=== PATIENT | female | born 1985 | race Caucasian/White ===

== ENCOUNTER 2020-08-02 17:43 | Emergency (ER) | payer OTHER ==
[~2020-08-02] VITALS: Ht 157.5 cm; Wt 72.6 kg
--- OUTSIDE RECORDS SUMMARY | ~2020-08-02 | XMS | Encounter Summary ---
Demographics + + + | Address | [address] | | | [place] [address] | + + + | Home Phone | | + + + | Preferred Language | Unknown | + + + | Marital Status | | + + + | Catholic Affiliation | Unknown | + + + | Race | White | + + + | Ethnic Group | Not or | + + + Author + + + | Author | [facility] | | | and [place] | + + + | Organization | [facility] | | | and [place] | + + + | Address | Unknown | + + + | Phone | Unavailable | + + + Support + + +---------+ + | Name | Relationship | Address | Phone | + + +---------+ + | Chin Vital | ECON | Unknown | | + + +---------+ + Care Team Providers + +------+ + | Care Life Care Planner Name | Role | Phone | + +------+ + PCP | Unavailable | + +------+ + Encounter Details +--------+ + + + + | Date | Type | Department | Care Team | Description | +--------+ + + + + | 03/25/ | Hospital | [facility] | | | | 1993 | Encounter | MED CTR EM[facility]ENCY | | | | | | [address] | | | | | | [place] | | | | | | [address] | | | | | | [phone] | | | +--------+ + + + + Social History + +-------+ +--------+------+ | Tobacco Use | Types | Packs/Day | Years | Date | | | | | Used | | + +-------+ +--------+------+ | Never Assessed | | | | | + +-------+ +--------+------+ + + + | Sex Assigned at | Date Recorded | | | | + + + | Not on file | | + + + documented as of this encounter Plan of Treatment Not on filedocumented as of this encounter Visit Diagnoses Not on filedocumented in this encounter"
--- OUTSIDE RECORDS SUMMARY | ~2020-08-02 | XMS | Encounter Summary ---
Demographics + + + | Address | [address] | | | [place] [address] | + + + | Home Phone | | + + + | Preferred Language | Unknown | + + + | Marital Status | | + + + | Latter-Day Affiliation | Unknown | + + + | Race | White | + + + | Ethnic Group | Not or | + + + Author + + + | Author | [facility] | | | and [place] | + + + | Organization | [facility] | | | and [...] Team Providers + +------+ + | Care Dish Room Worker Name | Role | Phone | + +------+ + PCP | Unavailable | + +------+ + Encounter Details +--------+ + + + + | Date | Type | Department | Care Team | Description | +--------+ + + + + | 06/27/ | Hospital | [facility] | Rocael Tang MD | | | 2006 | Encounter | MED CTR WOMENS | [address] [facility] | | | | | [facility] [address] | [place], [place] | | | | | [place], | [address] | | | | | [place] [address] | | | | | | [phone] | | | +--------+ + + + [...]
--- OUTSIDE RECORDS SUMMARY | ~2020-08-02 | XMS | Encounter Summary ---
Demographics + + + | Address | [address] | | | [place] [address] | + + + | Home Phone | | + + + | Preferred Language | Unknown | + + + | Marital Status | | + + + | Gnosticist Affiliation | Unknown | + + + | Race | White | + + + | Ethnic Group | Not or | + + + Author + + + | Author | [facility] | | | and [place] | + + + | Organization | [facility] | | | and [...] Team Providers + +------+ + | Care Centrifugal Separator Name | Role | Phone | + +------+ + PCP | Unavailable | + +------+ + Encounter Details +--------+ + + + + | Date | Type | Department | Care Team | Description | +--------+ + + + + | 06/04/ | Hospital | [facility] | Jose E Campos | | | 2010 - | Encounter | MED CTR WOMENS | [address] | | | | | [facility] [address] | [facility] | | | 06/[facility]/ | | [place], | [place] [address] | | | 2010 | | [place] [address] | [phone] | | | | | [phone] | | | +--------+ + + + [...] + + documented as of this encounter H&P Notes Abel Griffin MD - 06/04/2011 8:45 AM PDTDATE: 06/04/2011 CHIEF COMPLAINT: Labor. HISTORY: A 26-year-old, 5, para 2, EDC 06/10/2011 making her 39-1/7 weeks' gestati onal age. The patient admitted with a chief complaint of possible labor. She has had multip le visits and checke d in labor and delivery for possible labor, which have been negative. She now states the contractions are not very frequent, but they are intense. Indeed, she wa s having contractions at approximately 20 -minute intervals. No other problems during her p regnancy other than 1 urinary tract infection, and f rom the records, have a BV in fection early in the . Ultrasounds have confirmed her EDC, and she has had very go od, regular care.PAST MEDICAL HISTORY: Negative. PAST HISTORY: On 09/18/2003 she had a vaginal delivery of a viable female infant weighing 7 pounds 14 ounces. No problems. In 08/2005 she had a spontaneous early and miscarriage. In 06/2006 she had a spontaneous vaginal delivery of a 6 pound 6 ounce fe male. In 05/2009 she had a ano ther spontaneous early miscarriage. FAMILY HISTORY: Entirely negative. Parents and grandparents on both sides are alive and we ll and hav e no stated health problems. SOCIAL HISTORY: Noncontributory. She does not smoke. No alcohol. No recreational drugs. PAST SURGICAL HISTORY: Negative. LABS: Blood type was B positive. Antibody screen was negative. Pap smear normal. Rubella im mune. VDRL nonreactive. Hepatitis B surface antigen was negative. Chlamydia was negative. Quad screen was normal. Beta strep culture was negative. One-hour Glucola was 107 mg%. ALLERGIES: NONE KNOWN. PHYSICAL EXAMINATION VITAL SIGNS: Blood pressure 123/73, pulse was 91, respirations 18, temperature was 36.6 or ally. GENERAL: Well-developed, well-nourished white female in no acute distress. HEENT: Within normal limits. NECK: Supple. No masses. No thyromegaly. LUNGS: Clear to percussion and auscultation. CARDIOVASCULAR: Normal sinus rhythm. No murmurs. No gallops. BREASTS: No masses. No tenderness. ABDOMEN: Gravid. Fundal height was 38 cm. heart tones were present. There were react francoise by ext ernal monitor tracing. PELVIC: Revealed vertex presentation -1 to 0 station, 3 to 4 cm dilatation, 75% effacement with inta ct membranes. EXT NEUROLOGIC: Normal. IMPRESSION 1. A 39-1/7-WEEKS' GESTATIONAL AGE . 2. POSSIBLE EARLY LABOR. PLAN: Expectant management. DICTATED BY: Jacquie Griffin MD Obstetrics/Gynecology JOB #: [id number] EXT JOB #:[id number] EDITED: 06/04/2011 11:01 cc: Jose E Campos DO documented in this encounter Miscellaneous Notes L&D Delivery Note - Dontrell Juarez MD - 06/04/2011 8:45 AM PDTDATE: 06/04/2011 Briefly, Ms. Harmon is a 26-year-old, 5, now para 3, abortus 2 woman, who presente d at 39 we eks' gestation in active labor. She required a continuous lumbar epidural for la bor analgesia and did require Pitocin augmentation following her epidural. She progressed r apidly in labor thereafter, and after the 2nd stage, which lasted approximately 15 minutes, she delivered a vigorous 8 pound 12 ounc e little boy with Apgars of 8 and [address] perineum. There were no nuchal cords. Infant was bulb suctioned on the perineum. Shoulde rs and body followed without difficulty. The was handed to the attending nu rse, who placed the on the maternal abdomen. There was a normal 3 rd stage of labor thereafter with appropriate blood loss. Inspection of the placenta revealed a 3-ves renee umb ilical cord and normal placental morphology. Both mother and infant are doing well in the [facility] diate period. I anticipate a normal course for both. Patria plans to breast fee d and will see Dr. Campos back in the office in 6 weeks for routine post care, sooner for any problems. DICTATED BY: Dontrell Juarez MD Obstetrics/Gynecology JOB #: [id number] EXT JOB #:[id number] cc: Jose E Campos DO <Electronically Signed by Dontrell Juarez MD> 06/07/11 0821 documented in this encounter Plan of Treatment Not on filedocumented as of this encounter Procedures + +--------+ + + + | Procedure Name | Priori | Date/Time | Associated Diagnosis | Comments | | | ty | | | | + +--------+ + + + | HEMOGLOBIN AND | Routin | 06/05/2011 | | Results for this | | HEMATOCRIT | e | 6:38 AM | | procedure are in the | | | | PDT | | results section. | + +--------+ + + + documented in this encounter Results Hemoglobin and Hematocrit (06/05/2011 6:38 AM PDT) + + + + + + | Component | Value | Ref Range | Performed | Pathologist | | | | | At | Signature | + + + + + + | Hemoglobin | 11.3 (L) | 11.5 - 16.0 | [facility] | | | | | gm/dL | [facility] | | | | [facility] | | | | | [facility] - | | | | | | LABORATORY | | + + + + + + | Hematocrit | 34.5 | 34.0 - 47.0 % | [facility] | | | | | [facility] | | | | | | [facility] | | | | | | [facility] - | | | | | | LABORATORY | | + + + + + + + + | Specimen | + + | | + + + + + + + | Performing | Address | City/State/Zipcode | Phone Number | | Organization | | | | + + + + + | [facility] | [address] | [place] | [phone] | | [facility] | | [id number] | | | - LABORATORY | | | | + + + + + | [facility] | [address] | [place] | | | [facility] | | [address] | | | - LABORATORY | | | | + + + + + documented in this encounter Visit Diagnoses Not on filedocumented in this encounter"
--- OUTSIDE RECORDS SUMMARY | ~2020-08-02 | XMS | Encounter Summary ---
Demographics + + + | Address | [address] | | | [place] [address] | + + + | Home Phone | | + + + | Preferred Language | Unknown | + + + | Marital Status | | + + + | Taoism Affiliation | Unknown | + + + | Race | White | + + + | Ethnic Group | Not or | + + + Author + + + | Author | [facility] | | | and [place] | + + + | Organization | [facility] | | [...] Team Providers + +------+ + | Care Hydrogen Power Plant Engineer Name | Role | Phone | + +------+ + | No, Physician | PCP | Unavailable | + +------+ + Encounter Details +--------+ + + + + | Date | Type | Department | Care Team | Description | +--------+ + + + + | 02/07/ | [facility] | [facility] | Salo Cole | Solitary thyroid | | 2017 | Encounter | MED CTR ULTRASOUND | [address] [facility] | nodule | | | | [address] [place] | [place], [place] | | | | | [place] | [address] | | | | | [address] | [phone] | | | | | [phone] | | | | | | | [place]ie [place] | | | | | | Tj, Technologist | | | | | | [place] | | | | | | [address] [address] | | +--------+ + + + + Social History + +-------+ +--------+------+ | Tobacco Use | Types | Packs/Day | Years | Date | | | | | Used | | + +-------+ +--------+------+ | Never Smoker | | | | | + +-------+ +--------+------+ + +---+---+---+ | Smokeless Tobacco: | | | | | Never Used | | | | + +---+---+---+ + + +---------+ + | Alcohol Use | Drinks/Week | oz/Week | Comments | + + +---------+ + | Yes | 1 Standard drinks | 0.8 | | | | or equivalent | | | + + +---------+ + + + + | Sex Assigned at | Date Recorded | | | | + + + | Not on file | | + + + documented as of this encounter Medications at Time of Discharge + + + +---------+ + + | Medication | Sig | Dispensed | Refills | Start | End Date | | | | | | Date | | + + + +---------+ + + | dicyclomine | Take 1 tablet by | 20 | 0 | 01/31/20 | | | (BENTYL) 20 MG | mouth every 6 hours. | tablet | | 15 | 8 | | tablet | | | | | | + + + +---------+ + + documented as of this encounter Plan of Treatment + + +--------+ + + | Name | Type | Priori | Associated Diagnoses | Order Schedule | | | | ty | | | + + +--------+ + + | Medical Cytology | Pathology | Routin | | One Time for 1 | | | and | e | | Occurrences starting | | | Cytology | | | 02/07/2017 until | | | | | | 02/07/2017 | + + +--------+ + + documented as of this encounter Procedures + +--------+ + + + | Procedure Name | Priori | Date/Time | Associated Diagnosis | Comments | | | ty | | | | + +--------+ + + + | US GUIDED THYROID | Routin | 02/07/2017 | Solitary thyroid | Results for this | | FNA | e | 10:56 AM | nodule | procedure are in the | | | | PDT | | results section. | + +--------+ + + + | MEDICAL CYTOLOGY | Routin | 02/07/2017 | | Results for this | | | e | 12:00 AM | | procedure are in the | | | | PDT | | results section. | + +--------+ + + + documented in this encounter Results US Guided Thyroid FNA (02/07/2017 10:56 AM PDT) + + | Specimen | + + | | + + + + | Addenda | + + | Addendum by Fred Stanton MD on 02/08/2017 4:31 PM CYTOLOGIC INTERPRETATION: | | Thyroid, needle sampling: Malignant. Papillary thyroid carcinoma. Dictated and | | Signed by: Fred Stanton MD Electronically signed: 02/08/2017 4:28 PM | + + + + + | Narrative | Performed At | + + + | US GUIDED THYROID FNA 02/07/2017 10:56 AM HISTORY: LEFT THYROID | [facility] | | NODULE. COMPARISON: 01/28/2017 PROTOCOL: After explaining the | | | risks and benefits of the procedure, informed consent was obtained | | | from the patient. Risks discussed included bleeding and infection. | | | Under ultrasound guidance, the dominant left upper pole 2.5 x 1.7 x | | | 1.3 cm heterogeneous nodule with scattered areas of calcification was | | | localized. This region was cleansed and draped in the usual sterile | | | fashion. Lidocaine was used for local anesthesia. Using 25-gauge 1.5 | | | inch needles, biopsy was performed with 3 passes. The samples were | | | injected into CytoLyt solution. IMPRESSION - Successful | | | ultrasound-guided left superior pole thyroid mass biopsy. Dictated | | | and Signed by: Fred Stanton MD Electronically signed: 02/07/2017 | | | 11:35 AM | | + + + + + | Procedure Note | + + | Pavan, Rad Results In - 02/07/2017 11:39 AM PDT US GUIDED THYROID FNA 02/07/2017 10:56 | | AMHISTORY: LEFT THYROID NODULE.COMPARISON: 01/28/2017PROTOCOL:After explaining the risks | | and benefits of the procedure, informed consent wasobtained from the patient. Risks | | discussed included bleeding and infection.Under ultrasound guidance, the dominant left | | upper pole 2.5 x 1.7 x 1.3 cmheterogeneous nodule with scattered areas of calcification | | was localized. Thisregion was cleansed and draped in the usual sterile fashion. | | Lidocaine was usedfor local anesthesia. Using 25-gauge 1.5 inch needles, biopsy was | | performed with3 passes. The samples were injected into CytoLyt solution.IMPRESSION | | -Successful ultrasound-guided left superior pole thyroid mass biopsy.Dictated and Signed | | by: Fred Stanton MD Electronically signed: 02/07/2017 11:35 AM | |heterogeneous nodule with scattered areas of calcification was localized. This | |region was cleansed and draped in the usual sterile fashion. Lidocaine was used | |for local anesthesia. Using 25-gauge 1.5 inch needles, biopsy was performed with | |3 passes. The samples were injected into CytoLyt solution. | | | |IMPRESSION - | |Successful ultrasound-guided left superior pole thyroid mass biopsy. | | | |Dictated and Signed by: Fred Stanton MD | | Electronically signed: 02/07/2017 11:35 AM | + + + +---------+ + + | Performing | Address | City/State/Zipcode | Phone Number | | Organization | | | | + +---------+ + + | [facility] | | | | + +---------+ + + Medical Cytology (02/07/2017 12:00 AM PDT) + + | Specimen | + + | | + + + + + | Narrative | Performed At | + + + | ORDERING PHYSICIAN: Fred Stanton MD PATIENT NAME: SILVA | [facility] | | SHREYA ROBERSON GENDER: Roselyn : 1985 SPECIMEN(S): A | [facility] | | NEEDLE SAMPLING, THYROID GROSS DESCRIPTION: 30 ML OF CLEAR, RED | | | FLUID W/ FRAGMENTS. CLINICAL HISTORY: NO CLINICAL DATA PROVIDED | | | LABORATORY PREPARATIONS: 1 MONOLAYER, 1 CYTOLOGY CELL BLOCK | | | CYTOLOGIC INTERPRETATION: Thyroid, needle sampling: Malignant. | | | Papillary thyroid carcinoma. PATHOLOGIST COMMENTS: The results | | | were called to nurse Janett in the office of Dr. Cole on | | | 02/08/17 at 2:00 p.m. JVR:CLR:[facility] DESCRIPTION: The aspirate is | | | adequately cellular. Nuclear findings typical of papillary thyroid | | | carcinoma are identified. SPECIMEN ADEQUACY: Satisfactory for | | | Evaluation PERFORMING LABORATORY: Technical preparation was | | | performed by [facility] [id number] [facility] | | | [place] [address] and [facility] [address] [facility] | | | [place] [address]. Professional interpretation was performed | | | by [facility] - [address] | | | [place] [address] (Software Solutions Architect: Beau Ray M.D.; | | | [facility]#:[id number]).8 Diagnostician: Rufus LEW ([facility]) | | | Ferryboat Operator Helper Diagnostician: Behzad Alvarado MD | | | Pathologist Diagnostician: Beau Ray MD Pathologist | | | Electronically Signed 02/08/2017 | | + + + + +---------+ + + | Performing | Address | City/State/Zipcode | Phone Number | | Organization | | | | + +---------+ + + | [facility] | | | | | [place] | | | | + +---------+ + + documented in this encounter Visit Diagnoses + + | Diagnosis | + + | Solitary thyroid nodule Nontoxic uninodular goiter | + + documented in this encounter"
--- OUTSIDE RECORDS SUMMARY | ~2020-08-02 | XMS | Encounter Summary ---
Demographics + + + | Address | [address] | | | [place] [address] | + + + | Home Phone | | + + + | Preferred Language | Unknown | + + + | Marital Status | | + + + | Catholic Affiliation | Unknown | + + + | Race | White | + + + | Ethnic Group | Not or | + + + Author + + + | Author | [facility] | | | and [place] | + + + | Organization | [facility] | | [...] Team Providers + +------+ + | Care Stable Hand Name | Role | Phone | + +------+ + PCP | Unavailable | + +------+ + Encounter Details +--------+ + + + + | Date | Type | Department | Care Team | Description | +--------+ + + + + | 10/04/ | Hospital | [facility] | | | | 2004 | Encounter | MED CTR EMERGENCY | | | | | | CENTER [address] | | | | | | [place] | | | | | | [address] | | | | | | [phone] | | | +--------+ + + + [...]
--- OUTSIDE RECORDS SUMMARY | ~2020-08-02 | XMS | Encounter Summary ---
Demographics + + + | Address | [address] | | | [place] [address] | + + + | Home Phone | | + + + | Preferred Language | Unknown | + + + | Marital Status | | + + + | Catholic Affiliation | Unknown | + + + | Race | White | + + + | Ethnic Group | Not or | + + + Author + + + | Author | [facility] | | | and [place] | + + + | Organization | [facility] | | | and [...] Team Providers + +------+ + | Care Conveyor Line Bakery Worker Name | Role | Phone | + +------+ + PCP | Unavailable | + +------+ + Encounter Details +--------+ + + + + | Date | Type | Department | Care Team | Description | +--------+ + + + + | 11/07/ | [facility] | [facility] | Hannah Bliss | | | 2009 | Encounter | MED CTR XRAY [address] | MD Eloisa [place] | | | | | [place] | [facility], | | | | | [place] [address] | [place] [address] | | | | | [phone] | [phone] | | | | | | | | +--------+ + + + [...]
--- OUTSIDE RECORDS SUMMARY | ~2020-08-02 | XMS | Encounter Summary ---
Demographics + + + | Address | [address] | | | [place] [address] | + + + | Home Phone | | + + + | Preferred Language | Unknown | + + + | Marital Status | | + + + | Anabaptist Affiliation | Unknown | + + + | Race | White | + + + | Ethnic Group | Not or | + + + Author + + + | Author | [facility] | | | and [place] | + + + | Organization | [facility] | | | and [place] | + + + | Address | Unknown | + + + | Phone | Unavailable | + + + Support + + +---------+ + | Name | Relationship | Address | Phone | + + +---------+ + | Chin Amanuel | ECON | Unknown | | + + +---------+ + Care Team Providers + +------+ + | Care Textile Chemist Name | Role | Phone | + +------+ + PCP | Unavailable | + +------+ + Encounter Details +--------+ + + + + | Date | Type | Department | Care Team | Description | +--------+ + + + + | 12/01/ | Hospital | [facility] | Taj, | | | 2005 | Encounter | MED CTR EMERGENCY | Rocael Roman MD [address] | | | | | CENTER [address] | [address] [place] | | | | | [place] | [place] [address] | | | | | [address] | [phone] | | | | | [phone] | | | +--------+ + + + [...]
--- OUTSIDE RECORDS SUMMARY | ~2020-08-02 | XMS | Encounter Summary ---
Demographics + + + | Address | [address] | | | [place] [address] | + + + | Home Phone | | + + + | Preferred Language | Unknown | + + + | Marital Status | | + + + | Sabianism Affiliation | Unknown | + + + | Race | White | + + + | Ethnic Group | Not or | + + + Author + + + | Author | [facility] | | | and [place] | + + + | Organization | [facility] | | [...] Team Providers + +------+ + | Care Motor Equipment Commanding Officer Name | Role | Phone | + +------+ + PCP | Unavailable | + +------+ + Encounter Details +--------+ + + + + | Date | Type | Department | Care Team | Description | +--------+ + + + + | 07/28/ | Hospital | [facility] | | | | 2004 | Encounter | MED CTR EMERGENCY | | | | | | [address] | | | | | | [place] | | | | | | [address] | | | | | | [phone] | | | +--------+ + + + [...]
--- OUTSIDE RECORDS SUMMARY | ~2020-08-02 | XMS | Encounter Summary ---
Demographics + + + | Address | [address] | | | [place] [address] | + + + | Home Phone | | + + + | Preferred Language | Unknown | + + + | Marital Status | | + + + | Religion Affiliation | Unknown | + + + | Race | White | + + + | Ethnic Group | Not or | + + + Author + + + | Author | [facility] | | | and [place] | + + + | Organization | [facility] | | | [...] Team Providers + +------+ + | Care Food Or Baggage Handling Rampman Name | Role | Phone | + +------+ + PCP | Unavailable | + +------+ + Encounter Details +--------+ + + + + | Date | Type | Department | Care Team | Description | +--------+ + + + + | 03/27/ | Hospital | [facility] | Jose E Campos | | | 2010 | Encounter | MED CTR WOMENS | [address] | | | | | [facility] [address] | [facility] | | | | | [place], | [place] [address] | | | | | [place] [address] | [phone] | | | | | [phone] | | | +--------+ + + + [...]
--- OUTSIDE RECORDS SUMMARY | ~2020-08-02 | XMS | Encounter Summary ---
Demographics + + + | Address | [address] | | | [place] [address] | + + + | Home Phone | | + + + | Preferred Language | Unknown | + + + | Marital Status | | + + + | Tenriism Affiliation | Unknown | + + + | Race | White | + + + | Ethnic Group | Not or | + + + Author + + + | Author | [facility] | | | and [place] | + + + | Organization | [facility] | | | [...] Providers + +------+ + | Care Dish Stacker Name | Role | Phone | + +------+ + | Juju Rdz NP | PCP | | + +------+ + Reason for Visit + + + | Reason | Comments | + + + | New Patient | varicose veins | + + + Evaluate & Treat (Routine) +--------+--------+ + + + + | Status | Reason | Specialty | Diagnoses / | Referred By | Referred To | | | | | Procedures | Contact | Contact | +--------+--------+ + + + + | Closed | | Surgery / | Diagnoses | Self, | Field, | | | | General | varicose | Referral, | William Roland, | | | | Surgery | veins | , | , FACS [address] | | | | | Procedures | | [address] | | | | | CONSULT | | [place], | | | | | | | [place] [address] | | | | | | | Phone: | | | | | | | [phone] | | | | | | | Fax: | | | | | | | [phone] | +--------+--------+ + + + + Encounter Details +--------+---------+ + + + | Date | Type | Department | Care Team | Description | +--------+---------+ + + + | 04/13/ | Office | [facility] | William Guevara | Varicose veins of | | 2014 | Visit | SURGERY [address] | I, MD, FACS [address] | lower extremities | | | | [address] [facility] [facility], [place] | [address] [facility] | with other | | | | [address] | [place] [address] | complications | | | | [phone] | [phone] | (Primary Dx) | | | | | | | +--------+---------+ + + + Social History + +-------+ [...] + + documented as of this encounter Last Filed Vital Signs + + + + + | Vital Sign | Reading | Time Taken | Comments | + + + + + | Blood Pressure | 100/60 | 04/13/2014 1:56 PM | | | | | PDT | | + + + + + | Pulse | 84 | 04/13/2014 1:56 PM | | | | | PDT | | + + + + + | Temperature | 36.9 C (98.5 F) | 04/13/2014 1:56 PM | | | | | PDT | | + + + + + | Respiratory Rate | 16 | 04/13/2014 1:56 PM | | | | | PDT | | + + + + + | Oxygen Saturation | 99% | 04/13/2014 1:56 PM | | | | | PDT | | + + + + + | Inhaled Oxygen | - | - | | | Concentration | | | | + + + + + | Weight | 59.4 kg (130 lb 14.4 | 04/13/2014 1:56 PM | | | | oz) | PDT | | + + + + + | Height | 160 cm (5' 3") | 04/13/2014 1:56 PM | | | | | PDT | | + + + + + | Body Mass Index | 23.19 | 04/13/2014 1:56 PM | | | | | PDT | | + + + + + documented in this encounter Progress William Davenport MD - 04/13/2014 2:02 PM PDT Patient Identification: Patria Sommer 1985 Is a 29 y.o. female, a patient of [facility]. Chief Complaint: Chief Complaint Patient presents with New Patient varicose veins HISTORY of PRESENT ILLNESS Patients Preliminary Questionaire: How do your varicose veins bother you? Eg- pain, heaviness, unsightly, bleeding, clots. The appearance of them. Which leg is the worst? Both are about the same--worse in high legs. When did you start getting varicose veins ? My first , had 3 pregnancies. Not planning more. Then had tubal ligation. Have you tried wearing compression or support stockings? No Have you had previous treatment for varicosities? Eg injection sclerotherapy, laser or r adiofrequency ablation or surgery ? None. Physician notes: No discomfort. No prior treatment. Runs in the family. No big bulging veins. Walks about 3 miles daily. Gained about 10 lbs in last year. DATA/RECENT IMAGING Juju Rdz's notes were reviewed in clinic today. PAST MEDICAL HISTORY She has a past medical history of Varicose veins (2002). Past Surgical History She Past Surgical History Procedure Date Tubal ligation 2010 Ectopic surgery 2011 No Known Allergies Medications: No outpatient encounter prescriptions on file as of 04/13/2014. Family History: Her family history includes Other (See Comment) in her maternal grandmother and mother. Social History: She reports that she has never smoked. She has never used smokeless tobacco. She reports th at she drinks about .5 ounces of alcohol per week. She reports that she does not use illicit drugs. REVIEW OF SYSTEMS General: [x]Weight gain (over 10 lbs) []Fever/chills [x]Night sweats Hematologic: []Bleeding/brusing tendencies []Blood transfusion []Anemia Heent: []Vision loss []Hearing loss []Sinus problems/nose bleeds []Hoarseness Respiratory: []Wheezing [x]Shortness of breath []Cough []Spitting up blood []On oxygen []Use CPAP machine Cardiac: []Chest pain [x]Palpitations/heart racing []Swelling of ankles/hands [x]Unusual shortness of breath []Difficulty sleeping fla t Gastrointestinal: []Nausea/vomiting []Difficulty swallowing []Heartburn []Loss of appetite []Abdominal pain []Stomach Ulcers []Diarrhea []Constipation []Maximino k or bloody stools Vascular: []Rizzo/TIAs []Fainting []Difficulty with speech []Leg cramps []Pain in feet/legs at rest []Foot ulcers/so res [x]Varicose veins []Phlebitis/blood clots Musculoskeletal: []Joint stiffness/swelling []Join pain []Back pain []Arthritis []Gout Urologic: []Blood in urine []Frequent urination at night []Burning/painful urination []Kidney stones []Difficulty urination []Sexual difficulties Neuro/Psychiatric: [x]Headaches []Seizures []Depression [x]Anxiety attacks [x]Memory loss or confusion PHYSICAL EXAM BP 100/60 | Pulse 84 | Temp 36.9 C (98.5 F) (Temporal) | Resp 16 | Ht 1.6 m (5' 3") | W t 59.376 kg (130 lb 14.4 oz) | BMI 23.19 kg/m2 | SpO2 99% | LMP 04/10/2014 | ? Yes General Appearance: Alert, cooperative, no distress, appears stated age Head: Normocephalic, without obvious abnormality, atraumatic Eyes: PERRL, conjunctiva/corneas clear, EOM's intact Ears: Hearing adequate Nose: Nares normal Throat: Lips, mucosa, and tongue normal; teeth and gums normal Neck: Supple, symmetrical, no adenopathy. Lungs: Breath sounds are equal bilaterally, no wheezes or crackles Chest Wall/Back: No tenderness or deformity. No CVA tenderness Heart: Regular rate and rhythm, no murmur. Abdomen: Soft, non-tender, no pulsatile nor other masses. Skin: Hemosiderin none Ulceration none Edema: none Palpable Pulses*: Femoral Popliteal Dorsalis pedis Post tibial LEFT 2 2 RIGHT 2 2 Neurologic: Cranial nerves II-XII grossly intact, Gait normal ULTRASOUND none done, since no bulging varicosities. Assessment Patria was seen today for new patient. Diagnoses and associated orders for this visit: Varicose veins of lower extremities with other complications Plan 1)Recommend injection sclerotherapy. Probably will be private pay. Probably will do in fall. Return to clinic in pending patients request.. William Guevara MD, FACS Vascular and General Surgery CC: Juju Rdz documented in this encounter Miscellaneous Notes Miscellaneous - ONBASE SCAN WAPR - 04/13/2014 12:00 AM PDT iscellaneous - ONBASE SCAN WAMT - 04/13/2014 12:00 AM PDTEle ctronically signed by Aileen Marr at 04/22/2014 10:59 AM PDTMiscellaneous - ONBASE SCAN GAM T - 04/13/2014 12:00 AM PDT d ocumented in this encounter Plan of Treatment Not on filedocumented as of this encounter Visit Diagnoses + + | Diagnosis | + + | Varicose veins of lower extremities with other complications - Primary | + + documented in this encounter
--- OUTSIDE RECORDS SUMMARY | ~2020-08-02 | XMS | Encounter Summary ---
Demographics + + + | Address | [address] | | | [place] [address] | + + + | Home Phone | | + + + | Preferred Language | Unknown | + + + | Marital Status | | + + + | Yazidi Affiliation | Unknown | + + + | Race | White | + + + | Ethnic Group | Not or | + + + Author + + + | Author | [facility] | | | and [place] | + + + | Organization | [facility] | [...] Team Providers + +------+ + | Care Chemical Cell Changer Name | Role | Phone | + +------+ + PCP | Unavailable | + +------+ + Encounter Details +--------+ + + + + | Date | Type | Department | Care Team | Description | +--------+ + + + + | 03/15/ | Hospital | [facility] | Raphael Camejo | | | 2009 - | Encounter | MED CTR EMERGENCY | [address] | | | | | CENTER [address] | [place] [facility] | | | 03/16/ | | [place] | [place] [address] | | | 2009 | | [address] | [phone] | | | | | [phone] | | | +--------+ + + + [...]
--- OUTSIDE RECORDS SUMMARY | ~2020-08-02 | XMS | Encounter Summary ---
Demographics + + + | Address | [address] | | | [place] [address] | + + + | Home Phone | | + + + | Preferred Language | Unknown | + + + | Marital Status | | + + + | Gnosticism Affiliation | Unknown | + + + | Race | White | + + + | Ethnic Group | Not or | + + + Author + + + | Author | [facility] | | | and [place] | + + + | Organization | [facility] | | | [...] Team Providers + +------+ + | Care Auto Damage Adjuster Name | Role | Phone | + +------+ + PCP | Unavailable | + +------+ + Encounter Details +--------+ + + + + | Date | Type | Department | Care Team | Description | +--------+ + + + + | 02/26/ | Hospital | [facility] | | | | 1991 | Encounter | MED CTR EMERGENCY | | | | | | CENTER [address] | | | | | | [place] | | | | | | [address] | | | | | | [phone] | | | +--------+ + + + [...]
--- OUTSIDE RECORDS SUMMARY | ~2020-08-02 | XMS | Encounter Summary ---
Demographics + + + | Address | [address] | | | [place] [address] | + + + | Home Phone | | + + + | Preferred Language | Unknown | + + + | Marital Status | | + + + | Pentecostal Affiliation | Unknown | + + + | Race | White | + + + | Ethnic Group | Not or | + + + Author + + + | Author | [facility] | | | and [place] | + + + | Organization | [facility] | | | and [...] Team Providers + +------+ + | Care Cw Operator Name | Role | Phone | + +------+ + PCP | Unavailable | + +------+ + Encounter Details +--------+ + + + + | Date | Type | Department | Care Team | Description | +--------+ + + + + | 11/05/ | [facility] | [facility] | Hannah Bliss | | | 2009 | Encounter | MED CTR EMERGENCY | [address] | | | | | CENTER [address] | [facility], | | | | | [place] | [place] [address] | | | | | [address] | [phone] | | | | | [phone] | | | +--------+ + + + [...]
--- OUTSIDE RECORDS SUMMARY | ~2020-08-02 | XMS | Encounter Summary ---
Demographics + + + | Address | [address] | | | [place] [address] | + + + | Home Phone | | + + + | Preferred Language | Unknown | + + + | Marital Status | | + + + | Hoahaoism Affiliation | Unknown | + + + [...] Team Providers + +------+ + | Care Cracking Machine Operator Name | Role | Phone | + +------+ + PCP | Unavailable | + +------+ + Encounter Details +--------+ + + + + | Date | Type | Department | Care Team | Description | +--------+ + + + + | 08/18/ | [facility] | [facility] | Jose E Campos | | | 2011 | Encounter | MED CTR MP INTRA OP | [address] | | | | | [address] | [facility] | | | | | [place] | [place] [address] | | | | | [address] | [phone] | | | | | [phone] | | | +--------+ + + + [...] + + documented as of this encounter Miscellaneous Notes Op Note - Jose E Campos - 08/18/2012 5:46 [place] [address] Patient Name: SHREYA CAMILO Provider: Jose E Campos DO Unit #: [id number] Location : [facility] : 1985 DATE: 08/18/2012 PREOPERATIVE DIAGNOSIS: Left ectopic . POSTOPERATIVE DIAGNOSES: LEFT ECTOPIC . PROCEDURE PERFORMED: Laparoscopic left salpingectomy and removal of the distal portion of right fallopian tube. PRIMARY SURGEON: Jose E Campos DO ANESTHESIA: General. ANESTHESIOLOGIST: Navin Mast MD INDICATIONS FOR PROCEDURE: This is a 27-year-old who had undergone laparoscopic sterilizat ion back in 06/2011, who presented with a complaint of pelvic pain, absence of menses, posi tive test, and ultrasound demonstrating a mass in the left adnexa. DESCRIPTION OF THE OPERATION: After informed consent was obtained, the patient was brought to the operating room. She underwent adequate general anesthetic. She was placed in the do rsal lithotomy position. She was prepped and draped in the usual sterile fashion. A Valtche v uterine manipulator was placed. The umbilicus was infiltrated with 5 mL of 0.5% Marcaine with epinephrine. The Optiview trocar was passed through the umbilical incision, entering t he peritoneal cavity, which was insufflated with CO2. Inspection of the pelvis revealed a l arge amount of blood in the peritoneal structures as well as in the cul-de-sac. Second and third trocar, 5 mm disposables, were placed in the right and left lower quadrants under dir ect visualization after infiltration of the skin with 0.5% Marcaine with epinephrine. Atten tion was then turned to inspection of the right fallopian tube. Distal portion of the right fallopian tube was still present and was normal in appearance. The left fallopian tube, the distal portion was still present and a large ectopic was noted. This was partial ly ruptured. Using a 5 mm LigaSure distal salpingectomy on the patient's left, including th e ectopic was excised without difficulty. We then excised using our LigaSure rashad ce, the distal portion of the right fallopian tube. The specimens were dropped into the pos terior cul-de-sac. An EndoCatch was passed through the umbilicus and the specimens were katelynn jackelyn within the EndoCatch and removed through the umbilicus without difficulty. Copious irri gation of the peritoneal cavity was then performed with return of clear fluid. Pedicle site s were inspected and were noted to be hemostatic. At this time, all laparoscopic instrument s were removed. The abdomen was deflated. The umbilical incision was closed with 4-0 Monocr yl. Our lateral incisions were closed with Steri-Strips, and a sterile bandage was applied. The patient was awakened from her anesthetic, placed on the gurney and brought to the [facility] very room in good condition. ESTIMATED BLOOD LOSS: 10 mL. FLUIDS: 900 mL. URINE OUTPUT: 100 mL. COMPLICATIONS: None. DRAINS: None. DISPOSITION: The patient to recovery in good condition. DICTATED BY: Jose E Campos DO Gynecology JOB #: [id number] EXT JOB #:[id number] <<Signature on File>> Jose E Campos DO08/20/12 1613 < documented in this encounter Plan of Treatment Not on filedocumented as of this encounter Visit Diagnoses Not on filedocumented in this encounter"
--- OUTSIDE RECORDS SUMMARY | ~2020-08-02 | XMS | Encounter Summary ---
Demographics + + + | Address | [address] | | | [place] [address] | + + + | Home Phone | | + + + | Preferred Language | Unknown | + + + | Marital Status | | + + + | Uatsdin Affiliation | Unknown | + + + | Race | White | + + + | Ethnic Group | Not or | + + + Author + + + | Author | [facility] | | | and [place] | + + + | Organization | [facility] | | [...] Team Providers + +------+ + | Care Dance Hall Host/Hostess Name | Role | Phone | + +------+ + | Juju Rdz NP | PCP | | + +------+ + Reason for Visit + + + | Reason | Comments | + + + | Abdominal Pain | | + + + Encounter Details +--------+ + + + + | Date | Type | Department | Care Team | Description | +--------+ + + + + | 01/29/ | Emergency | [facility] | Salo Beaver, | Abdominal pain | | 2015 - | | [facility] | MD [address] | (Primary Dx) | | | | CENTER [address] | [facility] [place] | | | 01/30/ | | [place], [place] | [place] [address] | | | 2014 | | [address] | [phone] | | | | | [phone] | | | +--------+ + + + [...] + + + | Blood Pressure | 103/59 | 01/30/2015 1:07 AM | | | | | PST | | + + + + + | Pulse | 57 | 01/30/2015 1:07 AM | | | | | PST | | + + + + + | Temperature | 36.9 C (98.4 F) | 01/29/2015 11:36 PM | | | | | PST | | + + + + + | Respiratory Rate | 16 | 01/30/2015 1:07 AM | | | | | PST | | + + + + + | Oxygen Saturation | 98% | 01/30/2015 1:07 AM | | | | | PST | | + + + + + | Inhaled Oxygen | - | - | | | Concentration | | | | + + + + + | Weight | 58.1 kg (128 lb) | 01/29/2015 11:36 PM | | | | | PST | | + + + + + | Height | 160 cm (5' 3") | 01/29/2015 11:36 PM | | | | | PST | | + + + + + | Body Mass Index | 22.67 | 01/29/2015 11:36 PM | | | | | PST | | + + + + + documented in this encounter Discharge Instructions Instructions Erica Roa RN - 01/30/2015Take the medication as prescribed Drink plenty of water Follow-up with your primary care provider as scheduled on Saturday Return immediately for increasing pain or fever. AttachmentsThe following attachments cannot be sent through Care Everywhere.ABDOMINAL PAIN, ADULT (URUGUAYAN)documented in this encounter Medications at Time of Discharge [...] + + + +---------+ + + | polyethylene | Take 1 diluted | 500 g | 0 | 01/31/20 | | | glycol (MIRALAX) | capful by mouth | | | 15 | 5 | | powder | Daily for 14 days. | | | | | | | Mix 17grams into 4-8 | | | | | | | oz of juice or | | | | | | | water and take by | | | | | | | mouth once daily as | | | | | | | needed for | | | | | | | constipation | | | | | + + + +---------+ + + documented as of this encounter ED Notes Salo Beaver MD - 01/29/2015 11:58 PM PSTFormatting of this note might be different f rom the original. [facility] Patria Sommer Emergency Department Encounter Note [address] [place] [id number] PCP:Juju Rdz [phone] CHIEF COMPLAINT Chief Complaint Patient presents with Abdominal Pain HPI Patria Sommer is a 29 y.o. female who presents to the emergency department with abdomi nal pain. This patient has had mid abdominal pain for one week. The pain is worse when she eats or takes a deep breath. The pain goes through to her back. She states it feels like she was kicking her in the abdomen. She's had nausea and vomiting. No diarrhea or constipa tion. No urinary tract infection symptoms but she had blood in her urine yesterday briefly. She states that she is not . She had a tubal ligation 3 years ago. No other abdo jose de jesus surgeries. She denies any injuries. No prior similar episodes. She is providing her own history. She is coming by her who is assisting with the history. No fever. N o recent travel. She is not currently on her period. PAST MEDICAL HISTORY Past Medical History Diagnosis Date Varicose veins 2002 SURGICAL HISTORY Past Surgical History Procedure Laterality Date Tubal ligation 2010 Ectopic surgery 2012 CURRENT MEDICATIONS Discharge Medication List as of 01/30/2015 3:41 ALLERGIES No Known Allergies FAMILY HISTORY Family History Problem Relation Age of Onset Other (See Comment) Mother varicose veins Other (See Comment) Maternal Grandmother varicose veins SOCIAL HISTORY History Social History Marital Status: Spouse Name: N/A Number of Children: N/A Years of Education: N/A Social History Main Topics Smoking status: Never Smoker Smokeless tobacco: Never Used Alcohol Use: 0.5 oz/week 1 drink(s) per week Drug Use: No Sexual Activity: None Other Topics Concern None Social History Narrative REVIEW OF SYSTEMS All systems reviewed and found negative except what is in the HPI PHYSICAL EXAM VITAL SIGNS: BP 117/76 | Pulse 79 | Temp(Src) 36.9 C (98.4 F) (Oral) | Resp 16 | H t 1.6 m (5' 3") | Wt 58.06 kg (128 lb) | BMI 22.68 kg/m2 | SpO2 100% | LMP 01/15/2015 | ? No Constitutional: Well developed, Well nourished, No acute distress, Non-toxic appearance. HENT: Normocephalic, Atraumatic, Bilateral external ears normal, Mucous membranes are mois t, Nasal mucosa is normal. Eyes: PERRL, EOMI, Conjunctiva normal, No discharge. Palpebral conjunctiva are pink. Neck: Normal range of motion, No tenderness, Supple, No stridor. Respiratory: Clear to auscultation bilaterally, No respiratory distress, No wheezing Cardiovascular: Normal heart rate, Normal rhythm, No murmurs appreciated. GI: Soft, mild to moderate periumbilical and suprapubic tenderness, No peritoneal signs, N o masses Extremities: Warm and well perfused, no edema, no joint swelling or deformity. Good ROM. Back: No CVAT, No tenderness of the thoracic or lumbar spine. Skin: Warm, Dry, No erythema, No induration, No rash. Neurologic: Alert & oriented x 3, No focal motor or sensory deficits. Speech is clear. G ait is normal. RADIOLOGY Renal CT scan:IMPRESSION: 1. No renal, ureteral or bladder calculus. No hydronephrosis or hydroureter. 2. Large amount of retained feces noted in the right colon and transverse colon suggesting constipation. 3. No other definite acute finding to explain patient's abdominal pain. ED COURSE & MEDICAL DECISION MAKING Pertinent Labs & Imaging studies reviewed. (See chart for details) The patient was seen and examined shortly after arriving in the emergency department. Hist ory and physical were obtained, vital signs were noted. Abdominal pain of unclear etiology. She does have a significant amount of retained stool in the right side colon. I will put her on a stool softener and laxative. I will prescribe some Bentyl. She has an appointment with her primary care provider on Saturday. She needs to increase her fluid intake. She cathi uld return if her pain worsens or if she notes fever. FINAL IMPRESSION 1. Abdominal pain PLAN Follow-up Information Follow up with Juju Rdz NP In 2 days. Specialty: Family Nurse Practitioner Why: as scheduled Contact information: [address] [place] [address] Discharge Medication List as of 01/30/2015 3:41 START taking these medications Details dicyclomine (BENTYL) 20 MG tablet Take 1 tablet by mouth every 6 hours.Disp-20 tablet, R-0, Print polyethylene glycol (MIRALAX) powder Take 1 diluted capful by mouth Daily for 14 days. Mix 17grams into 4-8 oz of juice or water and take by mouth once daily as needed for constipatio nDisp-500 g, R-0, Print Salo Beaver MD 01/30/15 0650 docume nted in this encounter Miscellaneous Notes ED Triage Notes - Erica Roa, RN - 01/29/2015 11:35 PM PSTPatient reports 7/10 l ower abdominal pain x 1 week that radiates to both sides of her back and both shoulders, inc reasing when she takes a deep breath. Pt states pain always occurs after eating and that it "feels like someone is kicking me in the gut". Pt reports nausea, vomiting tonight, no conrad rrhea. Last BM today. No urinary complaints. Pt reports no possibility of . Shelby ctronically signed by Erica Roa RN at 01/29/2015 11:36 PM PSTdocumented in this encounter Plan of Treatment Not on filedocumented as of this encounter Procedures + +--------+ + + + | Procedure Name | Priori | Date/Time | Associated Diagnosis | Comments | | | ty | | | | + +--------+ + + + | CT RENAL STONE WO | STAT | 01/30/2015 | | Results for this | | CONTRAST | | 12:55 AM | | procedure are in the | | | | PST | | results section. | + +--------+ + + + | D-DIMER | STAT | 01/30/2015 | | Results for this | | | | 12:20 AM | | procedure are in the | | | | PST | | results section. | + +--------+ + + + | CBC WITH | STAT | 01/30/2015 | | Results for this | | DIFFERENTIAL | | 12:20 AM | | procedure are in the | | | | PST | | results section. | + +--------+ + + + | LIPASE | STAT | 01/30/2015 | | Results for this | | | | 12:20 AM | | procedure are in the | | | | PST | | results section. | + +--------+ + + + | COMPREHENSIVE | STAT | 01/30/2015 | | Results for this | | METABOLIC PANEL | | 12:20 AM | | procedure are in the | | | | PST | | results section. | + +--------+ + + + | URINALYSIS WITH | STAT | 01/29/2015 | | Results for this | | MICROSCOPIC WITH | | 11:55 PM | | procedure are in the | | CULTURE IF INDICATED | | PST | | results section. | + +--------+ + + + | CULTURE, URINE | Routin | 01/29/2015 | | Results for this | | | e | 11:55 PM | | procedure are in the | | | | PST | | results section. | + +--------+ + + + | POCT URINALYSIS, | STAT | 01/29/2015 | | Results for this | | AUTO WITH CONF | | 11:50 PM | | procedure are in the | | | | PST | | results section. | + +--------+ + + + | POCT TEST, | STAT | 01/29/2015 | | Results for this | | URINE, QUAL | | 11:50 PM | | procedure are in the | | | | PST | | results section. | + +--------+ + + + documented in this encounter Results CT Renal Stone Wo Contrast (01/30/2015 12:55 AM PST) + + | Specimen | + + | | + + + + + | Narrative | Performed At | + + + | EXAM: CT RENAL STONE WO CONTRAST dated 01/30/2015 12:39 AM | [facility] | | HISTORY:ABDOMINAL PAIN. Hematuria. Comparison: None. | | | TECHNIQUE: Imaging is performed from the mid liver through the pubic | | | symphysis without contrast. DOSE: DLP 147.57 mGy-cm FINDINGS: | | | LUNG BASES: The lung bases are clear. There is no visible | | | pleural effusion or pneumothorax. There is no significant | | | pericardial thickening. LIVER: The unenhanced liver is | | | unremarkable. GALLBLADDER: The gallbladder is not distended. | | | There are no calcified cholelithiasis. No visible biliary ductal | | | dilatation. SPLEEN: The unenhanced spleen is unremarkable. | | | PANCREAS: The unenhanced pancreas is grossly unremarkable. | | | ADRENALS: No adrenal enlargement. No adrenal masses. KIDNEYS: | | | Symmetric attenuation of the kidneys. No obstructive uropathy. | | | There is no nephrolithiasis. No perinephric stranding. BOWEL: | | | The gastrointestinal tract is unremarkable. There is no evidence | | | for gastrointestinal tract obstruction. There is no evidence for | | | appendicitis. There is no significant diverticular disease. | | | Moderate retained stool. VASCULATURE AND LYMPH NODES: No | | | aneurysmal dilatation of the abdominal aorta. Lymphadenopathy is | | | difficult to exclude without contrast and given the minimal | | | intra-abdominal fat. None is confidently identified. BLADDER: | | | The bladder is decompressed and not well evaluated. UTERUS AND | | | ADNEXA:The uterus and adnexa are grossly unremarkable. BONES: | | | There are no acute osseous abnormalities. There are no lytic or | | | blastic bone lesions. OTHER: There is no free fluid. There is | | | no free air. IMPRESSION - Negative for acute abdominal or | | | pelvic process. Specifically, no obstructive uropathy or | | | urolithiasis. The preliminary report is provided by Dr. Wing on | | | 01/30/2015 at 3:27:00 AM. Dictated and Signed by: Jose E Haywood, | | | MD Electronically signed: 01/30/2015 9:49 AM | | + + + + + | Procedure Note | + + | Pavan, Rad Results In - 01/30/2015 9:52 AM PDT EXAM: CT RENAL STONE WO CONTRAST dated | | 01/30/2015 12:39 AMHISTORY:ABDOMINAL PAIN. Hematuria. Comparison: None.TECHNIQUE: Imaging | | is performed from the mid liver through the pubic symphysiswithout contrast.DOSE: DLP | | 147.57 mGy-cmFINDINGS: LUNG BASES: The lung bases are clear. There is no visible | | pleural effusion orpneumothorax. There is no significant pericardial thickening.LIVER: | | The unenhanced liver is unremarkable.GALLBLADDER: The gallbladder is not distended. | | There are no calcifiedcholelithiasis. No visible biliary ductal dilatation.SPLEEN: The | | unenhanced spleen is unremarkable.PANCREAS: The unenhanced pancreas is grossly | | unremarkable.ADRENALS: No adrenal enlargement. No adrenal masses.KIDNEYS: Symmetric | | attenuation of the kidneys. No obstructive uropathy. Thereis no nephrolithiasis. No | | perinephric stranding.BOWEL: The gastrointestinal tract is unremarkable. There is no | | evidence forgastrointestinal tract obstruction. There is no evidence for appendicitis. | | There is no significant diverticular disease. Moderate retained stool.VASCULATURE AND | | LYMPH NODES: No aneurysmal dilatation of the abdominal aorta. Lymphadenopathy is | | difficult to exclude without contrast and given the minimalintra-abdominal fat. None is | | confidently identified.BLADDER: The bladder is decompressed and not well | | evaluated.UTERUS AND ADNEXA:The uterus and adnexa are grossly unremarkable.BONES: There | | are no acute osseous abnormalities. There are no lytic or blasticbone lesions.OTHER: | | There is no free fluid. There is no free air.IMPRESSION - Negative for acute abdominal | | or pelvic process. Specifically, no obstructiveuropathy or urolithiasis.The preliminary | | report is provided by Dr. Wing on 01/30/2015 at 3:27:00 AM.Dictated and Signed by: Jose E | | T MD Yobany Electronically signed: 01/30/2015 9:49 AM | | | |PANCREAS: The unenhanced pancreas is grossly unremarkable. | | | |ADRENALS: No adrenal enlargement. No adrenal masses. | | | |KIDNEYS: Symmetric attenuation of the kidneys. No obstructive uropathy. There | |is no nephrolithiasis. No perinephric stranding. | | | |BOWEL: The gastrointestinal tract is unremarkable. There is no evidence for | |gastrointestinal tract obstruction. There is no evidence for appendicitis. | |There is no significant diverticular disease. Moderate retained stool. | | | |VASCULATURE AND LYMPH NODES: No aneurysmal dilatation of the abdominal aorta. | |Lymphadenopathy is difficult to exclude without contrast and given the minimal | |intra-abdominal fat. None is confidently identified. | | | |BLADDER: The bladder is decompressed and not well evaluated. | | | |UTERUS AND ADNEXA:The uterus and adnexa are grossly unremarkable. | | | |BONES: There are no acute osseous abnormalities. There are no lytic or blastic | |bone lesions. | | | |OTHER: There is no free fluid. There is no free air. | | | |IMPRESSION - | | | |Negative for acute abdominal or pelvic process. Specifically, no obstructive | |uropathy or urolithiasis. | | | |The preliminary report is provided by Dr. Wing on 01/30/2015 at 3:27:00 AM. | | | |Dictated and Signed by: Jose E Haywood MD | | Electronically signed: 01/30/2015 9:49 AM | + + + +---------+ + + | Performing | Address | City/State/Un[facility] Hospitalcode | Phone Number | | Organization | | | | + +---------+ + + | [facility] | | | | + +---------+ + + D-Dimer (01/30/2015 12:20 AM PST) + + + + + + | Component | Value | Ref Range | Performed | Pathologist | | | | | At | Signature | + + + + + + | D-Dimer | 0.27Comment: This | <=0.50 ug/ml | [facility] | | | Quantitativ | quantitative D-Dimer | | [facility] | | | e | assay has been evaluated | | MEDICAL | | | | for screening for | | CENTER - | | | | venous thrombotic | | LABORATORY | | | | disease, and may be | | | | | | useful in ruling out, | | | | | | but not ruling in | | | | | | disease. Values less | | | | | | than 0.50 ug/mL FEU | | | | | | (Fibrinogen Equivalent | | | | | | Units) have a negative | | | | | | predictive value of | | | | | | approximately 95% for | | | | | | ruling out large | | | | | | pulmonary emboli or | | | | | | proximal deep vein | | | | | | thrombosis. Distal DVT | | | | | | are not excluded. An | | | | | | elevated D-dimer can be | | | | | | present in patients with | | | | | | liver disease, | | | | | | , eclampsia, | | | | | | heart disease and some | | | | | | cancers among other | | | | | | conditions. The presence | | | | | | of rheumatoid factor at | | | | | | a level >50 IU/mL may | | | | | | falsely elevate the | | | | | | determined D-dimer | | | | | | levels. | | | | + + + + + + + + | Specimen | + + | Blood | + + + + + + + | Performing | Address | City/State/Unm Hospitalcode | Phone Number | | Organization | | | | + + + + + | [facility] | [address] | [place] | [phone] | | [facility] | | [address] | | | - LABORATORY | | | | + + + + + | [facility] | [address] | [place] | | | [facility] | | [address], [place] | | | - LABORATORY | | | | + + + + + Lipase (01/30/2015 12:20 AM PST) + +-------+ + + + | Component | Value | Ref Range | Performed | Pathologist | | | | | At | Signature | + +-------+ + + + | Lipase | 33 | 0 - 60 U/L | [facility] | | | | | | [facility] | | | | | | MEDICAL | | | | | | CENTER - | | | | | | LABORATORY | | + +-------+ + + + + + | Specimen | + + | Blood | + + + + + + + | Performing | Address | City/State/Zipcode | Phone Number | | Organization | | | | + + + + + | [facility] | [address] | [place] | [phone] | | [facility] | | [address] | | | - LABORATORY | | | | + + + + + | [facility] | [address] | [place], [place] | | | [facility] | | [address] | | | - LABORATORY | | | | + + + + + Comprehensive Metabolic Panel (01/30/2015 12:20 AM PST) + + + + + + | Component | Value | Ref Range | Performed | Pathologist | | | | | At | Signature | + + + + + + | Na | 141 | 136 - 149 | [facility] | | | | | mmol/L | [facility] | | | | | | MEDICAL | | | | | | CENTER - | | | | | | LABORATORY | | + + + + + + | K | 3.5 | 3.5 - 5.1 | [facility] | | | | | mmol/L | [facility] | | | | | | MEDICAL | | | | | | CENTER - | | | | | | LABORATORY | | + + + + + + | Cl | 109 | 98 - 109 mmol/L | [facility] | | | | | | [facility] | | | | | | MEDICAL | | | | | | CENTER - | | | | | | LABORATORY | | + + + + + + | CO2 | 24 | 24 - 31 mmol/L | [facility] | | | | | | [facility] | | | | | | MEDICAL | | | | | | CENTER - | | | | | | LABORATORY | | + + + + + + | Anion Gap | 8 | 3 - 16 mmol/L | [facility] | | | | | | [facility] | | | | | | [facility] | | | | | | CENTER - | | | | | | LABORATORY | | + + + + + + | Glucose | 87 | 70 - 109 mg/dL | [facility] | | | | | | [facility] | | | | | | MEDICAL | | | | | | CENTER - | | | | | | LABORATORY | | + + + + + + | BUN | 7 | 7 - 18 mg/dL | [facility] | | | | | | [facility] | | | | | | [facility] | | | | | | CENTER - | | | | | | LABORATORY | | + + + + + + | Creatinine | 0.72 | 0.60 - 1.30 | [facility] | | | | | mg/dL | [facility] | | | | | | MEDICAL | | | | | | CENTER - | | | | | | LABORATORY | | + + + + + + | eGFR, | >60Comment: GLOMERULAR | >=60 | [facility] | | | non- | FILTRATION | mL/min/1.73m2 | [facility] | | | Malagasy | RATE,ESTIMATED | | MEDICAL | | | | mL/min/1.83l2Fudt than | | CENTER - | | | | 60 Chronic kidney | | LABORATORY | | | | disease,if found over a | | | | | | 3-month period.Less than | | | | | | 15 Kidney failureFor | | | | | | | | | | | | Americans,multiply the | | | | | | calculated GFR by 1.21. | | | | | | | | | | + + + + + + | Calcium | 9.2 | 8.3 - 10.5 | [facility] | | | | | mg/dL | [facility] | | | | | | MEDICAL | | | | | | CENTER - | | | | | | LABORATORY | | + + + + + + | Albumin | 3.7 | 3.2 - 5.0 g/dL | [facility] | | | | | | [facility] | | | | | | MEDICAL | | | | | | CENTER - | | | | | | LABORATORY | | + + + + + + | Bilirubin | 0.3 | 0.1 - 1.5 mg/dL | [facility] | | | Total | | | [facility] | | | | | | MEDICAL | | | | | | CENTER - | | | | | | LABORATORY | | + + + + + + | Total | 6.1 | 6.0 - 7.8 g/dL | [facility] | | | Protein | | | [facility] | | | | | | MEDICAL | | | | | | CENTER - | | | | | | LABORATORY | | + + + + + + | AST | 20 | 10 - 42 U/L | [facility] | | | | | | [facility] | | | | | | MEDICAL | | | | | | CENTER - | | | | | | LABORATORY | | + + + + + + | ALT | 16 | 6 - 45 U/L | [facility] | | | | | | [facility] | | | | | | MEDICAL | | | | | | CENTER - | | | | | | LABORATORY | | + + + + + + | Alkaline | 43 | 40 - 110 U/L | [facility] | | | Phosphatase | | | [facility] | | | | | | MEDICAL | | | | | | CENTER - | | | | | | LABORATORY | | + + + + + + | Globulin | 2.4 | g/dL | [facility] | | | | | | [facility] | | | | | | MEDICAL | | | | | | CENTER - | | | | | | LABORATORY | | + + + + + + | Albumin/Teena | 1.5 | | [facility] | | | bulin Ratio | | | [facility] | | | | | | MEDICAL | | | | | | CENTER - | | | | | | LABORATORY | | + + + + + + | BUN/Creatin | 9.7 | | [facility] | | | ine Ratio | | | [facility] | | | | | | MEDICAL | | | | | | CENTER - | | | | | | LABORATORY | | + + + + + + + + | Specimen | + + | Blood | + + + + + + + | Performing | Address | City/State/Zipcode | Phone Number | | Organization | | | | + + + + + | [facility] | [address] | [place] | [phone] | | [facility] | | [address] | | | - LABORATORY | | | | + + + + + | [facility] | [address] | [place], [place] | | | [facility] | | [address] | | | - LABORATORY | | | | + + + + + CBC with Differential (01/30/2015 12:20 AM PST) + + + + + + | Component | Value | Ref Range | Performed | Pathologist | | | | | At | Signature | + + + + + + | White Blood | 7.7 | 4.0 - 11.0 K/uL | [facility] | | | Cells | | | [facility] | | | | | | MEDICAL | | | | | | CENTER - | | | | | | LABORATORY | | + + + + + + | Red Blood | 4.26 | 3.70 - 5.20 | [facility] | | | Cells | | M/uL | [facility] | | | | | | MEDICAL | | | | | | CENTER - | | | | | | LABORATORY | | + + + + + + | Hemoglobin | 11.8 | 11.5 - 16.0 | [facility] | | | | | g/dL | [facility] | | | | | | MEDICAL | | | | | | CENTER - | | | | | | LABORATORY | | + + + + + + | Hematocrit | 36.4 | 34.0 - 47.0 % | [facility] | | | | | | [facility] | | | | | | [facility]ICAL | | | | | | CENTER - | | | | | | LABORATORY | | + + + + + + | MCV | 85.4 | 83.0 - 101.0 fL | [facility] | | | | | | [facility] | | | | | | MEDICAL | | | | | | CENTER - | | | | | | LABORATORY | | + + + + + + | MCH | 27.8 (L) | 28.0 - 35.0 pg | [facility] | | | | | | [facility] | | | | | | MEDICAL | | | | | | CENTER - | | | | | | LABORATORY | | + + + + + + | MCHC | 32.5 | 32.0 - 36.0 | [facility] | | | | | g/dL | [facility] | | | | | | MEDICAL | | | | | | CENTER - | | | | | | LABORATORY | | + + + + + + | RDW-CV | 14.2 | <15.0 % | [facility] | | | | | | [facility] | | | | | | MEDICAL | | | | | | CENTER - | | | | | | LABORATORY | | + + + + + + | Platelet | 164 | 140 - 440 K/uL | [facility] | | | Count | | | [facility] | | | | | | MEDICAL | | | | | | CENTER - | | | | | | LABORATORY | | + + + + + + | MPV | 10.5 | fL | [facility] | | | | | | [facility] | | | | | | MEDICAL | | | | | | CENTER - | | | | | | LABORATORY | | + + + + + + | % | 50.0 | 45.0 - 82.0 % | [facility] | | | Neutrophils | | | [facility] | | | | | | MEDICAL | | | | | | CENTER - | | | | | | LABORATORY | | + + + + + + | % | 38.8 | 20.0 - 45.0 % | [facility] | | | Lymphocytes | | | [facility] | | | | | | MEDICAL | | | | | | CENTER - | | | | | | LABORATORY | | + + + + + + | % Monocytes | 7.2 | 4.0 - 12.0 % | [facility] | | | | | | [facility] | | | | | | MEDICAL | | | | | | CENTER - | | | | | | LABORATORY | | + + + + + + | % | 2.9 | 0.0 - 5.0 % | [facility] | | | Eosinophils | | | [facility] | | | | | | MEDICAL | | | | | | CENTER - | | | | | | LABORATORY | | + + + + + + | % Basophils | 1.1 (H) | 0.0 - 1.0 % | [facility] | | | | | | [facility] | | | | | | MEDICAL | | | | | | CENTER - | | | | | | LABORATORY | | + + + + + + | Absolute | 3.80 | 1.80 - 8.50 | [facility] | | | Neutrophils | | K/uL | [facility] | | | | | | MEDICAL | | | | | | CENTER - | | | | | | LABORATORY | | + + + + + + | Absolute | 3.00 | 0.60 - 3.20 | [facility] | | | Lymphocytes | | K/uL | [facility] | | | | | | [facility] | | | | | | CENTER - | | | | | | LABORATORY | | + + + + + + | Absolute | 0.60 | 0.00 - 1.00 | [facility] | | | Monocytes | | K/uL | [facility] | | | | | | [facility] | | | | | | CENTER - | | | | | | LABORATORY | | + + + + + + | Absolute | 0.20 | 0.00 - 0.40 | [facility] | | | Eosinophils | | K/uL | [facility] | | | | | | MEDICAL | | | | | | CENTER - | | | | | | LABORATORY | | + + + + + + | Absolute | 0.10 | 0.00 - 0.10 | [facility] | | | Basophils | | K/uL | [facility] | | | | | | [facility] | | | | | | CENTER - | | | | | | LABORATORY | | + + + + + + + + | Specimen | + + | Blood | + + + + + + + | Performing | Address | City/State/Zipcode | Phone Number | | Organization | | | | + + + + + | [facility] | [address] | [place], [place] | [phone] | | [facility] | | [id number] | | | - LABORATORY | | | | + + + + + | [facility] | [address] | [place], [place] | | | [facility] | | [phone] [place] [address] | | | - LABORATORY | | | | + + + + + Culture, Urine (01/29/2015 11:55 PM PST) + + + + + + | Component | Value | Ref Range | Performed | Pathologist | | | | | At | Signature | + + + + + + | Culture | 20,000 CFU/ml Mixed | | [facility] | | | | [facility] (multiple | | [facility] | | | | morphologies | | MEDICAL | | | | present)Comment: | | CENTER - | | | | Suggests contamination | | LABORATORY | | | | with urogenital or skin | | | | | | [facility]. | | | | + + + + + + + + | Specimen | + + | Urine | + + + + + + + | Performing | Address | City/State/Zipcode | Phone Number | | Organization | | | | + + + + + | [facility] | [address] | [place] | [phone] | | [facility] | | [address] | | | - LABORATORY | | | | + + + + + | [facility] | [address] | [place], [place] | | | [facility] | | [id number] | | | - LABORATORY | | | | + + + + + Urinalysis with Microscopic with Culture if Indicated (01/29/2015 11:55 PM PST) + + + + + + | Component | Value | Ref Range | Performed | Pathologist | | | | | At | Signature | + + + + + + | Color, | Yellow | Light Yellow, | [facility] | | | Urine | | Yellow | [facility] | | | | | | MEDICAL | | | | | | CENTER - | | | | | | LABORATORY | | + + + + + + | Clarity, | Clear | Clear | [facility] | | | Urine | | | [facility] | | | | | | MEDICAL | | | | | | CENTER - | | | | | | LABORATORY | | + + + + + + | pH, Urine | 6.0 | 5.0 - 8.0 | [facility] | | | | | | [facility] | | | | | | MEDICAL | | | | | | CENTER - | | | | | | LABORATORY | | + + + + + + | Specific | 1.025 | 1.001 - 1.030 | [facility] | | | [place], | | | [facility] | | | Urine | | | MEDICAL | | | | | | CENTER - | | | | | | LABORATORY | | + + + + + + | Protein, | Negative | Negative | [facility] | | | Urine | | | [facility] | | | | | | MEDICAL | | | | | | CENTER - | | | | | | LABORATORY | | + + + + + + | Blood, | Large (A) | Negative | [facility] | | | Urine | | | [facility] | | | | | | MEDICAL | | | | | | CENTER - | | | | | | LABORATORY | | + + + + + + | Glucose, | Negative | Negative | [facility] | | | Urine | | | [facility] | | | | | | MEDICAL | | | | | | CENTER - | | | | | | LABORATORY | | + + + + + + | Ketones, | Negative | Negative | [facility] | | | Urine | | | [facility] | | | | | | MEDICAL | | | | | | CENTER - | | | | | | LABORATORY | | + + + + + + | Bilirubin, | Negative | Negative | [facility] | | | Urine | | | [facility] | | | | | | MEDICAL | | | | | | CENTER - | | | | | | LABORATORY | | + + + + + + | Nitrite, | Negative | Negative | [facility] | | | Urine | | | [facility] | | | | | | MEDICAL | | | | | | CENTER - | | | | | | LABORATORY | | + + + + + + | Leukocyte | Negative | Negative | [facility] | | | Esterase, | | | [facility] | | | Urine | | | MEDICAL | | | | | | CENTER - | | | | | | LABORATORY | | + + + + + + | Urobilinoge | 0.2 E.U./dL | 0.2 E.U./dL, | [facility] | | | n, Urine | | 1.0 E.U./dL | [facility] | | | | | | MEDICAL | | | | | | CENTER - | | | | | | LABORATORY | | + + + + + + | White Blood | 2-5 (A) | 0 - 2 /HPF | [facility] | | | Cells, | | | [facility] | | | Urine | | | MEDICAL | | | | | | CENTER - | | | | | | LABORATORY | | + + + + + + | Red Blood | 25-50 (A) | 0 - 2 /HPF | [facility] | | | Cells, | | | [facility] | | | Urine | | | MEDICAL | | | | | | CENTER - | | | | | | LABORATORY | | + + + + + + | Squamous | 15-25 (A) | 0 - 2 /LPF | [facility] | | | Epithelial | | | [facility] | | | Cells, | | | MEDICAL | | | Urine | | | CENTER - | | | | | | LABORATORY | | + + + + + + | Bacteria, | 3+ (A) | Negative /HPF | [facility] | | | Urine | | | [facility] | | | | | | MEDICAL | | | | | | CENTER - | | | | | | LABORATORY | | + + + + + + | Mucus, | Present (A) | Negative /LPF | [facility] | | | Urine | | | [facility] | | | | | | MEDICAL | | | | | | CENTER - | | | | | | LABORATORY | | + + + + + + | Urine | Urine Culture Set Up | | [facility] | | | Comment | | | [facility] | | | | | | MEDICAL | | | | | | CENTER - | | | | | | LABORATORY | | + + + + + + + + | Specimen | + + | Urine | + + + + + + + | Performing | Address | City/State/Zipcode | Phone Number | | Organization | | | | + + + + + | [facility] | [address] | [place], [place] | [phone] | | [facility] | | [address] | | | - LABORATORY | | | | + + + + + | [facility] | [address] | [place], [place] | | | [facility] | | [phone] [place] [address] | | | - LABORATORY | | | | + + + + + POCT Urine Screen (01/29/2015 11:50 PM PST) + + + + + + | Component | Value | Ref Range | Performed | Pathologist | | | | | At | Signature | + + + + + + | | Negative | | | | | Test, | | | | | | Urine, POC | | | | | + + + + + + | Internal QC | Acceptable | | | | + + + + + + + + | Specimen | + + | Urine specimen | | (specimen) | + + POCT Urinalysis Dipstick Automated (01/29/2015 11:50 PM PST) + + + + + + | Component | Value | Ref Range | Performed | Pathologist | | | | | At | Signature | + + + + + + | Color, UA, | Yellow | Yellow, Light | | | | POC | | Yellow | | | + + + + + + | Clarity, | Clear | | | | | UA, POC | | | | | + + + + + + | Glucose, | Negative | Negative | | | | UA, POC | | | | | + + + + + + | Bilirubin, | Negative | Negative | | | | UA, POC | | | | | + + + + + + | Ketones, | Negative | Negative, 100 | | | | UA, POC | | mg/dL | | | + + + + + + | Specific | 1.025 | 1.001 - 1.030 | | | | [place], | | | | | | UA, POC | | | | | + + + + + + | Blood, UA, | Large (A) | Negative | | | | POC | | | | | + + + + + + | pH, UA, POC | 6.5 | 5.0, 6.0, 7.0, | | | | | | 8.0, 5.5, 6.5, | | | | | | 7.5 | | | + + + + + + | Protein, | Negative | Negative | | | | UA, POC | | | | | + + + + + + | Urobilinoge | 0.2 | 0.2, Negative, | | | | n, UA, POC | | Normal, < 0.2 | | | | | | mg/dL, 1 mg/dL, | | | | | | < 0.2 E.U./dl, | | | | | | 1.0 E.U./dL, | | | | | | 0.2 mg/dL | | | + + + + + + | Nitrite, | Negative | | | | | UA, POC | | | | | + + + + + + | Leukocyte | Small (A) | Negative | | | | Esterase, | | | | | | UA, POC | | | | | + + + + + + | Reducing | | | | | | Substances, | | | | | | Urine | | | | | + + + + + + | Bilirubin | | Negative | | | | Confirmatio | | | | | | n by | | | | | | Ictotest, | | | | | | Urine | | | | | + + + + + + | Remark | | | | | + + + + + + + + | Specimen | + + | Urine specimen | | (specimen) | + + documented in this encounter Visit Diagnoses + + | Diagnosis | + + | Abdominal pain - Primary Abdominal pain, unspecified site | + + documented in this encounter Administered Medications + + + +-------+------+------+ | Medication Order | MAR | Action | Dose | Rate | Site | | | Action | Date | | | | + + + +-------+------+------+ | dicyclomine (BENTYL) 10 mg | Dispense | 01/31/20 | 20 mg | | | | capsule (ER Prepack) 20 mg 20 | to Home | 15 3:55 | | | | | mg, Oral, ONCE, 01/30/15 at | | AM PDT | | | | | 0400, For 1 dose, Take 1 | | | | | | | capsule(s) by mouth every 6 hours | | | | | | | Dispense for home use., | | | | | | + + + +-------+------+------+ +---+---+ | | | +---+---+ + +-------+ +-------+---+---+ | ketorolac (TORADOL) injection | Given | 01/31/20 | 30 mg | | | | 30 mg 30 mg, Intravenous, ONCE, | | 15 1:02 | | | | | 01/30/15 at 0115, For 1 dose | | AM PST | | | | + +-------+ +-------+---+---+ +---+---+ | | | +---+---+ + +-------+ +---------+---+---+ | magnesium citrate liquid 150 mL | Given | 01/31/20 | 150 mLs | | | | 150 mL, Oral, ONCE, 01/30/15 | | 15 3:48 | | | | | at 0400, For 1 dose | | AM PDT | | | | + +-------+ +---------+---+---+ +---+---+ | | | +---+---+ + +-------+ +------+---+---+ | ondansetron (ZOFRAN) injection | Given | 01/31/20 | 4 mg | | | | 4 mg 4 mg, Intravenous, ONCE, | | 15 12:17 | | | | | 01/30/15 at 0015, For 1 dose | | AM PST | | | | + +-------+ +------+---+---+ +---+---+ | | | +---+---+ + +---------+ +--------+-------+---+ | sodium chloride 0.9% (NS) bolus | New Bag | 01/31/20 | 1,000 | 1000 | | | 1,000 mL 1,000 mL, Intravenous, | | 15 12:20 | mLs | mL/hr | | | Administer over 1 Hours, ONCE, | | AM PST | | | | | 01/30/15 at 0015, For 1 dose | | | | | | + +---------+ +--------+-------+---+ +---+---+ | | | +---+---+ documented in this encounter
--- OUTSIDE RECORDS SUMMARY | ~2020-08-02 | XMS | Encounter Summary ---
Demographics + + + | Address | [address] | | | [place] [address] | + + + | Home Phone | | + + + | Preferred Language | Unknown | + + + | Marital Status | | + + + | Zoroastrian Affiliation | Unknown | + + + | Race | White | + + + | Ethnic Group | Not or | + + + Author + + + | Author | [facility] | | | and [place] | + + + | Organization | [facility] | | | [...] Team Providers + +------+ + | Care Patient Care Name | Role | Phone | + +------+ + | No, Physician | PCP | Unavailable | + +------+ + Encounter Details +--------+ + + + + | Date | Type | Department | Care Team | Description | +--------+ + + + + | 12/11/ | Emergency | [facility] | Aaliyah Cortez, | Viral syndrome; | | 2017 | | MEDICAL CENTER | [facility] [address] | Fever, unspecified | | | | EMERGENCY CENTER | [place] [address] | fever cause; Status | | | | [address] | [phone] | post cholecystectomy | | | | [place], [place] | | | | | | [address] | | | | | | [phone] | | | +--------+ + + + [...] | 1 Standard drinks | 0.8 | occasionally | | | or equivalent | | [...] + + + | Blood Pressure | 101/53 | 12/11/2017 5:49 PM | | | | | PST | | + + + + + | Pulse | 67 | 12/11/2017 5:49 PM | | | | | PST | | + + + + + | Temperature | 36.6 C (97.9 F) | 12/11/2017 5:49 PM | | | | | PST | | + + + + + | Respiratory Rate | 18 | 12/11/2017 5:49 PM | | | | | PST | | + + + + + | Oxygen Saturation | - | - | | + + + + + | Inhaled Oxygen | - | - | | | Concentration | | | | + + + + + | Weight | 60.4 kg (133 lb 2.6 | 12/11/2017 5:49 PM | | | | oz) | PST | | + + + + + | Height | - | - | | + + + + + | Body Mass Index | 24.36 | 12/10/2017 2:02 PM | | | | | PST | | + + + + + documented in this encounter Medications at Time of Discharge + + + +---------+ + + | Medication | Sig | Dispensed | Refills | Start | End Date | | | | | | Date | | + + + +---------+ + + | acetaminophen | Take 650 mg by mouth | | 0 | | | | (TYLENOL) 325 mg | every 4 hours as | | | | | | tablet | needed for Pain. | | | | | + + + +---------+ + + | citalopram | Take 20 mg by mouth | | 0 | | | | (CELEXA) 10 mg/5 mL | Daily. | | | | | | suspension | | | | | | + + + +---------+ + + | | Take 1 tablet by | | 0 | | | | HYDROcodone-acetamin | mouth every 6 hours | | | | | | ophen (NORCO) 5-325 | as needed for Pain. | | | | | | mg per tablet | | | | | | + + + +---------+ + + | levothyroxine | Take 100 mcg by | | 0 | | | | (SYNTHROID) 100 mcg | mouth every morning | | | | | | tablet | (before breakfast). | | | | | + + + +---------+ + + | TIROSINT 125 MCG | | | 0 | 12/01/19 | | | CAPS | | | | 18 | | + + + +---------+ + + | traMADol (ULTRAM) | Take 1 tablet by | 12 | 0 | 12/01/19 | | | 50 mg tablet | mouth every 8 hours | tablet | | 18 | | | | as needed for Pain. | | | | | + + + +---------+ + + documented as of this encounter ED Notes Aaliyah Cortez MD [facility] - 12/11/2017 3:17 PM PST ED Provider Notes by Raciel Cortez MD at 12/11/17 084 Author: Raciel Cortez MD Service: Emergency Department Author Type: Physician Filed: 12/11/17 0664 Date of Service: 12/11/171516 Status: Signed Chemical Laboratory Assistant: Raciel Cortez MD (Physician) [facility] Department of Emergency Medicine History of Present Illness Patient Identification Shreya Sommer is a 32 y.o. female. Patient information was obtained from patient. History/Exam limitations: none. Patient presented to the Emergency Department by: Car Chief Complaint Chief Complaint Patient presents with Post-op Problem Fever- 9 Weeks To 76 Years The patient complains of post-operative problem. Onset of symptoms was yesterday, with a co nstant course since that time.The patient also complains of cough (onset after vomiting). De nies rhinorrhea, sore throat, rash, dysuria, or any other symptoms at this time. The patient describes the quality and location of the symptoms as the following: fever of 100.7 and vom iting. The pt had a cholecystectomy yesterday by Dr. Burton, surgeon. The pt stated that she is burping and passing gas, but has not had a bowel movement since coming home. The pt stat ed she is having a lot of pain because she is unable to keep pain medications down. Care tomy or to arrival not mentioned. The pt did not get the flu shot this year. The pt is currently on her menstrual cycle. Past Medical History Diagnosis Date Malignant neoplasm (HCC) THYROID Visual disturbance EYEGLASSES PRN Past Surgical History Procedure Laterality Date CHOLECYSTECTOMY, LAPAROSCOPIC N/A 12/10/2017 Procedure: LAPAROSCOPIC - CHOLECYSTECTOMY WITH GRAMS; Surgeon: Jack Burton MD; Loca tion: [facility]; Service: General; Laterality: N/A; LAPAROSCOPIC SALPINGECTOMY Bilateral 07/2012 THYROIDECTOMY TOTAL THYROIDECTOMY 03/14/2017 @ [facility] [place] TUBAL [facility]IGATION 2010 Prior to Admission medications Medication Sig Start Date End Date Taking? Authorizing Provider BIOTIN PO Take 1 tablet by mouth daily. Yes Historical Provider citalopram (CELEXA) 20 MG tablet Take 20 mg by mouth every morning. Yes Historical Provid er COCONUT OIL PO Take by mouth daily. Yes Historical Provider levothyroxine (SYNTHROID) 125 MCG tablet Take 125 mcg by mouth every morning before breakfa st. Yes Historical Provider oxyCODONE-acetaminophen (ROXICET) 5-325 MG per tablet Take 1-2 tablets by mouth every 4 (fo ur) hours as needed for Pain for up to 10 days. 12/10/17 12/20/17 Yes Jack Burton MD Allergies Allergen Reactions Hydrocodone Hives Social History Social History Marital status: Spouse name: N/A Number of children: N/A Years of education: N/A Occupational History Not on file. Social History Main Topics Smoking status: Never Smoker Smokeless tobacco: Never Used Alcohol use No Drug use: No Sexual activity: Not on file Other Topics Concern Not on file Social History Narrative No narrative on file No family history on file. Review of Systems Constitutional: Yes fever ENT: No blindness, no rhinitis, no sore throat, no rhinorrhea Cardiovascular: No chest pain Respiratory: No shortness of breath, cough Gastrointestinal: No diarrhea, black or bloody stools Yes abdominal pain (incision sites), vomiting Genitourinary: No dysuria, hematuria Musculoskeletal: No acute physical injury. Skin: No laceration or rash Neuro and psych: No head injury, seizure, headache Endocrine/Heme/Lymph: No easy bruising or bleeding. Physical Exam BP 118/70 (BP Location: Left upper arm) | Temp 100.2 F (37.9 C) (Temporal) | Resp 20 | Wt 60.4 kg (133 lb 2.5 oz) | LMP 11/11/2017 (Approximate) | SpO2 96% | BMI 24.35 kg/m Vital Sign interpretation: all vitals WNL Pulse Oximetry interpretation: Normal General: Alert, shivering Eyes: Non-icteric ENT: Normal external exam Neck: Supple Cardiovascular: Warm and well perfused, RRR Respiratory: No respiratory distress, lungs clear bilatererally Abdomen: 3 normal laparoscopic wounds with skin glue in RUQ and epigastric, 1 longer incisi on R below the umbilicus with skin glue. Tenderness over umbilicus. Laterally, belly soft and minimally tender. Not acute abdomen. Extremities: LUCERO Back: Normal ROM Skin: Color normal Warm and dry No rash Neuro: Alert, no AMS No gross motor/sensory deficits Medical Decision Making and Emergency Department Course ED Department Course Pt presents after lap Angi day surgery yesterday but Dr. Burton, surgeon. She has develope d a fever this morning and vomiting. She has been unable to keep down her pain pills. Likely as a result of this, she has significant pain at the main incision site below her umbilicus . Given she has fever the next morning, it is unlikely to be wound ot internal infection and I think it is likely a concurrent viral syndrome. She does not have a surgical abdomen. Ed quevedo, given the timeliness of symptoms must consider perforation, UTI, bile leakage, pneumo isra, vs other. I will proceed with labs, XR, treat symptoms, and reassess. 4:40 PM CXR reviewed. No acute process. 4:42 PM Labs reviewed. CBC: clinically unremarkable. Negative for influenza A and B. Lipase is normal. CRP elevated (0.5). CMP: clinically unremarkable. 4:50 PM Discussed pt case with Dr. Lyle, surgeon, who agrees with plan for discharge home as long as she understands to return if symptoms worsen. 4:54 PM Patient reevaluation. Patient is stable and feeling better at this time. I discusse d all ED findings, my clinical impressions, and plan for discharge with patient. Patient und erstands and agrees to plan. We also discussed signs and symptoms that would require an imme diate return to the ED. All patient questions and concerns addressed at this time. Patient i s ready for discharge after receiving final dose of medication. Will discharge with Rx for Z ofran. Records Reviewed Old medical records. Nursing notes. Previous [facility] visits for unrelated complaints. Laboratory Evaluation Results Procedure Component Value Ref Range Date/Time CBC w Auto Diff [[id number]] Collected: 12/11/17 1539 Order Status: Completed Specimen: Blood Updated: 12/11/17 1640 WBC 7.48 3.80 - 11.00 K/uL RBC 4.50 3.70 - 5.10 M/uL HGB 12.4 11.3 - 15.5 g/dL HCT 37.6 34.0 - 46.0 % MCV 83.6 80.0 - 100.0 fl MCH 27.5 27.0 - 34.0 pg MCHC 32.9 32.0 - 35.5 g/dL RDW SD 44.6 37 - 53 fl PLT 161 150 - 400 K/uL MPV 11.7 fl DIFF TYPE AUTOMATED NEUTROPHILS 67.91 % LYMPHOCYTES 23.65 % MONOCYTES 7.31 % EOSINOPHILS 0.48 % BASOPHILS 0.65 % NEUTROPHILS ABS 5.08 1.90 - 7.40 K/uL LYMPHOCYTES ABS 1.77 1.00 - 3.90 K/uL MONOCYTES ABS 0.55 0.00 - 0.80 K/uL EOSINOPHILS ABS 0.04 0.00 - 0.50 K/uL BASOPHILS ABS 0.05 0.00 - 0.10 K/uL MORPHOLOGY GIANT PLATELETS Platelet Estimate ADEQUATE INFLUENZA A AND B [[id number]] Collected: 12/11/17 1547 Order Status: Completed Updated: 12/11/171617 INFLUENZA A NEGATIVE NEGATIVE INFLUENZA B NEGATIVE NEGATIVE Lipase [[id number]] Collected: 12/11/171538 Order Status: Completed Specimen: Blood Updated: 12/11/17 161 LIPASE 176 73 - 393 U/L C-Reactive Protein [[id number]] (Abnormal) Collected: 12/11/171538 Order Status: Completed Specimen: Blood Updated: 12/11/17 161 CRP 0.5 (H) <0.5 mg/dL Complete Metabolic Panel [[id number]] (Abnormal) Collected: 12/11/171538 Order Status: Completed Specimen: Blood Updated: 12/11/171610 SODIUM 137 135 - 145 mmol/L POTASSIUM 3.2 (L) 3.5 - 4.9 mmol/L CHLORIDE 104 99 - 109 mmol/L CO2 24 23 - 32 mmol/L ANION GAP AGAP 12 5 - 20 mmol/L GLUCOSE 90 65 - 99 mg/dL BUN 11 8 - 25 mg/dL CREATININE 0.83 0.50 - 1.00 mg/dL BUN/CREAT 14 CALCIUM 9.0 8.5 - 10.5 mg/dL TOTAL PROTEIN 7.2 6.3 - 8.2 g/dL Albumin 4.0 3.6 - 5.0 g/dL GLOBULIN 3.2 1.3 - 4.9 g/dL A/G 1.2 1.0 - 2.4 TBIL 0.6 0.1 - 1.5 mg/dL ALK PHOS 43 35 - 115 U/L AST 26 10 - 45 U/L ALT 34 10 - 65 U/L EGFR >60 >60 mL/min/1.73m2 Flu Swab [[id number]] Collected: 12/11/171537 Order Status: Completed Specimen: Nasal from Nasal Swab Updated: 12/11/171544 Flu Swab Collection SPECIMEN RECEIVED IN LAB I personally reviewed the lab results and they have been posted to the chart. Pertinent po sitive and negative findings have been addressed appropriately. Radiology and EKG Evaluation Imaging Results X-ray chest 2 view frontal & lateral (Final result) Result time 12/11/17 16:38:52 Final result by Son Cortez DO (12/11/17 16:38:52) Impression: 1. No acute process. Narrative: SHREYA SOMMER XR CHEST 2 VIEW FRONTAL AND LATERAL HISTORY: 32 years. Female. Postop fever TECHNIQUE: Frontal and lateral views of the chest were obtained. COMPARISON: None. FINDINGS: The heart is normal in size. No pulmonary vascular congestion. No pneumothorax. No focal ai rspace disease or pleural effusion. Minimal dextroconvex curvature of the upper thoracic spi ne. ED Diagnoses Final diagnoses Viral syndrome Fever, unspecified fever cause Status post cholecystectomy Disposition: ED Disposition ED Disposition Condition Comment Orders Discharge Stable Follow-up Information Follow up With Specialties Details Why Contact Info Jack Burton MD General Surgery Call To schedule an appointment for follow-up [address] [facility] [address] [facility] Emergency Department Emergency Medicine Go to As needed, I f symptoms worsen [address] [facility] [address] Discharge Medications: Discharge Medication List as of 12/11/2017 5:25 PM START taking these medications Details ondansetron (ZOFRAN-ODT) 8 MG disintegrating tablet Take 1 tablet by mouth every 8 (eight) hours as needed for Nausea (or vomiting) for up to 7 days., Starting 12/11/2017, Until We d 12/18/2017, Print Procedures Additional Documentation Procedures Attending Provider Note: Raciel Roland MD personally performed the services described i n this documentation, as scribed by Afua Perdomo in my presence, and it is both accurate and c omplete. Chart Reviewed and Completed: 12/11/2017 11:20 PM Scribe: Wesley Whitaker, scribing for and in the presence of Raciel Cortez MD. Signed by: Wesley Bee 12/11/2017 5:01 PM Raciel Cortez MD 12/11/17 4061 documented in thi s encounter Plan of Treatment Not on filedocumented as of this encounter Procedures + +--------+ + + + | Procedure Name | Priori | Date/Time | Associated Diagnosis | Comments | | | ty | | | | + +--------+ + + + | XR CHEST 2 VIEWS | Routin | 12/11/2017 | | Results for this | | | e | 4:35 PM | | procedure are in the | | | | PST | | results section. | + +--------+ + + + | HISTORICAL | Routin | 12/11/2017 | | Results for this | | MICROBIOLOGY RESULT | e | 3:47 PM | | procedure are in the | | | | PST | | results section. | + +--------+ + + + | EXTERNAL LAB: CBC | Routin | 12/11/2017 | | Results for this | | | e | 3:39 PM | | procedure are in the | | | | PST | | results section. | + +--------+ + + + | C-REACTIVE PROTEIN | Routin | 12/11/2017 | | Results for this | | | e | 3:39 PM | | procedure are in the | | | | PST | | results section. | + +--------+ + + + | LIPASE | Routin | 12/11/2017 | | Results for this | | | e | 3:39 PM | | procedure are in the | | | | PST | | results section. | + +--------+ + + + | COMPREHENSIVE | Routin | 12/11/2017 | | Results for this | | METABOLIC PANEL | e | 3:39 PM | | procedure are in the | | | | PST | | results section. | + +--------+ + + + | HISTORICAL | STAT | 12/11/2017 | | Results for this | | MICROBIOLOGY RESULT | | 3:38 PM | | procedure are in the | | | | PST | | results section. | + +--------+ + + + documented in this encounter Results XR Chest 2 Vws (12/11/2017 4:35 PM PST) + + | Specimen | + + | | + + + + + | Impressions | Performed At | + + + | 1. No acute process. | | + + + + + + | Narrative | Performed At | + + + | SHREYA SOMMER XR CHEST 2 VIEW FRONTAL AND LATERAL HISTORY: | | | 32 years. Female. Postop fever TECHNIQUE: Frontal and lateral | | | views of the chest were obtained. COMPARISON: None. FINDINGS: | | | The heart is normal in size. No pulmonary vascular congestion. No | | | pneumothorax. No focal airspace disease or pleural effusion. Minimal | | | dextroconvex curvature of the upper thoracic spine. | | + + + + ----+ | Procedure Note | + ----+ | Pavan, Rad Conversion - 07/08/2019 2:57 PM PDT SHREYA VIEIRADOMINGOXR CHEST 2 VIEW FRONTAL | | AND LATERAL HISTORY:32 years. Female. Postop fever TECHNIQUE:Frontal and lateral views | | of the chest were obtained. COMPARISON:None. FINDINGS:The heart is normal in size. No | | pulmonary vascular congestion. No pneumothorax. No focal airspace disease or pleural | | effusion. Minimal dextroconvex curvature of the upper thoracic spine. IMPRESSION: 1. No | | acute process. | |TECHNIQUE: | |Frontal and lateral views of the chest were obtained. | | | |COMPARISON: | |None. | | | |FINDINGS: | |The heart is normal in size. No pulmonary vascular congestion. No pneumothorax. No focal ai rspace disease or pleural effusion. Minimal dextroconvex curvature of the upper thoracic spi ne. | | | |IMPRESSION: | |1. No acute process. | | | | | + ----+ HISTORICAL MICROBIOLOGY RESULT (12/11/2017 3:47 PM PST) + + | Specimen | + + | | + + + + + | Narrative | Performed At | + + + | INFLUENZA A NEGATIVE | EXTERNAL LAB | | INFLUENZA B NEGATIVE Testing | | | performed by Molecular Methodology Testing performed at [facility];[address] [place] [address] | | | [place] [address] | | + + + + +---------+ + + | Performing | Address | City/State/Zipcode | Phone Number | | Organization | | | | + +---------+ + + | EXTERNAL LAB | | | | + +---------+ + + External Lab: CBC (12/11/2017 3:39 PM PST) + + + + + + | Component | Value | Ref Range | Performed | Pathologist | | | | | At | Signature | + + + + + + | WBC | 7.48 | 3.80 - 11.00 | EXTERNAL | | | | | K/uL | LAB | | + + + + + + | Non- | 4.50 | 3.70 - 5.10 | EXTERNAL | | | Red Blood | | M/uL | LAB | | | Cells | | | | | | Counted | | | | | + + + + + + | Hemoglobin | 12.4 | 11.3 - 15.5 | EXTERNAL | | | | | g/dL | LAB | | + + + + + + | Hematocrit, | 37.6 | 34.0 - 46.0 % | EXTERNAL | | | POC | | | LAB | | + + + + + + | MCV | 83.6 | 80.0 - 100.0 fl | EXTERNAL | | | | | | LAB | | + + + + + + | MCH | 27.5 | 27.0 - 34.0 pg | EXTERNAL | | | | | | LAB | | + + + + + + | MCHC | 32.9 | 32.0 - 35.5 | EXTERNAL | | | | | g/dL | LAB | | + + + + + + | RDW-CV | 44.6 | 37 - 53 fl | EXTERNAL | | | | | | LAB | | + + + + + + | Platelet | 161 | 150 - 400 K/uL | EXTERNAL | | | Count | | | LAB | | | Plasma | | | | | + + + + + + | MPV | 11.7 | fl | EXTERNAL | | | | | | LAB | | + + + + + + | Differentia | AUTOMATED | | EXTERNAL | | | l Type | | | LAB | | + + + + + + | % Segmented | 67.91 | % | EXTERNAL | | | | | | LAB | | | Neutrophils | | | | | + + + + + + | % | 23.65 | % | EXTERNAL | | | Lymphocytes | | | LAB | | + + + + + + | % Monocytes | 7.31 | % | EXTERNAL | | | | | | LAB | | + + + + + + | % | 0.48 | % | EXTERNAL | | | Eosinophils | | | LAB | | + + + + + + | % Basophils | 0.65 | % | EXTERNAL | | | | | | LAB | | + + + + + + | Absolute | 5.08 | 1.90 - 7.40 | EXTERNAL | | | Segmented | | K/uL | LAB | | | Neutrophils | | | | | + + + + + + | Absolute | 1.77 | 1.00 - 3.90 | EXTERNAL | | | Lymphocytes | | K/uL | LAB | | + + + + + + | Absolute | 0.55 | 0.00 - 0.80 | EXTERNAL | | | Monocytes | | K/uL | LAB | | + + + + + + | Absolute | 0.04 | 0.00 - 0.50 | EXTERNAL | | | Eosinophils | | K/uL | LAB | | + + + + + + | Absolute | 0.05 | 0.00 - 0.10 | EXTERNAL | | | Basophils | | K/uL | LAB | | + + + + + + | RBC | GIANT PLATELETSComment: | | EXTERNAL | | | Morphology | NORMAL RBC MORPH | | LAB | | + + + + + + | Platelet | ADEQUATEComment: Testing | | EXTERNAL | | | Estimate | performed at [facility];[address] | | LAB | | | | [address];[place], [place] | | | | | | [address] | | | | + + + + + + + + | Specimen | + + | Blood specimen | | (specimen) | + + + +---------+ + + | Performing | Address | City/State/Zipcode | Phone Number | | Organization | | | | + +---------+ + + | EXTERNAL LAB | | | | + +---------+ + + C-Reactive Protein (12/11/2017 3:39 PM PST) + + + + + + | Component | Value | Ref Range | Performed | Pathologist | | | | | At | Signature | + + + + + + | CRP | 0.5 (H)Comment: Testing | mg/dL | EXTERNAL | | | | performed at [facility] | | LAB | | | | [address];[place] | | | | | | [address] | | | | + + + + + + + + | Specimen | + + | Blood specimen | | (specimen) | + + + +---------+ + + | Performing | Address | City/State/Zipcode | Phone Number | | Organization | | | | + +---------+ + + | EXTERNAL LAB | | | | + +---------+ + + Lipase (12/11/2017 3:39 PM PST) + + + + + + | Component | Value | Ref Range | Performed | Pathologist | | | | | At | Signature | + + + + + + | Lipase | 176Comment: Testing | 73 - 393 U/L | EXTERNAL | | | | performed at [facility];[address] | | LAB | | | | [address];[place], [place] | | | | | | [address] | | | | + + + + + + + + | Specimen | + + | Blood specimen | | (specimen) | + + + +---------+ + + | Performing | Address | City/State/Zipcode | Phone Number | | Organization | | | | + +---------+ + + | EXTERNAL LAB | | | | + +---------+ + + Comprehensive Metabolic Panel (12/11/2017 3:39 PM PST) + + + + + + | Component | Value | Ref Range | Performed | Pathologist | | | | | At | Signature | + + + + + + | Na | 137 | 135 - 145 | EXTERNAL | | | | | mmol/L | LAB | | + + + + + + | K | 3.2 (L) | 3.5 - 4.9 | EXTERNAL | | | | | mmol/L | LAB | | + + + + + + | Cl | 104 | 99 - 109 mmol/L | EXTERNAL | | | | | | LAB | | + + + + + + | CO2 | 24 | 23 - 32 mmol/L | EXTERNAL | | | | | | LAB | | + + + + + + | Anion Gap | 12 | 5 - 20 mmol/L | EXTERNAL | | | | | | LAB | | + + + + + + | Glucose, | 90 | 65 - 99 mg/dL | EXTERNAL | | | Fasting | | | LAB | | + + + + + + | BUN | 11 | 8 - 25 mg/dL | EXTERNAL | | | | | | LAB | | + + + + + + | Creatinine | 0.83 | 0.50 - 1.00 | EXTERNAL | | | | | mg/dL | LAB | | + + + + + + | BUN/Creatin | 14 | | EXTERNAL | | | ine Ratio | | | LAB | | + + + + + + | Calcium | 9.0 | 8.5 - 10.5 | EXTERNAL | | | | | mg/dL | LAB | | + + + + + + | Protein, | 7.2 | 6.3 - 8.2 g/dL | EXTERNAL | | | Total | | | LAB | | + + + + + + | Albumin | 4.0 | 3.6 - 5.0 g/dL | EXTERNAL | | | | | | LAB | | + + + + + + | Globulin | 3.2 | 1.3 - 4.9 g/dL | EXTERNAL | | | | | | LAB | | + + + + + + | A/G Ratio | 1.2 | 1.0 - 2.4 | EXTERNAL | | | | | | LAB | | + + + + + + | Bilirubin | 0.6 | 0.1 - 1.5 mg/dL | EXTERNAL | | | Total | | | LAB | | + + + + + + | ALP, | 43 | 35 - 115 U/L | EXTERNAL | | | External | | | LAB | | + + + + + + | AST | 26 | 10 - 45 U/L | EXTERNAL | | | | | | LAB | | + + + + + + | ALT | 34 | 10 - 65 U/L | EXTERNAL | | | | | | LAB | | + + + + + + | Estimated | >60Comment: GFR <60: | mL/min/1.73m2 | EXTERNAL | | | GFR | CHRONIC KIDNEY DISEASE, | | LAB | | | | IF FOUND OVER A 3 MONTH | | | | | | PERIOD.GFR <15: KIDNEY | | | | | | FAILURE.FOR | | | | | | AMERICANS, MULTIPLY THE | | | | | | CALCULATED GFR BY | | | | | | 1.210.Testing performed | | | | | | at [facility];[address] [place] [address] | | | | | | [address]vd;[place] [address] | | | | + + + + + + + + | Specimen | + + | Blood specimen | | (specimen) | + + + +---------+ + + | Performing | Address | City/State/Zipcode | Phone Number | | Organization | | | | + +---------+ + + | EXTERNAL LAB | | | | + +---------+ + + HISTORICAL MICROBIOLOGY RESULT (12/11/2017 3:38 PM PST) + + | Specimen | + + | | + + + + + | Narrative | Performed At | + + + | Flu Swab Collection SPECIMEN RECEIVED IN LAB | EXTERNAL LAB | | Testing performed at [facility];[address] [place] [address];[place] [address] | | + + + + +---------+ + + | Performing | Address | City/State/Zipcode | Phone Number | | Organization | | | | + +---------+ + + | EXTERNAL LAB | | | | + +---------+ + + documented in this encounter Visit Diagnoses + + | Diagnosis | + + | Viral syndrome Unspecified viral infection, in conditions classified elsewhere and of | | unspecified site | + + | Fever, unspecified fever cause | + + | Status post cholecystectomy Other acquired absence of organ | + + documented in this encounter"
--- OUTSIDE RECORDS SUMMARY | ~2020-08-02 | XMS | Encounter Summary ---
Demographics + + + | Address | [address] | | | [place] [address] | + + + | Home Phone | | + + + | Preferred Language | Unknown | + + + | Marital Status | | + + + | Presybeterian Affiliation | Unknown | + + + | Race | White | + + + | Ethnic Group | Not or | + + + Author + + + | Author | [facility] | | | and [place] | + + + | Organization | [facility] | | | and [...] Team Providers + +------+ + | Care Asphalt Heater Operator Name | Role | Phone | + +------+ + PCP | Unavailable | + +------+ + Encounter Details +--------+ + + + + | Date | Type | Department | Care Team | Description | +--------+ + + + + | 09/17/ | Hospital | [facility] | Salo Beaver, | | | 2008 | Encounter | [facility] | [address] | | | | | CENTER [address] | [facility] | | | | | [place] | [place] [address] | | | | | [address] | [phone] | | | | | [phone] | | | +--------+ + + + [...]
--- OUTSIDE RECORDS SUMMARY | ~2020-08-02 | XMS | Encounter Summary ---
Demographics + + + | Address | [address] | | | [place] [address] | + + + | Home Phone | | + + + | Preferred Language | Unknown | + + + | Marital Status | | + + + | Hindu Affiliation | Unknown | + + + | Race | White | + + + | Ethnic Group | Not or | + + + Author + + + | Author | [facility] | | | and [place] | + + + | Organization | [facility] | | [...] Providers + +------+ + | Care Patient Account Liaison Name | Role | Phone | + +------+ + PCP | Unavailable | + +------+ + Encounter Details +--------+ + + + + | Date | Type | Department | Care Team | Description | +--------+ + + + + | 07/31/ | Hospital | [facility] | Taj, | | | 2005 | Encounter | [facility] | Rocael Roman MD [address] | | | | | CENTER [address] | [address] [place] | | | | | [place] | [place] [address] | | | | | [address] | [phone] | | | | | [phone] | | | +--------+ + + + [...]
--- OUTSIDE RECORDS SUMMARY | ~2020-08-02 | XMS | Encounter Summary ---
Demographics + + + | Address | [address] | | | [place] [address] | + + + | Home Phone | | + + + | Preferred Language | Unknown | + + + | Marital Status | | + + + | Orthodoxy Affiliation | Unknown | + + + | Race | White | + + + | Ethnic Group | Not or | + + + Author + + + | Author | [facility] | | | and [place] | + + + | Organization | [facility] | | [...] Team Providers + +------+ + | Care Automatic Developer Name | Role | Phone | + +------+ + PCP | Unavailable | + +------+ + Encounter Details +--------+ + + + + | Date | Type | Department | Care Team | Description | +--------+ + + + + | 07/11/ | Hospital | [facility] | Rocael Tang MD | | | 2005 - | Encounter | [facility] | [address] [facility] | | | | | [facility] [address] | [place], [place] | | | 07/12/ | | [place], | [address] | | | 2005 | | [place] [address] | | | | | | [phone] | | | +--------+ + + + [...]
--- OUTSIDE RECORDS SUMMARY | ~2020-08-02 | XMS | Encounter Summary ---
Demographics + + + | Address | [address] | | | [place] [address] | + + + | Home Phone [...] Team Providers + +------+ + | Care Charger Operator Helper Name | Role | Phone | + +------+ + PCP | Unavailable | + +------+ + Encounter Details +--------+ + + + + | Date | Type | Department | Care Team | Description | +--------+ + + + + | 07/18/ | Hospital | [facility] | Rocael Tang MD | | | 2005 - | Encounter | [facility] | [address] [facility] | | | | | [facility] [address] | [place], [place] | | | 07/20/ | | [place], | [address] | | | 2005 | | [place] [address] | | | | | | [phone] | | | +--------+ + + + [...]
--- OUTSIDE RECORDS SUMMARY | ~2020-08-02 | XMS | Encounter Summary ---
Demographics + + + | Address | [address] | | | [place] [address] | + + + | Home Phone | | + + + | Preferred Language | Unknown | + + + | Marital Status | | + + + | Anabaptism Affiliation | Unknown | + + + | Race | White | + + + | Ethnic Group | Not or | + + + Author + + + | Author | [facility] | | | and [place] | + + + | Organization | [facility] | | | and [...] Team Providers + +------+ + | Care Newspaper Distributor Supervisor Name | Role | Phone | + +------+ + PCP | Unavailable | + +------+ + Encounter Details +--------+ + + + + | Date | Type | Department | Care Team | Description | +--------+ + + + + | 05/11/ | Hospital | [facility] | Jose E Campos | | | 2010 | Encounter | [facility] | [address] | | | | | [facility] [address] | [facility] | | | | | [place], | [place] [address] | | | | | [place] [address] | [phone] | | | | | [phone] | | | +--------+ + + + [...]
--- OUTSIDE RECORDS SUMMARY | ~2020-08-02 | XMS | Encounter Summary ---
Demographics + + + | Address | [address] | | | [place] [address] | + + + | Home Phone | | + + + | Preferred Language | Unknown | + + + | Marital Status | | + + + | Roman Catholic Affiliation | Unknown | + + + | Race | White | + + + | Ethnic Group | Not or | + + + Author + + + | Author | [facility] | | | and [place] | + + + | Organization | [facility] | | | [...] Team Providers + +------+ + | Care Potato Chip Processing Supervisor Name | Role | Phone | + +------+ + | No, Physician | PCP | Unavailable | + +------+ + Encounter Details +--------+ + + + + | Date | Type | Department | Care Team | Description | +--------+ + + + + | 11/28/ | Emergency | [facility] | | Right upper quadrant | | 2018 - | | [facility] | | abdominal pain; | | | | EMERGENCY CENTER | | Gall bladder | | 11/29/ | | [address] | | disease; Ruptured | | 2018 | | [place] | | ovarian cyst | | | | [address] | | | | | | [phone] | | | +--------+ + + + [...] + + + | Blood Pressure | 134/79 | 11/29/2017 12:40 AM | | | | | PST | | + + + + + | Pulse | 71 | 11/29/2017 12:40 AM | | | | | PST | | + + + + + | Temperature | 36.8 C (98.2 F) | 11/29/2017 12:40 AM | | | | | PST | | + + + + + | Respiratory Rate | 16 | 11/29/2017 12:40 AM | | | | | PST | | + + + + + | Oxygen Saturation | - | - | | + + + + + | Inhaled Oxygen | - | - | | | Concentration | | | | + + + + + | Weight | 60.8 kg (134 lb 0.6 | 11/29/2017 12:40 AM | | | | oz) | PST | | + + + + + | Height | - | - | | + + + + + | Body Mass Index | 24.52 | 11/26/2017 5:35 PM | | | | | PST | | + + + + + documented in this encounter Medications at Time of Discharge + + + +---------+--------+ + | Medication | Sig | Dispensed | Refills | Start | End Date | | | | | | Date | | + + + +---------+--------+ + | citalopram | Take 20 mg by mouth | | 0 | | | | (CELEXA) 10 mg/5 mL | Daily. | | | | | | suspension | | | | | | + + + +---------+--------+ + | levothyroxine | Take 100 mcg by | | 0 | | | | (SYNTHROID) 100 mcg | mouth every morning | | | | | | tablet | (before breakfast). | | | | | + + + +---------+--------+ + documented as of this encounter ED Notes Erin Benito PA-C - 11/28/2017 9:56 PM PSTFormatting of this note might be diffe rent from the original. ED Provider Notes by Erin Benito PA-C at 11/28/172155 Author: Erin Benito PA-C Service: Emergency Department Author Type: Physician A ssistant - Certified Filed: 11/29/17 0118 Date of Service: 11/28/172155 Status: Attested Engineering Vice President: Erin Benito PA-C (Physician Stadium Manager - Certified) Cosigner: Prem trinh DO at 11/29/17654 Attestation signed by Prem Hooper DO at 11/29/17654 I have reviewed the note and supervised the mid-level provider. Procedures [facility] EMERGENCY DEPARTMENT History of Present Illness Patient Identification Shreya Sommer is a 32 y.o. female. Patient information was obtained from patient. History/Exam limitations: none. Patient presented to the Emergency Department by: Car Chief Complaint Chief Complaint Patient presents with Abdominal Pain RUQ, "I went to the ER in [place] and they said it's my gallbladder. It's not getting any better" 32 year old female to the ED for evaluation of abdominal pain. Patient is c/o RUQ abdomina l pain associated with nausea, no vomiting or fever. She states that the pain started sever al months ago and has since been intermittent but increasing in its intensity. The pain rad iates to her right shoulder. Denies any fever. She was seen for same two days ago at [facility] in [place] and was diagnosed with cholecystitis. She was advised to f/u with a surgeon, but is here tonight because of the continued pain and nausea. History reviewed. No pertinent past medical history. Past Surgical History Procedure Laterality Date THYROIDECTOMY Prior to Admission medications Not on File No Known Allergies Social History Social History Marital status: Spouse name: N/A Number of children: N/A Years of education: N/A Occupational History Not on file. Social History Main Topics Smoking status: Never Smoker Smokeless tobacco: Not on file Alcohol use Yes Comment: occ Drug use: No Sexual activity: Not on file Other Topics Concern Not on file Social History Narrative No narrative on file History reviewed. No pertinent family history. Review of Systems Constitutional: Negative for chills and fever. Cardiovascular: Negative for chest pain. Gastrointestinal: Positive for abdominal pain and nausea. Negative for constipation, diarrh ea and vomiting. Genitourinary: Negative for dysuria. Neurological: Negative for dizziness. All other systems reviewed and are negative. Physical Exam BP 113/68 (BP Location: Right forearm) | Pulse 75 | Temp 98.6 F (37 C) (Temporal) | Resp 22 | Wt 60.8 kg (134 lb 0.6 oz) | SpO2 99% Pulse Oximetry interpretation: Normal General: Alert, in no apparent distress with normal vitals as above Eyes: Normal inspection, pupils equal and round, non-icteric Neck: Normal inspection Supple No lymphadenopathy No meningismus Cardiovascular: Rate and rhythm normal No murmurs Respiratory: Breath sounds normal bilaterally. Respirations are non-labored Abdomen: Soft, non-tender, non-distended No guarding or rebound. Bowel sounds present Genitourinary: Deferred Rectal exam: Deferred Skin: Color normal Warm and dry No rash Neuro: No motor deficit No sensory deficit Normal gait. Alert and oriented. ED Course Medical Decision Making and Emergency Department Course Differential diagnosis includes but is not limited to cholecystitis, cholelithiasis, pancre atitis, gastritis, constipation, etc. I have ordered labs and toradol/zofran for pain and n ausea. ED Department Course Received a copy of the [place] report from [place] which revealed that the GB was normal swann bouchra the patient insists that they told her she had cholecystitis.. I have discussed the pat ient with Dr. Hooper who has reviewed the report. He agrees with my treatment plan to obtai n a CT CBC, CMP and lipase are normal. Awaiting CT results. CT reveals sludge in the GB and a recently rupture ovarian cyst. No other acute finidings. I will discharge the patient home with an Rx for pain medication and referral to a surgeon to discuss removal of the GB. Records Reviewed Old medical records.reviewed - imaging studies from [facility] in [place]. Labs & Radiology Results Laboratory Evaluation Results Procedure Component Value Ref Range Date/Time Lipase [[id number]] Collected: 11/28/172152 Order Status: Completed Specimen: Blood Updated: 11/28/172232 LIPASE 126 73 - 393 U/L Comprehensive metabolic panel [[id number]] (Abnormal) Collected: 11/28/172152 Order Status: Completed Specimen: Blood Updated: 11/28/172232 SODIUM 139 135 - 145 mmol/L POTASSIUM 3.3 (L) 3.5 - 4.9 mmol/L CHLORIDE 105 99 - 109 mmol/L CO2 27 23 - 32 mmol/L ANION GAP AGAP 10 5 - 20 mmol/L GLUCOSE 79 65 - 99 mg/dL BUN 8 8 - 25 mg/dL CREATININE 0.65 0.50 - 1.00 mg/dL BUN/CREAT 12 CALCIUM 8.6 8.5 - 10.5 mg/dL TOTAL PROTEIN 6.7 6.3 - 8.2 g/dL Albumin 3.8 3.6 - 5.0 g/dL GLOBULIN 2.9 1.3 - 4.9 g/dL A/G 1.3 1.0 - 2.4 TBIL 0.5 0.1 - 1.5 mg/dL ALK PHOS 45 35 - 115 U/L AST 15 10 - 45 U/L ALT 21 10 - 65 U/L EGFR >60 >60 mL/min/1.73m2 hCG, serum, qualitative [[id number]] Collected: 11/28/172152 Order Status: Completed Specimen: Blood Updated: 11/28/172232 TEST,SERUM NEGATIVE NEGATIVE CBC with differential [[id number]] Collected: 11/28/172152 Order Status: Completed Specimen: Blood Updated: 11/28/172224 WBC 7.72 3.80 - 11.00 K/uL RBC 4.28 3.70 - 5.10 M/uL HGB 12.1 11.3 - 15.5 g/dL HCT 35.8 34.0 - 46.0 % MCV 83.6 80.0 - 100.0 fl MCH 28.3 27.0 - 34.0 pg MCHC 33.8 32.0 - 35.5 g/dL RDW SD 43.8 37 - 53 fl PLT 163 150 - 400 K/uL MPV 10.3 fl DIFF TYPE AUTOMATED NEUTROPHILS 54.38 % LYMPHOCYTES 33.03 % MONOCYTES 7.27 % EOSINOPHILS 4.25 % BASOPHILS 1.07 % NEUTROPHILS ABS 4.20 1.90 - 7.40 K/uL LYMPHOCYTES ABS 2.55 1.00 - 3.90 K/uL MONOCYTES ABS 0.56 0.00 - 0.80 K/uL EOSINOPHILS ABS 0.33 0.00 - 0.50 K/uL BASOPHILS ABS 0.08 0.00 - 0.10 K/uL Radiology and EKG Evaluation Imaging Results CT Abdomen & Pelvis with contrast (Final result) Result time 11/28/17 23:57:20 Final result by Raphael Castaneda DO (11/28/17 23:57:20) Impression: 1. Small amount of free fluid seen in the right adnexal region and posterior cul-de-sac w ith a collapsing right ovarian cyst noted suggesting a recently ruptured cyst. This may be the source of the patient's pain. 2. 9 mm stable fat-containing lesion in the dome of the right liver, unchanged from January 2017. 3. Small amount of sludge suspected in the gallbladder lumen. 4. No acute findings in the abdomen or pelvis otherwise. Narrative: SHREYA SOMMER CT ABDOMEN PELVIS W CONTRAST 11/28/2017 11:19 PM HISTORY: 32 years. Female. Abdominal pain with nausea for several months. TECHNIQUE: 5-mm axial images were acquired through the abdomen and pelvis. 1.25 mm axial and 2 mm cor onal reconstructions were performed. Radiation dose reduction was performed with automated exposure control. Oral Contrast: None IV contrast: 70 mL IsoVue 300 COMPARISON: CT neck and chest 04/14/2017 FINDINGS: The visualized portions of the heart and lung bases are normal. The distal esophagus is normal. The liver contains a round fat-containing mass 9 mm in size at the dome of the right lobe w ith an average attenuation of -15 Hounsfield units, largely unchanged from January 2017, see i mage 9 series 3. The liver is otherwise normal. The spleen is normal in size and attenuation. No solid or cystic masses are seen. A splen ule is noted adjacent to the spleen measuring 15 mm, image 19 series 3. The pancreas is normal in size and attenuation. No solid or cystic masses are noted. The gallbladder is normal in size. No stones or wall thickening are noted. There may be s ludge in the gallbladder lumen, see image 32 series 3. The adrenal glands are normal in size bilaterally. There is no evidence of an adrenal mando ildefonso or hyperplasia. The kidneys are symmetric in size bilaterally and show no evidence of a solid or cystic mas s. No hydronephrosis is noted. No stones are seen in the collecting systems. The aorta and vena cava are normal in caliber throughout their visualized course including the iliac and femoral vessels. Enlarged ovarian veins are seen bilaterally. There is no free air in the abdomen or pelvis. No adenopathy is seen in the abdomen or pelvis. The stomach, duodenum, jejunum, ileum, ileocecal valve are normal. No air-fluid levels are seen to suggest obstruction. The appendix is identified and is normal. The ascending colo n, transverse colon, descending colon, sigmoid colon and rectum demonstrate normal wall thic kness. No diverticulosis is noted. In the pelvis the bladder is fluid filled and has a normal contour and wall thickness. No intraluminal filling defects are seen. No diverticulum is noted. The uterus is somewhat edematous. A partially collapsed right ovarian cyst is seen measuri ng 1.8 cm. There is a small amount of free fluid in the right adnexal region and posterior cul-de-sac suggesting a recently ruptured right ovarian cyst. Left ovary appears relatively normal. The muscles are symmetric. No focal atrophy or soft tissue mass is seen. No hernias are i dentified. The osseous structures do not demonstrate lytic or blastic lesions. The SI joints and hip joints are normal. Diagnosis & Disposition ED Diagnoses Final diagnoses Right upper quadrant abdominal pain Gall bladder disease - sludge Ruptured ovarian cyst - right Disposition: ED Disposition ED Disposition Condition Comment Discharge Stable Follow-up Information Follow up With Specialties Details Why Contact Info Ori Do MD General Surgery Schedule an appointment as soon as possible for a vis it [address] [facility] [phone] [facility] Emergency Department Emergency Medicine for worsening symp toms [address] [facility] [address] Discharge Medications: New Prescriptions HYDROCODONE-ACETAMINOPHEN (NORCO) 5-325 MG PER TABLET Take 1-2 tablets by mouth every 4 (four) hours as needed for Pain for up to 15 days. Erin Benito PA-C 11/29/17 0118 Prem Hooper DO 11/29/17 0655 onversion T [place], Provider Unknown - 11/28/2017 9:51 PM PSTFormatting of this note might be diffe rent from the original. ED Notes by Bhavya Cannon RN at 11/28/172150 Author: Bhavya Cannon RN Service: (none) Author Type: Registered Nurse Filed: 11/28/172150 Date of Service: 11/28/172150 Status: Signed Engineering Vice President: Bhavya Cannon RN (Registered Nurse) Rodolfo MAX at bedside. Bhavya Cannon RN 11/28/172150 docume nted in this encounter Plan of Treatment Not on filedocumented as of this encounter Procedures + +--------+ + + + | Procedure Name | Priori | Date/Time | Associated Diagnosis | Comments | | | ty | | | | + +--------+ + + + | CT ABDOMEN PELVIS W | Routin | 11/28/2017 | | Results for this | | CONTRAST | e | 11:19 PM | | procedure are in the | | | | PST | | results section. | + +--------+ + + + | EXTERNAL LAB: CBC | Routin | 11/28/2017 | | Results for this | | | e | 9:53 PM | | procedure are in the | | | | PST | | results section. | + +--------+ + + + | , SERUM, | Routin | 11/28/2017 | | Results for this | | QUAL | e | 9:53 PM | | procedure are in the | | | | PST | | results section. | + +--------+ + + + | LIPASE | Routin | 11/28/2017 | | Results for this | | | e | 9:53 PM | | procedure are in the | | | | PST | | results section. | + +--------+ + + + | COMPREHENSIVE | Routin | 11/28/2017 | | Results for this | | METABOLIC PANEL | e | 9:53 PM | | procedure are in the | | | | PST | | results section. | + +--------+ + + + documented in this encounter Results CT Abdomen Pelvis w Contrast (11/28/2017 11:19 PM PST) + + | Specimen | + + | | + + + + + | Impressions | Performed At | + + + | 1. Small amount of free fluid seen in the right adnexal region and | | | posterior cul-de-sac with a collapsing right ovarian cyst noted | | | suggesting a recently ruptured cyst. This may be the source of the | | | patient's pain. 2. 9 mm stable fat-containing lesion in the dome of | | | the right liver, unchanged from January 2017. 3. Small amount of | | | sludge suspected in the gallbladder lumen. 4. No acute findings in | | | the abdomen or pelvis otherwise. | | + + + + + + | Narrative | Performed At | + + + | SHREYA SOMMER CT ABDOMEN PELVIS W CONTRAST 11/28/2017 11:19 PM | | | HISTORY: 32 years. Female. Abdominal pain with nausea for | | | several months. TECHNIQUE: 5-mm axial images were acquired | | | through the abdomen and pelvis. 1.25 mm axial and 2 mm coronal | | | reconstructions were performed. Radiation dose reduction was | | | performed with automated exposure control. Oral Contrast: None IV | | | contrast: 70 mL IsoVue 300 COMPARISON: CT neck and chest | | | 04/14/2017 FINDINGS: The visualized portions of the heart and | | | lung bases are normal. The distal esophagus is normal. The | | | liver contains a round fat-containing mass 9 mm in size at the dome of | | | the right lobe with an average attenuation of -15 Hounsfield units, | | | largely unchanged from January 2017, see image 9 series 3. The liver | | | is otherwise normal. The spleen is normal in size and attenuation. | | | No solid or cystic masses are seen. A splenule is noted adjacent | | | to the spleen measuring 15 mm, image 19 series 3. The pancreas is | | | normal in size and attenuation. No solid or cystic masses are noted. | | | The gallbladder is normal in size. No stones or wall thickening | | | are noted. There may be sludge in the gallbladder lumen, see image | | | 32 series 3. The adrenal glands are normal in size bilaterally. | | | There is no evidence of an adrenal adenoma or hyperplasia. The | | | kidneys are symmetric in size bilaterally and show no evidence of a | | | solid or cystic mass. No hydronephrosis is noted. No stones are | | | seen in the collecting systems. The aorta and vena cava are normal | | | in caliber throughout their visualized course including the iliac and | | | femoral vessels. Enlarged ovarian veins are seen bilaterally. | | | There is no free air in the abdomen or pelvis. No adenopathy is | | | seen in the abdomen or pelvis. The stomach, duodenum, jejunum, | | | ileum, ileocecal valve are normal. No air-fluid levels are seen to | | | suggest obstruction. The appendix is identified and is normal. The | | | ascending colon, transverse colon, descending colon, sigmoid colon | | | and rectum demonstrate normal wall thickness. No diverticulosis is | | | noted. In the pelvis the bladder is fluid filled and has a normal | | | contour and wall thickness. No intraluminal filling defects are | | | seen. No diverticulum is noted. The uterus is somewhat | | | edematous. A partially collapsed right ovarian cyst is seen | | | measuring 1.8 cm. There is a small amount of free fluid in the right | | | adnexal region and posterior cul-de-sac suggesting a recently | | | ruptured right ovarian cyst. Left ovary appears relatively normal. | | | The muscles are symmetric. No focal atrophy or soft tissue mass | | | is seen. No hernias are identified. The osseous structures do | | | not demonstrate lytic or blastic lesions. The SI joints and hip | | | joints are normal. | | + + + + + | Procedure Note | + + | Pavan, Rad Conversion - 07/08/2019 2:57 PM PDT SHREYA Qamar JENKINSCT ABDOMEN PELVIS W | | CONTRAST11/28/2017 11:19 PM HISTORY:32 years. Female. Abdominal pain with nausea for | | several months. TECHNIQUE:5-mm axial images were acquired through the abdomen and | | pelvis. 1.25 mm axial and 2 mm coronal reconstructions were performed. Radiation dose | | reduction was performed with automated exposure control.Oral Contrast: NoneIV contrast: | | 70 mL IsoVue 300 COMPARISON:CT neck and chest 04/14/2017 FINDINGS:The visualized | | portions of the heart and lung bases are normal. The distal esophagus is normal. The | | liver contains a round fat-containing mass 9 mm in size at the dome of the right lobe | | with an average attenuation of -15 Hounsfield units, largely unchanged from January 2017, | | see image 9 series 3. The liver is otherwise normal. The spleen is normal in size and | | attenuation. No solid or cystic masses are seen. A splenule is noted adjacent to the | | spleen measuring 15 mm, image 19 series 3. The pancreas is normal in size and | | attenuation. No solid or cystic masses are noted. The gallbladder is normal in size. | | No stones or wall thickening are noted. There may be sludge in the gallbladder lumen, | | see image 32 series 3. The adrenal glands are normal in size bilaterally. There is no | | evidence of an adrenal adenoma or hyperplasia. The kidneys are symmetric in size | | bilaterally and show no evidence of a solid or cystic mass. No hydronephrosis is noted. | | No stones are seen in the collecting systems. The aorta and vena cava are normal in | | caliber throughout their visualized course including the iliac and femoral vessels. | | Enlarged ovarian veins are seen bilaterally. There is no free air in the abdomen or | | pelvis. No adenopathy is seen in the abdomen or pelvis. The stomach, duodenum, jejunum, | | ileum, ileocecal valve are normal. No air-fluid levels are seen to suggest obstruction. | | The appendix is identified and is normal. The ascending colon, transverse colon, | | descending colon, sigmoid colon and rectum demonstrate normal wall thickness. No | | diverticulosis is noted. In the pelvis the bladder is fluid filled and has a normal | | contour and wall thickness. No intraluminal filling defects are seen. No diverticulum | | is noted. The uterus is somewhat edematous. A partially collapsed right ovarian cyst is | | seen measuring 1.8 cm. There is a small amount of free fluid in the right adnexal | | region and posterior cul-de-sac suggesting a recently ruptured right ovarian cyst. Left | | ovary appears relatively normal. The muscles are symmetric. No focal atrophy or soft | | tissue mass is seen. No hernias are identified. The osseous structures do not | | demonstrate lytic or blastic lesions. The SI joints and hip joints are normal. | | IMPRESSION: 1. Small amount of free fluid seen in the right adnexal region and | | posterior cul-de-sac with a collapsing right ovarian cyst noted suggesting a recently | | ruptured cyst. This may be the source of the patient's pain.2. 9 mm stable | | fat-containing lesion in the dome of the right liver, unchanged from January 2017.3. | | Small amount of sludge suspected in the gallbladder lumen.4. No acute findings in the | | abdomen or pelvis otherwise. | | 11:57 PM | |demonstrate normal wall thickness. No diverticulosis is noted. | | | |In the pelvis the bladder is fluid filled and has a normal contour and wall thickness. No intraluminal filling defects are seen. No diverticulum is noted. | | | |The uterus is somewhat edematous. A partially collapsed right ovarian cyst is seen measuri ng 1.8 cm. There is a small amount of free fluid in the right adnexal region and posterior cul-de-sac suggesting a recently ruptured right ovarian cyst. Left | |ovary appears relatively normal. | | | |The muscles are symmetric. No focal atrophy or soft tissue mass is seen. No hernias are i dentified. | | | |The osseous structures do not demonstrate lytic or blastic lesions. The SI joints and hip joints are normal. | | | |IMPRESSION: | |1. Small amount of free fluid seen in the right adnexal region and posterior cul-de-sac wi th a collapsing right ovarian cyst noted suggesting a recently ruptured cyst. This may be t he source of the patient's pain. | |2. 9 mm stable fat-containing lesion in the dome of the right liver, unchanged from January 2017. | |3. Small amount of sludge suspected in the gallbladder lumen. | |4. No acute findings in the abdomen or pelvis otherwise. | | | | | + + External Lab: CBC (11/28/2017 9:53 PM PST) + + + + + + | Component | Value | Ref Range | Performed | Pathologist | | | | | At | Signature | + + + + + + | WBC | 7.72 | 3.80 - 11.00 | EXTERNAL | | | | | K/uL | LAB | | + + + + + + | Non- | 4.28 | 3.70 - 5.10 | EXTERNAL | | | Red Blood | | M/uL | LAB | | | Cells | | | | | | Counted | | | | | + + + + + + | Hemoglobin | 12.1 | 11.3 - 15.5 | EXTERNAL | | | | | g/dL | LAB | | + + + + + + | Hematocrit, | 35.8 | 34.0 - 46.0 % | EXTERNAL | | | POC | | | LAB | | + + + + + + | MCV | 83.6 | 80.0 - 100.0 fl | EXTERNAL | | | | | | LAB | | + + + + + + | MCH | 28.3 | 27.0 - 34.0 pg | EXTERNAL | | | | | | LAB | | + + + + + + | MCHC | 33.8 | 32.0 - 35.5 | EXTERNAL | | | | | g/dL | LAB | | + + + + + + | RDW-CV | 43.8 | 37 - 53 fl | EXTERNAL | | | | | | LAB | | + + + + + + | Platelet | 163 | 150 - 400 K/uL | EXTERNAL | | | Count | | | LAB | | | Plasma | | | | | + + + + + + | MPV | 10.3 | fl | EXTERNAL | | | | | | LAB | | + + + + + + | Differentia | AUTOMATED | | EXTERNAL | | | l Type | | | LAB | | + + + + + + | % Segmented | 54.38 | % | EXTERNAL | | | | | | LAB | | | Neutrophils | | | | | + + + + + + | % | 33.03 | % | EXTERNAL | | | Lymphocytes | | | LAB | | + + + + + + | % Monocytes | 7.27 | % | EXTERNAL | | | | | | LAB | | + + + + + + | % | 4.25 | % | EXTERNAL | | | Eosinophils | | | LAB | | + + + + + + | % Basophils | 1.07 | % | EXTERNAL | | | | | | LAB | | + + + + + + | Absolute | 4.20 | 1.90 - 7.40 | EXTERNAL | | | Segmented | | K/uL | LAB | | | Neutrophils | | | | | + + + + + + | Absolute | 2.55 | 1.00 - 3.90 | EXTERNAL | | | Lymphocytes | | K/uL | LAB | | + + + + + + | Absolute | 0.56 | 0.00 - 0.80 | EXTERNAL | | | Monocytes | | K/uL | LAB | | + + + + + + | Absolute | 0.33 | 0.00 - 0.50 | EXTERNAL | | | Eosinophils | | K/uL | LAB | | + + + + + + | Absolute | 0.08Comment: Testing | 0.00 - 0.10 | EXTERNAL | | | Basophils | performed at [facility];[address] | [address] | LAB | | | | [address];[place], [place] | | | | | | [id number] | | | | + + + + + + + + | Specimen | + + | Blood specimen | | (specimen) | + + + +---------+ + + | Performing | Address | City/State/Zipcode | Phone Number | | Organization | | | | + +---------+ + + | EXTERNAL LAB | | | | + +---------+ + + , Serum, Qual (11/28/2017 9:53 PM PST) + + + + + + | Component | Value | Ref Range | Performed | Pathologist | | | | | At | Signature | + + + + + + | HCG | NEGATIVEComment: Testing | | EXTERNAL | | | QUALITATIVE | performed at [facility] | | LAB | | | | [address];[place], [place] | | | | | | [id number] | | | | + + + + + + + + | Specimen | + + | Blood specimen | | (specimen) | + + + +---------+ + + | Performing | Address | City/State/Zipcode | Phone Number | | Organization | | | | + +---------+ + + | EXTERNAL LAB | | | | + +---------+ + + Lipase (11/28/2017 9:53 PM PST) + + + + + + | Component | Value | Ref Range | Performed | Pathologist | | | | | At | Signature | + + + + + + | Lipase | 126Comment: Testing | 73 - 393 U/L | EXTERNAL | | | | performed at [facility];[address] | | LAB | | | | [address];[place] | | | | | | [id number] | | | | + + + [...] + +---------+ + + Comprehensive Metabolic Panel (11/28/2017 9:53 PM PST) + + + + + + | Component | Value | Ref Range | Performed | Pathologist | | | | | At | Signature | + + + + + + | Na | 139 | 135 - 145 | EXTERNAL | | | | | mmol/L | LAB | | + + + + + + | K | 3.3 (L) | 3.5 - 4.9 | EXTERNAL | | | | | mmol/L | LAB | | + + + + + + | Cl | 105 | 99 - 109 mmol/L | EXTERNAL | | | | | | LAB | | + + + + + + | CO2 | 27 | 23 - 32 mmol/L | EXTERNAL | | | | | | LAB | | + + + + + + | Anion Gap | 10 | 5 - 20 mmol/L | EXTERNAL | | | | | | LAB | | + + + + + + | Glucose, | 79 | 65 - 99 mg/dL | EXTERNAL | | | Fasting | | | LAB | | + + + + + + | BUN | 8 | 8 - 25 mg/dL | EXTERNAL | | | | | | LAB | | + + + + + + | Creatinine | 0.65 | 0.50 - 1.00 | EXTERNAL | | | | | mg/dL | LAB | | + + + + + + | BUN/Creatin | 12 | | EXTERNAL | | | ine Ratio | | | LAB | | + + + + + + | Calcium | 8.6 | 8.5 - 10.5 | EXTERNAL | | | | | mg/dL | LAB | | + + + + + + | Protein, | 6.7 | 6.3 - 8.2 g/dL | EXTERNAL | | | Total | | | LAB | | + + + + + + | Albumin | 3.8 | 3.6 - 5.0 g/dL | EXTERNAL | | | | | | LAB | | + + + + + + | Globulin | 2.9 | 1.3 - 4.9 g/dL | EXTERNAL | | | | | | LAB | | + + + + + + | A/G Ratio | 1.3 | 1.0 - 2.4 | EXTERNAL | | | | | | LAB | | + + + + + + | Bilirubin | 0.5 | 0.1 - 1.5 mg/dL | EXTERNAL | | | Total | | | LAB | | + + + + + + | ALP, | 45 | 35 - 115 U/L | EXTERNAL | | | External | | | LAB | | + + + + + + | AST | 15 | 10 - 45 U/L | EXTERNAL | | | | | | LAB | | + + + + + + | ALT | 21 | 10 - 65 U/L | EXTERNAL [...] | | | | | | at [facility];[address] [place] [address] | | | | | | [facility];[place] [address] | | | | + + + [...] + | Diagnosis | + + | Right upper quadrant abdominal pain Abdominal pain, right upper quadrant | + + | Gall bladder disease Unspecified disorder of gallbladder | + + | Ruptured ovarian cyst Other and unspecified ovarian cyst | + + documented in this encounter
--- OUTSIDE RECORDS SUMMARY | ~2020-08-02 | XMS | Encounter Summary ---
Demographics + + + | Address | [address] | | | [place] [address] | + + + | Home Phone | | + + + | Preferred Language | Unknown | + + + | Marital Status | | + + + | Denominational Affiliation | Unknown | + + + | Race | White | + + + | Ethnic Group | Not or | + + + Author + + + | Author | [facility] | | | and [place] | + + + | Organization | [facility] | | | and [...] Team Providers + +------+ + | Care Supervisor Contact Lens Name | Role | Phone | + +------+ + | No, Physician | PCP | Unavailable | + +------+ + Reason for Referral Evaluate & Treat (Routine) +--------+ + + + + + | Status | Reason | Specialty | Diagnoses / | Referred By | Referred To | | | | | Procedures | Contact | Contact | +--------+ + + + + + | Closed | Specialty | Gastroenterol | Diagnoses | [place], | Tio | | | Services | ogy | Right upper | Shaka | Asad Copeland, | | | Required | | quadrant | MD Rocael | [address] | | | | | pain | [address] | | | | | | [place] | [place] | | | | | | [place], [place] | [place] [address] | | | | | | [address] | Phone: | | | | | | Phone: | [phone] | | | | | | [phone] | Fax: | | | | | | Fax: | [phone] | | | | | | [phone] | | +--------+ + + + + + Evaluate & Treat (Routine) +--------+ + + + + + | Status | Reason | Specialty | Diagnoses / | Referred By | Referred To | | | | | Procedures | Contact | Contact | +--------+ + + + + + | Closed | Specialty | Surgery | Diagnoses | [place], | Cony, | | | Services | | Right upper | Shaka | Shai Núñez MD | | | Required | | quadrant | MD Rocael | [address] | | | | | pain | [address] | [place] | | | | | | [place] | [place], [place] | | | | | | [place], [place] | [address] | | | | | | [address] | Phone: | | | | | | Phone: | [phone] | | | | | | [phone] | Fax: | | | | | | Fax: | [phone] | | | | | | [phone] | | +--------+ + + + + + Reason for Visit + + + | Reason | Comments | + + + | Medical Problem | | | (Major) | | + + + Encounter Details +--------+ + + + + | Date | Type | Department | Care Team | Description | +--------+ + + + + | 11/26/ | Emergency | [facility] | Shaka Duvall | Right upper quadrant | | 2018 | | [facility] | MD Rocael [address] | pain (Primary Dx); | | | | CENTER [address] | [address] [place] | Nonintractable | | | | [place], [place] | [place] [address] | episodic headache, | | | | [address] | [phone] | unspecified headache | | | | [phone] | | type | +--------+ + + + + Social [...] + + + | Blood Pressure | 116/71 | 11/26/2017 5:35 PM | | | | | PST | | + + + + + | Pulse | 74 | 11/26/2017 5:35 PM | | | | | PST | | + + + + + | Temperature | 36.5 C (97.7 F) | 11/26/2017 5:35 PM | | | | | PST | | + + + + + | Respiratory Rate | 16 | 11/26/2017 5:35 PM | | | | | PST | | + + + + + | Oxygen Saturation | 100% | 11/26/2017 5:35 PM | | | | | PST | | + + + + + | Inhaled Oxygen | - | - | | | Concentration | | | | + + + + + | Weight | 59 kg (130 lb) | 11/26/2017 5:35 PM | | | | | PST | | + + + + + | Height | 157.5 cm (5' 2") | 11/26/2017 5:35 PM | | | | | PST | | + + + + + | Body Mass Index | 23.78 | 11/26/2017 5:35 PM | | | | | PST | | + + + + + documented in this encounter Discharge Instructions AttachmentsThe following attachments cannot be sent through Care Everywhere.Headache, Unspe cified ([place])Abdominal Pain, Adult ([place])documented in this encounter Medications at Time of [...] documented as of this encounter ED Notes Shaka Duvall MD - 11/26/2017 5:50 PM PSTFormatting of this note might be diff erent from the original. [facility] Herminia Simmonskins Emergency Department Encounter Note [address] [place] [id number] PCP:No Physician on file [phone] CHIEF COMPLAINT: Chief Complaint Patient presents with Medical Problem (Major) ED Room: ED17 HPI Patria Sommer is a 32 y.o. female who presents to the Emergency Department Patient just the ER for evaluation disease states that she just got her insurance back yest erday and therefore would like to be evaluated for intermittent right upper quadrant pain th at is been after meals present for approximately one to 2 months without any acute changes a dditionally she reports headache gradual onset intermittent over the last 1-2 weeks present 5 out of 10 localized frontal throbbing aching when present no associated exertional onset o r syncopal onset no sudden onset no intracranial thunderclap or pop no neck stiffness no foc al neurologic deficits. That she states that she did undergo treatment for thyroid cancer a nd failed to complete treatment due to insurance status approximately 2 years ago. PAST MEDICAL & SURGICAL HISTORY Patient Active Problem List Diagnosis Date Noted Varicose veins of lower extremities with other complications 04/13/2014 Past Surgical History: Procedure Laterality Date ECTOPIC SURGERY 2011 THYROIDECTOMY TUBAL LIGATION 2010 CURRENT MEDICATIONS Discharge Medication List as of 11/26/2017 21:45 CONTINUE these medications which have NOT CHANGED Details citalopram (CELEXA) 10 mg/5 mL suspension Take 20 mg by mouth Daily.Historical Med levothyroxine (SYNTHROID) 100 mcg tablet Take 100 mcg by mouth every morning (before breakf ast).Historical Med ALLERGIES No Known Allergies FAMILY AND SOCIAL HISTORY Family History Problem Relation Age of Onset Other (see comment) Mother varicose veins Other (see comment) Maternal Grandmother varicose veins Social History Social History Marital status: Spouse name: N/A Number of children: N/A Years of education: N/A Social History Main Topics Smoking status: Never Smoker Smokeless tobacco: Never Used Alcohol use 0.5 oz/week 1 drink(s) per week Drug use: No Sexual activity: Not Asked Other Topics Concern None Social History Narrative None REVIEW OF SYSTEMS As in history of present illness. A 10 system review was otherwise negative. PHYSICAL EXAM VITAL SIGNS: (first vital signs):Temp: 36.5 C (97.7 F) Pulse: 74 Resp: 16 SpO2: 100 % B P: 116/71 Body mass index is 23.78 kg/m. Constitutional: Well-appearing female patient. HEENT: Atraumatic, PERRL, Oropharynx benign. Neck: Supple with full range of motion. No JVD, no lymphadenopathy, no meningismus and no cervical spine tenderness to palpation or step-off noted. Chest: Good air movement bilaterally. No wheezes, No, rales. Cardiovascular: Normal S1 S2 Abdomen: Soft, nontender., no rebound, guarding, or masses., bowel tones normal. and no pu lsatile masses. Back: Within normal limits, no CVA tenderness and no midline thoracic or lumbar spinal tend erness Extremities: Nontender. No lower extremity edema, no calf asymmetry. Present distal pulse s. Skin: Warm, Dry, No rashes Neurologic: Alert & oriented. No focal deficits, Speech normal, gait not tested Psychiatric: Normal mood, affect and judgement. EKG 12-lead EKG shows LABS Results for orders placed or performed during the hospital encounter of 11/26/17 CBC with Differential Result Value Ref Range WBC 8.5 4.0 - 11.0 K/uL RBC 4.76 3.70 - 5.20 M/uL Hgb 13.1 11.5 - 16.0 g/dL Hct 40.4 34.0 - 47.0 % MCV 84.9 83.0 - 101.0 fL MCH 27.6 (L) 28.0 - 35.0 pg MCHC 32.4 32.0 - 36.0 g/dL RDW-CV 15.1 (H) <15.0 % Platelet Count 194 140 - 440 K/uL MPV 10.1 fL % Neutrophils 64.9 45.0 - 82.0 % % Lymphocytes 24.0 20.0 - 45.0 % % Monocytes 7.7 4.0 - 12.0 % % Eosinophils 2.3 0.0 - 5.0 % % Basophils 1.1 (H) 0.0 - 1.0 % Absolute Neutrophils 5.50 1.80 - 8.50 K/uL Absolute Lymphocytes 2.00 0.60 - 3.20 K/uL Absolute Monocytes 0.70 0.00 - 1.00 K/uL Absolute Eosinophils 0.20 0.00 - 0.40 K/uL Absolute Basophils 0.10 0.00 - 0.10 K/uL Comprehensive Metabolic Panel Result Value Ref Range NA 139 136 - 149 mmol/L K 3.6 3.5 - 5.1 mmol/L CL 105 98 - 109 mmol/L CO2 26 24 - 31 mmol/L ANION GAP 8 3 - 16 mmol/L GLUCOSE 92 70 - 109 mg/dL BUN 7 7 - 18 mg/dL Creatinine, Serum/Plasma 0.68 0.60 - 1.30 mg/dL eGFR if not >60 >=60 mL/min/1.73m2 CALCIUM 9.4 8.3 - 10.5 mg/dL ALBUMIN 4.3 3.2 - 5.0 g/dL BILIRUBIN TOTAL 0.7 0.1 - 1.5 mg/dL Total protein 6.9 6.0 - 7.8 g/dL AST 24 10 - 42 U/L ALT 20 6 - 45 U/L ALK PHOS 49 40 - 110 U/L GLOBULIN 2.6 2.1 - 3.8 g/dL Albumin/Globulin ratio 1.7 0.8 - 2.0 BUN/CREA 10.3 Lipase Result Value Ref Range LIPASE 22 0 - 60 U/L , Serum, Qual Result Value Ref Range HCG SCREEN,SERUM Negative Negative Urinalysis with Microscopic with Culture if Indicated Result Value Ref Range COLOR Jeannette (A) Light Yellow, Yellow, Straw CLARITY Cloudy (A) Clear PH UA 7.0 5.0 - 8.0 Specific [place] 1.009 1.001 - 1.030 PROTEIN UA Negative Negative BLOOD UA Negative Negative GLUCOSE UA Negative Negative KETONES UA Trace (A) Negative BILIRUBIN UA Negative Negative NITRITE UA Negative Negative LEUKOCYTES ESTERASE UA Negative Negative UROBILINOGEN UA Negative 0.2 mg/dL, 1.0 mg/dL, Negative WBC UA 0-2 0 - 2 /HPF RBC UA 0-2 0 - 2 /HPF SQUAMOUS EPITHELIAL UA 0-2 0 - 2 /LPF BACTERIA UA Negative Negative /HPF MUCUS UA Present (A) Negative /LPF Extra Green Top Tube Result Value Ref Range Extra Green Top Tube Done Extra Lavender Top Tube Result Value Ref Range Extra Lavender Top Tube Done IMAGING STUDIES (X-Rays interpreted by ED Physician) CT head is unremarkable RUQ US shows calcification ED COURSE & MEDICAL DECISION MAKING Pertinent Labs & Imaging studies were reviewed along with EMS notes and senior care record s if applicable. (See chart for details) Medications and Allergy list reviewed. Nurses note and old records were reviewed The patient was seen and examined, The patient was placed on the monitor and monitored. An iv was placed. The patient was given a normal saline bolus. She is treated with Reglan, Benadryl, Toradol, site Medrol, Mag-Ox. Her sciatic resolves a nd does not return during ED course at this time is no clinical evidence of Intracranial bleed Intracranial mass Intracranial hypertension Meningitis Encephalitis Venous sinus thrombosis Cerebrovascular accident Carotid artery dissection Result and Valium her Procardia ultrasound though no acute obstruction therefore she is ins tructed follow-up with general surgery and GI to which she is referred. The patient remained hemodynamically stable within normal limits during their ED course, and sat comfortably in their bed in no apparent distress. The patient was counseled about their results and workup including all incidental findings and the need for out patient follow up to which they verbalized their understanding. The patient was counseled about the importance of medical recommendations today and the dangers including harm or of non adherence to the plan. They verbalize their understanding of today's plan and agree with it. They were counseled that emergency services are available to them 17/06 and to return to the ED immediately if symptoms return. The patient was given follow up. They were given further strict, thorough, actionable return precautions to which they verbalized their understanding. The patient's questions were answered and the patient agreed with the plan. The patient was discharged in good stable condition. Last Set of Vital Signs: Temp: 36.5 C (97.7 F) Pulse: 74 Resp: 16 SpO2: 100 % BP: 116/7 1 FINAL IMPRESSION ICD-10-CM ICD-9-CM 1. Right upper quadrant pain R10.11 789.01 2. Nonintractable episodic headache, unspecified headache type R51 784.0 Follow-up Information Please follow up. Contact information: follow up with your primary care physician, general surgeon and GI doctor. Shai Donnelly MD. Call today. Specialty: General Surgery Contact information: [address] [facility] [address] Asad Kinsey MD. Call today. Specialty: Gastroenterology Contact information: [address] [facility] [address] Shai Donnelly MD . Specialty: General Surgery Contact information: [address] [facility] [address] Discharge Medication List as of 11/26/2017 21:45 Administrations This Visit diphenhydrAMINE (BENADRYL) injection 25 mg Admin Date 11/26/2017 Action Given Dose 25 mg Route Intravenous Administered By Marnie Maldonado RN iohexol (OMNIPAQUE 350) 350 mg/mL injection 85 mL Admin Date 11/26/2017 Action Given Dose 85 mL Route Intravenous Administered By Rosa Osuna, Technologist ketorolac (TORADOL) injection 15 mg Admin Date 11/26/2017 Action Given Dose 15 mg Route Intravenous Administered By Marnie Maldonado RN methylPREDNISolone sodium succinate (solu-MEDROL) 62.5 mg/mL injection 62.5 mg Admin Date 11/26/2017 Action Given Dose 62.5 mg Route Intramuscular Administered By Marnie Maldonado RN metoclopramide (REGLAN) 5 mg/mL injection 10 mg Admin Date 11/26/2017 Action Given Dose 10 mg Route Intravenous Administered By Marnie Maldonado RN ondansetron (ZOFRAN) injection 4 mg Admin Date 11/26/2017 Action Given Dose 4 mg Route Intravenous Administered By Evelyn Blanco RN sodium chloride 0.9% (NS) bolus 1,000 mL Admin Date 11/26/2017 Action New Bag Dose 1000 mL Rate 500 mL/hr Route Intravenous Administered By Marnie Maldonado RN sodium chloride 0.9% (NS) bolus 75 mL Admin Date 11/26/2017 Action Push Dose 75 mL Rate 4,500 mL/hr Route Intravenous Administered By Rosa Osuna, Technologist Portions of this chart were created with [employer] voice recognition software. Inadvertent so und alike substitutions may be present and are unintentional Shaka Duvall MD 11/30/17 0741 Evelyn Lam Student MANAGER INPATIENT - 11/26/2017 5:32 PM PSTPt complains that she has been issues with her abd t hat radiates into her back and side. She has also been complaining of headaches that are now causing her to black out, she is dizzy and shaky. Pt complains that she was recently diagno sed with thyroid cancer in January of last year and they told her it went in to her lymph node s. documented in this encounter Plan of Treatment + + +--------+ + + | Name | Type | Priori | Associated Diagnoses | Order Schedule | | | | ty | | | + + +--------+ + + | General Surgery, | Outpatient | Routin | Right upper | Ordered: 11/26/2017 | | External - AMB | Referral | e | quadrant pain | | | Referral | | | | | + + +--------+ + + | Ambulatory referral | Outpatient | Routin | Right upper | Ordered: 11/26/2017 | | to Gastroenterology | Referral | e | quadrant pain | | + + +--------+ + + documented as of this encounter Procedures + +--------+ + + + | Procedure Name | Priori | Date/Time | Associated Diagnosis | Comments | | | ty | | | | + +--------+ + + + | US ABDOMEN LIMITED | STAT | 11/26/2017 | | Results for this | | | | 7:38 PM | | procedure are in the | | | | PST | | results section. | + +--------+ + + + | CT ANGIOGRAM HEAD | STAT | 11/26/2017 | | Results for this | | NECK | | 6:59 PM | | procedure are in the | | | | PST | | results section. | + +--------+ + + + | URINALYSIS WITH | Routin | 11/26/2017 | | Results for this | | MICROSCOPIC WITH | e | 6:19 PM | | procedure are in the | | CULTURE IF INDICATED | | PST | | results section. | + +--------+ + + + | EXTRA LAVENDER TOP | Routin | 11/26/2017 | | Results for this | | TUBE | e | 6:06 PM | | procedure are in the | | | | PST | | results section. | + +--------+ + + + | EXTRA GREEN TOP TUBE | Routin | 11/26/2017 | | Results for this | | | e | 6:06 PM | | procedure are in the | | | | PST | | results section. | + +--------+ + + + | , SERUM, | STAT | 11/26/2017 | | Results for this | | QUAL | | 6:06 PM | | procedure are in the | | | | PST | | results section. | + +--------+ + + + | CBC WITH | STAT | 11/26/2017 | | Results for this | | DIFFERENTIAL | | 6:05 PM | | procedure are in the | | | | PST | | results section. | + +--------+ + + + | LIPASE | STAT | 11/26/2017 | | Results for this | | | | 6:05 PM | | procedure are in the | | | | PST | | results section. | + +--------+ + + + | COMPREHENSIVE | STAT | 11/26/2017 | | Results for this | | METABOLIC PANEL | | 6:05 PM | | procedure are in the | | | | PST | | results section. | + +--------+ + + + documented in this encounter Results US Abdomen Limited (11/26/2017 7:38 PM PST) + + | Specimen | + + | | + + + + + | Narrative | Performed At | + + + | US ABDOMEN LIMITED 11/26/2017 6:54 PM HISTORY: Right upper | [facility] | | quadrant pain. COMPARISON: CT scan 01/30/2015. PROTOCOL: Navarrete | | | scale and Doppler images of the abdomen. FINDINGS: Gallbladder: | | | There is no evidence for gallstones. The gallbladder wall measures | | | 1.9 mm, which is normal. Sonographic Urena's sign is absent. The | | | common bile duct measures 3.2 mm, normal. Liver: There is a | | | hyperechoic shadowing structure in the right hepatic lobe measuring | | | 1.5 x 1.2 x 0.9 cm that was not observed on the prior CT scan of | | | 01/30/2015. The liver measures 15.0 cm, which is normal. Pancreas: | | | Visualized parenchyma is within normal limits. The pancreatic duct is | | | normal. Right kidney: There is increased echogenicity of the | | | medulla compared to the cortex that may represent medullary | | | nephrocalcinosis. There is no hydronephrosis. The kidney measures | | | 10.0 x 3.6 x 5.2 cm. Venous structures: There is normal blood flow | | | in the IVC, portal veins, hepatic veins, and splenic vein. | | | IMPRESSION - No evidence for gallstones. Hyperechoic shadowing | | | structure in right hepatic lobe measuring 1.5 x 1.2 x 0.9 cm that was | | | not observed on the prior CT scan of 01/30/2015. This may represent | | | focal calcium, although a calcified lesion cannot be excluded. | | | Increased echogenicity of the right renal medulla compared to the | | | cortex that may represent medullary nephrocalcinosis. Further | | | evaluation can be obtained with a multiphase CT scan of the abdomen | | | and pelvis if clinically indicated. A preliminary report was | | | given to Dr. Shaka Duvall at 1935 hours on 11/26/2017 by the | | | head of acquisitions. Dictated and Signed by: Cholo Ziegler MD | | | Electronically signed: 11/27/2017 9:21 AM | | + + + + + | Procedure Note | + + | Pavan, Rad Results In - 11/27/2017 9:24 AM PST US ABDOMEN LIMITED 11/26/2017 6:54 PM | | | | HISTORY: Right upper quadrant pain. | | | | COMPARISON: CT scan 01/30/2015. | | | | PROTOCOL: Navarrete scale and Doppler images of the abdomen. | | | | FINDINGS: | | Gallbladder: There is no evidence for gallstones. The gallbladder wall measures | | 1.9 mm, which is normal. | | Sonographic Urena's sign is absent. | | The common bile duct measures 3.2 mm, normal. | | | | Liver: There is a hyperechoic shadowing structure in the right hepatic lobe | | measuring 1.5 x 1.2 x 0.9 cm that was not observed on the prior CT scan of | | 01/30/2015. The liver measures 15.0 cm, which is normal. | | | | Pancreas: Visualized parenchyma is within normal limits. The pancreatic duct is | | normal. | | | | Right kidney: There is increased echogenicity of the medulla compared to the | | cortex that may represent medullary nephrocalcinosis. There is no | | hydronephrosis. The kidney measures 10.0 x 3.6 x 5.2 cm. | | | | Venous structures: There is normal blood flow in the IVC, portal veins, hepatic | | veins, and splenic vein. | | | | IMPRESSION - | | No evidence for gallstones. | | | | Hyperechoic shadowing structure in right hepatic lobe measuring 1.5 x 1.2 x 0.9 | | cm that was not observed on the prior CT scan of 01/30/2015. This may represent | | focal calcium, although a calcified lesion cannot be excluded. | | | | Increased echogenicity of the right renal medulla compared to the cortex that | | may represent medullary nephrocalcinosis. | | | | Further evaluation can be obtained with a multiphase CT scan of the abdomen and | | pelvis if clinically indicated. | | | | A preliminary report was given to Dr. Shaka Duvall at 1935 hours on 11/26/2017 | | by the head of acquisitions. | | | | Dictated and Signed by: Cholo Ziegler MD | | Electronically signed: 11/27/2017 9:21 AM | + + + +---------+ + + | Performing | Address | City/State/Zipcode | Phone Number | | Organization | | | | + +---------+ + + | [facility] | | | | + +---------+ + + CT Angiogram Head Neck (11/26/2017 6:59 PM PST) + + | Specimen | + + | | + + + + + | Narrative | Performed At | + + + | UNENHANCED AND ENHANCED CTA HEAD AND ENHANCED CTA NECK WITH | [facility] | | MULTIPLANAR REFORMATIONS AND THREE-DIMENSIONAL VASCULAR | | | RECONSTRUCTIONS 11/26/2017 6:52 PM CLINICAL HISTORY: history of | | | metastisized thyroid cancer, did not complete therapy, now having | | | headaches and dizziness. COMPARISON: None TECHNIQUE: | | | Axial unenhanced images were performed through the head. Following | | | the uneventful intravenous administration of 85 mL Omnipaque-350 | | | contrast, axial images are performed from the aortic arch through the | | | [place]. Multiplanar reformations and three-dimensional | | | vascular reconstructions were also performed. HEAD FINDINGS: | | | The cerebral parenchyma, ventricles, brainstem and cerebellum are | | | unremarkable. Navarrete-white differentiation is maintained. There is | | | no mass effect, abnormal parenchymal enhancement, evidence of | | | intracranial hemorrhage, or extra-axial fluid collection/mass. The | | | bones and soft tissues, including the paranasal sinuses, middle ear | | | cavities and mastoid air cells, are unremarkable. The basilar | | | artery, bilateral superior cerebellar arteries and bilateral | | | anterior, middle and posterior cerebral arteries are widely patent. | | | Patent anterior communicating artery is suggested. Patent | | | anterior and posterior inferior cerebellar arteries are visible. No | | | vessel occlusion, stenosis, aneurysm or dissection is apparent. | | | NECK FINDINGS: The imaged thoracic aorta is widely patent. The | | | great vessels arise from the arch in the usual configuration. The | | | brachiocephalic artery, imaged subclavian arteries and bilateral | | | common, internal and external carotid arteries are widely patent, | | | along with a codominant vertebral arteries. No vessel occlusion, | | | stenosis, aneurysm or dissection is apparent. The pharynx, larynx | | | and trachea are unremarkable, along with the submandibular and | | | parotid glands. The thyroid appears to be absent. Borderline to | | | mildly enlarged lymph nodes are present in the anterior and posterior | | | cervical triangles and measure up to 11 mm short axis posterior to | | | the mandibular angles bilaterally. An 8 mm short axis node is noted | | | in the AP window. Imaged upper lungs are clear. There is | | | straightening of the cervical lordosis. Osseous structures are | | | otherwise unremarkable. IMPRESSION - 1. WIDELY PATENT | | | CERVICAL AND INTRACRANIAL ARTERIAL SYSTEMS WITHOUT EVIDENCE OF | | | INTRACRANIAL DISEASE. 2. NON-SPECIFIC MILDLY PROMINENT CERVICAL | | | LYMPH NODES IN THE SETTING OF REPORTED THYROID CANCER. THYROID | | | APPEARS TO BE ABSENT. Preliminary results of this study were | | | reported to the ER staff by the [facility] radiologist on | | | November 26, 2017 at 2105 hours. Dictated and Signed by: Pravin Mcintosh | | MD Ramses Electronically signed: 11/27/2017 7:35 AM | | + + + + + | Procedure Note | + + | Pavan, Rad Results In - 11/27/2017 7:38 AM PST UNENHANCED AND ENHANCED CTA HEAD AND | | ENHANCED CTA NECK WITH MULTIPLANARREFORMATIONS AND THREE-DIMENSIONAL VASCULAR | | RECONSTRUCTIONS 11/26/2017 6:52 PMCLINICAL HISTORY: history of metastisized thyroid | | cancer, did not completetherapy, now having headaches and dizziness. COMPARISON: | | NoneTECHNIQUE: Axial unenhanced images were performed through the head. Followingthe | | uneventful intravenous administration of 85 mL Omnipaque-350 contrast, axialimages are | | performed from the aortic arch through the [place].Multiplanar reformations and | | three-dimensional vascular reconstructions werealso performed.HEAD FINDINGS: The | | cerebral parenchyma, ventricles, brainstem and cerebellumare unremarkable. Navarrete-white | | differentiation is maintained. There is no masseffect, abnormal parenchymal | | enhancement, evidence of intracranial hemorrhage,or extra-axial fluid collection/mass. | | The bones and soft tissues, including theparanasal sinuses, middle ear cavities and | | mastoid air cells, are unremarkable.The basilar artery, bilateral superior cerebellar | | arteries and bilateralanterior, middle and posterior cerebral arteries are widely | | patent. Patentanterior communicating artery is suggested. Patent anterior and | | posteriorinferior cerebellar arteries are visible. No vessel occlusion, | | stenosis,aneurysm or dissection is apparent.NECK FINDINGS: The imaged thoracic aorta is | | widely patent. The great vesselsarise from the arch in the usual configuration. The | | brachiocephalic artery,imaged subclavian arteries and bilateral common, internal and | | external carotidarteries are widely patent, along with a codominant vertebral arteries. | | Novessel occlusion, stenosis, aneurysm or dissection is apparent.The pharynx, larynx | | and trachea are unremarkable, along with the submandibularand parotid glands. The | | thyroid appears to be absent. Borderline to mildlyenlarged lymph nodes are present in | | the anterior and posterior cervicaltriangles and measure up to 11 mm short axis | | posterior to the mandibular anglesbilaterally. An 8 mm short axis node is noted in the | | AP window. Imaged upperlungs are clear. There is straightening of the cervical | | lordosis. Osseousstructures are otherwise unremarkable.IMPRESSION -1. WIDELY PATENT | | CERVICAL AND INTRACRANIAL ARTERIAL SYSTEMS WITHOUT EVIDENCE OFINTRACRANIAL DISEASE.2. | | NON-SPECIFIC MILDLY PROMINENT CERVICAL LYMPH NODES IN THE SETTING OFREPORTED THYROID | | CANCER. THYROID APPEARS TO BE ABSENT.Preliminary results of this study were reported to | | the ER staff by the [facility] radiologist on November 26, 2017 at 2105 | | hours.Dictated and Signed by: Pravin Pearce MD Electronically signed: 11/27/2017 7:35 AM | |The pharynx, larynx and trachea are unremarkable, along with the submandibular | |and parotid glands. The thyroid appears to be absent. Borderline to mildly | |enlarged lymph nodes are present in the anterior and posterior cervical | |triangles and measure up to 11 mm short axis posterior to the mandibular angles | |bilaterally. An 8 mm short axis node is noted in the AP window. Imaged upper | |lungs are clear. There is straightening of the cervical lordosis. Osseous | |structures are otherwise unremarkable. | | | |IMPRESSION - | | | |1. WIDELY PATENT CERVICAL AND INTRACRANIAL ARTERIAL SYSTEMS WITHOUT EVIDENCE OF | |INTRACRANIAL DISEASE. | | | |2. NON-SPECIFIC MILDLY PROMINENT CERVICAL LYMPH NODES IN THE SETTING OF | |REPORTED THYROID CANCER. THYROID APPEARS TO BE ABSENT. | | | |Preliminary results of this study were reported to the ER staff by the [facility] | |[facility] radiologist on November 26, 2017 at 2105 hours. | | | |Dictated and Signed by: Pravin Pearce MD | | Electronically signed: 11/27/2017 7:35 AM | + + + +---------+ + + | Performing | Address | City/State/Zipcode | Phone Number | | Organization | | | | + +---------+ + + | [facility] | | | | + +---------+ + + Urinalysis with Microscopic with Culture if Indicated (11/26/2017 6:19 PM PST) + + + + + + | Component | Value | Ref Range | Performed | Pathologist | | | | | At | Signature | + + + + + + | Color, | Jeannette (A) | Light Yellow, | [facility] | | | Urine | | Yellow, Straw | [facility] | | | | | | MEDICAL | | | | | | CENTER - | | | | | | LABORATORY | | + + + + + + | Clarity, | Cloudy (A) | Clear | [facility] | | | Urine | | | [facility] | | | | | | MEDICAL | | | | | | CENTER - | | | | | | LABORATORY | | + + + + + + | pH, Urine | 7.0 | 5.0 - 8.0 | [facility] | | | | | | [facility] | | | | | | MEDICAL | | | | | | CENTER - | | | | | | LABORATORY | | + + + + + + | Specific | 1.009 | 1.001 - 1.030 | [facility] | | | [place], | | | [facility] | | [...] + + + + | Blood, | Negative | Negative | [facility] | [...] + + + + | Ketones, | Trace (A) | Negative | [facility] | | [...] + + + + | Urobilinoge | Negative | 0.2 mg/dL, 1.0 | [facility] | | | n, Urine | | mg/dL, Negative | [facility] | | | | | | MEDICAL | | | | | | CENTER - | | | | | | LABORATORY | | + + + + + + | White Blood | 0-2 | 0 - 2 /HPF | [facility] | | | Cells, | | | [facility] | | | Urine | | | MEDICAL | | | | | | CENTER - | | | | | | LABORATORY | | + + + + + + | Red Blood | 0-2 | 0 - 2 /HPF | [facility] | | | Cells, | | | [facility] | | | Urine | | | MEDICAL | | | | | | CENTER - | | | | | | LABORATORY | | + + + + + + | Squamous | 0-2 | 0 - 2 /LPF | [facility] | | | Epithelial | | | [facility] | | | Cells, | | | MEDICAL | | | Urine | | | CENTER - | | | | | | LABORATORY | | + + + + + + | Bacteria, | Negative | Negative /HPF | [facility] | | [...] | Specimen | + + | Urine - Urine | | specimen obtained by | | clean catch | | procedure (specimen) | + + + + + + + | Performing | Address | City/State/Zipcode | Phone Number | | Organization | | | | + + + + + | [facility] | [address] | [place] | [phone] | | [facility] | | [address] | | | - LABORATORY | | | | + + + + + Extra Lavender Top Tube (11/26/2017 6:06 PM PST) + +-------+ + + + | Component | Value | Ref Range | Performed | Pathologist | | | | | At | Signature | + +-------+ + + + | Extra | Done | | [facility] | | | Lavender | | | [facility] | | | Top Tube | | | MEDICAL | | | [...] | + + + + + | [facility] | [address] | [place] | [phone] | | [facility] | | [address] | | | - LABORATORY | | | | + + + + + Extra Green Top Tube (11/26/2017 6:06 PM PST) + +-------+ + + + | Component | Value | Ref Range | Performed | Pathologist | | | | | At | Signature | + +-------+ + + + | Extra Green | Done | | [facility] | | | Top Tube | | | [facility] | | [...] + | [facility] | [address] | [place] | [phone] | | [facility] | | [address] | | | - LABORATORY | | | | + + + + + , Serum, Qual (11/26/2017 6:06 PM PST) + + + + + + | Component | Value | Ref Range | Performed | Pathologist | | | | | At | Signature | + + + + + + | hCG Screen, | Negative | Negative | [facility] | | | Serum | | | [facility] | | [...] + | [facility] | [address] | [place] | [phone] | | [facility] | | [address] | | | - LABORATORY | | | | + + + + + Lipase (11/26/2017 6:05 PM PST) + +-------+ + + + | Component | Value | Ref Range | Performed | Pathologist | | | | | At | Signature | + +-------+ + + + | Lipase | 22 | 0 - 60 U/L | [facility] | | | | | | ST[facility] [...] + | [facility] | [address] | [place] | [phone] | | [facility] | | [address] | | | - LABORATORY | | | | + + + + + Comprehensive Metabolic Panel (11/26/2017 6:05 PM PST) + + + + + + | Component | Value | Ref Range | Performed | Pathologist | | | | | At | Signature | + + + + + + | Na | 139 | 136 - 149 | [facility] | | | | | mmol/L | [facility] | | | | | | MEDICAL | | | | | | CENTER - | | | | | | LABORATORY | | + + + + + + | K | 3.6 | 3.5 - 5.1 | [facility] | | | | | mmol/L | [facility] | | | | | | MEDICAL | | | | | | CENTER - | | | | | | LABORATORY | | + + + + + + | Cl | 105 | 98 - 109 mmol/L | [facility] | | | | | | [facility] | | | | | | MEDICAL | | | | | | CENTER - | | | | | | LABORATORY | | + + + + + + | CO2 | 26 | 24 - 31 mmol/L | [facility] | | | | | | [facility] | | | | | | [...] + + + + | Glucose | 92 | 70 - 109 mg/dL | [facility] [...] + + + + | Creatinine | 0.68 | 0.60 - 1.30 | [facility] | | | | | mg/dL | [facility] | | | | | | MEDICAL | | | | | | CENTER - | | | | | | LABORATORY | | + + + + + + | eGFR, | >60Comment: GLOMERULAR | >=60 | [facility] | | | non- | FILTRATION | mL/min/1.73m2 | [facility] | | | [place] | RATE,ESTIMATED | | MEDICAL | | | | mL/min/1.30n8Zeyl than | | CENTER - | | [...] + + + + | Calcium | 9.4 | 8.3 - 10.5 | [facility] | | | | | mg/dL | [facility] | | | | | | MEDICAL | | | | | | CENTER - | | | | | | LABORATORY | | + + + + + + | Albumin | 4.3 | 3.2 - 5.0 g/dL | [facility] | | | | | | [facility] | | | | | | MEDICAL | | | | | | CENTER - | | | | | | LABORATORY | | + + + + + + | Bilirubin | 0.7Comment: This is an | 0.1 - 1.5 mg/dL | [facility] | | | Total | appended report. These | | [facility] | | | | results have been | | MEDICAL | | | | appended to a previously | | CENTER - | | | | preliminary verified | | LABORATORY | | | | report. | | | | + + + + + + | Total | 6.9 | 6.0 - 7.8 g/dL | [facility] | | | Protein | | | [facility] | | | | | | MEDICAL | | | | | | CENTER - | | | | | | LABORATORY | | + + + + + + | AST | 24Comment: This is an | 10 - 42 U/L | [facility] | | | | appended report. These | | [facility] | | | | results have been | | MEDICAL | | | | appended to a previously | | CENTER - | | | | preliminary verified | | LABORATORY | | | | report. | | | | + + + + + + | ALT | 20Comment: This is an | 6 - 45 U/L | [facility] | | | | appended report. These | | [facility] | | | | results have been | | MEDICAL | | | | appended to a previously | | CENTER - | | | | preliminary verified | | LABORATORY | | | | report. | | | | + + + + + + | Alkaline | 49Comment: This is an | 40 - 110 U/L | [facility] | | | Phosphatase | appended report. These | | [facility] | | | | results have been | | MEDICAL | | | | appended to a previously | | CENTER - | | | | preliminary verified | | LABORATORY | | | | report. | | | | + + + + + + | Globulin | 2.6 | 2.1 - 3.8 g/dL | [facility] | | | | | | [facility] | | | | | | MEDICAL | | | | | | CENTER - | | | | | | LABORATORY | | + + + + + + | Albumin/Teena | 1.7 | 0.8 - 2.0 | [facility] | | | bulin Ratio | | | [facility] | | | | | | MEDICAL | | | | | | CENTER - | | | | | | LABORATORY | | + + + + + + | BUN/Creatin | 10.3 | | [facility] | | | ine [...] + | [facility] | [address] | [place] | [phone] | | [facility] | | [address] | | | - LABORATORY | | | | + + + + + CBC with Differential (11/26/2017 6:05 PM PST) + + + + + + | Component | Value | Ref Range | Performed | Pathologist | | | | | At | Signature | + + + + + + | White Blood | 8.5 | 4.0 - 11.0 K/uL | [facility] | | | Cells | | | [facility] | | | | | | MEDICAL | | | | | | CENTER - | | | | | | LABORATORY | | + + + + + + | Red Blood | 4.76 | 3.70 - 5.20 | [facility] | | | Cells | | M/uL | [facility] | | | | | | MEDICAL | | | | | | CENTER - | | | | | | LABORATORY | | + + + + + + | Hemoglobin | 13.1 | 11.5 - 16.0 | [facility] | | | | | g/dL | [facility] | | | | | | MEDICAL | | | | | | CENTER - | | | | | | LABORATORY | | + + + + + + | Hematocrit | 40.4 | 34.0 - 47.0 % | [facility] | | | | | | [facility] | | | | | | MEDICAL | | | | | | CENTER - | | | | | | LABORATORY | | + + + + + + | MCV | 84.9 | 83.0 - 101.0 fL | [facility] | | | | | | [facility] | | | | | | MEDICAL | | | | | | CENTER - | | | | | | LABORATORY | | + + + + + + | MCH | 27.6 (L) | 28.0 - 35.0 pg | [facility] | | | | | | [facility] | | | | | | MEDICAL | | | | | | CENTER - | | | | | | LABORATORY | | + + + + + + | MCHC | 32.4 | 32.0 - 36.0 | [facility] | | | | | g/dL | [facility] | | | | | | MEDICAL | | | | | | CENTER - | | | | | | LABORATORY | | + + + + + + | RDW-CV | 15.1 (H) | <15.0 % | [facility] | | | | | | [facility] | | | | | | MEDICAL | | | | | | CENTER - | | | | | | LABORATORY | | + + + + + + | Platelet | 194 | 140 - 440 K/uL | [facility] | | | Count | | | [facility] | | | | | | MEDICAL | | | | | | CENTER - | | | | | | LABORATORY | | + + + + + + | MPV | 10.1 | fL | [facility] | | | | | | [facility] | | | | | | MEDICAL | | | | | | CENTER - | | | | | | LABORATORY | | + + + + + + | % | 64.9 | 45.0 - 82.0 % | [facility] | | | Neutrophils | | | [facility] | | | | | | MEDICAL | | | | | | CENTER - | | | | | | LABORATORY | | + + + + + + | % | 24.0 | 20.0 - 45.0 % | [facility] | | | Lymphocytes | | | [facility] | | | | | | MEDICAL | | | | | | CENTER - | | | | | | LABORATORY | | + + + + + + | % Monocytes | 7.7 | 4.0 - 12.0 % | [facility] | | | | | | [facility] | | | | | | MEDICAL | | | | | | CENTER - | | | | | | LABORATORY | | + + + + + + | % | 2.3 | 0.0 - 5.0 % | [facility] [...] + + + + | Absolute | 5.50 | 1.80 - 8.50 | [facility] | | | Neutrophils | | K/uL | [facility] | | | | | | MEDICAL | | | | | | CENTER - | | | | | | LABORATORY | | + + + + + + | Absolute | 2.00 | 0.60 - 3.20 | [facility] | | | Lymphocytes | | K/uL | [facility] | | | | | | MEDICAL | | | | | | CENTER - | | | | | | LABORATORY | | + + + + + + | Absolute | 0.70 | 0.00 - 1.00 | [facility] | | | Monocytes | | K/uL | [facility] | | | | | | MEDICAL | | | | | | CENTER - | | | | | | LABORATORY | | + + + + + + | Absolute | 0.20 | 0.00 - 0.40 | [facility] | | | Eosinophils | | K/uL | [facility] | | | | | | MEDICAL | | | | | | CENTER - | | | | | | LABORATORY | | + + + + + + | Absolute | 0.10 | 0.00 - 0.10 | [facility] | | | Basophils | | K/uL | [facility] | [...] | + + + + + | [facility] | [address] | [place], [place] | [phone] | | [facility] | | [address] | | | - LABORATORY | | | | + + + + + documented in this encounter Visit Diagnoses + + | Diagnosis | + + | Right upper quadrant pain - Primary Abdominal pain, right upper quadrant | + + | Nonintractable episodic headache, unspecified headache type | + + documented in this encounter Administered Medications + +--------+ +-------+------+------+ | Medication Order | MAR | Action | Dose | Rate | Site | | | Action | Date | | | | + +--------+ +-------+------+------+ | diphenhydrAMINE (BENADRYL) | Given | 11/26/19 | 25 mg | | | | injection 25 mg 25 mg, | | 18 7:13 | | | | | Intravenous, ONCE, 11/26/17 at | | PM PST | | | | | 1835, For 1 dose | | | | | | + +--------+ +-------+------+------+ +---+---+ | | | +---+---+ + +-------+ +--------+---+---+ | iohexol (OMNIPAQUE 350) 350 | Given | 11/26/19 | 85 mLs | | | | mg/mL injection 85 mL 85 mL, | | 18 7:05 | | | | | Intravenous, ONCE PRN, Other, | | PM PST | | | | | Starting 11/26/17 at 1859, For | | | | | | | 1 dose, Radiology | | | | | | + +-------+ +--------+---+---+ +---+---+ | | | +---+---+ + +-------+ +-------+---+---+ | ketorolac (TORADOL) injection | Given | 11/26/19 | 15 mg | | | | 15 mg 15 mg, Intravenous, ONCE, | | 18 7:12 | | | | | 11/26/17 at 1835, For 1 dose | | PM PST | | | | + +-------+ +-------+---+---+ +---+---+ | | | +---+---+ + +-------+ +---------+---+ + | methylPREDNISolone sodium | Given | 11/26/19 | 62.5 mg | | Other | | succinate (solu-MEDROL) 62.5 | | 18 7:13 | | | (Comment | | mg/mL injection 62.5 mg 62.5 mg, | | PM PST | | | ) | | Intramuscular, ONCE, 11/26/17 | | | | | | | at 1835, For 1 dose, Mix with 2 | | | | | | | mL provided diluent to make 62.5 | | | | | | | mg/mL., | | | | | | + +-------+ +---------+---+ + +---+---+ | | | +---+---+ + +-------+ +-------+---+---+ | metoclopramide (REGLAN) 5 mg/mL | Given | 11/26/19 | 10 mg | | | | injection 10 mg 10 mg, | | 18 7:12 | | | | | Intravenous, ONCE, 11/26/17 at | | PM PST | | | | | 1835, For 1 dose, Protect from | | | | | | | light., | | | | | | + +-------+ +-------+---+---+ +---+---+ | | | +---+---+ + +-------+ +------+---+---+ | ondansetron (ZOFRAN) injection | Given | 11/26/19 | 4 mg | | | | 4 mg 4 mg, Intravenous, ONCE, | | 18 6:22 | | | | | 11/26/17 at 1755, For 1 dose | | PM PST | | | | + +-------+ +------+---+---+ +---+---+ | | | +---+---+ + +---------+ +--------+-------+---+ | sodium chloride 0.9% (NS) bolus | New Bag | 11/26/19 | 1,000 | 500 | | | 1,000 mL 1,000 mL, Intravenous, | | 18 6:17 | mLs | mL/hr | | | Administer over 2 Hours, ONCE, | | PM PST | | | | | 11/26/17 at 1755, For 1 dose | | | | | | + +---------+ +--------+-------+---+ +---+---+ | | | +---+---+ + +------+ +--------+-------+---+ | sodium chloride 0.9% (NS) bolus | Push | 11/26/19 | 75 mLs | 4500 | | | 75 mL 75 mL, Intravenous, | | 18 7:01 | | mL/hr | | | Administer over 1 Minutes, ONCE, | | PM PST | | | | | 11/26/17 at 1905, For 1 dose, | | | | | | | Radiology | | | | | | + +------+ +--------+-------+---+ +---+---+ | | | +---+---+ documented in this encounter
--- OUTSIDE RECORDS SUMMARY | ~2020-08-02 | XMS | Encounter Summary ---
Demographics + + + | Address | [address] | | | [place] [address] | + + + | Home Phone | | + + + | Preferred Language | Unknown | + + + | Marital Status | | + + + | Evangelical Affiliation | Unknown | + + + | Race | White | + + + | Ethnic Group | Not or | + + + Author + + + | Author | [facility] | | | and [place] | + + + | Organization | [facility] | | | [...] Team Providers + +------+ + | Care Corporate Intern Name | Role | Phone | + +------+ + PCP | Unavailable | + +------+ + Encounter Details +--------+ + + + + | Date | Type | Department | Care Team | Description | +--------+ + + + + | 05/14/ | Hospital | [facility] | Jose E Campos | | | 2010 | Encounter | [facility] | [address] | | | | | [facility] [address] | [facility] | | | | | [place], | [place] [address] | | | | | [place] [address] | [phone] | | | | | [phone] | | | +--------+ + + + [...] | + +--------+ + + + | UA, MICROSCOPIC, | Routin | 05/14/2011 | | Results for this | | REFLEX | e | 9:30 PM | | procedure are in the | | | | PDT | | results section. | + +--------+ + + + | URINALYSIS, REFLEX | Routin | 05/14/2011 | | Results for this | | MICROSCOPIC AND/OR | e | 9:30 PM | | procedure are in the | | CULTURE | | PDT | | results section. | + +--------+ + + + documented in this encounter Results UA, Microscopic, Reflex (05/14/2011 9:30 PM PDT) + + + + + + | Component | Value | Ref Range | Performed | Pathologist | | | | | At | Signature | + + + + + + | White Blood | 20-30 | 0 - 1 /hpf | [facility] | | | Cells, | | | [facility] | | | Urine | | | MEDICAL | | | | | | CENTER - | | | | | | LABORATORY | | + + + + + + | Red Blood | NONE | 0 - 4 /hpf | [facility] | | | Cells, | | | [facility] | | | Urine | | | MEDICAL | | | | | | CENTER - | | | | | | LABORATORY | | + + + + + + | Squamous | MANY | FEW /hps | [facility] | | | Epithelial | | | [facility] | | | Cells, | | | MEDICAL | | | Urine | | | CENTER - | | | | | | LABORATORY | | + + + + + + | Bacteria, | MODERATE | NONE /hpf | [facility] | | | Urine | | | [facility] | | | | | | MEDICAL | | | | | | CENTER - | | | | | | LABORATORY | | + + + + + + | Amorphous | MODERATE | /hpf | [facility] | | | Crystals, | | | [facility] | | | Urine | | | MEDICAL | | | | | | CENTER - | | | | | | LABORATORY | | + + + + + + | Mucus, | LARGE | /hpf | [facility] | | | Urine | | | [facility] | | | | | | MEDICAL | | | | | | CENTER - | | | | | | LABORATORY | | + + + + + + | Culture | YESComment: REFLEXED TO | | [facility] | | | Indicated | URINE CULTURE. | | [facility] | | | [...] + | [facility] | [address] | [place], [place] | [phone] | | [facility] | | [address] | | | - LABORATORY | | | | + + + + + | [facility] | [address] | [place], [place] | | | [facility] | | [address] [place] [address] | | | - LABORATORY | | | | + + + + + Urinalysis, Reflex Microscopic and/or Culture (05/14/2011 9:30 PM PDT) + + + + + + | Component | Value | Ref Range | Performed | Pathologist | | | | | At | Signature | + + + + + + | COLLECTION | VOID | | [facility] | | | [facility] [address] | | | [facility] | | | | | | MEDICAL | | | | | | CENTER - | | | | | | LABORATORY | | + + + + + + | Color, | YELLOW | | [facility] | | | Urine | | | [facility] | | | | | | MEDICAL | | | | | | CENTER - | | | | | | LABORATORY | | + + + + + + | Clarity, | HAZY | | [facility] | | | Urine | | | [facility] | | | | | | MEDICAL | | | | | | CENTER - | | | | | | LABORATORY | | + + + + + + | Glucose, | NEGATIVE | NEGATIVE mg/dL | [facility] | | | Urine | | | [facility] | | | | | | MEDICAL | | | | | | CENTER - | | | | | | LABORATORY | | + + + + + + | Bilirubin, | NEGATIVE | NEGATIVE | [facility] | | | Urine | | | [facility] | | | | | | MEDICAL | | | | | | CENTER - | | | | | | LABORATORY | | + + + + + + | Ketones, | MOD | NEGATIVE | [facility] | | | Urine | | | [facility] | | | | | | MEDICAL | | | | | | CENTER - | | | | | | LABORATORY | | + + + + + + | Specific | 1.025 | 1.001 - 1.030 | [facility] | | | [place], | | | [facility] | | | Urine | | | MEDICAL | | | | | | CENTER - | | | | | | LABORATORY | | + + + + + + | Blood, | NEGATIVE | NEGATIVE | [facility] | | | Urine | [...] + + + + | Protein, | NEGATIVE | NEGATIVE mg/dL | [facility] | | | Urine | | | [facility] | | | | | | MEDICAL | | | | | | CENTER - | | | | | | LABORATORY | | + + + + + + | Urobilinoge | NORMAL | NORMAL EU/dL | [facility] | | | n, Urine | | | [facility] | | | | | | MEDICAL | | | | | | CENTER - | | | | | | LABORATORY | | + + + + + + | Nitrite, | NEGATIVE | NEGATIVE | [facility] | | | Urine | | | [facility] | | | | | | MEDICAL | | | | | | CENTER - | | | | | | LABORATORY | | + + + + + + | Leukocyte | MOD | NEGATIVE | [facility] | | | Esterase, | | | [facility] | | | Urine | | | MEDICAL | | | | | | CENTER - | | | | | | LABORATORY | | + + + + + + | MICROSCOPIC | YES | | [facility] | | | ? | | | [facility] | | [...] [address] | [place] | [phone] | | [facility] | | [address] | | | - LABORATORY | | | | + + + + + | [facility] | [address] | [place] | | | [facility] | | [address] [place] [address] | | | - LABORATORY | | | | + + + + + documented in this encounter Visit Diagnoses Not on filedocumented in this encounter"
--- OUTSIDE RECORDS SUMMARY | ~2020-08-02 | XMS | Encounter Summary ---
Demographics + + + | Address | [address] | | | [place] [address] | + + + | Home Phone | | + + + | Preferred Language | Unknown | + + + | Marital Status | | + + + | Sikh Affiliation | Unknown | + + + | Race | White | + + + | Ethnic Group | Not or | + + + Author + + + | Author | [facility] | | | and [place] | + + + | Organization | [facility] | | | [...] Team Providers + +------+ + | Care Bank Compliance Officer Name | Role | Phone | + +------+ + | No, Physician | PCP | Unavailable | + +------+ + Encounter Details +--------+ + + + + | Date | Type | Department | Care Team | Description | +--------+ + + + + | 06/23/ | Orders Only | [facility] | Provider, | | | 2018 | | [facility] | MD Guevara Valente | | | | | CONVERSION [address] | [place] | | | | | [address] [place], [place] | [place] [address] | | | | | [address] | | | | | | [phone] | | | +--------+ + + + [...]
--- OUTSIDE RECORDS SUMMARY | ~2020-08-02 | XMS | Encounter Summary ---
Demographics + + + | Address | [address] | | | [place] [address] | + + + | Home Phone | | + + + | Preferred Language | Unknown | + + + | Marital Status | | + + + | Amish Affiliation | Unknown | + + + | Race | White | + + + | Ethnic Group | Not or | + + + Author + + + | Author | [facility] | | | and [place] | + + + | Organization | [facility] | | | [...] Team Providers + +------+ + | Care Gas Welder Name | Role | Phone | + +------+ + | No, Physician | PCP | Unavailable | + +------+ + Encounter Details +--------+ + + + + | Date | Type | Department | Care Team | Description | +--------+ + + + + | 12/05/ | Hospital | [facility] | Conversion | [place] | | 2019 | Encounter | CONVERSION [address] | Transaction, | | | | | [address] | Provider Unknown | | | | | [place], [place] | | | | | | [address] | (Fax) | | | | | [phone] | | | +--------+ + + + [...] + +--------+ + + + | US THYROID | Routin | 12/05/2018 | | Results for this | | | e | 2:18 PM | | procedure are in the | | | | PST | | results section. | + +--------+ + + + documented in this encounter Results US Thyroid (12/05/2018 2:18 PM PST) + + | Specimen | + + | | + + + + + | Narrative | Performed At | + + + | This is a non-reportable procedure without a radiologist report and | | | is used for image storage only | | + + + + + | Procedure Note | + + | Mo Browne Conversion - 07/07/2019 9:03 PM PDT This is a non-reportable procedure | | without a radiologist report and isused for image storage only | + + documented in this encounter Visit Diagnoses + + | Diagnosis | + + | Mass Localized superficial swelling, mass, or lump | + + documented in this encounter"
--- OUTSIDE RECORDS SUMMARY | ~2020-08-02 | XMS | Encounter Summary ---
Demographics + + + | Address | [address] | | | [place] [address] | + + + | Home Phone | | + + + | Preferred Language | Unknown | + + + | Marital Status | | + + + | Shinto Affiliation | Unknown | + + + | Race | White | + + + | Ethnic Group | Not or | + + + Author + + + | Author | [facility] | | | and [place] | + + + | Organization | [facility] | | | [...] Team Providers + +------+ + | Care Toolroom Machinist Name | Role | Phone | + +------+ + PCP | Unavailable | + +------+ + Encounter Details +--------+ + + + + | Date | Type | Department | Care Team | Description | +--------+ + + + + | 02/01/ | [facility] | [facility] | Hannah Bliss | | | 2006 | Encounter | MED CTR EMERGENCY | MD [address] | | | | | CENTER [address] | [facility], | | | | | [place] | [place] [address] | | | | | [address] | [phone] | | | | | [phone] | | | +--------+ + + + [...]
--- OUTSIDE RECORDS SUMMARY | ~2020-08-02 | XMS | Encounter Summary ---
Demographics + + + | Address | [address] | | | [place] [address] | + + + | Home Phone | | + + + | Preferred Language | Unknown | + + + | Marital Status | | + + + | Zoroastrianism Affiliation | Unknown | + + + | Race | White | + + + | Ethnic Group | Not or | + + + Author + + + | Author | [facility] | | | and [place] | + + + | Organization | [facility] | | | [...] Team Providers + +------+ + | Care Information Systems Technician Name | Role | Phone | + +------+ + PCP | Unavailable | + +------+ + Encounter Details +--------+ + + + + | Date | Type | Department | Care Team | Description | +--------+ + + + + | 09/26/ | Hospital | [facility] | | | | 1991 | Encounter | MED CTR EMERGENCY | | | | | | [address] | | | | | | [place] | | | | | | [address] | | | | | | [phone] | | | +--------+ + + + [...]
--- OUTSIDE RECORDS SUMMARY | ~2020-08-02 | XMS | Encounter Summary ---
Demographics + + + | Address | [address] | | | [place] [address] | + + + | Home Phone | | + + + | Preferred Language | Unknown | + + + | Marital Status | | + + + | Jain Affiliation | Unknown | + + + | Race | White | + + + | Ethnic Group | Not or | + + + Author + + + | Author | [facility] | | | and [place] | + + + | Organization | [facility] | | | [...] Team Providers + +------+ + | Care Director Of Marketing And Promotions Name | Role | Phone | + +------+ + PCP | Unavailable | + +------+ + Encounter Details +--------+ + + + + | Date | Type | Department | Care Team | Description | +--------+ + + + + | 06/18/ | Hospital | [facility] | Rocael Tang MD | | | 2005 | Encounter | MED CTR WOMENS | [address] [facility] | | | | | [facility] [address] | [place], [place] | | | | | [place], | [address] | | | | | [place] [address] | | | | | | [phone] | | | +--------+ + + + [...]
--- OUTSIDE RECORDS SUMMARY | ~2020-08-02 | XMS | Encounter Summary ---
Demographics + + + | Address | [address] | | | [place] [address] | + + + | Home Phone | | + + + | Preferred Language | Unknown | + + + | Marital Status | | + + + | Druze Affiliation | Unknown | + + + | Race | White | + + + | Ethnic Group | Not or | + + + Author + + + | Author | [facility] | | | and [place] | + + + | Organization | [facility] | | | [...] Team Providers + +------+ + | Care Plate Take Out Worker Name | Role | Phone | + +------+ + PCP | Unavailable | + +------+ + Encounter Details +--------+ + + + + | Date | Type | Department | Care Team | Description | +--------+ + + + + | 11/01/ | Hospital | [facility] | | | | 1992 | Encounter | MED CTR EMERGENCY | | | | | | [address] | | | | | | [place] | | | | | | [address] | | | | | | [phone] | | | +--------+ + + + [...]
--- OUTSIDE RECORDS SUMMARY | ~2020-08-02 | XMS | Encounter Summary ---
Demographics + + + | Address | [address] | | | [place] [address] | + + + | Home Phone | | + + + | Preferred Language | Unknown | + + + | Marital Status | | + + + | Mandaen Affiliation | Unknown | + + + | Race | White | + + + | Ethnic Group | Not or | + + + Author + + + | Author | [facility] | | | and [place] | + + + | Organization | [facility] | | [...] Team Providers + +------+ + | Care Loading Manager Name | Role | Phone | + +------+ + PCP | Unavailable | + +------+ + Encounter Details +--------+ + + + + | Date | Type | Department | Care Team | Description | +--------+ + + + + | 11/12/ | [facility] | [facility] | [place] | | | 2004 | Encounter | MED CTR EMERGENCY | MD [address] | | | | | CENTER [address] | [address] | | | | | [place] | [place] [address] | | | | | [address] | [phone] | | | | | [phone] | | | +--------+ + + + [...]
--- OUTSIDE RECORDS SUMMARY | ~2020-08-02 | XMS | Encounter Summary ---
Demographics + + + | Address | [address] | | | [place] [address] | + + + | Home Phone | | + + + | Preferred Language | Unknown | + + + | Marital Status | | + + + | Protestant Affiliation | Unknown | + + + | Race | White | + + + | Ethnic Group | Not or | + + + Author + + + | Author | [facility] | | | and [place] | + + + | Organization | [facility] | | | [...] Team Providers + +------+ + | Care Engagement Liaison Name | Role | Phone | + +------+ + | No, Physician | PCP | Unavailable | + +------+ + Encounter Details +--------+ + + + + | Date | Type | Department | Care Team | Description | +--------+ + + + + | 12/23/ | Hospital | [facility] | Conversion | Hx of thyroid | | 2019 | Encounter | [facility]ENTER | Transaction, | cancer; Cervical | | | | [facility] | Provider Unknown | lymphadenopathy; | | | | [address] | [phone] | Hoarseness of voice | | | | [place], [place] | | | | | | [address] | | | | | | [phone] | | | +--------+ + + + [...] +--------+ + + + | US GUIDED PROCEDURE | Routin | 12/23/2018 | | Results for this | | | e | 3:04 PM | | procedure are in the | | | | PST | | results section. | + +--------+ + + + | TISSUE REQUEST FOR | Routin | 12/23/2018 | | Results for this | | PATHOLOGY (NON-ORD) | e | 12:00 AM | | procedure are in the | | | | PST | | results section. | + +--------+ + + + documented in this encounter Results US Guided Procedure (12/23/2018 3:04 PM PST) + + | Specimen | + + | | + + + + + | Impressions | Performed At | + + + | Uncomplicated biopsy of left cervical lymph node. The pathology | | | results. Signed by: Segundo Valle Sign Date/Time: 12/23/2018 5:19 | | | PM | | + + + + + + | Narrative | Performed At | + + + | ULTRASOUND GUIDED BIOPSY CERVICAL LYMPH NODE CLINICAL INFORMATION: | | | Left neck lymph node, post thyroidectomy PROCEDURE: Prior to the | | | procedure, risks and benefits were explained to the patient and | | | informed written and verbal consent obtained. The area was prepped | | | and draped in the usual sterile fashion. Using lidocaine for local | | | anesthesia, an 18 gauge Reciclatano core biopsy device is used to obtain 4 | | | core samples. Pathologist reviewed the samples for adequacy. The | | | patient tolerated the procedure well. No immediate complications. | | | Sterile dressing was applied. | | + + + + + | Procedure Note | + + | Pavan, Mo Conversion - 07/07/2019 9:03 PM PDT ULTRASOUND GUIDED BIOPSY CERVICAL LYMPH | | NODECLINICAL INFORMATION:Left neck lymph node, post thyroidectomyPROCEDURE:Prior to the | | procedure, risks and benefits were explained to thepatient and informed written and | | verbal consent obtained. The area wasprepped and draped in the usual sterile fashion. | | Using lidocaine forlocal anesthesia, an 18 gauge Temno core biopsy device is used | | toobtain 4 core samples. Pathologist reviewed the samples for adequacy.The patient | | tolerated the procedure well. No immediate complications.Sterile dressing was | | applied.IMPRESSION: Uncomplicated biopsy of left cervical lymph node. The | | pathologyresults.Signed by: Ayde Valle Date/Time: 12/23/2018 5:19 PM | |The patient tolerated the procedure well. No immediate complications. | |Sterile dressing was applied. | |IMPRESSION: | |Uncomplicated biopsy of left cervical lymph node. The pathology | |results. | |Signed by: Segundo Valle | |Sign Date/Time: 12/23/2018 5:19 PM | + + Tissue Request For Pathology (12/23/2018 12:00 AM PST) + + | Specimen | + + | Soft tissue sample | | (specimen) | + + + + + | Narrative | Performed At | + + + | SPECIMEN(S): A LEFT SUBMANDIBULAR NODE SPECIMEN SOURCE: A. LEFT | EXTERNAL LAB | | SUBMANDIBULAR NODE CLINICAL HISTORY: Thyroid cancer. FINAL | | | PATHOLOGIC DIAGNOSIS: Left submandibular lymph node, | | | ultrasound-guided needle core biopsies: - Fragments of benign | | | lymphoid tissue, benign salivary tissue and benign fibroadipose | | | tissue. - Negative for malignancy. See comment. COMMENT: The | | | patient's history of thyroid cancer is noted. AMB:emb:C2NR | | | MICROSCOPIC EXAMINATION: Histologic sections of all submitted blocks | | | are examined by light microscopy. These findings, together with the | | | gross examination, support the pathologic diagnosis. GROSS | | | DESCRIPTION: The specimen is received fresh for rapid assessment | | | evaluation labeled as "Patria Sommer" and designated as "left | | | submandibular node." The procedure is done by the radiologist. The | | | number of slides is one. The rapid assessment evaluation diagnosis | | | is AA which is appears adequate. Pathologist notes lymphocytes | | | present. The rapid assessment evaluation is done by the pathologist, | | | Dr. Ivana Amaya. After the rapid assessment evaluation, the | | | specimen is submitted in formalin and now consists of ten yellow-encarnacion | | | needle core tissue fragments ranging in size from 0.3 to 1.2 cm in | | | length and less than 0.1 cm in diameter. The specimen is inked with | | | eosin. The entire specimen is submitted in three cassettes, | | | (A1-A3). js:[email or web address]:lynette PERFORMING LABORATORY: The technical component | | | was performed by [facility], [address] [place] [address] | | | [id number] (Electric Power Line Examiner: Ivana Amaya MD; CLIA# [id number]). | | | Professional interpretation was performed by [facility], | | | [address] [address] | | | (Electric Power Line Examiner: Yoni Koch M.D.; CLIA#: [id number]). | | | Diagnostician: Ivana Amaya MD Pathologist Electronically Signed | | | 12/24/2018 | | + + + + +---------+ + + | Performing | Address | City/State/Zipcode | Phone Number | | Organization | | | | + +---------+ + + | EXTERNAL LAB | | | | + +---------+ + + documented in this encounter Visit Diagnoses + + | Diagnosis | + + | Hx of thyroid cancer Personal history of malignant neoplasm of thyroid | + + | Cervical lymphadenopathy Enlargement of lymph nodes | + + | Hoarseness of voice Dysphonia | + + documented in this encounter
--- OUTSIDE RECORDS SUMMARY | ~2020-08-02 | XMS | Encounter Summary ---
Demographics + + + | Address | [address] | | | [place] [address] | + + + | Home Phone | | + + + | Preferred Language | Unknown | + + + | Marital Status | | + + + | Christian Affiliation | Unknown | + + + | Race | White | + + + | Ethnic Group | Not or | + + + Author + + + | Author | [facility] | | | and [place] | + + + | Organization | [facility] | | [...] Team Providers + +------+ + | Care Minilab Operator Name | Role | Phone | + +------+ + PCP | Unavailable | + +------+ + Encounter Details +--------+ + + + + | Date | Type | Department | Care Team | Description | +--------+ + + + + | 05/12/ | Hospital | [facility] | Jose E Campos | | | 2010 | Encounter | MED CTR WOMENS | [address] | | | | | [facility] [address] | [facility] | | | | | [place], | [place] [address] | | | | | [place] [address] | [phone] | | | | | [phone] | | | +--------+ + + + [...]
--- OUTSIDE RECORDS SUMMARY | ~2020-08-02 | XMS | Encounter Summary ---
Demographics + + + | Address | [address] | | | [place] [address] | + + + | Home Phone | | + + + | Preferred Language | Unknown | + + + | Marital Status | | + + + | Yazidi Affiliation | Unknown | + + + | Race | White | + + + | Ethnic Group | Not or | + + + Author + + + | Author | [facility] | | | and [place] | + + + | Organization | [facility] | | | [...] Team Providers + +------+ + | Care Guest Laundry Attendant Name | Role | Phone | + +------+ + PCP | Unavailable | + +------+ + Encounter Details +--------+ + + + + | Date | Type | Department | Care Team | Description | +--------+ + + + + | 04/25/ | Hospital | [facility] | | | | 1992 | Encounter | MED CTR EMERGENCY | | | | | | [address] | | | | | | [place] | | | | | | [address] | | | | | | [phone] | | | +--------+ + + + [...]
--- OUTSIDE RECORDS SUMMARY | ~2020-08-02 | XMS | Encounter Summary ---
Demographics + + + | Address | [address] | | | [place] [address] | + + + | Home Phone | | + + + | Preferred Language | Unknown | + + + | Marital Status | | + + + | Adventist Affiliation | Unknown | + + + [...] Team Providers + +------+ + | Care Csw Name | Role | Phone | + +------+ + PCP | Unavailable | + +------+ + Encounter Details +--------+ + + + + | Date | Type | Department | Care Team | Description | +--------+ + + + + | 08/23/ | [facility] | [facility] | Morgan Wood, | | | 2011 | Encounter | [facility] | [address] | | | | | CENTER [address] | [place] | | | | | [place] | [address] | | | | | [address] | | | | | | [phone] | | | +--------+ + + + [...] documented as of this encounter ED Notes Morgan Wood MD - 08/23/2012 12:41 [place] [address] Patient Name: SHREYA CAMILO Provider: Unit #: [id number] Location: ER : 1985 DATE: 08/23/2012 CHIEF COMPLAINT: Abdominal pain. HISTORY OF PRESENT ILLNESS: Shreya is a 27-year-old female who a week ago was taken to the OR for a ruptured ectopic. She said she had both of her tubes removed and was doing okay f or a couple days, but the last 24 hours has felt very dizzy. She said her incisions are jayro ting. She has felt warm, but had a temperature of 99. She has had some nausea, but no vomit ing, no diarrhea. She is having a little bit of vaginal bleeding but otherwise no complain ts. PAST MEDICAL HISTORY: Negative. SOCIAL HISTORY: Does not smoke. REVIEW OF SYSTEMS: All systems reviewed were negative except as noted in HPI. PHYSICAL EXAMINATION GENERAL: This is a 27-year-old female in no apparent distress. INITIAL VITAL SIGNS: BP 107/70, pulse 129, respirations 16, temp 99, saturations 99% on ro om air. HEENT: Pupils equally round and reactive to light. Mucous membranes are moist. Nasal passa ges clear. Trachea is midline. CHEST: Lungs are clear to auscultation bilaterally. No rales, no wheezes. CARDIOVASCULAR: Rate and rhythm is regular. ABDOMEN: Soft. She does have some tenderness over the incisions, but they are not erythema tous, but she has no guarding or peritonitis. EXTREMITIES: No edema. SKIN: No rash. EMERGENCY DEPARTMENT COURSE AND STUDIES: She had a urine dip which was negative for eviden ce of infection. She had a CBC, which was normal. Comprehensive metabolic panel was normal. She received a liter of saline, 4 of Zofran, 0.5 of Dilaudid. She had an abdominal and pel mamadou CT scan with IV contrast which was negative for any evidence of abscess or postop compl ications. Repeat abdominal exam : At 12:30 she is feeling better. Her abdomen remained soft . She still has some incisional tenderness , but otherwise is unremarkable. ASSESSMENT THIS IS A 27-YEAR-OLD FEMALE WITH POSTOPERATIVE ABDOMINAL PAIN. DISPOSITION: She is being discharged home. She is to follow up with Dr. Beth VIEYRA and return if she gets a fever or gets worse. DICTATED BY: Morgan Wood M.D. Emergency Medicine JOB #: [id number] EXT JOB #:[id number] cc: Jose E Campos DO <<Signature on File>> Morgan Wood MD1 0707 < documented in this encounter Plan of Treatment Not on filedocumented as of this encounter Procedures + +--------+ + + + | Procedure Name | Priori | Date/Time | Associated Diagnosis | Comments | | | ty | | | | + +--------+ + + + | CT ABDOMEN PELVIS W | Routin | 08/24/2012 | | Results for this | | CONTRAST | e | 2:38 PM | | procedure are in the | | | | PDT | | results section. | + +--------+ + + + | CBC NO DIFFERENTIAL | Routin | 08/23/2012 | | Results for this | | | e | 10:11 AM | | procedure are in the | | | | PDT | | results section. | + +--------+ + + + | TYPE AND SCREEN | Routin | 08/23/2012 | | Results for this | | | e | 10:11 AM | | procedure are in the | | | | PDT | | results section. | + +--------+ + + + | COMPREHENSIVE | Routin | 08/23/2012 | | Results for this | | METABOLIC PANEL | e | 10:11 AM | | procedure are in the | | | | PDT | | results section. | + +--------+ + + + documented in this encounter Results CT Abdomen Pelvis w Contrast (08/24/2012 2:38 PM PDT) + + | Specimen | + + | | + + + + + | Narrative | Performed At | + + + | [facility] | [facility] | | Department [address] [facility] | [facility] | | [ rep [address]] [ rep [facility] | | st zip] Signed | - IMAGING | | | | | Patient Name: SHREYA CAMILO Physician: | | | EVERARDO. : 1985 Age: 27 Sex: F Unit #: [id number] | | | Exam Date: 08/23/12 Location: ER | | | Report #: [id number] Page: | | | %(RAD)RES..mtdd.print.filter("pg") of %(RAD) | | | RES..mtdd.print.filter("tpg") | | | | | | Accession Number: [id number] | | | CT ABDOMEN AND PELVIS WITH IV CONTRAST CLINICAL HISTORY: | | | Recent surgery for ectopic . Weakness. | | | TECHNIQUE: Axial images are obtained from lung bases to proximal | | | thighs in the uneventful administration of 80 mL of Isovue-370. | | | FINDINGS: No abnormalities are seen in the lung bases. | | | Liver shows normal appearance. Gallbladder, pancreas, spleen and | | | adrenal glands are normal. Kidneys enhance symmetrically and show | | | normal architecture. Renal collecting systems are nondilated. Aorta | | | and inferior vena cava appear normal, including good caliber to the | | | inferior vena cava. Stomach and small bowel is uniformly normal in | | | appearance. Above average amounts of stool are present in the colon | | | particularly on the right. A normal appendix is seen. No other | | | colonic abnormalities are present. The uterus is midline | | | and mildly bulky in size. Its margins are indistinct. Endometrial | | | cavity is outlined by contrast enhancing myometrium and it does not | | | appear to be distended. A scant amount of pelvic free fluid is | | | present with no other free fluid in the abdomen or pelvis. No free air | | | or mesenteric inflammatory change is seen. There are no body wall | | | or bony abnormalities. IMPRESSION: SCANT AMOUNT OF PELVIC | | | FREE FLUID, IN KEEPING WITH POSTOPERATIVE STATUS. OTHERWISE NORMAL | | | CT ABDOMEN AND PELVIS, DETAILED ABOVE. Dictated | | | Date/Time: 08/24/2012 14:38 Transcribed Date/Time: 08/24/2012 | | | 15:09 Health Information Clerk: <<Signature | | | on File>> | | | | | | Mike Shah MD08/24/12 1728 <Electronically signed by | | | Mike Shah MD> Mike Shah MD 08/24/12 | | | 1438 Health Information Clerk: Jigna Monte08/24/12 1509 | | | Morgan Wood MD | | + + + + + + + + | Performing | Address | City/State[facility] | Phone Number | | Organization | | | | + + + + + | [facility] | [address] | [place] | [phone] | | [facility] | | [address] | | | - IMAGING | | | | + + + + + Type and Screen (08/23/2012 10:11 AM PDT) + + + + + + | Component | Value | Ref Range | Performed | Pathologist | | | | | At | Signature | + + + + + + | ABO | BP | | [facility] | | | | | | [facility] | | | | | | MEDICAL | | | | | | CENTER - | | | | | | LABORATORY | | + + + + + + | Antibody | NEGATIVE | | [facility] | | | Screen | | | [facility] | | [...] + | [facility] | [address] | [place] | [phone] | | [facility] | | [address] | | | - LABORATORY | | | | + + + + + | [facility] | [address] | [place], [place] | | | [facility] | | [id number] | | | - LABORATORY | | | | + + + + + Comprehensive Metabolic Panel (08/23/2012 10:11 AM PDT) + + + + + + | Component | Value | Ref Range | Performed | Pathologist | | | | | At | Signature | + + + + + + | Glucose | 81 | 70 - 109 mg/dL | [facility] [...] + + + + | Alkaline | 49 | 40 - 110 IU/L | [facility] | | | Phosphatase | | | [facility] | | | | | | MEDICAL | | | | | | CENTER - | | | | | | LABORATORY | | + + + + + + | AST | 23 | 10 - 42 IU/L | [facility] | | | | | | [facility] | | | | | | MEDICAL | | | | | | CENTER - | | | | | | LABORATORY | | + + + + + + | ALT | 23 | 6 - 45 IU/L | [facility] | | | | | | [facility] | | | | | | MEDICAL | | | | | | CENTER - | | | | | | LABORATORY | | + + + + + + | Bilirubin | 1.0 | 0.2 - 1.0 mg/dL | [facility] | | | Total | | | [facility] | | | | | | MEDICAL | | | | | | CENTER - | | | | | | LABORATORY | | + + + + + + | Total | 6.8 | 6.0 - 7.8 gm/dL | [facility] | | | Protein | | | [facility] | | | | | | MEDICAL | | | | | | CENTER - | | | | | | LABORATORY | | + + + + + + | Albumin | 4.0 | 3.2 - 5.0 gm/dL | [facility] | | | | | | [facility] | | | | | | MEDICAL | | | | | | CENTER - | | | | | | LABORATORY | | + + + + + + | BUN | 11 | 7 - 18 mg/dL | [facility] | | | | | | [facility] | | | | | | MEDICAL | | | | | | CENTER - | | | | | | LABORATORY | | + + + + + + | Creatinine | 0.65 | 0.60 - 1.30 | [facility] | | | | | mg/dL | [facility] | | | | | | MEDICAL | | | | | | CENTER - | | | | | | LABORATORY | | + + + + + + | Estimated | >60Comment: For | >60 mL/min/A | [facility] | | | GFR | -Americans, | | [facility] | | | | please multiply the | | MEDICAL | | | | result by 1.210 | | CENTER - | | | | This is an estimated | | LABORATORY | | | | GFR and is based on a | | | | | | standard adult | | | | | | body mass (A=1.73m2) and | | | | | | serum creatinine | | | | + + + + + + | BUN/Creatin | 16.9 | 12 - 20 | [facility] | | | ine Ratio | | | [facility] | | | | | | MEDICAL | | | | | | CENTER - | | | | | | LABORATORY | | + + + + + + | Na | 134 (L) | 136 - 149 mEq/L | [facility] | | | | | | [facility] | | | | | | MEDICAL | | | | | | CENTER - | | | | | | LABORATORY | | + + + + + + | K | 3.5 | 3.5 - 5.1 mEq/l | [facility] | | | | | | [facility] | | | | | | MEDICAL | | | | | | CENTER - | | | | | | LABORATORY | | + + + + + + | Cl | 104 | 98 - 109 mEq/l | [facility] | | | | | | [facility] | | | | | | MEDICAL | | | | | | CENTER - | | | | | | LABORATORY | | + + + + + + | CO2 | 24 | 24 - 31 mEq/L | [facility] | | | | | | [facility] | | | | | | MEDICAL | | | | | | CENTER - | | | | | | LABORATORY | | + + + + + + | Anion Gap | 9.5 | 6.0 - 17.0 | [facility] | | | | | [...] + | [facility] | [address] | [place], [place] | [phone] | | [facility] | | [address] | | | - LABORATORY | | | | + + + + + | [facility] | [address] | [place], [place] | | | [facility] | | [id number] [place] [address] | | | - LABORATORY | | | | + + + + + CBC no Differential (08/23/2012 10:11 AM PDT) + + + + + + | Component | Value | Ref Range | Performed | Pathologist | | | | | At | Signature | + + + + + + | White Blood | 7.1 | 4.0 - 11.0 K/uL | [facility] | | | Cells | | | [facility] | | | | | | MEDICAL | | | | | | CENTER - | | | | | | LABORATORY | | + + + + + + | Red Blood | 4.57 | 3.70 - 5.20 | [facility] | | | Cells | | M/uL | [facility] | | | | | | MEDICAL | | | | | | CENTER - | | | | | | LABORATORY | | + + + + + + | Hemoglobin | 13.2 | 11.5 - 16.0 | [facility] | | | | | gm/dL | [facility] | | | | | | MEDICAL | | | | | | CENTER - | | | | | | LABORATORY | | + + + + + + | Hematocrit | 40.1 | 34.0 - 47.0 % | [facility] | | | | | | [facility] | | | | | | MEDICAL | | | | | | CENTER - | | | | | | LABORATORY | | + + + + + + | MCV | 87.8 | 83.0 - 101.0 fL | [facility] | | | | | | [facility] | | | | | | MEDICAL | | | | | | CENTER - | | | | | | LABORATORY | | + + + + + + | MCH | 28.9 | 28.0 - 35.0 pg | [facility] | | | | | | [facility] | | | | | | MEDICAL | | | | | | CENTER - | | | | | | LABORATORY | | + + + + + + | MCHC | 32.9 | 32.0 - 36.0 | [facility] | | | | | g/dL | [facility] | | | | | | MEDICAL | | | | | | CENTER - | | | | | | LABORATORY | | + + + + + + | RDW-CV | 14.3 | <15.0 % | [facility] | | | | | | [facility] | | | | | | MEDICAL | | | | | | CENTER - | | | | | | LABORATORY | | + + + + + + | Platelet | 141 | 140 - 440 K/uL | [facility] | | | Count | | | [facility] | | | | | | MEDICAL | | | | | | CENTER - | | | | | | LABORATORY | | + + + + + + | SUSPECTED | 1 (H)Comment: PERFORM | | [facility] | | | PROBLEM IS: | SMEAR REVIEW FOR PLTS | | [facility] | | | | [place] | | MEDICAL | | | |[place] | | CENTER - | | | | | | LABORATORY | | + + + + + + + + | Specimen | + + | | + + + + + + + | Performing | Address | City/State/Zipcode | Phone Number | | Organization | | | | + + + + + | [facility] | [address] | [place] | [phone] | | [facility] | | [address] | | | - LABORATORY | | | | + + + + + | [facility] | [address] | [place], [place] | | | [facility] | | [address], [facility] | | | - LABORATORY | | | | + + + + + documented in this encounter Visit Diagnoses Not on filedocumented in this encounter
--- OUTSIDE RECORDS SUMMARY | ~2020-08-02 | XMS | Encounter Summary ---
Demographics + + + | Address | [address] | | | [place] [address] | + + + | Home Phone | | + + + | Preferred Language | Unknown | + + + | Marital Status | | + + + | Yarsanism Affiliation | Unknown | + + + [...] Team Providers + +------+ + | Care Blackener Name | Role | Phone | + +------+ + | No, Physician | PCP | Unavailable | + +------+ + Encounter Details +--------+ + + + + | Date | Type | Department | Care Team | Description | +--------+ + + + + | 09/17/ | Emergency | [facility] | Patrick Rai | Generalized | | 2018 - | [facility] | DO Nancy Segura | weakness; | | | | [facility] [place] | [address] | Nonintractable | | 09/18/ | | [address] | [place], [place] | headache, | | 2017 | | [place] | [address] | unspecified | | | | [address] | [phone] | chronicity pattern, | | | | [phone] | | unspecified headache | | | | | | type; Hypocalcemia | +--------+ + + + + Social [...] documented as of this encounter ED Notes Conversion Abdifatah, Provider Unknown - 09/17/2018 10:57 PM PDTFormatting of this note m ight be different from the original. ED Notes by Shaheen Correia RN at 09/17/182256 Author: Shaheen Correia RN Service: (none) Author Type: Registered Nurse Filed: 09/17/182257 Date of Service: 09/17/182256 Status: Signed Water Service Dispatcher: Shaheen Correia RN (Registered Nurse) Records received from [facility]. Shaheen Correia RN 09/17/182257 Patrick Elena, DO - 09/17/2018 10:49 PM PDTFormatting of this note might be different f rom the original. ED Provider Notes by Patrick Rai DO at 09/17/182248 Author: Patrick Rai DO Service: Emergency Department Author Type: Physician Filed: 09/18/18 0230 Date of Service: 09/17/182248 Status: Signed Water Service Dispatcher: Patrick Rai DO (Physician) [facility] Department of Emergency Medicine 10:49 PM History of Present Illness Patient Identification Patria Sommer is a 33 y.o. female. Patient information was obtained from patient and spouse/partner. History/Exam limitations: none. Patient presented to the Emergency Department by: Car Chief Complaint Chief Complaint Patient presents with Weakness The patient presents to ED with complaints of generalized weakness. Onset of symptoms was 3 weeks ago, with a worsening course since that time. The symptoms are described to be of mod erate severity. The patient describes the quality and location of the symptoms as the follow ing: generalized weakness to the point where it is "hard to keep her eyes open". The patient also complains of multiple falls, fatigue, left otalgia, nausea, emesis, headache, bilatera l hand and foot tingling, dizziness, light headedness and confusion. Patient states her weak ness, dizziness and headache onset 3 weeks ago, followed by nausea and emesis. Patient was s een by her PCP 1 week and told she likely had vertigo and a viral illness and was encouraged to go home and rest. Patient's symptoms have continued to worsen and per the patient's fisona ce, she was seen in the ED in [place], [place] last week and yesterday where she had CT head an d labs performed. Patient was told she had an elevated WBC but her CT was normal and she was again discharged home with diagnosis of viral illness and told to rest. Patient denies hx o f headaches or migraines and reports her current headache is in the left temporal/parietal a edgardo and radiates to the posterior aspect. Patient has hx of thyroid cancer (on citalopram an d levothyroxine) and reports she has been taking her medications as prescribed. Patient sandip es fever, chills, cough, SOB, chest pain, abdominal pain, changes in bowel or bladder habits , back pain or rash. No additional care prior to arrival reported at this time. Patient sandip es any drug use. PCP: No primary care provider on file. Past Medical History Diagnosis Date Malignant neoplasm (HCC) THYROID Visual disturbance EYEGLASSES PRN Past Surgical History Procedure Laterality Date CHOLECYSTECTOMY, LAPAROSCOPIC N/A 12/10/2017 Procedure: LAPAROSCOPIC - CHOLECYSTECTOMY WITH GRAMS; Surgeon: Jack Burton MD; Loca tion: [facility] OR; Service: General; Laterality: N/A; LAPAROSCOPIC SALPINGECTOMY Bilateral 07/2012 THYROIDECTOMY TOTAL THYROIDECTOMY 03/14/2017 @ [facility] [place] TUBAL LIGATION 2010 Prior to Admission medications Medication Sig Start Date End Date Taking? Authorizing Provider BIOTIN PO Take 1 tablet by mouth daily. Historical Provider citalopram (CELEXA) 20 MG tablet Take 20 mg by mouth every morning. Historical Provider COCONUT OIL PO Take by mouth daily. Historical Provider levothyroxine (SYNTHROID) 125 MCG tablet Take 125 mcg by mouth every morning before break st. Historical Provider Allergies Allergen Reactions Hydrocodone Hives Social History [...] pertinent family history. Review of Systems Constitutional: Positive for generalized weakness, fatigue, multiple falls Negative for fever, chills Eyes: Negative for vision changes Ears: Positive for left otalgia Nose: Negative for congestion Throat: Negative for sore throat CV/Resp: Negative for chest pain, ndcekzerg-cw-dbzlne, cough GI: Positive for nausea, emesis Negative for abdominal pain, diarrhea : Negative for urinary problems Musculoskeletal: Negative for back pain, joint pain Skin: Negative for rash Neuro/Psych: Positive for headache, bilateral hand and foot tingling, dizziness, light he adedness, confusion (per fiance) Endo/heme/Lymph: Negative for easy bruising All other systems reviewed and negative except as noted. Physical Exam BP 109/55 | Pulse 62 | Temp 98.3 F (36.8 C) | Resp 16 | Wt 68 kg (150 lb) | SpO2 9 8% | BMI 27.44 kg/m Vital signs interpretation: WNL Pulse Oximetry interpretation: Normal General: Alert, in no apparent distress Eyes: Normal inspection, PERRL, EOMI ENT: MMM, TM's normal Neck: Normal inspection, no meningismus Cardiovascular: Rate and rhythm normal No murmurs Respiratory: Breath sounds normal bilaterally No rales, wheezing or rhonchi Abdomen: Soft, non-tender, non-distended No guarding or rebound Genitourinary: Deferred Rectal exam: Deferred Back: Normal inspection Extremities: No edema Equal manager truck strength Distal pulses intact Skin: Color normal Warm and dry No rash Neuro: Alert, no AMS No gross motor/sensory deficits CN II-XII intact Normal finger to nose NIHSS-0 Medical Decision Making and Emergency Department Course ED Department Course Patient presents to ED with complaints of generalized weakness. My DDx includes, but is not limited to: viral illness, electrolyte abnormality, dehydration, depression, vs other. Will order labs, UA, EKG, and reevaluate the patient. 11:59 PM. CXR is normal. UA shows 1+ bacteria and small leukocytes. Urine drug screen shows positive for opiates. Cardiac panel shows mild hypocalcemia 8.3 and mild anemia, low MCV, M CH and MCHC. The pt has a very benign exam. Calcium is slightly low, but so is her albumin. I will giv e a dose of tums here, but I don't think this is the cause of her symptoms. CTA at OSH was reviewed and was negative. 12:56 AM. Patient reevaluation. Patient is stable and feeling better at this time. Unfortun ately the TSH and T4 were not ordered initially. I have added them on. The pt and would like to go home. They do not want to wait. I will call with any abnormal results. I discussed all ED results and my clinical impression with the patient. Patient is ready for discharge. I advised patient to follow up with a PCP and we discussed the emergent signs an d symptoms that would necessitate a return to ED. All questions and concerns addressed. Will discharge home. Free t4 is WNL Medications sodium chloride (PF) 0.9 % flush 10 mL (not administered) calcium carbonate (TUMS) chewable tablet 1,000 mg (1,000 mg Oral Given 09/18/18 0024) Vitals: 09/17/18 2236 09/17/18234809/18/18 0116 BP: 109/55 103/69 101/55 BP Location: Right upper arm Pulse: 62 63 62 Resp: 16 16 16 Temp: 98.3 F (36.8 C) 98.1 F (36.7 C) TempSrc: Oral SpO2: 98% 99% Weight: 68 kg (150 lb) Records Reviewed Old medical records. Nursing notes. Previous [facility] ED visits for unrelated complaints. [facility] Records: On 09/13/[address] head without contrast. Josey villa also had CTA on 09/16/18, which was also unremarkable. Laboratory Evaluation Results Procedure Component Value Ref Range Date/Time TSH [[id number]] Collected: 09/14/182313 Order Status: Sent Specimen: Blood Updated: 09/18/18105 T4, Free [[id number]] Collected: 09/14/182313 Order Status: Sent Specimen: Blood Updated: 09/18/18105 Urine microscopic only [[id number]] (Abnormal) Collected: 09/17/182348 Order Status: Completed Updated: 09/18/1833 WBC 6-10 0 - 5 /hpf RBC 1-5 0 - 5 /hpf EPITHELIAL 16-25 /lpf BACTERIA 1+ (A) NONE SEEN Mucus, UA 4+ Urinalysis Comments CULTURE TO FOLLOW Urinalysis (reflex to microscopic/reflex to culture) [[id number]] (Abnormal) Collected: 09/17/182348 Order Status: Completed Specimen: Urine from Urine, Clean Catch Updated: 09/18/18 003 4 COLOR UA YELLOW CLARITY CLOUDY Specific [place], UA 1.025 1.001 - 1.035 LEUKOCYTE ESTERASE SMALL (A) NEGATIVE NITRITE NEGATIVE NEGATIVE UROBILINOGEN 0.2 <1.1 mg/dL PROTEIN NEGATIVE NEGATIVE mg/dL PH,URINE 6.0 4.6 - 8.0 BLOOD NEGATIVE NEGATIVE KETONES NEGATIVE NEGATIVE mg/dL BILIRUBIN NEGATIVE NEGATIVE GLUCOSE NEGATIVE NEGATIVE mg/dL Urine DOA screen (PLUS TCA) (Drug 8) [[id number]] (Abnormal) Collected: 09/17/182348 Order Status: Completed Specimen: Urine, Clean Catch Updated: 09/18/1820 PCP NEGATIVE NEGATIVE BENZODIAZEPINE NEGATIVE NEGATIVE COCAINE NEGATIVE NEGATIVE AMPHETAMINE NEGATIVE NEGATIVE THC NEGATIVE NEGATIVE OPIATES POSITIVE (A) NEGATIVE BARBITUATES NEGATIVE NEGATIVE TRICYCLIC ANTIDEPRESS NEGATIVE NEGATIVE Cardiac Panel [[id number]] (Abnormal) Collected: 09/17/18 6132 Order Status: Completed Specimen: Blood Updated: 09/18/18 0012 WBC 5.42 3.80 - 11.00 K/uL RBC 4.70 3.70 - 5.10 M/uL HGB 11.5 11.3 - 15.5 g/dL HCT 37.2 34.0 - 46.0 % MCV 79.3 (L) 80.0 - 100.0 fl MCH 24.6 (L) 27.0 - 34.0 pg MCHC 31.0 (L) 32.0 - 35.5 g/dL RDW SD 51.2 37 - 53 fl PLT 187 150 - 400 K/uL MPV 9.9 fl DIFF TYPE AUTOMATED NEUTROPHILS 46.68 % LYMPHOCYTES 40.90 % MONOCYTES 7.34 % EOSINOPHILS 4.12 % BASOPHILS 0.96 % NEUTROPHILS ABS 2.53 1.90 - 7.40 K/uL LYMPHOCYTES ABS 2.22 1.00 - 3.90 K/uL MONOCYTES ABS 0.40 0.00 - 0.80 K/uL EOSINOPHILS ABS 0.22 0.00 - 0.50 K/uL BASOPHILS ABS 0.05 0.00 - 0.10 K/uL MORPHOLOGY 1+ Platelet Estimate ADEQUATE Diff Comment SLIDE SCANNED, AGREES WITH AUTOMATED RESULTS. SODIUM 140 135 - 145 mmol/L POTASSIUM 3.7 3.5 - 4.9 mmol/L CHLORIDE 104 99 - 109 mmol/L CO2 28 23 - 32 mmol/L ANION GAP AGAP 12 5 - 20 mmol/L GLUCOSE 97 65 - 99 mg/dL BUN 14 8 - 25 mg/dL CREATININE 0.93 0.50 - 1.00 mg/dL BUN/CREAT 15 CALCIUM 8.3 (L) 8.5 - 10.5 mg/dL TOTAL PROTEIN 7.0 6.3 - 8.2 g/dL Albumin 3.5 (L) 3.6 - 5.0 g/dL GLOBULIN 3.5 1.3 - 4.9 g/dL A/G 1.0 1.0 - 2.4 TBIL 0.3 0.1 - 1.5 mg/dL ALK PHOS 43 35 - 115 U/L AST 14 10 - 45 U/L ALT 22 10 - 65 U/L EGFR >60 >60 mL/min/1.73m2 CPK 67 30 - 240 U/L INR 1.0 APTT 29 23 - 32 seconds MMB <0.5 (L) 0.5 - 3.6 ng/mL CK-MB Index UNABLE TO CALCULATE Urine test (LAB) [[id number]] Collected: 09/17/18 2349 Order Status: Completed Specimen: Urine from Urine, Clean Catch Updated: 09/18/18 000 9 Preg Test, Ur NEGATIVE NEGATIVE Troponin I [[id number]] Collected: 09/17/18 2314 Order Status: Completed Specimen: Blood from Blood Updated: 09/17/18 2352 TROPONIN I <0.04 0.00 - 0.10 ng/mL I personally reviewed the lab results and they have been posted to the chart. Pertinent po sitive and negative findings have been addressed appropriately. Radiology and EKG Evaluation Imaging Results XR chest PA and lateral (Final result) Result time 09/17/18 23:42:33 Final result by Gabriel Dorsey MD (09/17/18 23:42:33) Impression: 1. Normal frontal and lateral films of the chest. Narrative: HISTORY: Syncope. COMPARISON: 12/11/17. TECHNIQUE: PA and lateral films of the chest. FINDINGS: The lungs are clear. The heart size is normal. Interval bilateral breast prostheses have be en placed. EKG @ 2313 Normal sinus rhythm, rate of [address] changes concerning for acute ischemia Normal QRS, intervals, and QTc Interpreted by Patrick Rai DO at time of service. ED Diagnoses Final diagnoses Generalized weakness Nonintractable headache, unspecified chronicity pattern, unspecified headache type Hypocalcemia Disposition: ED Disposition ED Disposition Condition Comment Discharge Stable Follow-up Information Follow up With Specialties Details Why Contact Info [facility] Emergency Department in [place] Emergency Medicine Go to If symptoms worsen [address] [facility] [address] Your PCP Go in 1 week for follow up Discharge Medications: Discharge Medication List as of 09/18/2018 1:10 AM Dictation software, Secure Software, used which may contain error for similar sounding words even af ter review. Personal communication requested for any clarification. Procedures Additional Documentation Procedures Attending Provider Note: I, Patrick Rai DO personally performed the services descri bed in this documentation, as scribed by Amie Oconnor in my presence, and it is both accurate and complete. Chart Reviewed and Completed: 09/18/2018 1:03 AM Scribe: Wesley Arevalo, scribing for and in the presence of Patrick Rai DO. Signed by: Wesley Adame 09/18/2018 1:03 AM Patrick Rai DO 09/18/18 0230 onversion Transaction, Provider Unknown - 09/17/2018 10:46 PM PDTFormatting of this note might be diff erent from the original. ED Notes by Shaheen Correia RN at 09/17/182245 Author: Shaheen Correia RN Service: (none) Author Type: Registered Nurse Filed: 09/17/182246 Date of Service: 09/17/182245 Status: Signed Water Service Dispatcher: Shaheen Correia RN (Registered Nurse) [facility] has been called for records of recent ED visits. Shaheen Correia RN 09/17/182246 onver meera Transaction, Provider Unknown - 09/17/2018 10:01 PM PDT ED Triage Notes by Flora Barron RN at 09/17/182200 Author: Flora Barron RN Service: (none) Author Type: Registered Nurse Filed: 09/17/182200 Date of Service: 09/17/182200 Status: Signed Water Service Dispatcher: Flora Barron RN (Registered Nurse) Pt's Aunt: Cheli [phone] onver meera Transaction, Provider Unknown - 09/17/2018 9:56 PM PDT ED Triage Notes by Flora Barron RN at 09/17/182155 Author: Flora Barron RN Service: (none) Author Type: Registered Nurse Filed: 09/17/182200 Date of Service: 09/17/182155 Status: Signed Water Service Dispatcher: Flora Barron RN (Registered Nurse) Pt's aunt called, who is a nurse, concerned about pt who is en route by private vehicle wit h spouse from [place], [place]. All the info provided in this note is from the pt's aunt. Pt martin s hx of thyroidectomy from cancer. Over the last 1.5 months pt has been having dizziness, he adaches, swollen lymph nodes around the neck, and a few days ago she had a syncopal episode which resulted in her falling down stairs at home. Pt was seen at the [place] ER and ruled out for a brain bleed or trauma. Pt is still experiencing ankle, hip, and shoulder pain, as well as dizziness and lethargy. docume nted in this encounter Plan of Treatment Not on filedocumented as of this encounter Procedures + +--------+ + + + | Procedure Name | Priori | Date/Time | Associated Diagnosis | Comments | | | ty | | | | + +--------+ + + + | DOA, TRICYCLICS, | Routin | 09/17/2018 | | Results for this | | URINE, QUANT | e | 11:49 PM | | procedure are in the | | | | PDT | | results section. | + +--------+ + + + | URINALYSIS, REFLEX | Routin | 09/17/2018 | | Results for this | | MICROSCOPIC AND/OR | e | 11:49 PM | | procedure are in the | | CULTURE | | PDT | | results section. | + +--------+ + + + | URINALYSIS, | Routin | 09/17/2018 | | Results for this | | MICROSCOPIC ONLY | e | 11:49 PM | | procedure are in the | | | | PDT | | results section. | + +--------+ + + + | HCG, URINE, QUAL | Routin | 09/17/2018 | | Results for this | | | e | 11:49 PM | | procedure are in the | | | | PDT | | results section. | + +--------+ + + + | CULTURE, URINE | STAT | 09/17/2018 | | Results for this | | | | 11:49 PM | | procedure are in the | | | | PDT | | results section. | + +--------+ + + + | XR CHEST 2 VIEWS | Routin | 09/17/2018 | | Results for this | | | e | 11:30 PM | | procedure are in the | | | | PDT | | results section. | + +--------+ + + + | HISTORICAL LAB PANEL | Routin | 09/17/2018 | | Results for this | | RESULT | e | 11:14 PM | | procedure are in the | | | | PDT | | results section. | + +--------+ + + + | TROPONIN I | Routin | 09/17/2018 | | Results for this | | | e | 11:14 PM | | procedure are in the | | | | PDT | | results section. | + +--------+ + + + | TSH | Routin | 09/17/2018 | | Results for this | | | e | 11:14 PM | | procedure are in the | | | | PDT | | results section. | + +--------+ + + + | T4, FREE | Routin | 09/17/2018 | | Results for this | | | e | 11:14 PM | | procedure are in the | | | | PDT | | results section. | + +--------+ + + + | ECG 12 LEAD | Routin | 09/17/2018 | | Results for this | | | e | 11:13 PM | | procedure are in the | | | | PDT | | results section. | + +--------+ + + + documented in this encounter Results Culture, Urine (09/17/2018 11:49 PM PDT) + + | Specimen | + + | | + + + + + | Narrative | Performed At | + + + | Specimen Description CLEAN CATCH URINE CULTURE | EXTERNAL LAB | | 10,000 TO 50,000 CFU/ML | | | MIXED GRAM POSITIVE | | | [facility] | | + + + + +---------+ + + | Performing | Address | City/State/Zipcode | Phone Number | | Organization | | | | + +---------+ + + | EXTERNAL LAB | | | | + +---------+ + + Drugs of Abuse, Tricyclics, Urine, Quant (09/17/2018 11:49 PM PDT) + + + + + + | Component | Value | Ref Range | Performed | Pathologist | | | | | At | Signature | + + + + + + | PCP | NEGATIVEComment: | | EXTERNAL | | | | Positive cutoff for PCP | | LAB | | | | = 25 ng/mL | | | | + + + + + + | Benzodiazep | NEGATIVEComment: | | EXTERNAL | | | nathanael | Positive cutoff for | | LAB | | | Screen, | BENZO = 300 ng/mL | | | | | Urine | | | | | + + + + + + | Cocaine | NEGATIVEComment: | | EXTERNAL | | | | Positive cutoff for MIKE | | LAB | | | | = 300 ng/mL | | | | + + + + + + | Amphetamine | NEGATIVEComment: | | EXTERNAL | | | s | Positive cutoff for AMP | | LAB | | | | = 1000 ng/mL | | | | + + + + + + | Cannabinoid | NEGATIVEComment: | | EXTERNAL | | | s Screen, | Positive cutoff for THC | | LAB | | | Serum | = 50 ng/mL | | | | + + + + + + | Opiates | POSITIVE (A)Comment: | | EXTERNAL | | | | Positive cutoff for OPI | | LAB | | | | = 300 ng/mL | | | | + + + + + + | Barbiturate | NEGATIVEComment: | | EXTERNAL | | | s Screen, | Positive cutoff for DENISE | | LAB | | | Urine | = 300 ng/mL | | | | + + + + + + | TCA Scrn | NEGATIVEComment: | | EXTERNAL | | | | Positive cutoff for TCA | | LAB | | | | = 1000 ng/mLThe above | | | | | | are unconfirmed | | | | | | screening results. | | | | | | These results are to | | | | | | be used only for medical | | | | | | (i.e.,treatment) | | | | | | purposes. Unconfirmed | | | | | | screening results must | | | | | | not be used for | | | | | | non-medical purposes | | | | | | (e.g., employment | | | | | | testing, legal | | | | | | testing).Testing | | | | | | performed at [facility], [address] | | | | [address], | | | | | | [place] [address] | | | | + + + + + + + + | Specimen | + + | | + + + +---------+ + + | Performing | Address | City/State/Zipcode | Phone Number | | Organization | | | | + +---------+ + + | EXTERNAL LAB | | | | + +---------+ + + Urinalysis, Reflex Microscopic and/or Culture (09/17/2018 11:49 PM PDT) + + + + + + | Component | Value | Ref Range | Performed | Pathologist | | | | | At | Signature | + + + + + + | Color | YELLOW | | EXTERNAL | | | | | | LAB | | + + + + + + | Clarity, | CLOUDY | | EXTERNAL | | | Urine | | | LAB | | + + + + + + | Specific | 1.025 | 1.001 - 1.035 | EXTERNAL | | | [place], | | | LAB | | | Urine | | | | | + + + + + + | Leukocyte | SMALL (A) | | EXTERNAL | | | Esterase, | | | LAB | | | Urine | | | | | + + + + + + | Nitrite, | NEGATIVE | | EXTERNAL | | | Urine | | | LAB | | + + + + + + | Urobilinoge | 0.2 | mg/dL | EXTERNAL | | | n, Urine | | | LAB | | + + + + + + | Protein, | NEGATIVE | mg/dL | EXTERNAL | | | Urine | | | LAB | | + + + + + + | pH, Urine | 6.0 | 4.6 - 8.0 | EXTERNAL | | | | | | LAB | | + + + + + + | Blood, | NEGATIVE | | EXTERNAL | | | Urine | | | LAB | | + + + + + + | Ketones | NEGATIVE | mg/dL | EXTERNAL | | | | | | LAB | | + + + + + + | Bilirubin, | NEGATIVE | | EXTERNAL | | | Urine | | | LAB | | + + + + + + | Glucose, | NEGATIVEComment: Testing | mg/dL | EXTERNAL | | | Urine | performed at [facility], [address] | | LAB | | | | [address], | | | | | | [place] [address] | | | | + + + + + + + + | Specimen | + + | Urine specimen | | (specimen) | + + + +---------+ + + | Performing | Address | City/State/Zipcode | Phone Number | | Organization | | | | + +---------+ + + | EXTERNAL LAB | | | | + +---------+ + + , Urine, Qual (09/17/2018 11:49 PM PDT) + + + + + + | Component | Value | Ref Range | Performed | Pathologist | | | | | At | Signature | + + + + + + | Preg Test, | NEGATIVEComment: Testing | | EXTERNAL | | | Ur | performed at [facility], [address] | | LAB | | | | [address], | | | | | | [place] [address] | | | | + + + + + + + + | Specimen | + + | Urine specimen | | (specimen) | + + + +---------+ + + | Performing | Address | City/State/Zipcode | Phone Number | | Organization | | | | + +---------+ + + | EXTERNAL LAB | | | | + +---------+ + + Urinalysis, Microscopic Only (09/17/2018 11:49 PM PDT) + + + + + + | Component | Value | Ref Range | Performed | Pathologist | | | | | At | Signature | + + + + + + | WBC, UA | 6-10 | 0 - 5 /hpf | EXTERNAL | | | | | | LAB | | + + + + + + | RBC, UA | 1-5 | 0 - 5 /hpf | EXTERNAL | | | | | | LAB | | + + + + + + | Epithelial | 16-25 | /lpf | EXTERNAL | | | Cells | | | LAB | | + + + + + + | Bacteria, | 1+ (A) | | EXTERNAL | | | UA | | | LAB | | + + + + + + | Mucus, | 4+ | | EXTERNAL | | | Urine | | | LAB | | + + + + + + | Urinalysis | CULTURE TO | | EXTERNAL | | | Comments | FOLLOWComment: Testing | | LAB | | | | performed at [facility], [address] | [address], | | | | | | [place] [address] | | | | + + + + + + + + | Specimen | + + | | + + + +---------+ + + | Performing | Address | City/State/Zipcode | Phone Number | | Organization | | | | + +---------+ + + | EXTERNAL LAB | | | | + +---------+ + + XR Chest 2 Vws (09/17/2018 11:30 PM PDT) + + | Specimen | + + | | + + + + + | Impressions | Performed At | + + + | 1. Normal frontal and lateral films of the chest. | | | | | + + + + + + | Narrative | Performed At | + + + | HISTORY: Syncope. COMPARISON: 12/11/17. TECHNIQUE: PA and | | | lateral films of the chest. FINDINGS: The lungs are clear. The | | | heart size is normal. Interval bilateral breast prostheses have been | | | placed. | | + + + + + | Procedure Note | + + | Pavan Rad Conversion - 07/08/2019 2:57 PM PDT HISTORY:Syncope. COMPARISON:12/11/17. | | TECHNIQUE:PA and lateral films of the chest. FINDINGS:The lungs are clear. The heart | | size is normal. Interval bilateral breast prostheses have been placed. IMPRESSION: 1. | | Normal frontal and lateral films of the chest. | | | |TECHNIQUE: | |PA and lateral films of the chest. | | | |FINDINGS: | |The lungs are clear. The heart size is normal. Interval bilateral breast prostheses have be en placed. | | | |IMPRESSION: | |1. Normal frontal and lateral films of the chest. | | | | | + + HISTORICAL LAB PANEL RESULT (09/17/2018 11:14 PM PDT) + + + + + + | Component | Value | Ref Range | Performed | Pathologist | | | | | At | Signature | + + + + + + | WBC | 5.42 | 3.80 - 11.00 | EXTERNAL | | | | | K/uL | LAB | | + + + + + + | Non- | 4.70 | 3.70 - 5.10 | EXTERNAL | | | Red Blood | | M/uL | LAB | | | Cells | | | | | | Counted | | | | | + + + + + + | Hemoglobin | 11.5 | 11.3 - 15.5 | EXTERNAL | | | | | g/dL | LAB | | + + + + + + | Hematocrit, | 37.2 | 34.0 - 46.0 % | EXTERNAL | | | POC | | | LAB | | + + + + + + | MCV | 79.3 (L) | 80.0 - 100.0 fl | EXTERNAL | | | | | | LAB | | + + + + + + | MCH | 24.6 (L) | 27.0 - 34.0 pg | EXTERNAL | | | | | | LAB | | + + + + + + | MCHC | 31.0 (L) | 32.0 - 35.5 | EXTERNAL | | | | | g/dL | LAB | | + + + + + + | RDW-CV | 51.2 | 37 - 53 fl | EXTERNAL | | | | | | LAB | | + + + + + + | Platelet | 187 | 150 - 400 K/uL | EXTERNAL | | | Count | | | LAB | | | Plasma | | | | | + + + + + + | MPV | 9.9 | fl | EXTERNAL | | | | | | LAB | | + + + + + + | Differentia | AUTOMATED | | EXTERNAL | | | l Type | | | LAB | | + + + + + + | % Segmented | 46.68 | % | EXTERNAL | | | | | | LAB | | | Neutrophils | | | | | + + + + + + | % | 40.90 | % | EXTERNAL | | | Lymphocytes | | | LAB | | + + + + + + | % Monocytes | 7.34 | % | EXTERNAL | | | | | | LAB | | + + + + + + | % | 4.12 | % | EXTERNAL | | | Eosinophils | | | LAB | | + + + + + + | % Basophils | 0.96 | % | EXTERNAL | | | | | | LAB | | + + + + + + | Absolute | 2.53 | 1.90 - 7.40 | EXTERNAL | | | Segmented | | K/uL | LAB | | | Neutrophils | | | | | + + + + + + | Absolute | 2.22 | 1.00 - 3.90 | EXTERNAL | | | Lymphocytes | | K/uL | LAB | | + + + + + + | Absolute | 0.40 | 0.00 - 0.80 | EXTERNAL | | | Monocytes | | K/uL | LAB | | + + + + + + | Absolute | 0.22 | 0.00 - 0.50 | EXTERNAL | | | Eosinophils | | K/uL | LAB | | + + + + + + | Absolute | 0.05 | 0.00 - 0.10 | EXTERNAL | | | Basophils | | K/uL | LAB | | + + + + + + | RBC | 1+ | | EXTERNAL | | | Morphology | Comment: | | LAB | | | | HYPO | | | | | | 1+ | | | | | | MICRO | | | | | | 1+ | | | | | | ANISO | | | | | | NORMAL PLT MORPH | | | | | | | | | | + + + + + + | Platelet | ADEQUATE | | EXTERNAL | | | Estimate | | | LAB | | + + + + + + | Differentia | SLIDE SCANNED, AGREES | | EXTERNAL | | | l Comments | WITH AUTOMATED RESULTS. | | LAB | | + + + + + + | Na | 140 | 135 - 145 | EXTERNAL | | | | | mmol/L | LAB | | + + + + + + | K | 3.7 | 3.5 - 4.9 | EXTERNAL | | | | | mmol/L | LAB | | + + + + + + | Cl | 104 | 99 - 109 mmol/L | EXTERNAL | | | | | | LAB | | + + + + + + | CO2 | 28 | 23 - 32 mmol/L | EXTERNAL | | | | | | LAB | | + + + + + + | Anion Gap | 12 | 5 - 20 mmol/L | EXTERNAL | | | | | | LAB | | + + + + + + | Glucose, | 97 | 65 - 99 mg/dL | EXTERNAL | | | Fasting | | | LAB | | + + + + + + | BUN | 14 | 8 - 25 mg/dL | EXTERNAL | | | | | | LAB | | + + + + + + | Creatinine | 0.93 | 0.50 - 1.00 | EXTERNAL | | | | | mg/dL | LAB | | + + + + + + | BUN/Creatin | 15 | | EXTERNAL | | | ine Ratio | | | LAB | | + + + + + + | Calcium | 8.3 (L) | 8.5 - 10.5 | EXTERNAL | | | | | mg/dL | LAB | | + + + + + + | Protein, | 7.0 | 6.3 - 8.2 g/dL | EXTERNAL | | | Total | | | LAB | | + + + + + + | Albumin | 3.5 (L) | 3.6 - 5.0 g/dL | EXTERNAL | | | | | | LAB | | + + + + + + | Globulin | 3.5 | 1.3 - 4.9 g/dL | EXTERNAL | | | | | | LAB | | + + + + + + | A/G Ratio | 1.0 | 1.0 - 2.4 | EXTERNAL | | | | | | LAB | | + + + + + + | Bilirubin | 0.3 | 0.1 - 1.5 mg/dL | EXTERNAL | | | Total | | | LAB | | + + + + + + | ALP, | 43 | 35 - 115 U/L | EXTERNAL | | | External | | | LAB | | + + + + + + | AST | 14 | 10 - 45 U/L | EXTERNAL | | | | | | LAB | | + + + + + + | ALT | 22 | 10 - 65 U/L | EXTERNAL [...] BY | | | | | | 1.210.This eGFR is | | | | | | calculated using the | | | | | | MDRD IDMS traceable | | | | | | equation. | | | | + + + + + + | CK, Total | 67 | 30 - 240 U/L | EXTERNAL | | | | | | LAB | | + + + + + + | INR | 1.0Comment: REFERENCE | | EXTERNAL | | | | RANGE:0.9 - 1.2 | | LAB | | | | NON-ANTICOAGULATED2.0 | | | | | | - 3.0 ALL OTHER | | | | | | THERAPEUTIC | | | | | | INDICATIONS2.5 - 3.5 | | | | | | MECHANICAL HEART VALVES, | | | | | | RECURRENT OR SYSTEMIC | | | | | | EMBOLISM | | | | + + + + + + | aPTT, | 29 | 23 - 32 seconds | EXTERNAL | | | Patient | | | LAB | | + + + + + + | CK-MB | <0.5 (L) | 0.5 - 3.6 ng/mL | EXTERNAL | | | | | | LAB | | + + + + + + | CK-MB Index | UNABLE TO | | EXTERNAL | | | | CALCULATEComment: | | LAB | | | | Testing performed at | | | | | | [facility], [address], | | | | | | [place] [address] | | | | + + + + + + + + | Specimen | + + | | + + + +---------+ + + | Performing | Address | City/State/Zipcode | Phone Number | | Organization | | | | + +---------+ + + | EXTERNAL LAB | | | | + +---------+ + + Troponin I (09/17/2018 11:14 PM PDT) + + + + + + | Component | Value | Ref Range | Performed | Pathologist | | | | | At | Signature | + + + + + + | Troponin I, | <0.04Comment: 0.00 to | 0.00 - 0.10 | EXTERNAL | | | Qual | 0.10 CONSISTENT WITH | ng/mL | LAB | | | | NORMAL POPULATION0.11 to | | | | | | 0.60 CONSISTENT WITH | | | | | | INCREASED RISK FOR | | | | | | ADVERSE OUTCOMES> 0.60 | | | | | | CONSISTENT | | | | | | WITH WHO CRITERIA FOR | | | | | | ACUTE [place] Testing | | | | | | performed at [facility], [address] | | | | [address], | | | | | | [place] [address] | | | | + + + + + + + + | Specimen | + + | Blood specimen | | (specimen) | + + + +---------+ + + | Performing | Address | City/State/Zipcode | Phone Number | | Organization | | | | + +---------+ + + | EXTERNAL LAB | | | | + +---------+ + + TSH (09/17/2018 11:14 PM PDT) + + + + + + | Component | Value | Ref Range | Performed | Pathologist | | | | | At | Signature | + + + + + + | TSH | 12.919 (H)Comment: | 0.450 - 5.100 | EXTERNAL | | | | Testing performed at | uIU/mL | LAB | | | | [facility], [address], | | | | | | [place] [address] | | | | + + + + + + + + | Specimen | + + | Blood specimen | | (specimen) | + + + +---------+ + + | Performing | Address | City/State/Zipcode | Phone Number | | Organization | | | | + +---------+ + + | EXTERNAL LAB | | | | + +---------+ + + T4, Free (09/17/2018 11:14 PM PDT) + + + + + + | Component | Value | Ref Range | Performed | Pathologist | | | | | At | Signature | + + + + + + | FREE T4 | 0.8Comment: Testing | 0.7 - 1.5 ng/dL | EXTERNAL | | | (REF) | performed at [facility], [address] | | LAB | | | | [address], | | | | | | [place] [address] | | | | + + + + + + + + | Specimen | + + | Blood specimen | | (specimen) | + + + +---------+ + + | Performing | Address | City/State/Zipcode | Phone Number | | Organization | | | | + +---------+ + + | EXTERNAL LAB | | | | + +---------+ + + ECG 12 lead (09/17/2018 11:13 PM PDT) + + + + + + | Component | Value | Ref Range | Performed | Pathologist | | | | | At | Signature | + + + + + + | DIAGNOSIS: | Normal sinus | | EXTERNAL | | | | rhythmNormal ECGNo | | LAB | | | | previous ECGs | | | | | | availableThis ECG | | | | | | contains Unconfirmed | | | | | | Interpretation | | | | | | Statements. See ED | | | | | | Record for Physician | | | | | | Interpretation. | | | | | | Confirmed by MUSE READ | | | | | | ONLY, -COMPUTER ([id number]), | | | | | | dictionary editor Mervin Santiago | | | | | | Blayne ([id number]) on 09/18/2018 | | | | | | 3:33:16 AM | | | | + + + + + + + + | Specimen | + + | | + + + + + | Narrative | Performed At | + + + | Historically converted procedure from [facility] | EXTERNAL LAB | + + + + +---------+ + + | Performing | Address | City/State/Zipcode | Phone Number | | Organization | | | | + +---------+ + + | EXTERNAL LAB | | | | + +---------+ + + documented in this encounter Visit Diagnoses + + | Diagnosis | + + | Generalized weakness Other malaise and fatigue | + + | Nonintractable headache, unspecified chronicity pattern, unspecified headache type | + + | Hypocalcemia | + + documented in this encounter
--- OUTSIDE RECORDS SUMMARY | ~2020-08-02 | XMS | Encounter Summary ---
Demographics + + + | Address | [address] | | | [place] [address] | + + + | Home Phone | | + + + | Preferred Language | Unknown | + + + | Marital Status | | + + + | Orthodox Affiliation | Unknown | + + + | Race | White | + + + | Ethnic Group | Not or | + + + Author + + + | Author | [facility] | | | and [place] | + + + | Organization | [facility] | | [...] Team Providers + +------+ + | Care Licensed And Certified Midwife Name | Role | Phone | + +------+ + PCP | Unavailable | + +------+ + Encounter Details +--------+ + + + + | Date | Type | Department | Care Team | Description | +--------+ + + + + | 02/02/ | [facility] | [facility] | Hannah Bliss | | | 2006 | Encounter | [facility] | MD [address] | | | | | CENTER [address] | [facility], | | | | | [place] | [place] [address] | | | | | [address] | [phone] | | | | | [phone] | | | +--------+ + + + [...]
--- OUTSIDE RECORDS SUMMARY | ~2020-08-02 | XMS | Encounter Summary ---
Demographics + + + | Address | [address] | | | [place] [address] | + + + | Home Phone | | + + + | Preferred Language | Unknown | + + + | Marital Status | | + + + | Samaritan Affiliation | Unknown | + + + | Race | White | + + + | Ethnic Group | Not or | + + + Author + + + | Author | [facility] | | | and [place] | + + + | Organization | [facility] | | [...] Team Providers + +------+ + | Care Parcel Post Truck Driver Name | Role | Phone | + +------+ + PCP | Unavailable | + +------+ + Encounter Details +--------+ + + + + | Date | Type | Department | Care Team | Description | +--------+ + + + + | 02/03/ | Hospital | [facility] | | | | 2006 | Encounter | [facility] | | | | | | [address] | | | | | | [place] | | | | | | [address] | | | | | | [phone] | | | +--------+ + + + [...]
--- OUTSIDE RECORDS SUMMARY | ~2020-08-02 | XMS | Encounter Summary ---
Demographics + + + | Address | [address] | | | [place] [address] | + + + | Home Phone | | + + + | Preferred Language | Unknown | + + + | Marital Status | | + + + | Temple Affiliation | Unknown | + + + | Race | White | + + + | Ethnic Group | Not or | + + + Author + + + | Author | [facility] | | | and [place] | + + + | Organization | [facility] | | | [...] Providers + +------+ + | Care Supervisor Instrument Mechanics Name | Role | Phone | + +------+ + PCP | Unavailable | + +------+ + Encounter Details +--------+ + + + + | Date | Type | Department | Care Team | Description | +--------+ + + + + | 05/18/ | Hospital | [facility] | | | | 2007 | Encounter | MED [facility] EM[facility] | | | | | | [address] | | | | | | [place] | | | | | | [address] | | | | | | [phone] | | | +--------+ + + + [...]
--- OUTSIDE RECORDS SUMMARY | ~2020-08-02 | XMS | Encounter Summary ---
Demographics + + + | Address | [address] | | | [place] [address] | + + + | Home Phone | | + + + | Preferred Language | Unknown | + + + | Marital Status | | + + + | Congregational Affiliation | Unknown | + + + | Race | White | + + + | Ethnic Group | Not or | + + + Author + + + | Author | [facility] | | | and [place] | + + + | Organization | [facility] | | | [...] Team Providers + +------+ + | Care Bistro Attendant Name | Role | Phone | + +------+ + PCP | Unavailable | + +------+ + Encounter Details +--------+ + + + + | Date | Type | Department | Care Team | Description | +--------+ + + + + | 06/26/ | Hospital | [facility] | Jose E Campos | | | 2005 | Encounter | [facility] | [address] | | | | | [facility] [address] | [facility] | | | | | [place], | [place] [address] | | | | | [place] [address] | [phone] | | | | | [phone] | | | +--------+ + + + [...]
--- OUTSIDE RECORDS SUMMARY | ~2020-08-02 | XMS | Clinical Summary ---
Demographics + + + | Address | [address] | | | [place] [address] | + + + | Home Phone | | + + + | Preferred Language | Unknown | + + + | Marital Status | | + + + | Confucianism Affiliation | Unknown | + + + | Race | White | + + + | Ethnic Group | Not or | + + + Author + + + | Author | [facility] | | | and [place] | + + + | Organization | [facility] | | | and [...] Team Providers + +------+ + | Care Accounting Recruiter Name | Role | Phone | + +------+ + | Bethany Dick MD | PCP | | + +------+ + Allergies + + + + + + | Active Allergy | Reactions | Severity | Noted | Comments | | | | | Date | | + + + + + + | Hydrocodone | Hives | High | 12/02/19 | | | | | | 18 | | + + + + + + Medications + + + +---------+------+------+-------+ | Medication | Sig | Dispensed | Refills | Star | End | Statu | | | | | | t | Date | s | | | | | | Date | | | + + + +---------+------+------+-------+ | citalopram | Take 20 mg by mouth | | 0 | | | Activ | | (CELEXA) 10 mg/5 mL | Daily. | | | | | e | | suspension | | | | | | | + + + +---------+------+------+-------+ | levothyroxine | Take 100 mcg by | | 0 | | | Activ | | (SYNTHROID) 100 mcg | mouth every morning | | | | | e | | tablet | (before breakfast). | | | | | | + + + +---------+------+------+-------+ | | Take 1 tablet by | | 0 | | | Activ | | HYDROcodone-acetamin | mouth every 6 hours | | | | | e | | ophen (NORCO) 5-325 | as needed for Pain. | | | | | | | mg per tablet | | | | | | | + + + +---------+------+------+-------+ | acetaminophen | Take 650 mg by mouth | | 0 | | | Activ | | (TYLENOL) 325 mg | every 4 hours as | | | | | e | | tablet | needed for Pain. | | | | | | + + + +---------+------+------+-------+ | traMADol (ULTRAM) | Take 1 tablet by | 12 | 0 | 01/0 | | Activ | | 50 mg tablet | mouth every 8 hours | tablet | | 7/20 | | e | | | as needed for Pain. | | | 18 | | | + + + +---------+------+------+-------+ | TIROSINT 125 MCG | | | 0 | 01/0 | | Activ | | CAPS | | | | 7/20 | | e | | | | | | 18 | | | + + + +---------+------+------+-------+ | BIOTIN PO | Take 1 tablet by | | 0 | | | Activ | | | mouth daily. | | | | | e | + + + +---------+------+------+-------+ | COCONUT OIL PO | Take by mouth | | 0 | | | Activ | | | daily. | | | | | e | + + + +---------+------+------+-------+ | citalopram | Take 20 mg by mouth | | 0 | | | Activ | | (CELEXA) 20 mg | every morning. | | | | | e | | tablet | | | | | | | + + + +---------+------+------+-------+ | levothyroxine | Take 112 mcg by | | 0 | | | Activ | | (SYNTHROID) 112 mcg | mouth every morning | | | | | e | | tablet | before breakfast. | | | | | | + + + +---------+------+------+-------+ | levothyroxine | Take 125 mcg by | | 0 | | | Activ | | (SYNTHROID) 125 mcg | mouth every morning | | | | | e | | tablet | before breakfast. 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 | + + Family History + + +------+ + | Medical History | Relation | Name | Comments | + + +------+ + | Other (see comment) | Maternal | | varicose veins | | | Grandmoth | | | | | er | | | + + +------+ + | Other (see comment) | Mother | | varicose veins | + + +------+ + + +------+--------+ + | Relation | Name | Status | Comments | + +------+--------+ + | Father | | Alive | | + +------+--------+ + | Maternal Grandmother | | | | + +------+--------+ + | Mother | | Alive | | + +------+--------+ + Social History + +-------+ +--------+------+ | [...] on file | | + + + Last Filed Vital Signs + + + + + | Vital Sign | Reading | Time Taken | Comments | + + + + + | Blood Pressure | 90/68 | 03/30/2019 10:42 AM | | | | | PDT | | + + + + + | Pulse | 62 | 09/18/2018 1:17 AM | | | | | PDT | | + + + + + | Temperature | 36.7 C (98.1 F) | 09/18/2018 1:17 AM | | | | | PDT | | + + + + + | Respiratory Rate | 16 | 09/18/2018 1:17 AM | | | | | PDT | | + + + + + | Oxygen Saturation | 100% | 12/01/2017 3:28 PM | | | | | PST | | + + + + + | Inhaled Oxygen | - | - | | | Concentration | | | | + + + + + | Weight | 71.3 kg (157 lb 3.2 | 03/30/2019 10:42 AM | | | | oz) | PDT | | + + + + + | Height | 157.5 cm (5' 2") | 03/30/2019 10:42 AM | | | | | PDT | | + + + + + | Body Mass Index | 28.75 | 03/30/2019 10:42 AM | | | | | PDT | | + + + + + Plan of Treatment + + + + + | Health Maintenance | Due Date | Last | Comments | | | | Done | | + + + + + | Hepatitis C | | | | | Screening | 7 | | | + + + + + | Medication | | | | | Management | 7 | | | + + + + + | Vaccine: | | | | | Dtap/Tdap/Td (1 - | 6 | | | | Tdap) | | | | + + + + + | Cervical Cancer | | | | | Screening (Pap) | 7 | | | + + + + + | Med Mgmt: TSH | | 09/17/20 | | | | 9 | 18 | | + + + + + | Vaccine: Influenza | | | | | (#1) | 0 | | | + + + + + Results Not on filefrom Last 3 Months Insurance + +--------+ +--------+ +---------+------+ | Payer | Benefi | Subscriber | Effect | Phone | Address | Type | | | t Plan | ID | francoise | | | | | | / | | Dates | | | | | | Group | | | | | | + +--------+ +--------+ +---------+------+ | [facility] | PHP | [id number] | 11/25/19 | [phone] | | PPO | | PLAN | PERSON | | 18-Pre | 5 | | | | | AL | | sent | | | | | | OPEN | | | | | | | | OPTION | | | | | | + +--------+ +--------+ +---------+------+ + +--------+ +--------+ + + | Guarantor Name | Accoun | Relation to | Date | Phone | Billing Address | | | t Type | Patient | of | | | | | | | | | | + +--------+ +--------+ + + | Patria Sommer | Person | Self [birth year] | [address] | | | al/Fam | | 1985 | [phone] | [place] | | | nas | | | 2 (Home) | [address] | + +--------+ +--------+ + + | Patria Sommer | Person | Self | [birth year] | [address] | | | al/Fam | | 1985 | [phone] | [facility] | | | nas | | | 2 ([place]) | [address] | + +--------+ +--------+ + + Advance Directives + + + + + | Type | Date Recorded | Patient | Explanation | | | | 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
--- OUTSIDE RECORDS SUMMARY | ~2020-08-02 | XMS | Encounter Summary ---
Demographics + + + | Address | [address] | | | [place] [address] | + + + | Home Phone [...] Team Providers + +------+ + | Care Security Assurance Analyst Name | Role | Phone | + +------+ + PCP | Unavailable | + +------+ + Encounter Details +--------+ + + + + | Date | Type | Department | Care Team | Description | +--------+ + + + + | 10/10/ | Hospital | [facility] | | | | 2004 | Encounter | MED [facility] EM[facility] | | | | | | CENTER [address] | | | | | | [place] | | | | | | [address] | | | | | | [phone] | | | +--------+ + + + [...]
--- OUTSIDE RECORDS SUMMARY | ~2020-08-02 | XMS | Encounter Summary ---
Demographics + + + | Address | [address] | | | [place] [address] | + + + | Home Phone | | + + + | Preferred Language | Unknown | + + + | Marital Status | | + + + | [employer] Affiliation | Unknown | + + + [...] Team Providers + +------+ + | Care Spring Assembler Name | Role | Phone | + +------+ + | No Physician | PCP | Unavailable | + +------+ + Reason for Visit + + + | Reason | Comments | + + + | Abdominal Pain | | + + + | Back Pain | | + + + | Nausea | | + + + | Rash | | + + + | Wheezing | | + + + Encounter Details +--------+ + + + + | Date | Type | Department | Care Team | Description | +--------+ + + + + | 12/01/ | Emergency | [facility] | Morgan Wood, | Abdominal pain, | | 2018 | | [facility] | [place] [address] | unspecified | | | | CENTER [address] | [place] | abdominal location | | | | [place], [place] | [address] | (Primary Dx) | | | | [address] | | | | | | [phone] | | | +--------+ + + + [...] + + + | Blood Pressure | 97/53 | 12/01/2017 3:28 PM | | | | | PST | | + + + + + | Pulse | 62 | 12/01/2017 3:28 PM | | | | | PST | | + + + + + | Temperature | 36.7 C (98.1 F) | 12/01/2017 12:22 PM | | | | | PST | | + + + + + | Respiratory Rate | 16 | 12/01/2017 3:28 PM | | | [...] Weight | 58.1 kg (128 lb) | 12/01/2017 12:22 PM | | | | | PST | | + + + + + | Height | 157.5 cm (5' 2") | 12/01/2017 12:22 PM | | | | | PST | | + + + + + | Body Mass Index | 23.41 | 12/01/2017 12:22 PM | | | | | PST | | + + + + + documented in this encounter Discharge Instructions AttachmentsThe following attachments cannot be sent through Care Everywhere.Abdominal Pain, Adult (Japanese)documented in this encounter Medications at Time of [...] encounter ED Notes Morgan Wood MD - 12/01/2017 2:02 PM PSTFormatting of this note might be different fro m the original. eMERGENCY dEPARTMENT eNCOUnter CHIEF COMPLAINT Chief Complaint Patient presents with Abdominal Pain Back Pain Nausea Rash Wheezing HPI Patria Sommer is a 32 y.o. female who presents with abdominal pain. She was just at [facility] in [facility] and was diagnosed with a ruptured ovarian cyst. She's continued to have abdominal pain since then. She describes it as crampy. She's had a fever at home. Sh e's had no vomiting or diarrhea. No other associated symptoms. No dysuria, urgency, or radha quency. PAST MEDICAL HISTORY Past Medical History: Diagnosis Date Abnormal findings on diagnostic imaging of gall bladder 11/27/2017 sludge Cancer (HCC) Ovarian cyst Thyroid disease Varicose veins 2002 SURGICAL HISTORY Past Surgical History: Procedure Laterality Date ECTOPIC SURGERY 2011 THYROIDECTOMY TUBAL LIGATION 2010 CURRENT MEDICATIONS Previous Medications ACETAMINOPHEN (TYLENOL) 325 MG TABLET Take 650 mg by mouth every 4 hours as needed for Pain. CITALOPRAM (CELEXA) 10 MG/5 ML SUSPENSION Take 20 mg by mouth Daily. HYDROCODONE-ACETAMINOPHEN (NORCO) 5-325 MG PER TABLET Take 1 tablet by mouth every 6 ho urs as needed for Pain. LEVOTHYROXINE (SYNTHROID) 100 MCG TABLET Take 100 mcg by mouth every morning (before br eakfast). ALLERGIES No Known Allergies FAMILY HISTORY Family History Problem Relation Age of Onset Other (see comment) Mother varicose veins Other (see comment) Maternal Grandmother varicose veins SOCIAL HISTORY Social History Social History Marital status: Spouse name: N/A Number of children: N/A Years of education: N/A Social History Main Topics Smoking status: Never Smoker Smokeless tobacco: Never Used Alcohol use 0.5 oz/week 1 Standard drinks or equivalent per week Comment: occasionally Drug use: No Sexual activity: Not Asked Other Topics Concern None Social History Narrative None REVIEW OF SYSTEMS All systems reviewed and negative except as noted on HPI and/or limited by patient conditio n PHYSICAL EXAM VITAL SIGNS: Temp: 36.7 C (98.1 F) Pulse: 93 Resp: 16 SpO2: 98 % BP: 109/71 Constitutional: Well developed, Well nourished, No acute distress, Non-toxic appearance. HENT: Normocephalic, Atraumatic, Oropharynx moist, No oral exudates, Nose normal. Neck- No rmal range of motion, No tenderness, Supple, No stridor. Eyes: PERRL, EOMI, Conjunctiva normal, No discharge. Respiratory: Normal breath sounds, No wheezing, No chest tenderness. Cardiovascular: Normal S1, S2 GI: nondistended, nontender : not done Musculoskeletal: Intact distal pulses, No edema ,Integument: Warm, Dry, No erythema, No rash. EKG Not done RADIOLOGY No results found. ED COURSE & MEDICAL DECISION MAKING Last Set of Vital Signs: Temp: 36.7 C (98.1 F) Pulse: 93 Resp: 16 SpO2: 98 % BP: 109/71 Pertinent Labs, Nurses Note, & Imaging studies reviewed. (See chart for details) 32 -year-old female with abdominal pain. Workup here is negative for anything acute. She was recently diagnosed with a ruptured ovarian cyst. She is referred on to gynecology. She is discharged home with some tramadol and told to come back if worse. FINAL IMPRESSION Abdominal pain LABS FROM THIS VISIT OR MOST RECENT ER VISIT: Results for orders placed or performed during [...] PH UA 7.0 5.0 - 8.0 Specific [place] 1.009 1.001 - 1.030 PROTEIN UA Negative [...] Ref Range Extra Lavender Top Tube Done Morgan Wood MD 12/01/17 1513 Marleni Cazares RN - 12/01/2017 12:21 PM PSTPatient diagnosed with gall bladder sludge and ruptured ovarian cys t on at [facility]. She reports continued right sided abdominal pain that radiates to her back and nausea as well as a rash to her face and wheezing that started this morning.Shelby ctronically signed by Marleni Saleem RN at 12/01/2017 12:22 PM PSTdocumented in this encou nter Plan of Treatment Not on filedocumented as of this encounter Procedures + +--------+ + + + | Procedure Name | Priori | Date/Time | Associated Diagnosis | Comments | | | ty | | | | + +--------+ + + + | HCG, URINE, QUAL | STAT | 12/01/2017 | | Results for this | | | | 2:43 PM | | procedure are in the | | | | PST | | results section. | + +--------+ + + + | URINALYSIS WITH | Routin | 12/01/2017 | | Results for this | | MICROSCOPIC | e | 2:43 PM | | procedure are in the | | | | PST | | results section. | + +--------+ + + + | POCT URINALYSIS, | STAT | 12/01/2017 | | Results for this | | AUTO WITH CONF | | 2:42 PM | | procedure are in the | | | | PST | | results section. | + +--------+ + + + | COMPREHENSIVE | STAT | 12/01/2017 | | Results for this | | METABOLIC PANEL | | 2:10 PM | | procedure are in the | | | | PST | | results section. | + +--------+ + + + | CBC WITH | STAT | 12/01/2017 | | Results for this | | DIFFERENTIAL | | 2:05 PM | | procedure are in the | | | | PST | | results section. | + +--------+ + + + documented in this encounter Results Urinalysis With Microscopic (12/01/2017 2:43 PM PST) + + + + + [...] + + + + | Clarity, | Hazy (A) | Clear | [facility] | | | Urine | | | [facility] | | | | | MEDICAL | | | | | | CENTER - | | | | | | LABORATORY | | + + + + + + | pH, Urine | 9.0 (H) | 5.0 - 8.0 | [facility] | | | | | | [facility] | | | | | | MEDICAL | | | | | | CENTER - | | | | | | LABORATORY | | + + + + + + | Specific | 1.010 | 1.001 - 1.030 | [facility] | | | [place], | | | [facility] | | [...] + + + + | Leukocyte | Moderate (A) | Negative | [facility] | | | Esterase, | | | [facility] | | | Urine | | | MEDICAL | | | | | | CENTER - | | | | | | LABORATORY | | + + + + + + | Urobilinoge | Negative | 0.2 mg/dL, 1.0 | [facility] | | | n, Urine | | mg/dL, Negative | [facility] | | | | | | MEDICAL | | | | | | CENTER - | | | | | | LABORATORY | | + + + + + + | White Blood | 2-5 (A) | 0 - 2 /HPF | [facility] | | | Cells, | | | [facility] | | | Urine | | | [...] + + + + | Squamous | 5-10 (A) | 0 - 2 /LPF | [facility] | | | Epithelial | | | [facility] | | | Cells, | | | MEDICAL | | | Urine | | | CENTER - | | | | | | LABORATORY | | + + + + + + | Bacteria, | 1+ (A) | Negative /HPF | [facility] | [...] Performed At | + + + | Urine culture not indicated. | [facility] | | | [facility] | | | [facility] | | | - LABORATORY | + + + + + + + + | Performing | Address | City/State/Zipcode | Phone Number | | Organization | | | | + + + + + | [facility] | [address] | [place] | [phone] | | [facility] | | [address] | | | - LABORATORY | | | | + + + + + , Urine, Qual (12/01/2017 2:43 PM PST) + + + + + + | Component | Value | Ref Range | Performed | Pathologist | | | | | At | Signature | + + + + + + | HCG | Negative | Negative | [facility] | | | Qualitative | | | [facility] | | | , Urine | | | MEDICAL | | [...] ST. | [address] | [place] | [phone] | | [facility] | | [address] | | | - LABORATORY | | | | + + + + + POCT Urinalysis Dipstick Automated (12/01/2017 2:42 PM PST) + + + + + [...] + + + + | Specific | 1.015 | 1.001 - 1.030 | | | | [place], | | | | | | UA, POC | | | | | + + + + + + | Blood, UA, | Negative | Negative | | | | POC | | | | | + + + + + + | pH, UA, POC | 8.5 (A) | 5.0, 6.0, 7.0, | | | | | | 8.0, 5.5, 6.5, | | | | | | 7.5 | | | + + + + + + | Protein, | Negative | Negative | | | | UA, POC | | | | | + + + + + + | Urobilinoge | 0.2 mg/dL | 0.2, Negative, | | | | [...] | Nitrite, | Negative | Negative | | | | UA, POC | | | | | + + + + + + | Leukocyte | 1+ (A) | Negative | | | | [...] + + | Urine | + + Comprehensive Metabolic Panel (12/01/2017 2:10 PM PST) + + + + + + | Component | Value | Ref Range | Performed | Pathologist | | | | | At | Signature | + + + + + + | Na | 136 | 136 - 149 | [facility] | | | | | mmol/L | [facility] | | | | | | MEDICAL | | | | | | CENTER - | | | | | | LABORATORY | | + + + + + + | K | 3.8 | 3.5 - 5.1 | [facility] | [...] + + + + | CO2 | 25 | 24 - 31 mmol/L | [facility] | | | | | | [facility] | | | | | | MEDICAL | | | | | | CENTER - | | | | | | LABORATORY | | + + + + + + | Anion Gap | 6 | 3 - 16 mmol/L | [facility] | | | | | | [facility] | | | | | | MEDICAL | | | | | | CENTER - | | | | | | LABORATORY | | + + + + + + | Glucose | 94 | 70 - 109 mg/dL | [facility] | | | | | | [facility] | | | | | | MEDICAL | | | | | | CENTER - | | | | | | LABORATORY | | + + + + + + | BUN | 8 | 7 - 18 mg/dL | [facility] | | | | | | [facility] | | | | | | MEDICAL | | | | | | CENTER - | | | | | | LABORATORY | | + + + + + + | Creatinine | 0.71 | 0.60 - 1.30 | [facility] | | | | | mg/dL | [facility] | | | | | | MEDICAL | | | | | | CENTER - | | | | | | LABORATORY | | + + + + + + | eGFR, | >60Comment: GLOMERULAR | >=60 | [facility] | | | non- | FILTRATION | mL/min/1.73m2 | [facility] | | | Martiniquais | RATE,ESTIMATED | | MEDICAL | | | | mL/min/1.50g9Vjsg than | | CENTER - | | [...] + + + + | Albumin | 4.4 | 3.2 - 5.0 g/dL | [facility] | | | | | | [facility] | | | | | | MEDICAL | | | | | | CENTER - | | | | | | LABORATORY | | + + + + + + | Bilirubin | 0.9Comment: This is an | 0.1 - 1.5 [...] + + + + | Total | 7.2 | 6.0 - 7.8 g/dL | [facility] | | | Protein | | | [facility] | | | | | | MEDICAL | | | | | | CENTER - | | | | | | LABORATORY | | + + + + + + | AST | 18Comment: This is an | 10 - 42 [...] + + + + | ALT | 16Comment: This is an | 6 - 45 [...] + + + + | Alkaline | 42Comment: This is an | 40 - 110 [...] + + + + | Globulin | 2.8 | 2.1 - 3.8 g/dL | [facility] | | | | | | [facility] | | | | | | MEDICAL | | | | | | CENTER - | | | | | | LABORATORY | | + + + + + + | Albumin/Teena | 1.6 | 0.8 - 2.0 | [facility] | | | bulin Ratio | | | [facility] | | | | | | MEDICAL | | | | | | CENTER - | | | | | | LABORATORY | | + + + + + + | BUN/Creatin | 11.3 | | [facility] | | | ine [...] ST. | [address] | [place] | [phone] | | [facility] | | [address] | | | - LABORATORY | | | | + + + + + CBC with Differential (12/01/2017 2:05 PM PST) + +-------+ + + + | Component | Value | Ref Range | Performed | Pathologist | | | | | At | Signature | + +-------+ + + + | White Blood | 8.4 | 4.0 - 11.0 K/uL | [facility] | | | Cells | | | [facility] | | | | | | MEDICAL | | | | | | CENTER - | | | | | | LABORATORY | | + +-------+ + + + | Red Blood | 4.84 | 3.70 - 5.20 | [facility] | | | Cells | | M/uL | [facility] | | | | | | MEDICAL | | | | | | CENTER - | | | | | | LABORATORY | | + +-------+ + + + | Hemoglobin | 13.6 | 11.5 - 16.0 | [facility] | | | | | g/dL | [facility] | | | | | | MEDICAL | | | | | | CENTER - | | | | | | LABORATORY | | + +-------+ + + + | Hematocrit | 41.2 | 34.0 - 47.0 % | [facility] | | | | | | [facility] | | | | | | MEDICAL | | | | | | CENTER - | | | | | | LABORATORY | | + +-------+ + + + | MCV | 85.1 | 83.0 - 101.0 fL | [facility] | | | | | | [facility] | | | | | | MEDICAL | | | | | | CENTER - | | | | | | LABORATORY | | + +-------+ + + + | MCH | 28.2 | 28.0 - 35.0 pg | [facility] | | | | | | [facility] | | | | | | MEDICAL | | | | | | CENTER - | | | | | | LABORATORY | | + +-------+ + + + | MCHC | 33.1 | 32.0 - 36.0 | [facility] | | | | | g/dL | [facility] | | | | | | MEDICAL | | | | | | CENTER - | | | | | | LABORATORY | | + +-------+ + + + | RDW-CV | 14.5 | <15.0 % | [facility] | | | | | | [facility] | | | | | | MEDICAL | | | | | | CENTER - | | | | | | LABORATORY | | + +-------+ + + + | Platelet | 178 | 140 - 440 K/uL | [facility] | | | Count | | | [facility] | | | | | | MEDICAL | | | | | | CENTER - | | | | | | LABORATORY | | + +-------+ + + + | MPV | 10.3 | fL | [facility] | | | | | | [facility] | | | | | | MEDICAL | | | | | | CENTER - | | | | | | LABORATORY | | + +-------+ + + + | % | 62.3 | 45.0 - 82.0 % | [facility] | | | Neutrophils | | | [facility] | | | | | | MEDICAL | | | | | | CENTER - | | | | | | LABORATORY | | + +-------+ + + + | % | 25.9 | 20.0 - 45.0 % | [facility] | | | Lymphocytes | | | [facility] | | | | | | MEDICAL | | | | | | CENTER - | | | | | | LABORATORY | | + +-------+ + + + | % Monocytes | 7.3 | 4.0 - 12.0 % | [facility] | | | | | | [facility] | | | | | | MEDICAL | | | | | | CENTER - | | | | | | LABORATORY | | + +-------+ + + + | % | 3.5 | 0.0 - 5.0 % | [facility] | | | Eosinophils | | | [facility] | | | | | | MEDICAL | | | | | | CENTER - | | | | | | LABORATORY | | + +-------+ + + + | % Basophils | 1.0 | 0.0 - 1.0 % | [facility] | | | | | | [facility] | | | | | | MEDICAL | | | | | | CENTER - | | | | | | LABORATORY | | + +-------+ + + + | Absolute | 5.20 | 1.80 - 8.50 | [facility] | | | Neutrophils | | K/uL | [facility] | | | | | | MEDICAL | | | | | | CENTER - | | | | | | LABORATORY | | + +-------+ + + + | Absolute | 2.20 | 0.60 - 3.20 | [facility] | | | Lymphocytes | | K/uL | [facility] | | | | | | MEDICAL | | | | | | CENTER - | | | | | | LABORATORY | | + +-------+ + + + | Absolute | 0.60 | 0.00 - 1.00 | [facility] | | | Monocytes | | K/uL | [facility] | | | | | | MEDICAL | | | | | | CENTER - | | | | | | LABORATORY | | + +-------+ + + + | Absolute | 0.30 | 0.00 - 0.40 | [facility] | | | Eosinophils | | K/uL | [facility] | | | | | | MEDICAL | | | | | | CENTER - | | | | | | LABORATORY | | + +-------+ + + + | Absolute | 0.10 [...] + + + + + | [facility] | [address] | [place] | [phone] | | [facility] | | [address] | | | - LABORATORY | | | | + + + + + documented in this encounter Visit Diagnoses + + | Diagnosis | + + | Abdominal pain, unspecified abdominal location - Primary | + + documented in this encounter Administered Medications + +--------+ +--------+------+------+ | Medication Order | MAR | Action | Dose | Rate | Site | | | Action | Date | | | | + +--------+ +--------+------+------+ | HYDROmorphone (DILAUDID) | Given | 12/01/19 | 0.5 mg | | | | injection 0.5 mg 0.5 mg, | | 18 2:31 | | | | | Intravenous, EVERY 15 MIN PRN, | | PM PST | | | | | Pain, Starting 12/01/17 at | | | | | | | 1404, For 4 doses | | | | | | + +--------+ +--------+------+------+ +---+---+ | | | +---+---+ + +---------+ +---------+-------+---+ | promethazine (PHENERGAN) 12.5 | New Bag | 12/01/19 | 12.5 mg | 202 | | | mg in sodium chloride 0.9% 50 mL | | 18 2:33 | | mL/hr | | | IVPB 12.5 mg, Intravenous, | | PM PST | | | | | Administer over 15 Minutes, ONCE, | | | | | | | 12/01/17 at 1410, For 1 dose | | | | | | + +---------+ +---------+-------+---+ +---+---+ | | | +---+---+ documented in this encounter
--- OUTSIDE RECORDS SUMMARY | ~2020-08-02 | XMS | Encounter Summary ---
Demographics + + + | Address | [address] | | | [place] [address] | + + + | Home Phone [...] + + + | Author | [facility] | | | and [place] | + + + | Organization | [facility] | | [...] Team Providers + +------+ + | Care Sql Manager Name | Role | Phone | + +------+ + | No, Physician | PCP | Unavailable | + +------+ + Encounter Details +--------+ + + + + | Date | Type | Department | Care Team | Description | +--------+ + + + + | 02/14/ | Hospital | [facility] | Conversion | Malignant neoplasm | | 2017 | Encounter | [facility] MRI [address] | Transaction, | of thyroid gland | | | | [address] | Provider Unknown | (HCC) | | | | [place], [place] | [phone] | | | | | [address] | | | | | | [phone] | Yoni Fernandez | | | | | | MD Rudy [address] | | | | | | [address] | | | | | | [address] [place] | | | | | | [address] | | | | | | | [...] + + + | Blood Pressure | - | - | | + + + + + | Pulse | - | - | | + + + + + | Temperature | - | - | | + + + + + | Respiratory Rate | - | - | | + + + + + | Oxygen Saturation | - | - | | + + + + + | Inhaled Oxygen | - | - | | | Concentration | | | | + + + + + | Weight | 59.9 kg (132 lb) | 02/14/2017 9:08 AM | | | | | PDT | | + + + + + | Height | - | - | | + + + + + | Body Mass Index | 23.38 | 01/29/2015 11:36 PM | | | [...] | + +--------+ + + + | MRI NECK SOFT TISSUE | Routin | 02/14/2017 | | Results for this | | ONLY W WO CONTRAST | e | 10:19 AM | | procedure are in the | | | | PDT | | results section. | + +--------+ + + + documented in this encounter Results MRI Neck Soft Tissue Only w wo Contrast (02/14/2017 10:19 AM PDT) + + | Specimen | + + | | + + + + + | Impressions | Performed At | + + + | 1. There is a heterogeneously enhancing lesion of the left lobe of | | | the thyroid, stable in size. No evidence of local invasion is | | | present. 2. Stable appearance of prominent cervical level 2 lymph | | | nodes. 3. No evidence of osseous metastatic disease along the | | | visualized portions. 4. Bilateral small mucous retention cysts of | | | the maxillary sinus. | | + + + + + + | Narrative | Performed At | + + + | [facility] MRI NECK SOFT TISSUE ONLY W WO CONTRAST | | | 02/14/2017 10:19 AM INDICATION: Malignant neoplasm of the thyroid | | | gland, staging COMPARISON: CT, 02/12/2017 TECHNIQUE: MRI of | | | the neck with and without IV contrast. Multiplanar multisequence MRI | | | performed on 1.5 Yusra magnet using standard institution protocol. 12 | | | mL MultiHance. FINDINGS: Bilateral small mucous retention cysts | | | are seen in the maxillary sinus. The visualized dural venous sinuses | | | are normally opacified. The visualized pituitary gland is normal. No | | | mass lesion is seen in the orbits. The cavernous sinus is symmetric | | | and normal. The visualized intracranial contents are within normal | | | limits. The visualized mandible is normal. The cervical spine | | | reveals no infiltrative process. The visualized ribs and scapula are | | | normal in appearance as well. No edema is demonstrated of the | | | musculature. The volume and signal intensity of the cord is normal. | | | The right level 2 lymph node measures 9 x 14 mm, stable. The | | | left-sided level 2 lymph node measures 7 x 14 mm image 6 series 11, | | | stable. Both lymph nodes reveal no T1 shortening. The visualized | | | parotid and submandibular glands are normal. There is no | | | retropharyngeal fluid. The vocal cords are symmetric. There is a | | | heterogeneous mass of the left lobe of the thyroid measuring 19 x 9 mm | | | image 20 series 4. This lesion is homogeneously hypointense on T1 | | | sequences and hyperintense on T2 sequences. This lesion demonstrates | | | slight increased enhancement relative to the right lobe of the | | | thyroid. No local invasion is identified of this lesion. The | | | visualized trachea and esophagus are normal. There is no | | | supraclavicular lymphadenopathy. | | + + + + + | Procedure Note | + + | Pavan, Rad Conversion - 07/09/2019 7:15 AM [facility]MRI NECK SOFT | | TISSUE ONLY W WO CONTRAST02/14/2017 10:19 AM INDICATION: Malignant neoplasm of the | | thyroid gland, staging COMPARISON: CT, 02/12/2017 TECHNIQUE: MRI of the neck with and | | without IV contrast. Multiplanar multisequence MRI performed on 1.5 Yusra magnet using | | standard institution protocol.12 mL MultiHance. FINDINGS: Bilateral small mucous | | retention cysts are seen in the maxillary sinus. The visualized dural venous sinuses are | | normally opacified. The visualized pituitary gland is normal. No mass lesion is seen in | | the orbits. The cavernous sinus is symmetric and normal. The visualized intracranial | | contents are within normal limits. The visualized mandible is normal. The cervical spine | | reveals no infiltrative process. The visualized ribs and scapula are normal in | | appearance as well. No edema is demonstrated of the musculature. The volume and signal | | intensity of the cord is normal. The right level 2 lymph node measures 9 x 14 mm, | | stable. The left-sided level 2 lymph node measures 7 x 14 mm image 6 series 11, stable. | | Both lymph nodes reveal no T1 shortening. The visualized parotid and submandibular | | glands are normal. There is no retropharyngeal fluid. The vocal cords are symmetric. | | There is a heterogeneous mass of the left lobe of the thyroid measuring 19 x 9 mm image | | 20 series 4. This lesion is homogeneously hypointense on T1 sequences and hyperintense | | on T2 sequences. This lesion demonstrates slight increased enhancement relative to the | | right lobe of the thyroid. No local invasion is identified of this lesion. The | | visualized trachea and esophagus are normal. There is no supraclavicular | | lymphadenopathy. IMPRESSION: 1. There is a heterogeneously enhancing lesion of the left | | lobe of the thyroid, stable in size. No evidence of local invasion is present.2. | | Stable appearance of prominent cervical level 2 lymph nodes.3. No evidence of osseous | | metastatic disease along the visualized portions.4. Bilateral small mucous retention | | cysts of the maxillary sinus. | | 10:46 AM | | | |IMPRESSION: | |1. There is a heterogeneously enhancing lesion of the left lobe of the thyroid, stable in size. No evidence of local invasion is present. | |2. Stable appearance of prominent cervical level 2 lymph nodes. | |3. No evidence of osseous metastatic disease along the visualized portions. | |4. Bilateral small mucous retention cysts of the maxillary sinus. | | | | | + + documented in this encounter Visit Diagnoses + + | Diagnosis | + + | Malignant neoplasm of thyroid gland (HCC) Malignant neoplasm of thyroid gland | + + documented in this encounter"
--- OUTSIDE RECORDS SUMMARY | ~2020-08-02 | XMS | Encounter Summary ---
Demographics + + + | Address | [address] | | | [place] [address] | + + + | Home Phone | | + + + | Preferred Language | Unknown | + + + | Marital Status | | + + + | Sikh Affiliation | Unknown | + + + | Race | White | + + + | Ethnic Group | Not or | + + + Author + + + | Author | [facility] | | | and [place] | + + + | Organization | [facility] | | [...] Team Providers + +------+ + | Care Cold Food Packer Name | Role | Phone | + +------+ + | No, Physician | PCP | Unavailable | + +------+ + Encounter Details +--------+ + + + + | Date | Type | Department | Care Team | Description | +--------+ + + + + | 12/02/ | Abstract | [facility] | Jose E Gaona MD | | | 2017 | | GASTROENTEROLOGY | [address], [place] | | | | | [address] | [address] [place] | | | | | [address] [place], [place] | [address] | | | | | [address] | | | | | | [phone] | | | +--------+ + + + [...]
--- OUTSIDE RECORDS SUMMARY | ~2020-08-02 | XMS | Encounter Summary ---
Demographics + + + | Address | [address] | | | [place] [address] | + + + | Home Phone | | + + + | Preferred Language | Unknown | + + + | Marital Status | | + + + | Sikhism Affiliation | Unknown | + + + | Race | White | + + + | Ethnic Group | Not or | + + + Author + + + | Author | [facility] | | | and [place] | + + + | Organization | [facility] | | [...] Team Providers + +------+ + | Care Fire Support Specialist Name | Role | Phone | + +------+ + PCP | Unavailable | + +------+ + Encounter Details +--------+ + + + + | Date | Type | Department | Care Team | Description | +--------+ + + + + | 12/08/ | Hospital | [facility] | | | | 2006 | Encounter | [facility] | | | | | | CENTER [address] | | | | | | [place] | | | | | | [address] | | | | | | [phone] | | | +--------+ + + + [...]
--- OUTSIDE RECORDS SUMMARY | ~2020-08-02 | XMS | Encounter Summary ---
Demographics + + + | Address | [address] | | | [place] [address] | + + + | Home Phone | | + + + | Preferred Language | Unknown | + + + | Marital Status | | + + + | Sikhism Affiliation | Unknown | + + + | Race | White | + + + | Ethnic Group | Not or | + + + Author + + + | Author | [facility] | | | and [place] | + + + | Organization | [facility] | | [...] Team Providers + +------+ + | Care Inside Tester Name | Role | Phone | + +------+ + | No, Physician | PCP | Unavailable | + +------+ + Encounter Details +--------+ + + + + | Date | Type | Department | Care Team | Description | +--------+ + + + + | 02/12/ | Hospital | [facility] | Conversion | Malignant neoplasm | | 2017 | Encounter | [facility] | Transaction, | of thyroid gland | | | | [address] | Provider Unknown | (HCC) | | | | [place] | [phone] | | | | | [address] | | | | | | [phone] | Yoni Fernandez | | | | | | MD Rudy [address] | | | | | | [address] | | | | | | [address] [place] [place] | | | | | | [address] | | | | | | | [...] + +--------+ + + + | CT SOFT TISSUE NECK | Routin | 02/12/2017 | | Results for this | | CHEST WO CONTRAST | e | 6:17 PM | | procedure are in the | | | | PDT | | results section. | + +--------+ + + + documented in this encounter Results CT Neck Chest wo Contrast (02/12/2017 6:17 PM PDT) + + | Specimen | + + | | + + + + + | Impressions | Performed At | + + + | 1. Ill-defined left thyroid mass with calcifications measuring 1.9 | | | x 0.9 x 1.8 cm, probably consistent with known malignant neoplasm of | | | the thyroid. Heterogeneous attenuation of both thyroid lobes. | | | Recommend correlation with prior outside imaging. Thyroid ultrasound | | | can be considered for further evaluation as clinically warranted. 2. | | | Mildly enlarged bilateral internal jugular chain level 2 lymph | | | nodes are nonspecific. Lymph node metastasis cannot be excluded. 3. | | | Multiple additional subcentimeters bilateral cervical lymph nodes, | | | nonspecific. 4. A 6 mm groundglass attenuation nodule in left lower | | | lobe, nonspecific. Recommend attention on follow-up chest CT scan in | | | 3 months. 5. A mildly complex cystic lesion in segment 8 of the | | | right liver lobe measuring 1 x 1 cm, nonspecific, possible biliary | | | hamartoma. Recommend attention to this lesion on follow-up chest CT in | | | 3 months. 6. Additional incidental findings as detailed above. | | | | | + + + + + + | Narrative | Performed At | + + + | [facility] CT NECK CHEST WO CONTRAST 02/12/2017 6:17 PM | | | HISTORY: 31 years. Female. Malignant neoplasm of thyroid. | | | TECHNIQUE: 2.5-mm axial images were acquired through the neck | | | followed by 5-mm axial images acquired through the chest. Dose | | | reduction techniques were used including automated exposure control | | | (AEC), iterative reconstruction technique, and/or mA and/or kV dose | | | adjustments based on patient size. Oral Contrast: None IV | | | contrast: None. COMPARISON: None. FINDINGS: Visualized | | | intracranial contents are within normal limits. Normal both orbits. | | | Small bilateral maxillary sinus polyps or mucous retention cyst. No | | | air-fluid levels to indicate acute sinusitis. Bilateral mastoids are | | | well aerated aerated. Streak artifacts from dental hardware. | | | Mildly enlarged bilateral internal jugular chain level 2 lymph nodes.. | | | The index right internal jugular chain level 2 lymph node measuring | | | 1.3 x 0.8 cm, image 37/series 2. The index left internal to the chain | | | level 2 lymph node measuring 1.3 x 0.7 cm, image 37/series 2. | | | Multiple additional subcentimeters bilateral cervical lymph nodes. | | | There is an ill-defined left thyroid mass with small calcifications | | | measuring approximately 1.9 x 0.9 x 1.8 cm, however incompletely | | | evaluated in the absence of contrast administration. Heterogeneous | | | attenuation of both thyroid lobes. Evaluation is limited in the | | | absence of contrast administration. Normal cardiac size. | | | Left-sided 3 vessel aortic arch. No enlarged mediastinal lymph nodes. | | | Pulmonary arteries are normal in caliber. Normal thoracic esophagus. | | | Both lungs are well aerated. No airspace consolidation. No pleural | | | effusion or pneumothorax. A 6 mm groundglass attenuation nodule in | | | left lower lobe, image 172/series 4, nonspecific. No acute | | | fracture. No aggressive lytic or sclerotic lesions in visualized | | | bones. A hypodense lesion in segment 8 of the right liver lobe | | | measuring 1 x 1 cm with small eccentric punctate hyperdensity, | | | probably calcification, nonspecific, possibly incompletely | | | characterized. Rest of the upper abdomen is within normal limits. | | + + + + + | Procedure Note | + + | Pavan, Rad Conversion - 07/09/2019 7:15 AM [facility] NECK CHEST WO | | CONTRAST02/12/2017 6:17 PM HISTORY:31 years. Female. Malignant neoplasm of thyroid. | | TECHNIQUE:2.5-mm axial images were acquired through the neck followed by 5-mm axial | | images acquired through the chest. Dose reduction techniques were used including | | automated exposure control (AEC), iterative reconstruction technique, and/or mA and/or | | kV dose adjustments based on patient size. Oral Contrast: NoneIV contrast: None. | | COMPARISON:None. FINDINGS:Visualized intracranial contents are within normal limits. | | Normal both orbits. Small bilateral maxillary sinus polyps or mucous retention cyst. No | | air-fluid levels to indicate acute sinusitis. Bilateral mastoids are well aerated | | aerated. Streak artifacts from dental hardware. Mildly enlarged bilateral internal | | jugular chain level 2 lymph nodes.. The index right internal jugular chain level 2 lymph | | node measuring 1.3 x 0.8 cm, image 37/series 2. The index left internal to the chain | | level 2 lymph node measuring 1.3 x 0.7 cm, image 37/series 2. Multiple additional | | subcentimeters bilateral cervical lymph nodes. There is an ill-defined left thyroid mass | | with small calcifications measuring approximately 1.9 x 0.9 x 1.8 cm, however | | incompletely evaluated in the absence of contrast administration. Heterogeneous | | attenuation of both thyroid lobes. Evaluation is limited in the absence of contrast | | administration. Normal cardiac size. Left-sided 3 vessel aortic arch. No enlarged | | mediastinal lymph nodes. Pulmonary arteries are normal in caliber. Normal thoracic | | esophagus. Both lungs are well aerated. No airspace consolidation. No pleural effusion | | or pneumothorax. A 6 mm groundglass attenuation nodule in left lower lobe, image | | 172/series 4, nonspecific. No acute fracture. No aggressive lytic or sclerotic lesions | | in visualized bones. A hypodense lesion in segment 8 of the right liver lobe measuring 1 | | x 1 cm with small eccentric punctate hyperdensity, probably calcification, nonspecific, | | possibly incompletely characterized. Rest of the upper abdomen is within normal limits. | | IMPRESSION: 1. Ill-defined left thyroid mass with calcifications measuring 1.9 x 0.9 x | | 1.8 cm, probably consistent with known malignant neoplasm of the thyroid. Heterogeneous | | attenuation of both thyroid lobes. Recommend correlation with prior outside imaging. | | Thyroid ultrasound can be considered for further evaluation as clinically warranted.2. | | Mildly enlarged bilateral internal jugular chain level 2 lymph nodes are nonspecific. | | Lymph node metastasis cannot be excluded.3. Multiple additional subcentimeters | | bilateral cervical lymph nodes, nonspecific.4. A 6 mm groundglass attenuation nodule in | | left lower lobe, nonspecific. Recommend attention on follow-up chest CT scan in 3 | | months.5. A mildly complex cystic lesion in segment 8 of the right liver lobe measuring | | 1 x 1 cm, nonspecific, possible biliary hamartoma. Recommend attention to this lesion | | on follow-up chest CT in 3 months.6. Additional incidental findings as detailed above. | | | | | |IMPRESSION: | |1. Ill-defined left thyroid mass with calcifications measuring 1.9 x 0.9 x 1.8 cm, probabl y consistent with known malignant neoplasm of the thyroid. Heterogeneous attenuation of both thyroid lobes. Recommend correlation with prior outside imaging. | |Thyroid ultrasound can be considered for further evaluation as clinically warranted. | |2. Mildly enlarged bilateral internal jugular chain level 2 lymph nodes are nonspecific. L ymph node metastasis cannot be excluded. | |3. Multiple additional subcentimeters bilateral cervical lymph nodes, nonspecific. | |4. A 6 mm groundglass attenuation nodule in left lower lobe, nonspecific. Recommend attent ion on follow-up chest CT scan in 3 months. | |5. A mildly complex cystic lesion in segment 8 of the right liver lobe measuring 1 x 1 cm, nonspecific, possible biliary hamartoma. Recommend attention to this lesion on follow-up ch est CT in 3 months. | |6. Additional incidental findings as detailed above. | | | | | + + documented in this encounter Visit Diagnoses + + | Diagnosis | + + | Malignant neoplasm of thyroid gland (HCC) Malignant neoplasm of thyroid gland | + + documented in this encounter"
--- OUTSIDE RECORDS SUMMARY | ~2020-08-02 | XMS | Encounter Summary ---
Demographics + + + | Address | [address] | | | [place] [address] | + + + | Home Phone | | + + + | Preferred Language | Unknown | + + + | Marital Status | | + + + | Bahai Affiliation | Unknown | + + + | Race | White | + + + | Ethnic Group | Not or | + + + Author + + + | Author | [facility] | | | and [place] | + + + | Organization | [facility] | | | [...] Team Providers + +------+ + | Care Furniture Associate Name | Role | Phone | + +------+ + PCP | Unavailable | + +------+ + Encounter Details +--------+ + + + + | Date | Type | Department | Care Team | Description | +--------+ + + + + | 06/27/ | [facility] | [facility] | Hannah Bliss | | | 2006 | Encounter | [facility] | MD [address] | | | | | CENTER [address] | [facility], | | | | | [place] | [place] [address] | | | | | [address] | [phone] | | | | | [phone] | | | +--------+ + + + [...]
--- OUTSIDE RECORDS SUMMARY | ~2020-08-02 | XMS | Encounter Summary ---
Demographics + + + | Address | [address] | | | [place] [address] | + + + | Home Phone | | + + + | Preferred Language | Unknown | + + + | Marital Status | | + + + | Mormon Affiliation | Unknown | + + + [...] Team Providers + +------+ + | Care Scientist Electronics Name | Role | Phone | + +------+ + PCP | Unavailable | + +------+ + Encounter Details +--------+ + + + + | Date | Type | Department | Care Team | Description | +--------+ + + + + | 05/25/ | Hospital | [facility] | Jose E Campos | | | 2010 | Encounter | [facility] | [address] | | | | | [facility] [address] | [facility] | | | | | [place], | [place] [address] | | | | | [place] [address] | [phone] | | | | | [phone] | | | +--------+ + + + [...]
--- OUTSIDE RECORDS SUMMARY | ~2020-08-02 | XMS | Encounter Summary ---
Demographics + + + | Address | [address] | | | [place] [address] | + + + | Home Phone | | + + + | Preferred Language | Unknown | + + + | Marital Status | | + + + | Worship Affiliation | Unknown | + + + | Race | White | + + + | Ethnic Group | Not or | + + + Author + + + | Author | [facility] | | | and [place] | + + + | Organization | [facility] | | | and [place] | + + + | Address | Unknown | + + + | Phone | Unavailable | + + + Support + + +---------+ + | Name | Relationship | Address | Phone | + + +---------+ + | Chin iVtal | ECON | Unknown | | + + +---------+ + Care Team Providers + +------+ + | Care Branch Examiner Name | Role | Phone | + +------+ + PCP | Unavailable | + +------+ + Encounter Details +--------+ + + + + | Date | Type | Department | Care Team | Description | +--------+ + + + + | 06/30/ | Hospital | [facility] | Rocael Tang MD | | | 2005 - | Encounter | [facility] | [address] [facility] | | | | | [facility] [address] | [place], [place] | | | 07/01/ | | [place], | [address] | | | 2005 | | [place] [address] | | | | | | [phone] | | | +--------+ + + + [...]
--- OUTSIDE RECORDS SUMMARY | ~2020-08-02 | XMS | Encounter Summary ---
Demographics + + + | Address | [address] | | | [place] [address] | + + + | Home Phone | | + + + | Preferred Language | Unknown | + + + | Marital Status | | + + + | Sabianism Affiliation | Unknown | + + + | Race | White | + + + | Ethnic Group | Not or | + + + Author + + + | Author | [facility] | | | and [place] | + + + | Organization | [facility] | | | [...] Team Providers + +------+ + | Care Calender Let Off Helper Name | Role | Phone | + +------+ + | No, Physician | PCP | Unavailable | + +------+ + Encounter Details +--------+ + + + + | Date | Type | Department | Care Team | Description | +--------+ + + + + | 12/10/ | Hospital | [facility] | Brittany Burton, | Calculus of | | 2018 | Encounter | [facility] | MD Mratina BRYANT | gallbladder with | | | | CLINICAL DECISION | [address], | cholecystitis | | | | [address] | [place] [address] | without biliary | | | | [place], [place] | [phone] | obstruction, | | | | [address] | | unspecified | | | | [phone] | | cholecystitis acuity | +--------+ + + + + Social [...] + + + | Blood Pressure | 107/59 | 12/10/2017 2:02 PM | | | | | PST | | + + + + + | Pulse | 83 | 12/10/2017 2:02 PM | | | | | PST | | + + + + + | Temperature | 36.1 C (97 F) | 12/10/2017 2:02 PM | | | | | PST | | + + + + + | Respiratory Rate | 14 | 12/10/2017 2:02 PM | | | | | PST | | + + + + + | Oxygen Saturation | - | - | | + + + + + | Inhaled Oxygen | - | - | | | Concentration | | | | + + + + + | Weight | 59.6 kg (131 lb 6.2 | 12/10/2017 2:02 PM | | | | oz) | PST | | + + + + + | Height | 157.5 cm (5' 2") | 12/10/2017 2:02 PM | | | | | PST | | + + + + + | Body Mass Index | 24.03 | 12/10/2017 2:02 PM | | | [...] + + documented as of this encounter Progress Notes Conversion Transaction, Provider Unknown - 12/10/2017 2:02 PM PSTFormatting of this note m ight be different from the original. Nurse Progress Note by Светлана Doherty RN at 12/10/17 8209 Author: Светлана Doherty RN Service: (none) Author Type: Registered Nurse Filed: 01/16/18 1403 Date of Service: 12/10/17 1402 Status: Signed Dry Cleaning Counter Clerk: Светлана Doherty RN (Registered Nurse) Discharge discussed with patient and spouse including follow up, home care, medications and reasons to return to the ED. Neither had questions. onver meera Transaction, Provider Unknown - 12/10/2017 1:12 PM PST Progress Notes by Janeen Bhandari RPH at 12/10/17 1312 Author: Janeen Bhandari RPH Service: Pharmacy Author Type: Pharmacist Filed: 12/10/17 1312 Date of Service: 12/10/17 1312 Status: Signed Dry Cleaning Counter Clerk: Janeen Bhandari RPH (Pharmacist) Clinical Pharmacy Note: Renal Monitoring Patria Simmonskins 32 y.o. female Ht Readings from Last 1 Encounters: 12/10/17 1.575 m (5' 2") Wt Readings from Last 1 Encounters: 12/10/17 59.6 kg (131 lb 6.3 oz) Serum creatinine: 0.65 mg/dL 11/28/17 2153 Estimated creatinine clearance: 100.1 mL/min Pharmacy dosing for renal function per Dr. Burton. Currently, there are no updated labs. Pharmacy will adjust medications, if necessary, in AM when labs are reported. Janeen Bhandari PharmD 12/10/2017 1:12 PM onver meera Transaction, Provider Unknown - 12/10/2017 12:45 PM PST Nurse Progress Note by Светлана Doherty RN at 12/10/17 1245 Author: Светлана Doherty RN Service: (none) Author Type: Registered Nurse Filed: 12/10/17 1257 Date of Service: 12/10/17 1245 Status: Signed Dry Cleaning Counter Clerk: Светлана Doherty RN (Registered Nurse) Patient has tolerated crackers and 7up. onver meera Transaction, Provider Unknown - 12/10/2017 11:12 AM PST Nurse Progress Note by Hailee Gallegos RN at 12/10/171111 Author: Hailee Gallegos RN Service: General Surgery Author Type: Registered Nurse Filed: 12/10/171111 Date of Service: 12/10/171111 Status: Signed Dry Cleaning Counter Clerk: Hailee Gallegos RN (Registered Nurse) Rate pain 7/10 when awake But sleeping quietly docume nted in this encounter H&P Notes Brittany Burton MD - 12/10/2017 8:51 AM PSTFormatting of this note might be differ ent from the original. Interval H&P Note by Brittany Burton MD at 12/10/17850 Author: Brittany Burton MD Service: (none) Author Type: Physician Filed: 12/10/17850 Date of Service: 12/10/17850 Status: Signed Dry Cleaning Counter Clerk: Brittany Burton MD (Physician) [facility] Service: General Surgery Pre-Operative History & Physical Interval Update There have been no significant clinical changes since the completion of the above H&P. Tod ays physical assessment showed HP update PE: RRR without murmur, gallop, or rubs. No ectop y and clear to auscultation BRITTANY BURTON MD 12/10/2017 *CORE MEASURES REMINDER: If the patient has a known or suspected infection prior to surger y, please add diagnosis to the problem list (consider: Infection 136.9). Source Note Author: Brittany Burton MD Service: (none) Author Type: Physician Filed: 12/09/17 1413 Date of Service: 12/09/171410 Status: Signed Dry Cleaning Counter Clerk: Brittany Burton MD (Physician) Subjective: Patient ID: Patria Sommer is a 32 y.o. female. HPI This patient presents for evaluation of cholelithiasis. Patient had within the last week or so an onset of symptoms which primarily were that of epigastric pain and right upper quadra nt pain extending around and her back. It is quite debilitating. Rated 8-9 out of 10 at its worst. She had filling nausea but no vomiting. Apparently an ultrasound was obtained and alma l follow which showed cholelithiasis. She came appear to our emergency room for evaluation b ecause of the fact he was not getting better. CT scan was done here showing sludge in the ga llbladder bed, current finding of a previously ruptured corpus luteum cyst of the ovary. She did have some lower pelvic pain but the majority of her symptoms were not that. She denies fevers chills or jaundice to previous history of liver disease. She denies any centering alc ohol or tobacco use. She denies any family history of inherited diseases bleeding disorders or clotting disorders. She had recently underwent surgery for thyroid cancer but has not rec eived radioactive iodine. She had tubal ligation as well as the past subsequent to that she developed an ectopic requiring a laparoscopic surgery as well. The following portions of the patient's history were reviewed and updated as appropriate an d is available elsewhere in the record: allergies, current medications, past family history, past medical history, past social history, past surgical history and problem list. No past medical history on file. Past Surgical History Procedure Laterality Date THYROIDECTOMY Allergies Allergen Reactions Hydrocodone Hives Current Outpatient Prescriptions on File Prior to Visit Medication Sig Dispense Refill HYDROcodone-acetaminophen (NORCO) 5-325 MG per tablet Take 1-2 tablets by mouth every 4 (four) hours as needed for Pain for up to 15 days. (Patient not taking: Reported on 8) 15 tablet 0 No current facility-administered medications on file prior to visit. SocialHistory Social History Social History Marital status: Spouse name: N/A Number of children: N/A Years of education: N/A Occupational History Not on file. Social History Main Topics Smoking status: Never Smoker Smokeless tobacco: Not on file Alcohol use Yes Comment: occ Drug use: No Sexual activity: Not on file Other Topics Concern Not on file Social History Narrative No narrative on file Review of Systems Constitutional: Negative for activity change, appetite change, chills, diaphoresis, fatigue , fever and unexpected weight change. HENT: Negative for congestion, ear discharge, ear pain, facial swelling, hearing loss, nose bleeds, sinus pressure, sore throat, tinnitus, trouble swallowing and voice change. Eyes: Negative for photophobia, pain, discharge, redness, itching and visual disturbance. Respiratory: Negative for apnea, cough, choking, chest tightness, shortness of breath, whee zing and stridor. Cardiovascular: Negative for chest pain, palpitations and leg swelling. Gastrointestinal: Positive for abdominal distention, abdominal pain and nausea. Negative fo r anal bleeding, blood in stool, constipation, diarrhea, rectal pain and vomiting. Genitourinary: Negative for difficulty urinating, dysuria, flank pain, frequency, hematuria and urgency. Musculoskeletal: Negative for arthralgias, back pain, gait problem, joint swelling, myalgia s, neck pain and neck stiffness. Skin: Negative for color change, pallor, rash and wound. Neurological: Negative for dizziness, seizures, syncope, facial asymmetry, speech difficult y, weakness, light-headedness, numbness and headaches. Hematological: Negative for adenopathy. Does not bruise/bleed easily. Psychiatric/Behavioral: Negative for agitation, behavioral problems, confusion and hallucin ations. The patient is not nervous/anxious. Objective Objective: Physical Exam Constitutional: She is oriented to person, place, and time. She appears well-developed and well-nourished. No distress. HENT: Head: Normocephalic and atraumatic. Right Ear: External ear normal. Left Ear: External ear normal. Nose: Nose normal. Eyes: Conjunctivae and EOM are normal. Pupils are equal, round, and reactive to light. No s cleral icterus. Neck: Normal range of motion. Neck supple. No JVD present. No tracheal deviation present. N o thyromegaly present. Cardiovascular: Normal rate, regular rhythm and normal heart sounds. Exam reveals no pack p and no friction rub. No murmur heard. Pulmonary/Chest: Effort normal and breath sounds normal. No stridor. No respiratory distres s. She has no wheezes. She has no rales. She exhibits no tenderness. Abdomina/Gl: Soft. Bowel sounds are normal. She exhibits no distension and no mass. There i s no tenderness. There is no rebound and no guarding. No hernia. Musculoskeletal: Normal range of motion. She exhibits no edema, tenderness or deformity. Lymphadenopathy: She has no cervical adenopathy. Neurological: She is alert and oriented to person, place, and time. Skin: Skin is warm and dry. No rash noted. She is not diaphoretic. No erythema. No pallor. Psychiatric: She has a normal mood and affect. Her behavior is normal. Judgment and thought content normal. Nursing note and vitals reviewed. Assessment/Plan Assessment and Plan: IMPRESSSION: Symptomatic cholecystitis and cholelithiasis PLAN: I recommend that the patient consider laparoscopic cholecystectomy. We discussed the options of non-operative surgery with include but is not limited to intraoperative bleed ing, postoperative bleeding, including injury to vascular structures, bile duct complication s including leaks and injuries, intestinal complications including obstruction and/or perfor ation and the potential for conversion to an open procedure. The incidence if chronic RUQ pa in post-procedure was also discussed. All questions from the patient and/or family were answ ered. The patient understands all of the inherent risks and grants informed consent to surge ry. Initial consult on 12/02/2017 Detailed Report Note shared with patient Gretchen Marks MD - 12/09/2017 2:11 PM PSTFormatting of this note might be different from the o riginal. H&P by Brittany Burton MD at 12/09/17 1411 Author: Brittany Burton MD Service: (none) Author Type: Physician Filed: 12/09/17 1413 Date of Service: 12/09/171410 Status: Signed Dry Cleaning Counter Clerk: Brittany Burton MD (Physician) Subjective: Patient ID: Patria Sommer is a 32 y.o. female. HPI This patient presents for evaluation of cholelithiasis. Patient had within the last week or so an onset of symptoms which primarily were that of epigastric pain and right upper quadra nt pain extending around and her back. It is quite debilitating. Rated 8-9 out of 10 at its worst. She had filling nausea but no vomiting. Apparently an ultrasound was obtained and alma l follow which showed cholelithiasis. She came appear to our emergency room for evaluation b ecause of the fact he was not getting better. CT scan was done here showing sludge in the ga llbladder bed, current finding of a previously ruptured corpus luteum cyst of the ovary. She did have some lower pelvic pain but the majority of her symptoms were not that. She denies fevers chills or jaundice to previous history of liver disease. She denies any centering alc ohol or tobacco use. She denies any family history of inherited diseases bleeding disorders or clotting disorders. She had recently underwent surgery for thyroid cancer but has not rec eived radioactive iodine. She had tubal ligation as well as the past subsequent to that she developed an ectopic requiring a laparoscopic surgery as well. The following portions of the patient's history were reviewed and updated as appropriate an d is available elsewhere in the record: allergies, current medications, past family history, past medical history, past social history, past surgical history and problem list. No past medical history on file. Past Surgical History Procedure Laterality Date THYROIDECTOMY Allergies Allergen Reactions Hydrocodone Hives Current Outpatient Prescriptions on File Prior to Visit Medication Sig Dispense Refill HYDROcodone-acetaminophen (NORCO) 5-325 MG per tablet Take 1-2 tablets by mouth every 4 (four) hours as needed for Pain for up to 15 days. (Patient not taking: Reported on 8) 15 tablet 0 No current facility-administered medications on file prior to visit. SocialHistory Social History Social History Marital status: Spouse name: N/A Number of children: N/A Years of education: N/A Occupational History Not on file. Social History Main Topics Smoking status: Never Smoker Smokeless tobacco: Not on file Alcohol use Yes Comment: occ Drug use: No Sexual activity: Not on file Other Topics Concern Not on file Social History Narrative No narrative on file Review of Systems Constitutional: Negative for activity change, appetite change, chills, diaphoresis, fatigue , fever and unexpected weight change. HENT: Negative for congestion, ear discharge, ear pain, facial swelling, hearing loss, nose bleeds, sinus pressure, sore throat, tinnitus, trouble swallowing and voice change. Eyes: Negative for photophobia, pain, discharge, redness, itching and visual disturbance. Respiratory: Negative for apnea, cough, choking, chest tightness, shortness of breath, whee zing and stridor. Cardiovascular: Negative for chest pain, palpitations and leg swelling. Gastrointestinal: Positive for abdominal distention, abdominal pain and nausea. Negative fo r anal bleeding, blood in stool, constipation, diarrhea, rectal pain and vomiting. Genitourinary: Negative for difficulty urinating, dysuria, flank pain, frequency, hematuria and urgency. Musculoskeletal: Negative for arthralgias, back pain, gait problem, joint swelling, myalgia s, neck pain and neck stiffness. Skin: Negative for color change, pallor, rash and wound. Neurological: Negative for dizziness, seizures, syncope, facial asymmetry, speech difficult y, weakness, light-headedness, numbness and headaches. Hematological: Negative for adenopathy. Does not bruise/bleed easily. Psychiatric/Behavioral: Negative for agitation, behavioral problems, confusion and hallucin ations. The patient is not nervous/anxious. Objective Objective: Physical Exam Constitutional: She is oriented to person, place, and time. She appears well-developed and well-nourished. No distress. HENT: Head: Normocephalic and atraumatic. Right Ear: External ear normal. Left Ear: External ear normal. Nose: Nose normal. Eyes: Conjunctivae and EOM are normal. Pupils are equal, round, and reactive to light. No s cleral icterus. Neck: Normal range of motion. Neck supple. No JVD present. No tracheal deviation present. N o thyromegaly present. Cardiovascular: Normal rate, regular rhythm and normal heart sounds. Exam reveals no pack p and no friction rub. No murmur heard. Pulmonary/Chest: Effort normal and breath sounds normal. No stridor. No respiratory distres s. She has no wheezes. She has no rales. She exhibits no tenderness. Abdomina/Gl: Soft. Bowel sounds are normal. She exhibits no distension and no mass. There i s no tenderness. There is no rebound and no guarding. No hernia. Musculoskeletal: Normal range of motion. She exhibits no edema, tenderness or deformity. Lymphadenopathy: She has no cervical adenopathy. Neurological: She is alert and oriented to person, place, and time. Skin: Skin is warm and dry. No rash noted. She is not diaphoretic. No erythema. No pallor. Psychiatric: She has a normal mood and affect. Her behavior is normal. Judgment and thought content normal. Nursing note and vitals reviewed. Assessment/Plan Assessment and Plan: IMPRESSSION: Symptomatic cholecystitis and cholelithiasis PLAN: I recommend that the patient consider laparoscopic cholecystectomy. We discussed the options of non-operative surgery with include but is not limited to intraoperative bleed ing, postoperative bleeding, including injury to vascular structures, bile duct complication s including leaks and injuries, intestinal complications including obstruction and/or perfor ation and the potential for conversion to an open procedure. The incidence if chronic RUQ pa in post-procedure was also discussed. All questions from the patient and/or family were answ ered. The patient understands all of the inherent risks and grants informed consent to surge ry. Initial consult on 12/02/2017 Detailed Report Note shared with patient documented in this encounter Miscellaneous Notes Op Note - Brittany Burton MD - 12/10/2017 9:53 AM PST Op Note by Brittany Burton MD at 12/10/17 0953 Author: Brittany Burton MD Service: (none) Author Type: Physician Filed: 12/10/17 1206 Date of Service: 12/10/17 0953 Status: Signed Dry Cleaning Counter Clerk: Brittany Burton MD (Physician) Related Notes: Original Note by Brittany Burton MD (Physician) filed at 12/10/17 0955 [facility] Service: General Surgery Operative Note Pre-operative Diagnosis: Chronic cholecystitis Post-operative Diagnosis: Same Procedure(s): Laparoscopic cholecystectomy Surgeon: BRITTANY BURTON MD Design Engineering Manager(s): Anesthesia: General endotrachial anesthesia Estimated Blood Loss: Less Than 10 ml (Minimal) Other: Not applicable Indications: See pre-operative history and physical. Findings: Complications: none Description of Procedure: The patient was placed supine on the operating table. Under gen eral anesthesia, the abdomen was prepped and draped in standard fashion, a suitable safety p ause accomplished. The previous laparoscopy scar was opened longitudinally below the umbilic us, carried down to the fascia. The fascia was divided with cautery and the peritoneal cavit y entered bluntly, and a balloon-tipped Constantine cannula inserted with the balloon inflated. I t was locked into place, insufflation established, and under direct vision, the remaining po rts across the upper abdomen were placed. The gallbladder was reflected in a cephalad direct ion. The hepatoduodenal ligament was resected free exposing both cystic duct and cystic stacey ry circumferentially exposing the critical safety view. We proximally clipped the cystic moshe t, opened it, and were unable to pass a cholangiogram catheter for cholangiography; therefor e, the cystic duct was doubly clipped and divided, the artery doubly clipped and divided, an d the gallbladder taken off the liver bed using cautery and withdrawn through the umbilical port. Irrigation and hemostasis completed with saline and cautery. Ports removed, fascial de fects closed using 0 Vicryl suture, skin closed with 4-0 Monocryl suture. Condition: Stable BRITTANY BURTON MD 12/10/2017 p Note - Brittany Santos MD - 12/10/2017 9:53 AM PST Brief Op Note by Brittany Burton MD at 12/10/17952 Author: Brittany Burton MD Service: (none) Author Type: Physician Filed: 12/10/17952 Date of Service: 12/10/17952 Status: Signed Dry Cleaning Counter Clerk: Brittany Burton MD (Physician) [facility] Service: General Surgery Brief Op Note See complete electronic operative report for full details. BRITTANY BURTON MD 12/10/2017 documented in this encounter Plan of Treatment Not on filedocumented as of this encounter Procedures + +--------+ + + + | Procedure Name | Priori | Date/Time | Associated Diagnosis | Comments | | | ty | | | | + +--------+ + + + | TISSUE REQUEST FOR | Routin | 12/10/2017 | | Results for this | | PATHOLOGY (NON-ORD) | e | 12:00 AM | | procedure are in the | | | | PST | | results section. | + +--------+ + + + documented in this encounter Results Tissue Request For Pathology (12/10/2017 12:00 AM PST) + + | Specimen | + + | Soft tissue sample | | (specimen) | + + + + + | Narrative | Performed At | + + + | SPECIMEN(S): A GALLBLADDER SPECIMEN SOURCE: A. GALLBLADDER | EXTERNAL LAB | | CLINICAL HISTORY: 12/10/2017 at 0945 H. Cholelithiasis. FINAL | | | PATHOLOGIC DIAGNOSIS: Gallbladder, cholecystectomy: - Benign | | | gallbladder with focal cholesterolosis. AMB:emb:C2NR GROSS | | | DESCRIPTION: The specimen labeled with the patient's name, designated | | | as "gallbladder", is received in formalin and consists of | | | Specimen: Intact gallbladder. Dimensions: 7.6 x 2.7 x 1.1 cm. | | | Serosa: violaceous and smooth Cystic Duct: unobstructed Calculi: Not | | | grossly identified. Mucosa: Red and velvety with areas of yellow | | | flecking. Wall thickness: 0.2 cm. Lymph node: No pericystic lymph | | | nodes are grossly identified. Additional: None. FM Floor Finisher | | | sections are submitted in cassette A1. FM The gross description | | | section of this report has been prepared using a voice recognition | | | system. The report was reviewed for accuracy, however, sound-alike | | | word errors, addition and/or deletions may occur. If there is any | | | question about this report please contact the originating pathologist. | | | MICROSCOPIC EXAMINATION: Histologic sections of all submitted | | | blocks are examined by light microscopy. These findings, together | | | with the gross examination, support the pathologic diagnosis. | | | PERFORMING LABORATORY: Professional interpretation and technical | | | preparation was performed by [facility], [facility] | | | [address] [address] (Biochemical Engineer: | | | Yoni Koch M.D.; [facility]#: [id number]). Diagnostician: Ivana Alicea | | | Backer Pathologist Electronically Signed 12/11/2017 | | + + + + +---------+ + + | Performing | Address | City/State/Zipcode | Phone Number | | Organization | | | | + +---------+ + + | EXTERNAL LAB | | | | + +---------+ + + documented in this encounter Visit Diagnoses + + | Diagnosis | + + | Calculus of gallbladder with cholecystitis without biliary obstruction, unspecified | | cholecystitis acuity | + + documented in this encounter
--- OUTSIDE RECORDS SUMMARY | ~2020-08-02 | XMS | Encounter Summary ---
Demographics + + + | Address | [address] | | | [place] [address] | + + + | Home Phone | | + + + | Preferred Language | Unknown | + + + | Marital Status | | + + + | Moravian Affiliation | Unknown | + + + | Race | White | + + + | Ethnic Group | Not or | + + + Author + + + | Author | [facility] | | | and [place] | + + + | Organization | [facility] | | | [...] Team Providers + +------+ + | Care Wet Machine Operator Name | Role | Phone | + +------+ + PCP | Unavailable | + +------+ + Encounter Details +--------+ + + + + | Date | Type | Department | Care Team | Description | +--------+ + + + + | 12/01/ | Hospital | [facility] | [place], | | | 2006 | Encounter | [facility] | Rocael Roman MD [address] | | | | CENTER [address] | [address] | | | | | [place] | [place] [address] | | | | | [address] | [phone] | | | | | [phone] | | | +--------+ + + + [...]
--- OUTSIDE RECORDS SUMMARY | ~2020-08-02 | XMS | Encounter Summary ---
Demographics + + + | Address | [address] | | | [place] [address] | + + + | Home Phone | | + + + | Preferred Language | Unknown | + + + | Marital Status | | + + + | Congregation Affiliation | Unknown | + + + | Race | White | + + + | Ethnic Group | Not or | + + + Author + + + | Author | [facility] | | | and [place] | + + + | Organization | [facility] | | | [...] Team Providers + +------+ + | Care Power Generating Plant Operator Name | Role | Phone | + +------+ + | No, Physician | PCP | Unavailable | + +------+ + Encounter Details +--------+ + + + + | Date | Type | Department | Care Team | Description | +--------+ + + + + | 12/05/ | Hospital | [facility] | Conversion | | | 2018 | Encounter | [facility] | Transaction, | | | | | CLINIC [address] | Provider Unknown | | | | | [address] [place], [place] | | | | | | [phone] | (Fax) | | | | | [phone] | | | +--------+ + + + [...] + + + | Blood Pressure | 107/64 | 12/05/2017 3:03 PM | | | | | PST | | + + + + + | Pulse | 87 | 12/05/2017 3:03 PM | | | | | PST [...] + + + + | Weight | 58.8 kg (129 lb 10.1 | 12/05/2017 3:03 PM | | | | oz) | PST | | + + + + + | Height | 157.5 cm (5' 2") | 12/05/2017 3:03 PM | | | | | PST | | + + + + + | Body Mass Index | 23.71 | 12/05/2017 3:03 PM | | | | | PST [...] + + documented as of this encounter Procedure Notes Carlos Gardiner, Provider Unknown - 12/05/2017 3:04 PM PSTFormatting of this note m ight be different from the original. Pre-Procedure Instructions by Derrick Martin RN at 12/05/17 0616 Author: Derrick Martin RN Service: (none) Author Type: Registered Nurse Filed: 12/05/17 6737 Date of Service: 12/05/17 3051 Status: Signed Chief Executive: Derrick Martin RN (Registered Nurse) Patient reports chest pain and shortness of breath with activity of walking, vacuuming. Sh e reports the chest pain is 8/10 in the right clavicle area that lasts for hours and seems t o be related to gall bladder symptoms that occur after eating. docume nted in this encounter Plan of Treatment Not on filedocumented as of this encounter Visit Diagnoses Not on filedocumented in this encounter
[~2020-08-02 17:43] MED LIST: CITALOPRAM HBR20 MG PO; ONDANSETRON ODT8 MG PO; PREDNISONE20 MG PO; SYNTHROID175 MCG PO; TRANSDERM-SCOP1 EACH TD
== END 2020-08-02 19:23 | disposition home or self-care (01) ==
LOC: ED 17:43
DX: R10.12 Left upper quadrant pain (principal); Z79.899 Other long term (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
CPT/HCPCS: 80053; 81001; 84703; 85025; 99284

== ENCOUNTER 2021-01-17 08:01 | Day surgery (SDC) | payer OTHER ==
[~2021-01-17] VITALS: Ht 157.5 cm; Wt 72.7 kg
--- NOTE | ~2021-01-17 | OR ---
[facility] [address] [place], [place] [address] Draft DATE OF OPERATION: 01/17/2021 SURGEON: Beth Gibson DO ANIMAL EVISCERATOR: Em. PREOPERATIVE DIAGNOSIS: Uterine leiomyoma, abnormal uterine bleeding, dysmenorrhea. POSTOPERATIVE DIAGNOSES: 1. Uterine leiomyoma, abnormal uterine bleeding, dysmenorrhea. 2. Dilation of uterine veins. ESTIMATED BLOOD LOSS: 20 mL. LINES: None. DRAINS: Erwin catheter. COMPLICATIONS: None. FINDINGS: Minimally enlarged fibroid uterus, surgically absent bilateral fallopian tubes, normal-appearing bilateral ovaries with significantly dilated ovarian veins otherwise normal-appearing pelvis without adhesions or scarring or endometriosis. INDICATION: The patient is a 35-year-old female, who strongly desires definitive management of abnormal uterine bleeding. She has previously failed medical management in the past. Endometrial biopsy and dilation and curettage were negative for hyperplasia or malignancy and Pap smear is up to date. Risks, benefits, and alternatives were discussed at length with the patient and her and they elected to proceed with total laparoscopic hysterectomy with cystoscopy. DESCRIPTION OF PROCEDURE: PATIENT NAME: SHREYA IBARRA OPERATIVE REPORT DATE OF : [birth year] REPORT #: [id number] PHYSICIAN: BETH GIBSON DO PCP: JE MURILLO PAC REPORT IS CONFIDENTIAL AND NOT TO BE RELEASED WITHOUT AUTHORIZATION [facility] [address] [facility], [place] [address] Draft The patient was given 2 g Ancef and heparin preoperatively. She was taken to the operating room where she was placed under general anesthesia. She was positioned in dorsal lithotomy position. IVCs were placed bilaterally. She was prepped and draped in a normal sterile fashion. Erwin catheter was inserted. Weighted speculum was placed in the vagina. Allis clamp was placed at the 12 o'clock position on the cervix to facilitate dilation. Cervix dilated easily and was sounded to 8 cm. A VCare manipulator was placed without difficulty. All additional instrumentation was removed from the vagina. Surgeon's gloves were changed and attention was turned to the abdomen. 3 cm infraumbilical incision was made 1 cm inferior to her prior scar from abdominoplasty procedure and carried down to underlying fascia, which was grasped with hemostats, incised and extended laterally with sharp dissection with Myers scissors. Superior margin of the fascia was grasped. Stay suture was placed with 0 Vicryl. In a similar manner at the inferior margin, fascia was grasped, elevated and a stay suture of 0 Vicryl was placed. Peritoneum was entered bluntly and Constantine trocar was placed without difficulty. Abdomen was insufflated with CO2 gas. Pneumoperitoneum was achieved. Incision was made in the left lateral abdomen to accommodate 5 mm trocar. This was performed under direct visualization. Trocar was inserted under direct visualization without complication. Incision was made in the right lateral abdomen to accommodate an expandable trocar, which was placed without difficulty under direct visualization. The patient was then positioned in Trendelenburg and abdomen and pelvis were surveyed with findings as noted above. LigaSure device was then used to cauterize and cut. First the left utero-ovarian ligament, then the right utero-ovarian ligament. Left round ligament was then cauterized and cut with LigaSure device. Anterior leaf of the broad ligament was cauterized and cut down to the level of the vesicouterine peritoneum, developing the bladder flap. The posterior leaf was then dissected down cauterizing and cutting to midline between the uterosacral ligaments at the level of the VCare cup. Uterine vessels were then cauterized and cut with excellent hemostasis noted. In the similar fashion on the right side, the anterior leaf of the broad ligament was cauterized and cut with LigaSure device, dissecting down to meet the bladder flap at midline. The posterior leaf was then cauterized and cut with LigaSure down to meet prior dissection on the opposite side at midline between the uterosacral ligaments. Uterine arteries were then cauterized and cut with LigaSure device with excellent hemostasis noted. Sonicision harmonic Scalpel was then used to perform the colpotomy, which was performed without difficulty. Uterus was delivered vaginally and sterile glove with packing was placed in the vagina. Pelvis was then suction irrigated. Small area of bleeding was noted on the right posterior lip of the vagina, which was cauterized with LigaSure device with hemostasis noted. Endo Stitch was then used to close the vaginal cuff in a running fashion incorporating 1st the right uterosacral ligament and then the left uterosacral ligament. Following cuff closure, hemostasis was again noted. Pelvis was again suction irrigated and pneumoperitoneum was evacuated. All instrumentation was removed. Fascia of the infraumbilical incision was closed with 0 Vicryl in a running fashion. Stay sutures were tied over the top of the initial PATIENT NAME: SHREYA IBARRA OPERATIVE REPORT DATE OF : [birth year] REPORT #: [id number] PHYSICIAN: BETH GIBSON DO PCP: JE MURILLO PAC REPORT IS CONFIDENTIAL AND NOT TO BE RELEASED WITHOUT AUTHORIZATION [address] [address] Draft closure and skin was closed with 4-0 Monocryl and top dressed with Steri-Strips and Band-Aids. Attention was then turned to the bladder. Vaginal packing was removed. Erwin catheter was removed and cystoscopy was performed noting an intact bladder free from injury and bilateral ureteral jets. Sponge and instrument counts were correct x2 and the patient was taken to recovery in stable and satisfactory condition. SPECIMENS REMOVED: Uterus and cervix. Beth Gibson DO EMMarilu/KEVINL /[id number] Copies: ~ PATIENT NAME: SHREYA IBARRA OPERATIVE REPORT DATE OF : [birth year] REPORT #: [id number] PHYSICIAN: BETH GIBSON DO PCP: JE MURILLO PAC REPORT IS CONFIDENTIAL AND NOT TO BE RELEASED WITHOUT AUTHORIZATION
[2021-01-17] MEDS ORDERED: HYDROCODON-ACE1 EA10 PO (13:48)
[2021-01-17] MEDS ORDERED: IBUPROFEN800 MG PO (13:49)
[2021-01-17] MEDS ORDERED: SENNA8.6 MG PO (13:50)
--- NOTE | 2021-01-19 11:05 | PATH ---
[facility] [address] [place], [place] [address] Signed SPECIMEN(S): A UTERUS AND CERVIX SPECIMEN SOURCE: A. UTERUS AND CERVIX CLINICAL HISTORY: Leiomyoma, dysmenorrhea, abnormal uterine bleeding. FINAL PATHOLOGIC DIAGNOSIS: Uterus and cervix, hysterectomy: - Cervix: Mixed chronic and acute inflammation with reactive epithelial changes. - Endometrium: Late proliferative endometrium. - Myometrium: Leiomyoma (1.3 cm in greatest dimension). - Serosa: No histopathologic abnormality. - Negative for malignancy. NAL:cml:C2NR MICROSCOPIC EXAMINATION: Histologic sections of all submitted blocks are examined by light microscopy. These findings, together with the gross examination, support the pathologic diagnosis. GROSS DESCRIPTION: The specimen, labeled "MS," and designated on the requisition "uterus, cervix," is received in formalin and consists of a uterus (113 g, 7.5 cm superior to inferior by 5.5 cm medial to lateral by 4.3 cm anterior posterior), and attached cervix (2.0 cm in length by 3.0 cm in diameter) with pink-encarnacion to hemorrhagic cervical mucosa and patent slit-shaped os (1.0 cm in length by 0.3 cm ellipse). The uterine serosa is pink-encarnacion and smooth. The cervix is opened to reveal a pink-encarnacion to hemorrhagic endocervix (endocervical canal: 3.0 cm in length by 1.1 cm in diameter). Sectioning of the uterus reveals an endometrial cavity (4.0 cm superior to inferior by 2.1 cm cornu to cornu) with a red-brown endometrial lining that measures up to 0.5 cm in thickness. The myometrium is pink-encarnacion trabeculated with one pink-encarnacion well-circumscribed nodule (1.3 x 1.2 x 1.0 cm) within the right anterior aspect of the lower uterine segment. Manager Content sections are submitted as follows: (A1) Anterior and posterior cervix PATIENT NAME: SHREYA IBARRA PATHOLOGY DATE OF : [birth year] REPORT #: [id number] PHYSICIAN: JOSÉ MIGUEL FORD PCP: JE MURILLO PAC REPORT IS CONFIDENTIAL AND NOT TO BE RELEASED WITHOUT AUTHORIZATION [facility] [address] [place], [place] [address] Signed (A2) Endomyometrium (A3) Myometrial nodule AC (under the direct supervision of a pathologist) The Gross Description was prepared using a voice recognition system. The report was reviewed for accuracy; however, sound-alike word errors, addition and/or deletions may occur. If there is any question about this report, please contact Client Services. PERFORMING LABORATORY: The technical component was performed by [facility] [address] (Hand Ii Cutter: Ivana Amaya MD; CLIA# [id number]). Professional interpretation was performed by [facility], [address] [place], [place] [address] (CLIA# [id number]). Diagnostician: Petra Arriola MD Pathologist Electronically Signed 01/19/2021 Copies: ~ PATIENT NAME: SHREYA IBARRA PATHOLOGY DATE OF : [birth year] REPORT #: [id number] PHYSICIAN: JOSÉ MIGUEL PATHOLOGY PCP: JE MURILLO PAC REPORT IS CONFIDENTIAL AND NOT TO BE RELEASED WITHOUT AUTHORIZATION
== END 2021-01-17 14:10 | disposition home or self-care (01) ==
LOC: OPS 08:01 → DS 09:00 → OPS 14:10
PROVIDERS: ATTEND Obstetrics & Gynecology
PROC: 0UT94ZZ Resection of Uterus, Percutaneous Endoscopic Approach (ICD-10-PCS; principal; 2021-01-17 09:00)
DX: D25.9 Leiomyoma of uterus, unspecified (principal); N94.6 Dysmenorrhea, unspecified; N93.9 Abnormal uterine and vaginal bleeding, unspecified; E89.0 Postprocedural hypothyroidism
CPT/HCPCS: J0131; J0690; J1100; J1644; J1885; J2405; J2704; J3010; J3475; J7121

== ENCOUNTER 2021-01-23 13:14 | Inpatient (IN) | payer OTHER ==
[~2021-01-23] VITALS: Ht 157.5 cm; Wt 72.3 kg
--- NOTE | ~2021-01-23 | DS ---
[facility] [address] [place], [place] [address] Draft ADMISSION DATE: 01/25/2021 DISCHARGE DATE: 01/28/2021 REASON FOR ADMISSION: Pulmonary emboli. CLINICAL FINDINGS: Initial right pulmonary emboli on admission. On repeat scan two days later while on therapeutic Lovenox, left-sided pulmonary emboli, more proximal transition. PROCEDURE PERFORMED: None. TREATMENT RENDERED: Therapeutic anticoagulation first with Lovenox, then transitioned to Xarelto after failed initial therapy with Lovenox. The patient's state continued to worsen and she began having episodes of tachycardia while at rest. She is transferred to [facility] for care with Vascular Surgery and Interventional Radiology for further care and management of her condition. DISCHARGE DISPOSITION: Transfer to [facility] for higher level of care. CONDITION ON DISCHARGE: Fair. INSTRUCTIONS: Transfer of care. N.p.o. Transferred on heparin drip. Activity as tolerated or as recommended by receiving team. She was transferred to accepting doctor, Dr. Lorenzo in the [facility] ER with Dr. Pham, Internal Medicine, Dr. Holloway, Vascular Surgery, and Dr. May Interventional Radiology, aware and following. DO PETER Turpin/MODL /[id number] PATIENT NAME: SHREYA IBARRA DISCHARGE SUMMARY DATE OF : [birth year] REPORT #: [id number] PHYSICIAN: BETH CLIFTON DO PCP: JE MURILLO PAC REPORT IS CONFIDENTIAL AND NOT TO BE RELEASED WITHOUT AUTHORIZATION [address] [address] Draft cc: Allyson Fink PA-C Copies: ALLYSON FINK PA-C ~ PATIENT NAME: SHREYA IBARRA DISCHARGE SUMMARY DATE OF : [birth year] REPORT #: [id number] PHYSICIAN: BETH CLIFTON DO PCP: JE MURILLO PAC REPORT IS CONFIDENTIAL AND NOT TO BE RELEASED WITHOUT AUTHORIZATION
[~2021-01-23 13:14] MED LIST changes: +HYDROCODON-ACE1 EA10 PO; +IBUPROFEN800 MG PO; +SENNA8.6 MG PO
--- OUTSIDE RECORDS SUMMARY | 2021-01-23 13:20 | XMS ---
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 Erica VISIT COUNT (12 MO.) 3 MARILU Crow TOTAL 3 NOTE: Visits indicate total known visits. ED/UCC VISIT TRACKING (12 MO.) 01/23/2021 13:14 MARILU Lu [place] TYPE: Emergency COMPLAINT: - DIZZINESS, WEAKNESS, RAPID HEART RATE 08/04/2020 21:50 MARIL[facility] Lu [place] TYPE: Emergency COMPLAINT: - MEDICAL CLEARANCE DIAGNOSES: - Other care home (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 - Poisoning by propionic acid derivatives, intentional self-harm, initial encounter - Poisoning by propionic acid derivatives, intentional self-harm, initial encounter 08/02/2020 17:44 MARILU Lu [place] TYPE: Emergency COMPLAINT: - FLANK PAIN DIAGNOSES: - Unspecified abdominal pain - Other care home (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 - Left upper quadrant pain INPATIENT VISIT TRACKING (12 MO.) No inpatient visits to display in this time frame [email or web address]
--- NOTE | 2021-01-23 19:03 | NUR ---
PT ARRIVED TO FLOOR VIA STRETCHER. PT IS ALERT AND ORIENTED. VITALS TAKEN AND STABLE. NS AT 125 STARTED. PT PLACED ON TELE 1 . HR 82 IN SR. PT WITH [address] WANG TO BEDSIDE.
--- NOTE | 2021-01-23 19:30 | NUR ---
RECEIVED REPORT FROM PASQUALE WOOTEN. pt RESTING IN BED. CALL LIGHT WITHIN REACH. NO REQUESTS AT THIS TIME.
--- NOTE | 2021-01-23 20:22 | NUR ---
IN TO DO ASSESSMENT. pt REPORTED 4/10 PAIN. DISCUSSED PAIN MANAGEMENT. PUT pt ON CPOX, HR IN 80'S O2 SAT HIGH 90'S. TELE 1. pt RESTING IN BED. DENIES SOB WHEN RESTING, ONLY WITH ACTIVITY. ASSESSMENT DONE. LUNG SOUNDS CLEAR. LAP SITES X3, BANDAIDS CLEAN DRY AND INTACT. pt's IN ROOM WITH DINNER. CALL LIGHT WITHIN REACH.
--- NOTE | 2021-01-23 22:25 | NUR ---
DR WANG NOTIFIED OF pt NAUSEA, NEW ORDER ENTERED.
--- NOTE | 2021-01-23 22:36 | NUR ---
PRN NAUSEA MEDS GIVEN SEE JAN. CALL LIGHT WITHIN REACH.
--- NOTE | 2021-01-23 23:58 | NUR ---
pt REQUESTED A NEW IV BE STARTED FOR COMFORT. UNSUCCESSFUL. MANIPULATED CURRENT IV, pt REPORTED IMPROVED COMFORT. UP TO VOID. AT BEDSIDE. CALL LIGHT WITHIN REACH.
--- NOTE | 2021-01-24 02:36 | NUR ---
IN TO DO VITALS. pt WOKE TO VOICE. DENIED PAIN AT THIS TIME. REPORTED SOB ONLY WITH AMBULATION. O2 SATS HIGH 90'S. ASSESSMENT DONE. NO CHANGES. CALL LIGHT WITHIN REACH.
--- NOTE | 2021-01-24 05:00 | NUR ---
CALL LIGHT ON. pt REQUESTED PRN PAIN MEDS FOR 7/10 ABD PAIN. PRN GIVEN WITH SCHEDULED MEDICATIONS. O2 SAT HIGH 90'S ON ROOM AIR. VITALS DONE. NO FURTHER REQUESTS AT THIS TIME. CALL LIGHT WITHIN REACH.
--- NOTE | 2021-01-24 07:18 | NUR ---
PT LYING IN BED. SHIFT REPORT RECIEVED BY RN. CONTINUOUS IV INFUSING 125ML/HR. CALL LIGHT IN REACH. IN ROOM.
--- NOTE | 2021-01-24 07:23 | HP ---
[facility] [place] [facility] [address] [place], [place] [address] Signed ADMISSION DATE: 01/23/2021 HISTORY OF PRESENT ILLNESS: The patient is a 35-year-old female, 4, para 3, ectopic 1, status post a TL-BSO with cystoscopy 6 days ago, who presented to the emergency room today with complaint of chest heaviness, dyspnea on exertion, and palpitations. Her symptoms began yesterday and worsened today. She denies any swelling of her legs, though she has had some cramping in her legs. She is feeling a little better now while resting in bed after admission. She has had a little discomfort, but has been taking a fair amount of ibuprofen for her postop pain. She has not been taking the narcotics. She denies any vaginal bleeding. She has had some decreased appetite today. She has been urinating without any difficulty. She has had some watery diarrhea yesterday and today. She reported low-grade temperature at home this morning of 99.4. She has no family or personal history of blood clots. PAST MEDICAL HISTORY, REVIEW OF SYSTEMS: She reports occasional wheezing, which started several months ago before surgery, but otherwise review of systems is negative except in HPI. SURGERIES: She has undergone tubal ligation, subsequent treatment of an ectopic, cholecystectomy, thyroidectomy for thyroid cancer, tummy tuck, breast implants and most recently, TLHBS. ILLNESSES: Negative for hypertension, diabetes, murmur, asthma, liver, kidney problems, hepatitis, or migraines. Positive for hypothyroidism and depression. MEDICATIONS: 1. Citalopram 20 mg daily. 2. Levothyroxine 112 mcg daily. 3. Ibuprofen in the postop state. ALLERGIES: None. HABITS: Negative for tobacco. PHYSICAL EXAMINATION: VITAL SIGNS: Blood pressure is 126/74, pulse 74, O2 saturation 100 on room air. Respiratory rate 19. Electronically Signed By: PEYTON LOVING MD 01/24/21 0723 PATIENT NAME: SHREYA IBARRA HISTORY AND PHYSICAL DATE OF : [birth year] REPORT #: [id number] PHYSICIAN: PEYTON LOVING MD PCP: JE MURILLO REPORT IS CONFIDENTIAL AND NOT TO BE RELEASED WITHOUT AUTHORIZATION [facility] [place] [facility] [address] [place], [place] [address] Signed GENERAL: She is a well-developed, well-nourished female, in no acute distress. She is alert and oriented. Her affect is pleasant. LUNGS: Clear. HEART: Regular rate and rhythm without any murmur. ABDOMEN: Soft. She has minimal tenderness in the suprapubic area. She has active bowel sounds. The incisions are healing well without any unusual bruising. PELVIC: There is no vaginal bleeding. Her calves are nontender without any swelling in her legs. CT of the chest reveals right lower lobe embolism. CT of the abdomen is negative. Her H and H are 13.7 and 42.0. White count 8.9, and platelets 192. Chem panel is negative as is UA. IMPRESSION: A 35-year-old female status post recent TLH with a pulmonary embolism. Given her risks for potential bleeding as she had recent surgery, I do think she would benefit from inpatient observation for at least a few days. Hopefully, she will be able to transition from her Lovenox to an oral agent over the next week or so. PLAN: Admit for observation. Lovenox 70 mg subcu q.12 hours. Continue telemetry. Peyton Loving MD PJW/MODL /[id number] cc: Beth Gibson DO Copies: BETH GIBSON DO ~ Electronically Signed By: PEYTON LOVING MD 01/24/21 0723 PATIENT NAME: SHREYA IBARRA HISTORY AND PHYSICAL DATE OF : [birth year] REPORT #: [id number] PHYSICIAN: PEYTON LOVING MD PCP: JE MURILLO PAC REPORT IS CONFIDENTIAL AND NOT TO BE RELEASED WITHOUT AUTHORIZATION
--- NOTE | 2021-01-24 08:13 | NUR ---
PT LYING IN BED. ASSESSMENT COMPLETE. SCHEDULED MEDS GIVEN. PT C/O 8/10 PAIN. PRN PAIN MEDS GIVEN PER REQUEST. CALL LIGHT IN REACH. IN ROOM
[2021-01-24] MEDS ORDERED: EUTHYROX125 MCG PO (09:13)
--- NOTE | 2021-01-24 09:27 | NUR ---
PATIENT IND. IN ROOM. PATIENT HAS AM CARE AND ORAL CARE SUPPLIES AT SINK. WARM WASHCLOTH GIVEN. VITALS AND I&O'S CHARTED. CALL LIGHT IN REACH. NO FURTHER NEEDS AT THIS TIME.
--- NOTE | 2021-01-24 09:30 | NUR ---
EDUCATION GIVEN ON PULMINARY EMBOLISM. DISCUSSED ON WHAT CAUSES IT, SIDE EFFECTS AND S/S TO LOOK FOR. PT VERBALIZED UNDERSTANDING.
--- NOTE | 2021-01-24 09:38 | NUR ---
PT LYING IN BED. ORDER ENTRY SPECIALIST HAS SHOWER READY. PT STATED THAT SHE WOULD LIKE TO NAP FIRST. PT PAIN 5/10 AND TOLERABLE. DENIES SOB. PULSE OX 97% O2 SAT RA. PT ATE 100% OF MEAL. NO N/V. CALL LIGHT IN REACH.
--- NOTE | 2021-01-24 10:09 | NUR ---
GIVEN EDUCATION ON THE USE OF LOVENOX. PT VERBALIZED UNDERSTANDING. PT DENIES PAIN THIS TIME. RR WNL WITH UNLABORED BREATHING. CALL LIGHT IN REACH.
--- NOTE | 2021-01-24 12:19 | NUR ---
PT LYING IN BED. EYES CLOSED. RR WNL WITH UNLABORED BREATHING. CPOX 95% O2 SAT RA. HR 87. CALL LIGHT IN REACH.
--- NOTE | 2021-01-24 12:53 | NUR ---
PT IN SHOWER WITH ASSISTANCE OF ASSISTANT EDUCATION DIRECTOR. PT DENIES PAIN AT THIS TIME. SOME SOB WHILE AMBULATING. NO NEEDS AT THIS TIME.
--- NOTE | 2021-01-24 13:27 | NUR ---
PATIENT IN BED RESTING AT THIS TIME. PATIENT SHOWERED IND. RIO CARE, SKIN CARE, SHAMPOO DONE. NEW GOWN PROVIDED. LINENS CHANGED. VITALS AND I&O'S CHARTED. CALL LIGHT IN REACH. NO FURTHER NEEDS AT THIS TIME.
--- NOTE | 2021-01-24 13:59 | NUR ---
PT C/O HAVING PAIN 5/10 BUT TOLERABLE. TELE LEADS REPLACED. PT STATED FEELING BETTER AFTER SHOWER. IV SALINE LOCKED. 3 BANDAIDS INTACT ON ABDOMEN LAP SITES. NO DRAINAGE NOTED. CALL LIGHT IN REACH.
--- NOTE | 2021-01-24 14:09 | NUR ---
PT SITTING UP IN BED. CPOX 100 % O2 SAT RA. PT C/O SOB 05/04. PT REPOSITIONED IN BED. THIS RN EXPLAINED HOW ACTIVITY CAN INCREASE SOB. PT EATING MEAL AT THIS TIME. TAKING SMALL BREAKS. SCHEDULED MOTRIN GIVEN. ASSESSMENT COMPLETE. LUNG SOUNDS CLEAR. DENIES NUMBNESS OR TINGLING.
--- NOTE | 2021-01-24 16:35 | NUR ---
PT LYING IN BED. EYES CLOSED. CPOX 96% RA. RR WNL WITH UNLABORED BREATHING. IN ROOM. CALL LIGHT IN REACH.
--- NOTE | 2021-01-24 17:20 | NUR ---
PT INDEPENDENT AND VOIDS. 3 LAP SITES ON ABDOMEN, BANDAIDS INTACT. REGULAR DIET AND TOLERATING WELL. SCHEDULED MOTRIN GIVEN FOR PAIN. IV SALINE LOCKED. STATES SOB WHILE AMBULATING AND EATING. CPOX 95% RA.
--- NOTE | 2021-01-24 18:14 | NUR ---
Pt lives in a 2 story home with stairs. Denies issues with using the stairs, but does state she get sob. She lives with her spouse, Chin. She works from home and started her job Dec 26. He is taking classes. She states she is very stressed as she has essentially been off for 3 weeks after surgery and then with PE. She states they were not able to pay their bills. She states she tried to go ahead and work, but suffered for doing so. Plans on dc to home tomorrow evening. Pt is not on 02, but easily becomes sob with activity. Discussed [employer] with pt and their energy assistance program and food program. Information given on food [employer] in town. 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 Information given for [facility] and information given for [place] for medicaid. She thinks her spouse makes to much money eventhough he is a student. Will discuss with [facility] to check if there are any other programs available to this family.
--- NOTE | 2021-01-24 18:21 | NUR ---
PATIENT IN BED TALKING ON PHONE, IN ROOM. FRESH WATER GIVEN. VITLAS AND I&O'S CHARTED. CALL LIGHT IN REACH. NO FURTHER NEEDS AT THIS TIME.
--- NOTE | 2021-01-24 18:38 | NUR ---
EDUCATION GIVEN ON LEVONOX WITH PT AND . DEMONSTRATED ADMINISTRATION. HAND OUT PROVIDED ON SUB Q INJECTIONS. PT TOLERATED WELL. PT STATES STILL FEELING HEAVY ON CHEST DURING ACTIVITY. PT C/O PAIN /10. STATES THAT IT IS MANAGEABLE. CALL LIGHT IN REACH.
--- NOTE | 2021-01-24 19:19 | NUR ---
RECEIVED REPORT FROM OMAR/JE RNS. pt WALKING AROUND ROOM. AT BEDSIDE. NO REQUESTS AT THIS TIME. REPORTED SOME SOB WITH AMBULATION, BREATHING REGULAR AND UNLABORED. O2 SAT 100%, HR 103, DECREASED TO 80S WITH REST. CALL LIGHT WITHIN REACH.
--- NOTE | 2021-01-24 21:30 | NUR ---
IN TO DO ASSESSMENT. pt RESTING IN BED WITH EYES CLOSED, WOKE TO VOICE. REQUESTED SOMETHING FOR PAIN, SCHEDULED MEDICATION GIVEN (SEE MAR). ASSESSMENT DONE. DISCUSSED IMPORTANCE OF MOVING AND DEEP BREATHING. pt VERBALIZED UNDERSTANDING. DISCUSSED ANTICOAGULATION THERAPY. WILL HAVE DO INJECTION IN THE MORNING. NO FURTHER REQUESTS CALL LIGHT WITHIN REACH.
--- NOTE | 2021-01-24 22:16 | NUR ---
pt UP WALKING IN [facility]. REPORTED SOB WITH ACTIVITY BUT NO WORSE THAN BEFORE. NO REQUESTS AT THIS TIME. WITH pt.
--- NOTE | 2021-01-25 00:27 | NUR ---
ROUNDED ON pt. RESTING IN BED WITH EYES CLOSED, RESPIRATIONS REGULAR AND UNLABORED. O2 SAT 97% ON ROOM AIR. HR 60-70'S. CALL LIGHT WITHIN REACH. AT BEDSIDE.
--- NOTE | 2021-01-25 02:45 | NUR ---
ROUNDED ON pt. RESTING IN BED WITH EYES CLOSED, RESPIRATIONS REGULAR AND UNLABORED. O2 SAT 97%. HR 70'S. CALL LIGHT WITHIN REACH.
--- NOTE | 2021-01-25 04:29 | NUR ---
ROUNDED ON pt. RESTING IN BED WITH EYES CLOSED, RESPIRATIONS REGULAR. SAT 97%. CALL LIGHT WITHIN REACH.
--- NOTE | 2021-01-25 05:49 | NUR ---
IN TO DO ASSESSMENT. pt WOKE TO VOICE. REPORTED 5/10 PAIN. SCHEDULED MEDICATIONS GIVEN (SEE MAR). THIS RN WASTED INJECTION PER ORDERS THEN pt's GAVE INJECTION WITH MINIMAL COACHING. VITALS AND I&O RECORDED. ASSESSMENT DONE. pt REPORTED AFTER HER WALK SHE SLEPT WELL. DENIED SOB AT REST. CALL LIGHT WITHIN REACH.
--- NOTE | 2021-01-25 07:05 | NUR ---
Report from Aretha Schaeffer RN. Patient in bed at this time. Opens eyes when spoken to. Closes them while recieving report. Significant other at bedside. Call light in reach. Bed rails up X2.
--- NOTE | 2021-01-25 08:14 | NUR ---
OPENS EYES TO NOISE. ASSESSMENT COMPLETED. CURRENTLY DENIES PAIN. REMAINS ON TELEMETRY WITH REGULAR RATE IN 80'S AT THIS TIME. CONTINUES ON CONTINUOUS PULSE OX WELL. O2 SATS IN MID 90'S. SIGNIFICANT OTHER AT BEDSIDE. PATIENT DENIES NEEDS. CALL LIGHT IN REACH, BED RAILS UP X2.
--- NOTE | 2021-01-25 09:48 | NUR ---
PATIENT AWAKE IN BED, IN ROOM. VITALS AND I&OS CHARTED. PATIENT WILL SHOWER LATER TODAY, UNLESS SHE IS DC'D. OTHERWISE SHE WILL SHOWER AT HOME. OMA LIGHT IN REACH
--- NOTE | 2021-01-25 10:15 | NUR ---
CRISTOPHER SHELBY AND CRISTOPHER VILLANUEVA WENT INTO PATIENT ROOM-INTRODUCED OURSELVES-PATIENT WAS UP BRUSHING HER TEETH IN THE BATHROOM AND HER WAS LAYING ON THE COUCH. WHILE WAITING FOR PATIENT TO FINISH BRUSHING HER TEETH-PATIENT HEART RATE WENT UP. DR WANG CAME INTO THE ROOM AND RN ON STAFF CAME IN. WE DECIDED TO LEAVE AT THAT TIME. PATIENT WAS NOT FEELING WELL. WILL ATTEMPT ANOTHER TIME. IF NOT WE WILL MAKE A HOME VISIT WITH PATIENT IF PATIENT ALLOWS.
--- NOTE | 2021-01-25 10:16 | NUR ---
Heartrate 130's and 140's. Standing in bathroom, brushing her teeth. Returns to bed. Dr. Loving in to assess patient. Vitals obtained. Patient tearful, stating "I feel just like I did the other day." Diaphoretic also. After 2-3 minutes of sitting on edge of bed, begins to slow breathing and heartrate begins to decrease. Assist to reposition in bed, legs elevated. States she is feeling better. Cool rag to forehead.
--- NOTE | 2021-01-25 11:08 | NUR ---
WALKED PT PER DR PARRA REQUEST TO SEE IF HER OXYGEN SATURATIONS DROPPED WITH AMBULATION, MADE IT DOWN TO THE NURSES STATION AND HER HEART RATE GOT UP INTO THE 160'S AND PATIENT COMPLAINED OF GETTING CLAMMY AGAIN. HER OXYGEN WAS 98 THE WHOLE TIME. PATIENT GOT LIGHTHEADED AND ALMOST COLLAPSED. I WAS ABLE TO HANG ONTO HER AND WE GOT HER INTO A CHAIR AND WHEELED HER BACK INTO HER ROOM. DID A STAT EKG. DR. ACOSTA HAS ORDERED A C.T. SCAN AND ARIC WILL BE HERE SOON SHE CAN TO GET IT DONE.
--- NOTE | 2021-01-25 11:12 | NUR ---
HAD ANOTHER EPISODE OF TACHYCARDIA WHILE AMBULATING IN [facility] PER DR. ACOSTA REQUEST. BECAME LIGHTHEADED AND WAS ASSISTED INTO CHAIR. HEARTRATE IN 160'S. DR. ACOSTA ASSESSES PATIENT AND ORDERS STAT EKG. PATIENT WHEELED BACK TO ROOM AND ASSISTED TO BED. RECOVERS AFTER A FEW MINUTES.
--- NOTE | 2021-01-25 11:38 | NUR ---
Returns from CT. Not feeling well in general. IV medications administered as prescribed. Heartrate and O2 sat WNL at this time. Patient tearful.
--- NOTE | 2021-01-25 11:50 | NUR ---
EPISODES OF SYMPTOMATIC TACHYCARDIA. SECOND IV SITE STARTED BY THIS NURSE. TOLERATES WELL.
--- NOTE | 2021-01-25 13:46 | NUR ---
PT HAD BEEN UP AMBULATING IN [facility] WITH RN AND HAD TO SIT DOWN. DR ACSOTA REQUESTED I LET HER REST PT IS NOW BACK IN . WILL FOLLOW
--- NOTE | 2021-01-25 14:02 | NUR ---
SITTING UP IN BED. TALKING WITH FAMILY MEMBERS. STATES SHE IS FEELING OK AT THIS TIME. INFORMED SHE WILL NEED TO CALL WHEN SHE WANTS TO GET UP SO STAFF MAY ASSIST HER TO THE BEDSIDE COMMODE TO DECREASE EXERTION. VERBALIZES UNDERSTANDING. ASSESSMENT COMPLETED.
--- NOTE | 2021-01-25 14:22 | NUR ---
sba to bsc. and daughter in room.
--- NOTE | 2021-01-25 15:32 | NUR ---
Dr. Loving in room to discuss plan of care with patient and spouse. Verbalize understanding.
--- NOTE | 2021-01-25 16:03 | NUR ---
MEDICATION GIVEN PRESCRIBED. TAKES WITHOUT DIFFICULTY. EDUCATED ON POSSIBLE SIDE EFFECST. VERBALIZES UNDERSTANDING. CALL LIGHT IN REACH. DENIES OTHER NEEDS.
--- NOTE | 2021-01-25 16:36 | NUR ---
USES CALL LIGHT TO SPEAK TO THIS NURSE. STATES SHE IS HAVING SOME CRAMPING TO LEFT CALF INTERMITTENTLY. STATES IT JUST STARTED THIS AFTERNOON. SLIGHT WARMTH FROM SITE NOTED. INSTRUCTED NOT TO MASSAGE LEG AND INFORM STAFF IF IT GETS PAINFUL ENOUGH TO NEED PAIN MEDICATION. VERBALIZES UNDERSTANDING.
--- NOTE | 2021-01-25 17:10 | NUR ---
Spoke with Patria. States she had rough morning and is better this evening. Pt now has PE in bilat lungs. She states Constance Iraheta did see her and she is aware of assistance. Updated, Constance will more than likely follow her at home. She denies other needs or c/o.
--- NOTE | 2021-01-25 17:28 | NUR ---
STATES CRAMPING IN LEFT CALF IS WORSENING. DR. ACOSTA WAS NOTIFIED BY THIS NURSE. NO NEW ORDERS. PATIENT DENIES NEED FOR ANALGESIC WHEN OFFERED.
--- NOTE | 2021-01-25 18:45 | NUR ---
EPISODES OF SYMPTOMATIC TACHYCARDIA X2 THIS AM. FIRST WHILE BRUSHING HER TEETH, SECOND WHILE AMBULATING IN HALLWAY. O2 SATS REMAINED INTACT, BUT HEARTRATE DID GET HIGH AT 160'S. IMPROVED WITH REST. REPEAT CT TODAY WITH RESULTS SHOWING PE'S NOW IN LEFT LUNG. MEDICATIONS CHANGED FROM LOVENOX TO XARELTO PO. IV FLUIDS STARTED. URINE OUTPUT ADEQUATE. DECREASE LEVEL OF ACTIVITY PER DR. ACOSTA, BEDSIDE COMMODE USED WHEN PATIENT NEEDS TO VOID. SIGNIFICANT OTHER HAS BEEN IN WITH PATIENT MOST OF TODAY.
--- NOTE | 2021-01-25 19:02 | NUR ---
RECEIVED REPORT FROM PASQUALE YADAV. pt RESTING IN BED, WITH AT BEDSIDE. HR IN 80'S O2 SATS HIGH 90'S. NO REQUESTS AT THIS TIME. CALL LIGHT WITHIN REACH.
--- NOTE | 2021-01-25 20:25 | NUR ---
IN pt ROOM TO ASSESS, pt C/O CONRAD, TIGHTNESS IN CHEST UNCHANGED THROUGHOUT DAY. PAIN IN CALF. PRIMARY RN AT BEDSIDE. VSS. pt DENIES SOB. COOL CLOTH PROVIDED. PHONE CALL TO CCU, SINUS RHYTHM ON TELE FOR LAST 15 MINUTES. ICE WATER PROVIDED. AT BEDSIDE. PRIMARY RN DC CALLING .
--- NOTE | 2021-01-25 20:27 | NUR ---
pt REPORTED NEW ONSET HEADACHE THAT FEELS LIKE "SOMEONE IS SITTING ON MY HEAD" LEFT LEG HAS SAME PAIN IN CALF, NEW PAIN HAS DEVELOPED ON JUST ABOVE LEFT ANKLE. pt REPORTS FEELING DIZZY AND SHE "DOESN'T FEEL RIGHT" pt IS TEARFUL AT THIS TIME. CCU DID NOT SEE ANY CHANGES ON TELE FOR THE LAST 15 MINUTES. CURRENTLY SR HR 70'S. VITALS WNL. DR ACOSTA INFORMED OF CHANGES. NO NEW ORDERS AT THIS TIME.
--- NOTE | 2021-01-25 20:30 | NUR ---
TRIED TO REACH DR WANG USING AVAILABLE PHONE NUMBERS. NO ANSWER. LEFT VOICEMAIL FOR CALL BACK.
--- NOTE | 2021-01-25 20:58 | NUR ---
FULL ASSESSMENT DONE. pt REPORTS 6/10 PAIN IN LEFT LEG, DESCRIBED IT "ANNOYING" NO CHANGES FROM LAST NOTE BY THIS RN. HEADACHE LOCATED IN THE CENTER OF HER FOREHEAD DESCRIBED "IT FEELS LIKE SOMEONE IS SITTING ON MY HEAD" pt REPORTED THAT THE DIZZYNESS IS RESOLVING AND SHE IS STILL FEELING NAUSEOUS. PRN NAUSEA MEDICATIONS GIVEN (SEE MAR). DISCUSSED PLAN OF CARE. LUNG SOUNDS CLEAR. 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 pt REPORTS FEELING WEAK. WILL CONTINUE TO MONITOR. CALL LIGHT WITHIN REACH. AT BEDSIDE. O2 SATS REMAIN HIGH 90'S.
--- NOTE | 2021-01-25 21:50 | NUR ---
PRN PAIN MEDICATION ADMINISTERED FOR 6/10 PAIN IN LEFT LEG, INCISION AT BELLY BUTTON. CRACKERS PROVIDED. NEW GOWN PROVIDED REQUESTED. IVF INFUSING WNL. pt STATES "I JUST STILL FEEL WEAK". AT BEDSIDE NO ADDITIONAL REQUESTS.
--- NOTE | 2021-01-25 22:20 | NUR ---
ROUNDED ON pt. pt REPORTS SYMPTOMS HAVE NOT WORSENED. STATED THAT SHE GETS DIZZY WHEN SHE TURNS HER HEAD. DENIED CHANGES IN VISION OR BALANCE. TELE BATTERY CHANGED. NO REQUESTS AT THIS TIME. CALL LIGHT WITHIN REACH.
--- NOTE | 2021-01-25 23:48 | NUR ---
ROUNDED ON pt. RESTING IN BED AWAKE. pt REPORTED THAT PAIN HAS DECREASED. NO NEW SYMPTOMS, NO OTHER CHANGES. CALL LIGHT WITHIN REACH. HR 70'S
--- NOTE | 2021-01-26 02:13 | NUR ---
ROUNDED ON pt. AWAKE IN BED. REPORTED CRAMPING IN HER RIGHT ANKLE THAT JUST STARTED. STATED THAT IT FELT "JUST LIKE THE LEFT SIDE" CRAMPING UNCHANGED IN LEFT SIDE. CHEST HEAVYNESS REMAINS THE SAME. pt REPORTS THAT AT TIMES SHE NEEDS TO TAKE DEEP BREATHS "BECAUSE I FEEL THAT I'M NOT GETTING ENOUGH AIR" O2 SATS REMAIN HIGH 90'S. HR 70'S. HEADACHE UNCHANGED. PRN PAIN MED GIVE FOR 6/10 PAIN (SEE MAR). ASSESSMENT DONE. CALL LIGHT WITHIN REACH.
--- NOTE | 2021-01-26 04:06 | NUR ---
IV PUMP BEEPING. NEW BAG OF IV FLUIDS HUNG. pt RESTING IN BED WITH EYES CLOSED, RESPIRATIONS REGULAR AND UNLABORED. CALL LIGHT WITHIN REACH. HR 60'S O2 SATS HIGH 90'S.
--- NOTE | 2021-01-26 05:18 | NUR ---
ROUNDED ON pt. AWAKE IN BED. REPORTED NO CHANGES IN PAIN OR CRAMPING IN LEGS. VITALS DONE. NO FURTHER REQUESTS AT THIS TIME. CALL LIGHT WITHIN REACH.
--- NOTE | 2021-01-26 06:24 | NUR ---
pt UP TO VOID, BSC. SBA. BACK TO BED. DENIED ANY INCREASE IN CHEST PRESSURE OR SOB. PRN PAIN MED GIVEN FOR 6/10 PAIN WITH SCHEDULED MED (SEE MAR). NO FURTHER REQUESTS AT THIS TIME. CALL LIGHT WITHIN REACH.
--- NOTE | 2021-01-26 06:47 | NUR ---
SHORTLY AFTER BEGINNING OF SHIFT pt COMPLAINED OF SUDDEN HEADACHE AND NEW PAIN IN LEFT ANKLE ALONG WITH CONTINUED CRAMPING IN LEFT CALF. pt ALSO FELT DIZZY WHICH HAS RESOLVED DURING SHIFT. TELE 1. HAS REMAINED IN SR. MAINTAIN O2 SAT IN UPPER 90'S. PRN PAIN MEDS X3. pt HAS BEEN USING THE BEDSIDE COMMODE. REMAINED AT BEDSIDE THROUGHOUT SHIFT. USES CALL LIGHT APPROPRIATELY.
--- NOTE | 2021-01-26 07:05 | NUR ---
Report from Aretha Schaeffer RN.
--- NOTE | 2021-01-26 07:35 | NUR ---
LYING IN BED, EYES CLOSED. RESPIRATIONS EVEN AND UNLABORED. ALLOWED TO REST.
--- NOTE | 2021-01-26 08:09 | NUR ---
AM MEDICATIONS GIVEN PRESCRIBED. TAKES WITHOUT DIFFICULTY. ASSESSMENT COMPLETED. STATES SHE IS STILL HAVING CRAMPING IN LEFT LEG WHICH HAS NOT WORSENED NOR IMPROVED. STATES CURRENTLY TOLERABLE. IVF INFUSING. REMAINS ON TELEMETRY WITH RATE IN 60'S. O2 SATS IN HIGH 90'S. RESPIRATIONS REMAIN EVEN AND UNLABORED AT THIS TIME. SPOUSE AT BEDSIDE. CALL LIGHT IN REACH, BED RAILS UP X2.
--- NOTE | 2021-01-26 11:04 | NUR ---
Patient lying in bed with eyes closed. Respirations even and unlabored. Telemetry remains reading with heart rate in the 70's. Allowed to rest. Call light in reach, bed rails up X2.
--- NOTE | 2021-01-26 13:14 | NUR ---
No change in plan for dc. Pt will cont. to advance slowyly and begin with ambulation. Denies needs for dc. CHW will follow at home initally.
--- NOTE | 2021-01-26 14:03 | NUR ---
PT SLEEPING, MERYL IN RM. VISITED FOR A MOMENT WITH HIM, NO NEEDS, WILL CHECK BACK WHEN PT IS AWAKE.
--- NOTE | 2021-01-26 14:31 | NUR ---
RETURNS FROM CT. CONTINENT OF URINE. STATES HER HEAD CONTINUES TO HURT WITHOUT CHANGE AND LEFT LEG CONTINUES CRAMPING INTERMITTENTLY. ASSESSMENT COMPLETED. IV FLUIDS INFUSING. REMAINS ON ROOM AIR, WITH CONTINUOUS PULSE OX AND TELEMETRY WITH RATE IN THE 60'S.
--- NOTE | 2021-01-26 15:53 | NUR ---
HEADACHE WITH MINIMAL IMPROVEMENT. FRESH ICE WATER PROVIDED. DENIES OTHER NEEDS AT THIS TIME. SPOUSE AT BEDSIDE.
--- NOTE | 2021-01-26 17:04 | NUR ---
STILL HAS HEADACHE WITHOUT CHANGE. STATES LEFT EAR IS ALSO STARTING TO ACHE. DENIES OTHER NEEDS AT THIS TIME.
--- NOTE | 2021-01-26 18:11 | NUR ---
Had a headache today which decreased minimally with norco. Remains on IV fluids and telemetry. Tolerating ambulation to bathroom without episodes of tachycardia. Remains with dizziness at times. On room air.
--- NOTE | 2021-01-26 19:10 | NUR ---
SHIFT REPORT RECEIVED FROM LEIF GIORDANO. PT RESTING IN BED. SPOUSE IN ROOM. PT STATES SHE HAS 7/10 CONRAD. ICE WATER PROVIDED. NO OTHER NEEDS AT THIS TIME. CALL LIGHT IN REACH.
--- NOTE | 2021-01-26 19:57 | NUR ---
PT STATES SHE HAS 10/10 CONRAD/PRN PAIN MED PROVIDED. NO OTHER NEEDS AT THIS TIME. CALL LIGHT IN REACH.
--- NOTE | 2021-01-26 20:28 | NUR ---
IN TO GET VITALS, I&Os DONE, ICE WATER GIVEN, NO FURTHER NEEDS AT THIS TIME
--- NOTE | 2021-01-26 21:06 | NUR ---
ASSESSMENT COMPLETED. NEW BAG OF IV FLUIDS PROVIDED. GCS 15, A&O X4. LUNGS CLEAR, HEART TONES REGULAR. TELE SR @ 80. LEFT FA IV WNL, CDI, FLUSHED WELL . R AC IV CAUSING PAIN, DCd WNL. CMS INTACT. PT STATES SHE FEELS "BETTER BUT STILL WEAK". PT ASKS TO SHOWER, PT PREPARED FOR SHOWER. NO OTHER NEEDS AT THIS TIME. CALL LIGHT IN REACH.
--- NOTE | 2021-01-26 23:10 | NUR ---
VERBAL REPORT RECEIVED FROM PASQUALE WOLFE. THIS RN TO RESUME CARE FOR pt. pt RESTING QUIETLY IN BED WITH EYES CLOSED. RR EVEN AND UNLABORED, NO DSITRESS NOTED. CPOX IN PLACE, O2 SAT AND HR WNL. SIGNIFICANT OTHER ALSO IN ROOM, DENIES NEEDS OR CONCERNS. CALL LIGHT IN REACH.
--- NOTE | 2021-01-27 03:30 | NUR ---
IN ROOM TO ANSWER CALL LIGHT, PRN NORCO GIVEN FOR 8/10 PAIN R/T HEADACHE. ASSESSMENT COMPLETE, pt DENIES NAUSEA. BSC EMPTIED. IV FLUIDS INFUSING PER MD ORDERS, IV SITE WNL. CPOX IN PLACE, TELE#1 ALSO NOTED. SINUS RHYTHM. CALL LIGHT IN REACH.
--- NOTE | 2021-01-27 05:44 | NUR ---
SCHEDULED THYROID MEDICATION GIVEN (SEE EMAR). NEW BAG IV FLUIDS ALSO HUNG AND INFUSING PER MD ORDERS, IV SITE WNL. BRISK BLOOD RETURN NOTED. pt REPORTS PAIN IS IMPROVED, TOLERATED AT 4/10 R/T HEADACHE. SHIP ERECTOR EDITA IN ROOM TO COLLECT VS AND I&O'S. CALL LIGHT IN REACH.
--- NOTE | 2021-01-27 08:45 | NUR ---
IN TO GIVE MORNING MEDICATIONS AND COMPLETE ASSESSMENT. PT ON COUCH SLEEPING. PT AWAKE IN BED, REQUESTING TO USE COMMODE TO VOID. UP W/ 1PA, PT DENIES DIZZINESS, SHE DOES DESAT INTO MID 80'S W/ EXERTION. REPORTS 8/10 PAIN THAT RADIATES TO RIGHT COLLAR BONE, 2 TABLETS NORCO GIVEN. PT STATES SHE SLEPT ALL DAY YESTERDAY, DISCUSSED THE INCREASE IN PAIN MEDICATION SHE HAS BEEN RECEIVING. WILL ATTEMPT TO START WITH 1 TABLET NORCO TO SEE IF THAT MANAGES PAIN ADEQUATELY, AND LESSEN PT DROWSINESS. LUNG SOUNDS ARE CLEAR, TELE SHOWS HR IN SINUS RHYTHM. PT REPORTS SHE STILL HAS NOT HAD BM, COLACE DAILY STARTED YESTERDAY. PT BACK TO BED, PART OF BREAKFAST EATEN, ORAL INTAKE ENCOURAGED. CALL LIGHT IN REACH. NO OTHER NEEDS AT THIS TIME.
--- NOTE | 2021-01-27 10:00 | NUR ---
ROUNDING. PT UP IN BED. REPORTS SHE GOT UP TO THE COMMODE AND THE CPOX ALARMED. HX TREND SHOWS SHE DESATED TO 85%. PT REPORTS FEELING SYMPTOMATIC, DIZZY, SOB, AND CLAMMY/DIAPHORETIC. REPORTS SHE GOT BACK INTO BED AND RECOVERED QUICKLY. MD AWARE OF EPISODE. PT STATES SHE HAS A DULL HEADACHE NOW BUT THAT THE PAIN IS MINIMAL. NO OTHER NEEDS. CALL LIGHT IN REACH.
--- NOTE | 2021-01-27 10:31 | NUR ---
PATIENT AWAKE IN BED, IN ROOM. VITALS AND I&OS CHARTED. FACE AND HANDS WASHED. CALL LIGHT IN REACH
--- NOTE | 2021-01-27 12:00 | NUR ---
ROUNDING. PT SITTING UP IN CHAIR EATING LUNCH. TOLERATING REGULAR DIET WELL. IV FLUIDS DC'D. PT EATING AND DRINKING ADEQUATELY. NO OTHER NEEDS. CALL LIGHT IN REACH.
--- NOTE | 2021-01-27 13:08 | NUR ---
PATIENT SITTING UP IN BED EATING LUNCH. VITALS AND I&OS CHARTED. IN ROOM. CALL LIGHT IN REACH, NO OTHER NEEDS AT THIS TIME
--- NOTE | 2021-01-27 13:10 | NUR ---
Spoke with Patria and she states she cont. to have episodes of sob and pain. She is desperately wanting to get better so she can return to work. Reminded CHW will follow up with resources on discharge.
--- NOTE | 2021-01-27 16:03 | NUR ---
IN TO COMPLETE AFTERNOON ASSESSMENT. ANTI EMBOLIC STOCKINGS HAVE BEEN APPLIED. ENCOURAGED ORAL INTAKE OF FLUIDS NOT THAT PT IS NO LONGER RECEIVING IV FLUIDS. LUNG SOUNDS CLEAR, PT SATING 96% ON ROOM AIR. CONTINUES TO REPORT SOME SOB W/ EXERTION WHEN UP TO COMMODE. PT LAYING IN BED RESTING NOW. CALL LIGHT WITHIN REACH. REMAINS AT BEDSIDE. NO FURTHER NEEDS AT THIS TIME.
--- NOTE | 2021-01-27 17:20 | NUR ---
IN TO GIVE EVENING XARELTO. DR. ACOSTA IN TO SEE PT. PT REPORTS HEADACHE IS BETTER TODAY. PT HAS HAD ADEQUATE APPETITE. ENCOURAGED TO AMBULATE TOLERATED. PT REPORTS PAIN HAS BEEN WELL MANAGED, HAS NOT REQUESTED PAIN MEDICATION SINCE THIS AM. CONTINUES TO BE SOB W/ EXERTION, HAS NOT DESATURATED WITH ACTIVITY SINCE THIS AM. PT AND DENY FURTHER NEEDS. CALL LIGHT IN REACH.
--- NOTE | 2021-01-27 19:15 | NUR ---
SHIFT REPORT RECEIVED FROM DAYSHIFT PASQUALE GARZA AT BEDSIDE. pt AWAKE AND RESTING IN BED, IN ROOM. TELE#[address], SINUS RHYTHM. NO NEEDS VERBALIZED, CALL LIGHT IN REACH.
--- NOTE | 2021-01-27 22:30 | NUR ---
ASSESSMENT COMPLETE, NO SCHEDULED MEDS. pt AWAKE AND RESTING IN BED, VSS, TELE#[address] NO DISTRESS NOTED, pt REPORTS SOB WITH EXERTION. NO DISTRESS NOTED AT REST. IV SITE WNL, FLUIDS INFUSING PER MD ORDERS. SITE WNL. CALL LIGHT IN REACH.
--- NOTE | 2021-01-27 23:30 | NUR ---
IN ROOM TO ANSWER CALL LIGHT, pt REPORTING SHE CONTINUES TO PASS GAS AND IS THINKING SHE MIGHT NEED ADDITIONAL MEDICATION TO HAVE BM. pt CURRENTLY ON DAILY COLACE. WILL CONTINUE TO MONITOR, CURRENTLY DENIES NAUSEA. BOWEL TONES ACTIVE. DISCUSSED ADDITIONAL WAYS TO ASSIST IN BOWEL FUNCTION INCLUDING AMBULATION AND LIMITING NARCOTIC USE.
--- NOTE | 2021-01-28 01:56 | NUR ---
pt RESTING IN BED WITH EYES CLOSED, RR EVEN AND UNLABORED. NO DISTRESS NOTED, TELE#[address], O2 SAT UPPER 90'S, HR 70'S. CALL LIGHT IN REACH.
--- NOTE | 2021-01-28 04:58 | NUR ---
pt RESTING IN BED, ON RA. TELE#[address], SINUS RHYTHM. HR 70'S, O2 SAT MID TO UPPER 90'S. NO DISTRESS NOTED, CALL LIGHT IN REACH. ALSO IN ROOM.
--- NOTE | 2021-01-28 06:50 | NUR ---
pt UP TO VOID, SBA TO BSC. HR UP TO 140'S, pt SYMPTOMATIC. REPORTS FEELING DIZZY AND SOB. DIAPHORETIC AND REPORTS FEELING CLAMMY. VSS WNL PRIOR TO GETTING OOB. BP AFTER RETURNING TO BED 118/73, MAP OF 83. HR RETURNED TO BASELINE, 80'S. pt STATES, "I STARTED FEELING DIZZY AND SOB WHEN I START STANDING UP". SYMPTOMS SUBSIDED AFTER RETURNING TO BED. pt VOIDED X1 THEN RETURNED TO BED. DR ACOSTA AND DR CLIFTON BOTH MADE AWARE, NO NEW ORDERS. DR VILLA ALSO MADE AWARE OF pt'S ABD PAIN AND FEELING THE NEED TO HAVE BM, TELEPHONE ORDER READ BACK FOR 1GM GLYCERIN SUPP X1.
--- NOTE | 2021-01-28 08:00 | NUR ---
IN TO GIVE PT MORNING MEDICATIONS AND COMPLETE ASSESSMENT. LUNG SOUNDS ARE CLEAR, DIMINISHED IN LEFT MID AND LOWER LOBES. PT SATING 98% ON ROOM AIR. VSS. PT C/O FEELING DIZZY AT REST, SAY SHE FEELS LIKE EVERYTHING IS MOVING AND THE FEELING COMES AND GOES. NERVOUS ABOUT GETTING UP TO BSC AFTER EPISODE THIS MORNING W/ INCREASE IN HR AND FEELING DIZZY/DIAPHORETIC. SAYS SHE DOESN'T NEED TO GO NOW BUT WILL CALL FOR ASSISTANCE. EATING BREAKFAST. CALL LIGHT IN REACH.
--- NOTE | 2021-01-28 09:30 | NUR ---
TELE ALERTING HEART RATE UP TO 160. THIS NURSE TO BEDSIDED TO FIND PT SLEEPING. PT REPORTS HEART FEELS LIKE IT IS "RACING". DR ACOSTA NOTIFIED. DR ACOSTA TO BEDSIDE WITHING 2 MINUTES. VITALS TAKEN AND STABLE BESIDES HEART RATE SUSTAINED 150'S. PT INSTRUCTED TO COUGH AND BLOW THROUGH STRAW FOR 10 SECONDS. PT HEART RATE COVERED TO 95-110 NOW. 2L NC IN PLACE. [address] ZULUAGA TO FLOOR. ORDERS FOR IMAGES TO BE SENT TO [facility]. IMAGING CALLED, VERBAL VERIFICATION THAT IMAGES WERE SENT.
--- NOTE | 2021-01-28 09:31 | NUR ---
0920 PT HR INCREASED TO 150-160 WHILE LAYING IN BED. VITALS DONE, BP STABLE 123/78, O2 SATURATIONS 99% ON ROOM AIR. PT STATES "FEELS LIKE MY HEART IS RACING." DR. ACOSTA CALLED AND IN TO SEE PT, DR. CLIFTON ALSO PRESENT. JUDITH BAH ATTEMPTED X3, HOB ELEVATED HR DECLINED TO 130'S. 2 L O2 APPLIED VIA NC, HR DECREASED TO 115. DISTRACTION PRACTICED W/ PT. HR NOW IN 90'S. AT BEDSIDE. THIS RN REMAINS IN ROOM.
--- NOTE | 2021-01-28 09:41 | NUR ---
PATIENT RESTING IN BED, EYES CLOSED. UPON BEGINNING VITALS, HEART RATE WAS INCREASING(HIGHEST WAS 162) CHARGE NURSE JE IN ROOM. VITALS CHARTED. PASQUALE GARZA, ELODIA AND KARLA IN ROOM NOW. PATIENT AWAKE AND TALKING TO DR, NOT VISIBLY IN DISTRESS BUT HR STAYING ELEVATED. GREG AT BEDSIDE ENCOURAGING BREATHING TECHNIQUE. PATIENT PLACED ON 2L NC BY CONCRETE PILE DRIVER OPERATORPASQUALE WOOTEN. HEARTRATE SLOWLY COMING DOWN. AT BEDSIDE. CALL LIGHT IN REACH
--- NOTE | 2021-01-28 10:07 | NUR ---
NEW ORDER RECEIVED FOR HERPARIN DRIP. DOUBLE CHECKED WITH NAVI GIORDANO.
--- NOTE | 2021-01-28 10:28 | NUR ---
TRANSFER PACKET COMPLETE. [facility] CALLED FOR TRANSPORT. PT CONSENTED TO TRANSFER.
--- NOTE | 2021-01-28 11:00 | NUR ---
REPORT CALLED TO DAVID CM.
--- NOTE | 2021-01-28 11:03 | NUR ---
PT OFF FLOOR TO TRANSFER TO [facility] WITH [facility].
== END 2021-01-28 11:00 | disposition short-term general hospital (02) | DRG 176 ==
LOC: ED 13:14 → MS 13:15
PROVIDERS: ADMIT Student in an Organized Health Care Education/Training Program; ATTEND Obstetrics & Gynecology
DX: I26.99 Other pulmonary embolism without acute cor pulmonale (principal); Z20.822 Contact with and (suspected) exposure to COVID-19; R00.0 Tachycardia, unspecified; R51.9 Headache, unspecified; R42 Dizziness and giddiness; K59.00 Constipation, unspecified; F32.9 Major depressive disorder, single episode, unspecified; E89.0 Postprocedural hypothyroidism; E83.51 Hypocalcemia; Z85.850 Personal history of malignant neoplasm of thyroid; Z90.710 Acquired absence of both cervix and uterus; Z79.899 Other long term (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
CPT/HCPCS: 36415; 70450; 71260; 74177; 80053; 81001; 83605; 83690; 83735; 85025; 85027; 94762; 96372; 99285-25; C9113; G0378; J0610; J1644; J1650; J2270; J2405; J7030; Q9967; U0003

== ENCOUNTER 2021-02-08 17:42 | Observation (INO) | payer OTHER ==
[~2021-02-08] VITALS: Ht 157.5 cm; Wt 71.1 kg
[~2021-02-08 17:42] MED LIST changes: +EUTHYROX125 MCG PO
--- OUTSIDE RECORDS SUMMARY | 2021-02-08 17:46 | XMS ---
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 Erica VISIT COUNT (12 MO.) [address] TOTAL 5 NOTE: Visits indicate total known visits. 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 - Poisoning by propionic acid derivatives, intentional self-harm, initial encounter - Poisoning by propionic acid derivatives, intentional self-harm, initial encounter 08/02/2020 17:44 [facility] TYPE: Emergency COMPLAINT: - FLANK PAIN DIAGNOSES: - Unspecified abdominal pain - 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 [place] TYPE: Medical Surgical COMPLAINT: - PE DIAGNOSES: - Major depressive disorder, single episode, unspecified - Hypocalcemia - Tachycardia, unspecified - Acquired absence of both cervix and uterus - Constipation, unspecified - Postprocedural hypothyroidism - Other pulmonary embolism without acute cor pulmonale - Postprocedural hypothyroidism - Personal history of malignant neoplasm of thyroid - Acquired absence of both cervix and uterus - Major depressive disorder, single episode, unspecified - Personal history of malignant neoplasm of thyroid - Headache, unspecified - Constipation, unspecified - Dizziness and giddiness - 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
[2021-02-08] MEDS ORDERED: WARFARIN SODIUM5 MG PO (19:27)
[2021-02-08] MEDS ORDERED: WARFARIN SODIUM1 MG PO (19:50)
[2021-02-08] MEDS ORDERED: ENOXAPARIN60 MG/0.6 SUB-Q (19:50)
[2021-02-08] MEDS ORDERED: ENOXAPARIN80 MG/0.8 SUB-Q (19:51)
--- NOTE | 2021-02-08 21:24 | NUR ---
pt ARRIVES TO [place] VIA STRETCHER. 200 ML VOID UPON ARRIVAL, ONE SMALL CLOT NOTED IN URINE HAT. RIO PAD WITH SMALL AMT SANGUINOUS DRAINAGE. NEW PAD PLACED. pt EDUCATED ON PLAN FOR BED REST, CLEAR LIQUID DIET, CASH CATHETER. ORIENATION TO ROOM PROVIDED. JELLO AND ICE WATER PROVIDED. IV FLUSHED WNL AND IVF INFUSING ORDERED.
--- NOTE | 2021-02-08 21:55 | NUR ---
coop with admit assessment. 16fr f/c inserted, procedure explained. cooperative.
--- NOTE | 2021-02-09 00:16 | NUR ---
resting, no distress, on room air, IVF infusing, at bedside
--- NOTE | 2021-02-09 02:56 | NUR ---
awakes easily, on room air, abd soft, no vaginal drainage noted in pad. f/c patent. no c/o abd cramping,
--- NOTE | 2021-02-09 03:13 | NUR ---
PT SAYS SHE TAKES THYROID MED 112MCG
--- NOTE | 2021-02-09 05:48 | NUR ---
Pt awakes easily, on room air. IVF infusing w/o problems. f/c voiding QS dark yellow urine. has had to change onle 1 pad with approximately 100cc red vaginal drainage, no abnormal odor, no cramping. Tolerating clear liquids well, pt is bedrest only
[2021-02-09] MEDS ORDERED: ENOXAPARIN60 MG/0.6 INJ (07:26)
--- NOTE | 2021-02-09 07:33 | NUR ---
REPORT RECEIVED FROM PASQUALE JOSHI. PT RESTING IN BED ON BACK WITH EYES CLOSED, RESPIRATIONS EVEN AND UNLABORED. HEAD OF BED ELEVATED TO 20 DEGREES. FAMILY AT BEDSIDE. BED RAILS UP. CALL LIGHT WITHIN REACH. PT ALLOWED TO REST.
--- NOTE | 2021-02-09 08:52 | NUR ---
MORNING ASSESSMENT AND MEDICATION DUE. PT RESTING IN BED WITH HEAD OF BED ELEVATED TO 20 DEGREES. MATHIEU ALMODOVAR AND MARYLIN, AT BEDSIDE TO DC CASH CATHETER AND IV. IV AND CASH CATHETER DC'D PER PROTOCOL. PT TOELRATED WELL. PT DENIES PAIN AND NAUSEA. ASSESSMENT DONE: LUNG SOUNDS CLEAR. PT NOTED TO COUGH WITH DEEP BREATHING. PT ENCOUARGED TO CONTINUE TO TAKE DEEP BREATHS. RIO PAD 10% SATURATED WITH RED DRAINAGE AT THIS TIME. EDUCATION DONE WITH PT REGARDING WHEN TO CALL HER DOCTOR IF DRAINAGE INCREASES. PT VERBALIZES UNDERSTANDING. PT DECLINES BREAKFAST AT THIS TIME STATING "I'M JUST NOT HUNGRY YET." NO ADDTIIONAL REQEUSTS OR COMPLAINTS. CALL LIGHT WITHIN REACH. PT WATCHING TV. AT BEDSIDE. PT ENCORAUGED TO CALL FOR ASSISTANCE WHEN SHE IS READY TO GET DRESSED.
--- NOTE | 2021-02-09 09:00 | HP ---
[facility] [address], [place] [address] Signed ADMISSION DATE: 02/08/[address] Gibson CHIEF COMPLAINT: Vaginal bleeding. HISTORY: The patient is a 35-year-old status post total laparoscopic hysterectomy on 01/17/2021, who had pulmonary embolus diagnosed six days postoperatively, was begun on anticoagulation, but had recurrent PE on day eight while on Lovenox, so was transferred to [facility] for further evaluation and treatment on 01/28/2021. She was discharged from there on 02/01/2021, on Lovenox and Coumadin and did quite well for a week, but this morning began having some vaginal bleeding which seemed to continue all day. She states that she soaked four panty liners throughout the day, had one large gush with a moderate-sized clot passed. She was worried about the bleeding, so went to the emergency room where she was evaluated by the emergency room doctor. PAST SURGICAL HISTORY: Thyroidectomy for thyroid cancer 2016, cholecystectomy 2018, also abdominoplasty and breast implants in 2018. She also had laparoscopic excision of ectopic . PAST MEDICAL HISTORY: Hypothyroid secondary to treatment of thyroid cancer and anxiety. SOCIAL HISTORY: Nonsmoker and no drugs. Positive alcohol most days. CURRENT MEDICATIONS: Lovenox 80 mg subcu every 12 hours, Coumadin 7 mg p.o. at night, citalopram 20 mg nightly, and levothyroxine 115 mcg each morning. ALLERGIES: No known allergies. PHYSICAL EXAMINATION: GENERAL: The patient in no acute distress. VITAL SIGNS: Blood pressure is stable. Pulse stable but did increase with standing. ABDOMEN: Soft and nontender. VAGINAL: The patient has a panty liner in place. It has been there for about an hour and there was only a few slight spots of blood on the entire panty liner. No active Electronically Signed By: IMELDA DAVIS MD 02/09/21 0900 PATIENT NAME: SHREYA IBARRA HISTORY AND PHYSICAL DATE OF : 89 REPORT #: [id number] PHYSICIAN: IMELDA DAVIS MD PCP: JE MURILLO REPORT IS CONFIDENTIAL AND NOT TO BE RELEASED WITHOUT AUTHORIZATION [facility] [address], [place] [address] Signed bleeding at this time. IMPRESSION: Vaginal bleeding, probably secondary to anticoagulation. PLAN: Since the bleeding seems to have slowed down and is minimal at this point, I discussed options with the patient including exam under anesthesia, a speculum exam looking for possible site of bleeding or overnight observation to see if the bleeding is finally controlled. The patient agrees with overnight observation to try to avoid further surgery or vaginal exams causing discomfort and possibly more bleeding. The patient will be kept on strict bedrest with IV and Erwin. She received Lovenox and Coumadin tonight and will get next dose in the morning and decide on further treatment after overnight observation. I explained that if the bleeding were to get heavy overnight, she may need surgery tonight. The patient understood the plan and seem satisfied with the plan and was agreeable to overnight observation. MD FROILAN SteenB/KEVINL /[id number] Copies: ~ Electronically Signed By: IMELDA DAVIS MD 02/09/21 0900 PATIENT NAME: SHREYA IBARRA HISTORY AND PHYSICAL DATE OF : [birth year] REPORT #: [id number] PHYSICIAN: IMELDA DAVIS MD PCP: JE MURILLO PAC REPORT IS CONFIDENTIAL AND NOT TO BE RELEASED WITHOUT AUTHORIZATION
[2021-02-09] MEDS ORDERED: ENOXAPARIN60 MG/0.6 SUB-Q (09:17)
--- NOTE | 2021-02-09 10:00 | NUR ---
Pt lives in 2 story home with stairs. Denies issues with using the stairs. She lives with her spouse. Chin. She works from home. Does not use any DME. States they has been no change from her last admis- meera and plans on dc to home today. Denies any needs to go home. Pt had issues with finances, utilities, food cost last admission. She has been working with our CHW and issues have improved.
[2021-02-09] MEDS ORDERED: LOVENOX80 MG/0.8 SUB-Q (10:05)
--- NOTE | 2021-02-09 10:20 | NUR ---
PT READY FOR DISCHARGE. PT UP TO DRESS SELF, NO ASSISTANCE NEEDED. RIO PAD 20% SATURATED AT THIS TIME. PT ENCOURAGED TO CONTACT DOCTOR IF BLEEDING INCREASES AND RIO PAD IS COMPLETELY SATURATED IN UNDER 3 HOURS. PT VERBALIZES UNDERSTANDING. VITAL SIGNS STABLE. DISCHRAGE INSTRUCTIONS REVIEWED WITH PT. PT VERBAZLIES UNDERSANDING OF INSTRUCTIONS, MEDICATIONS, FOLLOW UP, AND LOW ACTIVITY/BED REST. DR. DAVIS STATES OK TO GIVE PT A I.S. I.S. PROVIDED. PT DEMONSTRATES CORRECT USE REACHING 2250ML. PT TRANSFERES SELF TO WHEELCHAIR AND IS WHEELED FROM MED/SURG TO MEET AT FRONT, NO ADDDITIONAL REQUESTS OR CONCERNS.
== END 2021-02-09 10:25 | disposition home or self-care (01) ==
LOC: ED 17:42 → MS 17:44
PROVIDERS: ADMIT General Practice; ATTEND General Practice
DX: N93.8 Other specified abnormal uterine and vaginal bleeding (principal); E89.0 Postprocedural hypothyroidism; Z79.01 Long term (current) use of anticoagulants; Z20.822 Contact with and (suspected) exposure to COVID-19; Z86.711 Personal history of pulmonary embolism
CPT/HCPCS: 80048; 85025; 85610; 85730; 86850; 86900; 86901; J1650; J7121; U0003

== ENCOUNTER 2021-02-12 16:23 | Emergency (ER) | payer OTHER ==
[~2021-02-12] VITALS: Ht 157.5 cm; Wt 70.8 kg
[~2021-02-12 16:23] MED LIST changes: +ENOXAPARIN60 MG/0.6 INJ; +ENOXAPARIN60 MG/0.6 SUB-Q; +ENOXAPARIN80 MG/0.8 SUB-Q; +LOVENOX80 MG/0.8 SUB-Q; +WARFARIN SODIUM1 MG PO; +WARFARIN SODIUM5 MG PO
--- OUTSIDE RECORDS SUMMARY | 2021-02-12 16:26 | XMS ---
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 Erica VISIT COUNT (12 MO.) [address] TOTAL 6 NOTE: Visits indicate total known visits. ED/C VISIT TRACKING (12 MO.) 02/12/2021 16:24 [facility] TYPE: Emergency COMPLAINT: - HEAVY MENSTRUAL BLEEDING 02/08/2021 17:43 [facility] [place] TYPE: Emergency COMPLAINT: - VAGINAL BLEEDING 01/28/2021 12:27 [facility] TYPE: Emergency DIAGNOSES: - Shortness of Breath - Other pulmonary embolism without acute cor pulmonale 01/23/2021 13:14 [facility] [place] TYPE: Emergency COMPLAINT: - DIZZINESS, WEAKNESS, RAPID HEART RATE 08/04/2020 21:50 [facility] [place] TYPE: Emergency COMPLAINT: - MEDICAL CLEARANCE DIAGNOSES: - Other prison (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 - Poisoning by propionic acid derivatives, intentional self-harm, initial encounter - Poisoning by propionic acid derivatives, intentional self-harm, initial encounter 08/02/2020 17:44 [facility] [place] TYPE: Emergency COMPLAINT: - FLANK PAIN DIAGNOSES: - Unspecified abdominal pain - Other prison (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 - Left upper quadrant pain INPATIENT VISIT TRACKING (12 MO.) 02/08/2021 17:44 [facility] TYPE: Observation COMPLAINT: - VAGINAL BLEEDING, PE, ON LOVENOX COUMADIN 01/28/2021 12:27 [facility] TYPE: Internal Medicine DIAGNOSES: - Hypothyroidism, unspecified - Major depressive disorder, single episode, unspecified - Other pulmonary embolism without acute cor pulmonale 01/25/2021 09:00 [facility] TYPE: Medical Surgical COMPLAINT: - PE DIAGNOSES: [...] unspecified - Dizziness and giddiness - Other prison (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 - Tachycardia, unspecified - Headache, unspecified - Other terminologist (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 - Hypocalcemia - Dizziness and giddiness [email or web address]
== END 2021-02-12 18:55 | disposition short-term general hospital (02) ==
LOC: ED 16:23
DX: N93.9 Abnormal uterine and vaginal bleeding, unspecified (principal); E03.9 Hypothyroidism, unspecified; Z79.899 Other long term (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; Z79.01 Long term (current) use of anticoagulants
CPT/HCPCS: 80053; 82728; 85025; 85610; 99284

== ENCOUNTER 2021-02-12 18:33 | Day surgery (SDC) | payer OTHER ==
--- NOTE | 2021-02-12 19:50 | NUR ---
02/12/211949 Светлана Mcknight 1930 PT ARRIVED IN PACU SLEEPY WITH OPA IN PLACE. 1933 PT REACTIVE. OPA REMOVED. 1949 RESTING. REU.
--- NOTE | 2021-02-12 20:26 | NUR ---
pt ARRIVES TO [place] VIA STRETCHER WITH SURGERY RN LACEY. pt DROWSY. VSS. PRIMARY RN IN ROOM. ICE WATER PROVIDED.
--- NOTE | 2021-02-12 21:00 | NUR ---
PT UP TO TOILET TO VOID. 400ML CLEAR YELLOW URINE NOTED. PT RETURNED TO BED, SCDS ON. IVF INFUSING WNL. AT BEDSIDE. CALL LIGHT WITHIN REACH.
--- NOTE | 2021-02-12 21:23 | NUR ---
POST OP VSS. pt RESTING IN BED, HAS HAD SIPS OF WATER. DENIES ADDITIONAL NEEDS, DENIES PO FOOD OFFERED. CALL LIGHT WITHIN REACH, pt ON CELLPHONE. AT BEDSIDE.
--- NOTE | 2021-02-12 22:05 | NUR ---
IN TO CHECK ON PT. PT IS MORE ALERT AND SITTING UP MORE IN BED. PT DENIES HUNGER OR ANY NEEDS AT THIS TIME. AT PT BEDSIDE
--- NOTE | 2021-02-12 22:36 | NUR ---
pt DISCHARGED FROM FLOOR AT 2223. pt WHEELED TO THE LOBBY BY CHARGE NURSE BERENICE. pt WAS ACCOMPANIED BY HER . VSS. pt URINATED BEFORE SHE LEFT AND DID HAVE SOME BLOOD IN HER URINE WHICH PER DR. ZULUAGA WAS EXPECTED. DISCHARGE INFO PACK AND TAKE HOME MEDS GIVEN.
== END 2021-02-12 22:23 | disposition home or self-care (01) ==
LOC: DS 18:33 → MS 18:34 → DS 22:23
PROVIDERS: ATTEND Obstetrics & Gynecology
PROC: 0UQG7ZZ Repair Vagina, Via Natural or Artificial Opening (ICD-10-PCS; principal; 2021-02-12 19:23)
DX: A58 Granuloma inguinale (principal); N93.9 Abnormal uterine and vaginal bleeding, unspecified; I26.99 Other pulmonary embolism without acute cor pulmonale; Z90.710 Acquired absence of both cervix and uterus; Z79.01 Long term (current) use of anticoagulants
CPT/HCPCS: J1100; J2250; J2405; J2704; J2765; J3010; J7121

== ENCOUNTER 2021-02-13 09:49 | Emergency (ER) | payer OTHER ==
[~2021-02-13] VITALS: Ht 157.5 cm; Wt 70.8 kg
--- OUTSIDE RECORDS SUMMARY | 2021-02-13 09:52 | XMS ---
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 EHuey VISIT COUNT (12 MO.) [address] TOTAL 7 NOTE: Visits indicate total known visits. ED/C VISIT TRACKING (12 MO.) 02/13/2021 09:50 [facility] TYPE: Emergency COMPLAINT: - POST OP PROBLEM 02/12/2021 16:24 [facility] TYPE: Emergency COMPLAINT: - HEAVY MENSTRUAL BLEEDING 02/08/2021 17:43 [facility] [place] TYPE: Emergency COMPLAINT: - VAGINAL BLEEDING [facility]28/2021 [facility]: [facility] DIAGNOSES: - Shortness of Breath - Other pulmonary embolism without acute cor pulmonale 01/23/2021 13:14 [facility] [place] TYPE: Emergency COMPLAINT: - DIZZINESS, WEAKNESS, RAPID HEART RATE 08/04/2020 21:50 [facility] TYPE: Emergency COMPLAINT: - MEDICAL CLEARANCE DIAGNOSES: - Other halfway (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 - Poisoning by propionic acid derivatives, intentional self-harm, initial encounter - Poisoning by propionic acid derivatives, intentional self-harm, initial encounter 08/02/2020 17:44 [facility] TYPE: Emergency COMPLAINT: - FLANK PAIN DIAGNOSES: - Unspecified abdominal pain - 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 - Left upper quadrant pain INPATIENT VISIT TRACKING (12 MO.) 02/08/2021 17:44 [facility] TYPE: Observation COMPLAINT: - VAGINAL BLEEDING, PE, ON LOVENOX COUMADIN DIAGNOSES: - Personal history of pulmonary embolism - residential (current) use of anticoagulants - Postprocedural hypothyroidism - Other specified abnormal uterine and vaginal bleeding 01/28/2021 12:27 [facility] TYPE: Internal Medicine DIAGNOSES: - Hypothyroidism, unspecified - Major depressive disorder, single episode, unspecified - Other pulmonary embolism without acute cor pulmonale 01/25/2021 09:00 [facility] TYPE: Medical Surgical COMPLAINT: - PE [...] unspecified - Dizziness and giddiness - 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 - Tachycardia, unspecified - Headache, unspecified - 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 - Hypocalcemia - Dizziness and giddiness [email or web address]
== END 2021-02-13 13:45 | disposition short-term general hospital (02) ==
LOC: ED 09:49
DX: K91.870 Postprocedural hematoma of a digestive system organ or structure following a digestive system procedure (principal); Z20.822 Contact with and (suspected) exposure to COVID-19
CPT/HCPCS: 74177; 85025; 99284-25; C9803; J2270; J7121; Q9967; U0003

== ENCOUNTER 2021-04-10 17:17 | Emergency (ER) | payer OTHER ==
[~2021-04-10] VITALS: Ht 157.5 cm; Wt 73.0 kg
--- OUTSIDE RECORDS SUMMARY | 2021-04-10 17:20 | XMS ---
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 [facility] MO[facility] TOTAL 8 NOTE: Visits indicate total known visits. ED/UCC VISIT TRACKING (12 MO.) 04/10/2021 17:18 [facility] TYPE: Emergency COMPLAINT: - LT KNEE INJURY 02/13/2021 09:50 [facility] TYPE: Emergency COMPLAINT: - POST OP PROBLEM DIAGNOSES: - Postprocedural hematoma of a digestive system organ or structure following a digestive system procedure - Postprocedural hematoma of a digestive system organ or structure following a digestive system procedure 02/12/2021 16:24 [facility] TYPE: Emergency COMPLAINT: - HEAVY MENSTRUAL BLEEDING DIAGNOSES: - Abnormal uterine and vaginal bleeding, unspecified - penitentiary (current) use of anticoagulants - Hypothyroidism, unspecified - Other group home (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 02/08/2021 17:43 [facility] [place] TYPE: Emergency COMPLAINT: - VAGINAL BLEEDING 01/28/2021 12:27 [facility] TYPE: Emergency DIAGNOSES: - Shortness of Breath - Other pulmonary embolism without acute cor pulmonale 01/23/2021 13:14 [facility] TYPE: Emergency COMPLAINT: - DIZZINESS, WEAKNESS, RAPID HEART RATE 08/04/2020 21:50 [facility] TYPE: Emergency COMPLAINT: - MEDICAL CLEARANCE DIAGNOSES: - Other group home (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 - Poisoning by propionic acid derivatives, intentional self-harm, initial encounter - Poisoning by propionic acid derivatives, intentional self-harm, initial encounter 08/02/2020 17:44 [facility] TYPE: Emergency COMPLAINT: - FLANK PAIN DIAGNOSES: - Unspecified abdominal pain - Other 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 helper termite (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 - Left upper quadrant pain INPATIENT VISIT TRACKING (12 MO.) 02/13/2021 15:00 [facility] TYPE: Internal Medicine DIAGNOSES: - Other pulmonary embolism without acute cor pulmonale - Postprocedural hemorrhage of a genitourinary system organ or structure following a genitourinary system procedure - Contusion of abdominal wall, initial encounter - Acquired absence of both cervix and uterus - Hypothyroidism, unspecified - uncontrolled vaginal bleeding 02/08/2021 17:44 [facility] TYPE: Observation COMPLAINT: - VAGINAL BLEEDING, PE, ON LOVENOX COUMADIN DIAGNOSES: - Personal history of pulmonary embolism - 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
[2021-04-10] MEDS ORDERED: ELIQUIS5 MG PO (21:16)
[2021-04-11] MEDS ORDERED: BACTRIM DS TAB1 EACH PO (01:13)
[2021-04-11] MEDS ORDERED: CEPHALEXIN500 MG PO (01:13)
== END 2021-04-11 01:59 | disposition home or self-care (01) ==
LOC: ED 17:17
DX: S80.212A Abrasion, left knee, initial encounter (principal); L03.116 Cellulitis of left lower limb; W19.XXXA Unspecified fall, initial encounter; Z85.850 Personal history of malignant neoplasm of thyroid; Z79.899 Other long term (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; Z23 Encounter for immunization
CPT/HCPCS: 73562; 90471; 90715; 99284-25

== ENCOUNTER 2021-09-21 16:02 | Emergency (ER) | payer OTHER ==
[~2021-09-21] VITALS: Ht 160 cm; Wt 74.1 kg
[~2021-09-21 16:02] MED LIST changes: +BACTRIM DS TAB1 EACH PO; +CEPHALEXIN500 MG PO; +ELIQUIS5 MG PO
--- OUTSIDE RECORDS SUMMARY | 2021-09-21 16:06 | XMS ---
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 Erica VISIT COUNT (12 MO.) [address] [place] TOTAL 9 NOTE: Visits indicate total known visits. ED/UCC VISIT TRACKING (12 MO.) 09/21/2021 16:[address] [facility] [place] TYPE: Emergency COMPLAINT: - RAPID HEART RATE, TROUBLE BREATHING, CHEST PAIN 08/14/2021 16:[address] [facility] [place] TYPE: Emergency COMPLAINT: - LOW B/P, HIGH HEART RATE, DIARRHEA, NAUSE, DIZZY5 DIAGNOSES: - Nasal congestion - Personal history of malignant neoplasm of thyroid - Dizziness and giddiness - Dyspnea, unspecified - Headache, unspecified - Nausea - COVID-19 - Diarrhea, unspecified 05/30/2021 18:14 [facility] [place] TYPE: Emergency DIAGNOSES: - Anemia, unspecified - Headache, unspecified - Chest pain, unspecified - chest pain 04/10/2021 17:18 [facility] TYPE: Emergency COMPLAINT: - LT KNEE INJURY DIAGNOSES: - Personal history of malignant neoplasm of thyroid - Pain in left knee - Encounter for immunization - Other intermediate designer (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 - Unspecified fall, initial encounter - Cellulitis of left lower limb - Abrasion, left knee, initial encounter 02/13/2021 09:50 [facility] TYPE: Emergency [...] Abnormal uterine and vaginal bleeding, unspecified - senior care (current) use of anticoagulants - Hypothyroidism, unspecified - Other group home (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 02/08/2021 17:43 [facility] [place] TYPE: Emergency COMPLAINT: - VAGINAL BLEEDING 01/28/2021 12:27 [facility] TYPE: Emergency DIAGNOSES: - Shortness of Breath - Other pulmonary embolism without acute cor pulmonale 01/23/2021 13:14 [facility] TYPE: Emergency COMPLAINT: - DIZZINESS, WEAKNESS, RAPID HEART RATE INPATIENT VISIT TRACKING (12 MO.) 02/13/2021 15:00 [facility]: [facility] DIAGNOSES: - Other pulmonary embolism without acute cor pulmonale - Postprocedural hemorrhage of a genitourinary system organ or structure following a genitourinary system procedure - Contusion of abdominal wall, initial encounter - Acquired absence of both cervix and uterus - Hypothyroidism, unspecified - uncontrolled vaginal bleeding 02/08/2021 17:44 [facility] TYPE: Observation COMPLAINT: - VAGINAL BLEEDING, PE, ON LOVENOX COUMADIN DIAGNOSES: - Personal history of pulmonary embolism - buttermaker (current) use of anticoagulants - Postprocedural hypothyroidism - Other specified abnormal uterine and vaginal bleeding 01/28/2021 12:27 [facility]: [facility] DIAGNOSES: - Hypothyroidism, unspecified [...] unspecified - Dizziness and giddiness - Other intermediate designer (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 - Tachycardia, unspecified - Headache, unspecified - Other group home (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 - Hypocalcemia - Dizziness and giddiness [email or web address]
[2021-09-21] MEDS ORDERED: ELIQUIS5 MG PO (19:29)
--- NOTE | 2021-09-21 20:24 | EKG ---
[facility] [address] [facility] [place] [address] Signed Sinus tachycardia Right atrial enlargement Nonspecific T wave abnormality Abnormal ECG When compared with ECG of 04-AUG-2020 22:24, Vent. rate has increased BY 52 BPM Nonspecific T wave abnormality now evident in Inferior leads Confirmed by MADDY HAND DO ([id number]) on 09/21/2021 8:23:54 PM Electronically Signed By: MADDY HAND DO 09/21/212023 PATIENT NAME: SHREYA IBARRA Electrocardiogram DATE OF : 89 PHYSICIAN: MADDY HAND DO REPORT #: [id number] REPORT IS CONFIDENTIAL AND NOT TO BE RELEASED WITHOUT AUTHORIZATION
== END 2021-09-21 20:18 | disposition home or self-care (01) ==
LOC: ED 16:02
DX: I26.99 Other pulmonary embolism without acute cor pulmonale (principal); Z79.899 Other long term (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
CPT/HCPCS: 71260; 80053; 85025; 93005; 93010; 99285-25; Q9967

== ENCOUNTER 2021-09-25 10:06 | Emergency (ER) | payer OTHER ==
[~2021-09-25] VITALS: Ht 160 cm; Wt 74.1 kg
--- OUTSIDE RECORDS SUMMARY | 2021-09-25 10:10 | XMS ---
PreManage Notification: SHREYA IBARRA Security Shelter Monitor Events No recent Security Events currently on file CRITERIA MET - [facility] - 2 Visits in 30 Days - [facility] CARE PROVIDERS JE MURILLO Physician 08/05/2020-Current PHONE: Unknown Iris Whitmore Community Health Worker 05/31/2021-Current PHONE: [phone] Vikki has no Care Guidelines for this patient. EHuey VISIT COUNT (12 MO.) [address] [place] [address] TOTAL 10 NOTE: Visits indicate total known visits. ED/C VISIT TRACKING (12 MO.) 09/25/2021 10:07 [facility] [place] TYPE: Emergency COMPLAINT: - SOB, RACING HEART, UPPER EXTREMITY PAIN, HEADACHE 09/21/2021 16:03 [facility] [place] TYPE: Emergency COMPLAINT: - RAPID HEART RATE, TROUBLE BREATHING, CHEST PAIN DIAGNOSES: - Other pulmonary embolism without acute cor pulmonale - Other buttermaker continuous churn (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 08/14/2021 16:16 [facility] [place] TYPE: Emergency COMPLAINT: - LOW B/P, HIGH HEART RATE, DIARRHEA, NAUSE, DIZZY5 DIAGNOSES: - Nasal congestion - Personal history of malignant neoplasm of thyroid - Dizziness and giddiness - Dyspnea, unspecified - Headache, unspecified - Nausea - COVID-19 - Diarrhea, unspecified 05/30/2021 18:14 [facility] [place] TYPE: Emergency DIAGNOSES: - Anemia, unspecified - Headache, unspecified - Chest pain, unspecified - chest pain 04/10/2021 17:18 [facility] [place] TYPE: Emergency COMPLAINT: - LT KNEE INJURY DIAGNOSES: - Personal history of malignant neoplasm of thyroid - Pain in left knee - Encounter for immunization - Other buttermaker continuous churn (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 - Unspecified fall, initial [...] a digestive system procedure 02/12/2021 16:24 [facility] TYPE: Emergency COMPLAINT: - HEAVY MENSTRUAL BLEEDING DIAGNOSES: - Abnormal uterine and vaginal bleeding, unspecified - half-way (current) use of anticoagulants - Hypothyroidism, unspecified - Other buttermaker continuous churn (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 02/08/2021 17:43 [facility] TYPE: Emergency COMPLAINT: - VAGINAL BLEEDING 01/28/2021 12:27 [facility] TYPE: Emergency DIAGNOSES: - Shortness of Breath - Other pulmonary embolism without acute cor pulmonale 01/23/2021 13:14 [facility] [place] TYPE: Emergency COMPLAINT: - DIZZINESS, WEAKNESS, RAPID HEART RATE INPATIENT VISIT TRACKING (12 MO.) 02/13/2021 15:00 [facility] TYPE: Internal Medicine DIAGNOSES: - [...] - Personal history of pulmonary embolism - rodent 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 (current) use of anticoagulants - Postprocedural hypothyroidism - Other specified abnormal uterine and vaginal bleeding [facility]28/2021 [facility] TYPE: Internal Medicine DIAGNOSES: - Hypothyroidism, [...] unspecified - Dizziness and giddiness - Other shelter (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 - Tachycardia, unspecified - Headache, unspecified - Other buttermaker continuous churn (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 - Hypocalcemia - Dizziness and giddiness [email or web address]
[2021-09-25] MEDS ORDERED: PREDNISONE20 MG PO (14:47)
--- NOTE | 2021-09-26 07:44 | EKG ---
[facility] [address] [facility] [place] [address] Signed Normal sinus rhythm Normal ECG When compared with ECG of 21-SEP-2021 16:10, Nonspecific T wave abnormality no longer evident in Anterolateral leads Confirmed by OMAR ACOSTA MD ([id number]) on 09/26/2021 7:43:53 AM Electronically Signed By: OMAR ACOSTA MD 09/26/21 0744 PATIENT NAME: STACEYSHREYAANDREA ROBERSON Electrocardiogram DATE OF : 89 PHYSICIAN: OMAR ACOSTA MD REPORT #: [id number] REPORT IS CONFIDENTIAL AND NOT TO BE RELEASED WITHOUT AUTHORIZATION
== END 2021-09-25 15:10 | disposition home or self-care (01) ==
LOC: ED 10:06
DX: R07.89 Other chest pain (principal); Z20.822 Contact with and (suspected) exposure to COVID-19; Z79.899 Other long term (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
CPT/HCPCS: 70450; 71045; 71260; 80053; 84484; 85025; 93005; 93010; 99285-25; C9803; J1100; U0003

== ENCOUNTER 2021-11-09 16:55 | Emergency (ER) | payer OTHER ==
[~2021-11-09] VITALS: Ht 160 cm; Wt 73.0 kg
--- OUTSIDE RECORDS SUMMARY | 2021-11-09 16:58 | XMS ---
PreManage Notification: SHREYA IBARRA Security Senior Financial Accountant Events No recent Security Events currently on file CRITERIA MET - [facility] CARE PROVIDERS JE MURILLO Physician Vice President Of Manufacturing 08/05/2020-Current PHONE: Unknown Iris Whitmore Community Health Worker 05/31/2021-Current PHONE: [phone] Vikki has no Care Guidelines for this patient. Care History Medical/Surgical 09/26/2021 [facility] - W CALLED PATIENT CONTACT NUMBERS: [phone], , . ALL CONTACT NUMBERS ARE NON WORKING NUMBERS. - W CALLED PATIENT PCP- DR MURILLO- LAST APT August AND HAS CANCELLED FOLLOW UP APTS -PATIENT REQUESTED TO BE SEEN IN THE ED INSTEAD. E.D. VISIT COUNT (12 MO.) [address] 9 [facility] TOTAL 11 NOTE: Visits indicate total known visits. ED/UCC VISIT TRACKING (12 MO.) 11/09/2021 16:55 [facility] [place] TYPE: Emergency COMPLAINT: - CHEST PAIN 09/25/2021 10:07 [facility] [place] TYPE: Emergency COMPLAINT: - SOB, RACING HEART, UPPER EXTREMITY PAIN, HEADACHE DIAGNOSES: - Other chest pain - Other skilled nursing (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 - Shortness of breath 09/21/2021 16:03 [facility] [place] TYPE: Emergency COMPLAINT: - RAPID HEART RATE, TROUBLE BREATHING, CHEST PAIN DIAGNOSES: - Other pulmonary embolism without acute cor pulmonale - Other long term care administrator (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 08/14/2021 16:16 [facility] [place] TYPE: Emergency COMPLAINT: - LOW B/P, HIGH HEART RATE, DIARRHEA, NAUSE, DIZZY5 DIAGNOSES: - Nasal congestion - Personal history of malignant neoplasm of thyroid - Dizziness and giddiness - Dyspnea, unspecified - Headache, unspecified - Nausea - COVID-19 - Diarrhea, unspecified 05/30/2021 18:14 [facility] [place] TYPE: Emergency DIAGNOSES: - Anemia, unspecified - Headache, unspecified - Chest pain, unspecified - chest pain 04/10/2021 17:18 [facility] [place] TYPE: Emergency COMPLAINT: - LT KNEE INJURY DIAGNOSES: - Personal history of malignant neoplasm of thyroid - Pain in left knee - Encounter for immunization - Other skilled nursing (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 - Unspecified fall, initial [...] following a digestive system procedure 02/12/2021 16:[address] [facility] [place] TYPE: Emergency COMPLAINT: - HEAVY MENSTRUAL BLEEDING DIAGNOSES: - Abnormal uterine and vaginal bleeding, unspecified - rn long term care (current) use of anticoagulants - Hypothyroidism, unspecified - Other long term care administrator (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 02/08/2021 17:43 [facility] TYPE: Emergency COMPLAINT: - VAGINAL BLEEDING 01/28/2021 12:27 [facility] TYPE: Emergency DIAGNOSES: - Shortness of Breath - Other pulmonary embolism without acute cor pulmonale 01/23/2021 13:14 [facility] TYPE: Emergency COMPLAINT: - DIZZINESS, WEAKNESS, RAPID HEART RATE INPATIENT VISIT TRACKING (12 MO.) 02/13/2021 15:00 [facility] TYPE: Internal Medicine DIAGNOSES: - Other [...] - Personal history of pulmonary embolism - rn long term care (current) use of anticoagulants - Postprocedural hypothyroidism - Other specified abnormal uterine and vaginal bleeding 01/28/2021 12:27 [facility] TYPE: Internal Medicine DIAGNOSES: - Hypothyroidism, [...] unspecified - Dizziness and giddiness - Other long term care administrator (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 - Tachycardia, unspecified - Headache, unspecified - Other skilled nursing (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 - Hypocalcemia - Dizziness and giddiness [email or web address]
[2021-11-09] MEDS ORDERED: ONDANSETRON ODT8 MG PO (19:14)
--- NOTE | 2021-11-10 07:20 | EKG ---
[facility] [address] [facility] [place], [place] [address] Signed Normal sinus rhythm Normal ECG When compared with ECG of 25-SEP-2021 10:27, No significant change was found Confirmed by OMAR ACOSTA MD ([id number]) on 11/10/2021 7:20:39 AM Electronically Signed By: OMAR ACOSTA MD 11/10/2120 PATIENT NAME: SHREYA IBARRA Electrocardiogram DATE OF : 89 PHYSICIAN: OMAR ACOSTA MD REPORT #: [id number] REPORT IS CONFIDENTIAL AND NOT TO BE RELEASED WITHOUT AUTHORIZATION
== END 2021-11-09 19:59 | disposition home or self-care (01) ==
LOC: ED 16:55
DX: R07.89 Other chest pain (principal); B34.9 Viral infection, unspecified; Z79.899 Other long term (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
CPT/HCPCS: 80053; 85025; 85379; 93005; 93010; 99285-25; A9270

== ENCOUNTER 2022-01-01 11:54 | Emergency (ER) | payer OTHER ==
[~2022-01-01] VITALS: Ht 160 cm; Wt 72.7 kg
[2022-01-01] MEDS ORDERED: HYDROCODON-ACE1 EA11 PO (14:51)
== END 2022-01-01 15:24 | disposition home or self-care (01) ==
LOC: ED 11:54
DX: K59.00 Constipation, unspecified (principal); Z85.850 Personal history of malignant neoplasm of thyroid; Z86.711 Personal history of pulmonary embolism; Z79.01 Long term (current) use of anticoagulants; R07.89 Other chest pain
CPT/HCPCS: 36415; 74177; 81001; 85025; 96375; 96376; 99284-25; A9270; J1170; J1885; J2405; J7030; Q9967

== ENCOUNTER 2022-04-16 08:41 | Emergency (ER) | payer OTHER ==
[~2022-04-16] VITALS: Ht 160 cm; Wt 72.7 kg
[~2022-04-16 08:41] MED LIST changes: +HYDROCODON-ACE1 EA11 PO
--- OUTSIDE RECORDS SUMMARY | 2022-04-16 08:44 | XMS ---
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 Care History Medical/Surgical 11/13/2021 [facility] - CHW CONTACTED PATIENT- DISCUSSED THE IMPORTANCE OF FOLLOWING UP WITH PCP DR MURILLO. PATIENT STATED SHE HAS NOT MADE A FOLLOW UP APT BUT WILL TODAY. - PATIENT IS CONCERNED WITH LOSING HER RENTAL HOUSE AND IS NEEDING FURTHER ASSISTANCE WITH PAYMENT. CHW PROVIDED [employer] CONTACT INFO. - CHW RECOMMENDED CONTACTING [facility] FOR FURTHER FOLLOW UP AND HELP. PATIENT STATED SHE WOULD CALL THEM WHEN AVAILABLE TO DO SO. 09/26/2021 [facility] - W CALLED PATIENT CONTACT NUMBERS: [phone], , . ALL CONTACT NUMBERS ARE NON WORKING NUMBERS. - CHW CALLED PATIENT PCP- DR MURILLO- LAST APT August AND HAS CANCELLED FOLLOW UP APTS -PATIENT REQUESTED TO BE SEEN IN THE ED INSTEAD. E.D. VISIT COUNT (12 MO.) 1 [facility] 1 [facility] 6 [facility] TOTAL 8 NOTE: Visits indicate total known visits. ED/UCC VISIT TRACKING (12 MO.) 04/16/2022 08:42 [facility] [place] TYPE: Emergency COMPLAINT: - POSS BLOODCLOTS IN LEGS 04/13/2022 18:17 [facility] TYPE: Emergency DIAGNOSES: - Leg Pain - Acute embolism and thrombosis of right femoral vein - Acute embolism and thrombosis of unspecified vein - Medical Problem (Major) - Poss Pelvic Clots 01/01/2022 11:54 [facility] TYPE: Emergency COMPLAINT: - ABDOMINAL PAIN DIAGNOSES: - detention (current) use of anticoagulants - Right lower quadrant pain - Personal history of malignant neoplasm of thyroid - Personal history of pulmonary embolism - Constipation, unspecified - Other chest pain 11/09/2021 16:55 [facility] [place] TYPE: Emergency COMPLAINT: - CHEST PAIN DIAGNOSES: - Viral infection, unspecified - Other skilled nursing (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 - Other chest pain 09/25/2021 10:07 [facility] [place] TYPE: Emergency COMPLAINT: - SOB, RACING HEART, UPPER EXTREMITY PAIN, HEADACHE DIAGNOSES: - Other chest pain - Other skilled nursing (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 - Shortness of breath 09/21/2021 16:03 [facility] [place] TYPE: Emergency COMPLAINT: - RAPID HEART RATE, TROUBLE BREATHING, CHEST PAIN DIAGNOSES: - Other pulmonary embolism without acute cor pulmonale - Other skilled nursing (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 08/14/2021 16:16 [facility] [place] TYPE: Emergency COMPLAINT: - LOW B/P, HIGH HEART RATE, DIARRHEA, NAUSE, DIZZY5 DIAGNOSES: - Nasal congestion - Personal history of malignant neoplasm of thyroid - Dizziness and giddiness - Dyspnea, unspecified - Headache, unspecified - Nausea - COVID-19 - Diarrhea, unspecified 05/30/2021 18:14 [facility] [place] TYPE: Emergency DIAGNOSES: - Anemia, unspecified - Headache, unspecified - Chest pain, unspecified - chest pain INPATIENT VISIT TRACKING (12 MO.) No inpatient visits to display in this time frame [email or web address]
== END 2022-04-16 10:50 | disposition home or self-care (01) ==
LOC: ED 08:41
DX: I82.511 Chronic embolism and thrombosis of right femoral vein (principal); Z79.01 Long term (current) use of anticoagulants; Z79.899 Other long term (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
CPT/HCPCS: 99283

== ENCOUNTER 2022-05-01 11:41 | Emergency (ER) | payer OTHER ==
[~2022-05-01] VITALS: Ht 160 cm; Wt 77.7 kg
--- OUTSIDE RECORDS SUMMARY | 2022-05-01 11:42 | XMS ---
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 - 2 Visits in 30 Days CARE PROVIDERS JE MURILLO Physician Child Development Instructor 08/05/2020-Current PHONE: Unknown Iris Whitmore Community Health Worker 05/31/2021-Current PHONE: [phone] Vikki has no Care Guidelines for this patient. Care History Medical/Surgical 11/13/2021 [facility] - CHW CONTACTED PATIENT- DISCUSSED THE [...] THEM WHEN AVAILABLE TO DO SO. 09/26/2021 [facility] - W CALLED PATIENT CONTACT NUMBERS: [phone], , . ALL CONTACT NUMBERS ARE NON WORKING NUMBERS. - CHW CALLED PATIENT PCP- DR MURILLO- LAST APT August AND HAS CANCELLED FOLLOW UP APTS -PATIENT REQUESTED TO BE SEEN IN THE ED INSTEAD. ESamuelDSamuel VISIT COUNT (12 MO.) 1 [facility] 1 [facility] 7 [facility] Crow TOTAL 9 NOTE: Visits indicate total known visits. ED/UCC VISIT TRACKING (12 MO.) 05/01/2022 11:41 [facility] [place] TYPE: Emergency COMPLAINT: - ABD PAIN 04/16/2022 08:42 [facility] TYPE: Emergency COMPLAINT: - POSS BLOODCLOTS IN LEGS DIAGNOSES: - Other intermediate (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 - half-way (current) use of anticoagulants - Chronic embolism and thrombosis of right femoral vein [facility]22 [facility] DIAGNOSES: - Leg Pain - Acute embolism and thrombosis of right femoral vein - Acute embolism and thrombosis of unspecified vein - Medical Problem (Major) - Poss Pelvic Clots 01/01/2022 11:54 [facility] TYPE: Emergency COMPLAINT: - ABDOMINAL PAIN DIAGNOSES: - intermodal dispatcher (current) 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 [facility] [place] TYPE: Emergency COMPLAINT: - CHEST PAIN DIAGNOSES: - Viral infection, unspecified - Other intermediate (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 - Other chest pain 09/25/2021 10:[address] [facility] [address] [facility] [place] TYPE: Emergency COMPLAINT: - SOB, RACING HEART, UPPER EXTREMITY PAIN, HEADACHE DIAGNOSES: - Other chest pain - Other intermediate (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 - Shortness of breath 09/21/2021 16:[address] [facility] [address] [facility] [place] TYPE: Emergency COMPLAINT: - RAPID HEART RATE, TROUBLE BREATHING, CHEST PAIN DIAGNOSES: - Other pulmonary embolism without acute cor pulmonale - Other technician terminal and repeater (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 08/14/2021 16:[address] [facility] [address] [facility] [place] TYPE: Emergency COMPLAINT: - LOW B/P, HIGH HEART RATE, DIARRHEA, NAUSE, DIZZY5 DIAGNOSES: - Nasal congestion - Personal history of malignant neoplasm of thyroid - Dizziness and giddiness - Dyspnea, unspecified - Headache, unspecified - Nausea - COVID-19 - Diarrhea, unspecified 05/30/2021 18:14 [facility] [place] TYPE: Emergency DIAGNOSES: - Anemia, unspecified - Headache, unspecified - Chest pain, unspecified - chest pain INPATIENT VISIT TRACKING (12 MO.) No inpatient visits to display in this time frame [email or web address]
[2022-05-01] MEDS ORDERED: HYDROCODON-ACE1 EA10 PO (18:14)
== END 2022-05-01 18:34 | disposition home or self-care (01) ==
LOC: ED 11:41
DX: N83.292 Other ovarian cyst, left side (principal); Z85.850 Personal history of malignant neoplasm of thyroid; Z79.01 Long term (current) use of anticoagulants; Z79.899 Other long term (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
CPT/HCPCS: 36415; 74177; 76830; 76856; 80053; 81001; 85025; 85060; 96361; 96375; 96376; 99284-25; A9270; J1170; J2405; J7030; Q9967

== ENCOUNTER 2022-05-04 10:19 | Emergency (ER) | payer OTHER ==
[~2022-05-04] VITALS: Ht 160 cm; Wt 77.7 kg
--- OUTSIDE RECORDS SUMMARY | 2022-05-04 10:22 | XMS ---
PreManage Notification: SHREYA IBARRA Security Case Maker Events No recent Security Events currently on file CRITERIA MET - 6 ED Visits in 6 Months - [facility] - 2 Visits in 30 Days CARE PROVIDERS JE MURILLO Physician Floorworker Distributor 08/05/2020-Current PHONE: Unknown Iris Whitmore Community Health Worker 05/31/2021-Current PHONE: [phone] Vikki has no Care Guidelines for this patient. Care History Medical/Surgical 11/13/2021 [facility] - CHW CONTACTED PATIENT- DISCUSSED [...] THEM WHEN AVAILABLE TO DO SO. 09/26/2021 [facility] - W CALLED PATIENT CONTACT NUMBERS: [phone], , . ALL CONTACT NUMBERS ARE NON WORKING NUMBERS. - CHW CALLED PATIENT PCP- DR MURILLO- LAST APT August AND HAS CANCELLED FOLLOW UP APTS -PATIENT REQUESTED TO BE SEEN IN THE ED INSTEAD. E.D. VISIT COUNT (12 MO.) [address] 8 MAR[facility] Crow TOTAL 11 NOTE: Visits indicate total known visits. ED/C VISIT TRACKING (12 MO.) 05/04/2022 10:19 [facility] [place] TYPE: Emergency COMPLAINT: - CHEST PAIN, RACING HEART 05/02/2022 18:49 [facility] TYPE: Emergency DIAGNOSES: - Unspecified ovarian cyst, unspecified side - abd pain - Abdominal Pain 05/01/2022 11:41 [facility] TYPE: Emergency COMPLAINT: - ABD PAIN DIAGNOSES: - neon glass bender (current) use of anticoagulants - Other fdc (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 - Personal history of malignant neoplasm of thyroid - Left upper quadrant pain - Other ovarian cyst, left side 04/16/2022 08:42 [facility] TYPE: Emergency COMPLAINT: - POSS BLOODCLOTS IN LEGS DIAGNOSES: - Other fdc (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 - [facility]FP (current) use of anticoagulants - Chronic embolism and thrombosis of right femoral vein 04/13/2022 18[facility] [place] [facility]: Emergency DIAGNOSES: - Leg Pain - Acute embolism and thrombosis of right femoral vein - Acute embolism and thrombosis of unspecified vein - Medical Problem (Major) - Poss Pelvic Clots 01/01/2022 11:54 [facility] [place] TYPE: Emergency COMPLAINT: - ABDOMINAL PAIN DIAGNOSES: - neon glass bender (current) use of anticoagulants - Right lower quadrant pain - Personal history of malignant neoplasm of thyroid - Personal history of pulmonary embolism - Constipation, unspecified - Other chest pain 11/09/2021 16:55 [facility] [place] TYPE: Emergency COMPLAINT: - CHEST PAIN DIAGNOSES: - Viral infection, unspecified - Other tray checker (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 - Other chest pain 09/25/2021 10:07 [facility] [place] TYPE: Emergency COMPLAINT: - SOB, RACING HEART, UPPER EXTREMITY PAIN, HEADACHE DIAGNOSES: - Other chest pain - Other fdc (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 - Shortness of breath 09/21/2021 16:03 [facility] [place] TYPE: Emergency COMPLAINT: - RAPID HEART RATE, TROUBLE BREATHING, CHEST PAIN DIAGNOSES: - Other pulmonary embolism without acute cor pulmonale - Other fdc (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 08/14/2021 16:16 [facility] [place] TYPE: Emergency COMPLAINT: - LOW B/P, HIGH HEART RATE, DIARRHEA, NAUSE, DIZZY5 DIAGNOSES: - Nasal congestion - Personal history of malignant neoplasm of thyroid - Dizziness and giddiness - Dyspnea, unspecified - Headache, unspecified - Nausea - COVID-19 - Diarrhea, unspecified 05/30/2021 18:14 [facility] [place] TYPE: Emergency DIAGNOSES: - Anemia, unspecified - Headache, unspecified - Chest pain, unspecified - chest pain INPATIENT VISIT TRACKING (12 MO.) No inpatient visits to display in this time frame [email or web address]
--- NOTE | 2022-05-05 14:50 | EKG ---
[facility] [address] [facility] [place] [address] Signed Normal sinus rhythm Normal ECG When compared with ECG of 09-NOV-2021 17:02, No significant change was found Confirmed by JUSTYNA LU MD ([id number]) on 05/05/2022 2:50:29 PM Electronically Signed By: JUSTYNA LU MD 05/05/22 1450 PATIENT NAME: STACEYSHREYA KAROL Electrocardiogram DATE OF : 89 PHYSICIAN: JUSTYNA LU MD REPORT #: [id number] REPORT IS CONFIDENTIAL AND NOT TO BE RELEASED WITHOUT AUTHORIZATION
== END 2022-05-04 14:43 | disposition home or self-care (01) ==
LOC: ED 10:19
DX: R07.89 Other chest pain (principal); Z20.822 Contact with and (suspected) exposure to COVID-19; Z85.850 Personal history of malignant neoplasm of thyroid
CPT/HCPCS: 36415; 71045; 71260; 80053; 83735; 84484; 85025; 87502; 99285-25; Q9967; U0003